=== PATIENT | male | born 1945 | race Caucasian/White ===

== ENCOUNTER 2017-03-27 09:45 | Emergency (ER) | payer MEDICARE, OTHER ==
--- NOTE | 2017-03-27 10:30 | RAD ---
2 VIEWS CHEST: Date: 03/27/17 COMPARISON: 01/30/16. HISTORY: Fell of treadmill at rehab. Chest pain. FINDINGS: Two views of the chest show normal sized cardiomediastinal silhouette. The patient is status post st ernotomy. There is no evidence of consolidation, mass, or pleural effusion. Degenerative changes are seen in the spine. IMPRESSION: No evidence of acute cardiopulmonary disease. POS: [facility]
--- NOTE | 2017-03-27 10:31 | RAD ---
3 VIEWS RIGHT SHOULDER: Date: 03/27/17 COMPARISON: None. HISTORY: Right shoulder pain after falling off a treadmill at rehab. FINDINGS: Three views of the right shoulder show no evidence of acute fracture or dislocation. No degenerative changes are seen. The visualized right thorax is unremarkable. IMPRESSION: No evidence of acute osseous abnormality. POS: [facility]
== END 2017-03-27 12:11 | disposition home or self-care (01) ==
LOC: ERS 09:45
DX: S46.911A Strain of unspecified muscle, fascia and tendon at shoulder and upper arm level, right arm, initial encounter (principal); G47.30 Sleep apnea, unspecified; I48.91 Unspecified atrial fibrillation; E78.5 Hyperlipidemia, unspecified; W17.89XA Other fall from one level to another, initial encounter; Y93.A1 Activity, exercise machines primarily for cardiorespiratory conditioning; Y92.199 Unspecified place in other specified residential institution as the place of occurrence of the external cause
CPT/HCPCS: 71020

== ENCOUNTER 2017-06-17 12:24 | Outpatient (CLI) | payer MEDICARE, OTHER ==
[2017-06-17 13:46] LABS: #Lymphocytes 1.2 thou/uL (1.20-3.40); #Monocytes 0.4 thou/uL (0.11-0.59); #Neutrophils 1.9 thou/uL (1.40-6.50); %Basophils 0.5 % (0.0-1.0); %Eosinophils 1.2 % (0.0-10.0); %Lymphocytes 33.3 % (21.0-51.0); %Monocytes 12.2 % (0.0-10.0); Hematocrit 42.6 % (42.0-52.0); Red Blood Cell (RBC) Count 4.07 mill/uL (4.70-6.10); White Blood Cell (WBC) Count 3.6 thou/uL (4.8-10.8)
[2017-06-17 14:16] LABS: ALT (SGPT) 33 U/L (8-55); AST (SGOT) 27 U/L (5-34); Alkaline Phosphatase 88 U/L (40-150); Anion Gap 10 mmol/L (10-20); BUN (Urea Nitrogen) 26 mg/dL (8.4-25.7); Bilirubin, Total 0.5 mg/dL (0.2-1.2); Calc. Creatinine Clearance 0 mL/min (70-130); Carbon Dioxide 28 mmol/L (23-31); Chloride 108 mmol/L (98-107); Estimated GFR-MDRD 53; Globulin 2.1 g/dL (2.4-3.5)
[2017-06-17 14:37] LABS: Macrocytosis SLIGHT = 6-15 cells (100X) (0-5/hpf); Ovalocytes SLIGHT = 2-5 cells (100X) (0-1/hpf); Polychromasia SLIGHT = 2-3 cells (100X) (0-2/hpf)
== END 2017-06-17 12:25 | disposition home or self-care (01) ==
LOC: LABBT 12:24
PROVIDERS: ATTEND Surgery
DX: Z01.818 Encounter for other preprocedural examination (principal); K40.91 Unilateral inguinal hernia, without obstruction or gangrene, recurrent
CPT/HCPCS: 80053; 85025; 93005; 93010

== ENCOUNTER 2017-06-19 08:41 | Day surgery (SDC) | payer MEDICARE, OTHER ==
[2017-06-17 13:16] VITALS: BMI 26.6
--- NOTE | 2017-06-19 09:06 | HP ---
CHIEF COMPLAINT: Recurrent right inguinal hernia. HISTORY: The patient is a 72-year-old male, who has a recurrent right groin bulge. He had a hernia repair in 1973 in the [employer]. He had mitral valve surgery in September and has been on Coumadin, he h as been off that for the last 5 days. He is here for right inguinal hernia repair. PAST MEDICAL HISTORY: Significant for mitral stenosis, atrial fibrillation, seasonal allergies, hypo thyroidism, and hypertension. PAST SURGICAL HISTORY: Mitral valve repair in 09/2016, he did a laser prostate abdominal hernia repa ir in 1973. He had a UPP 1989, he had a coronary stent in 01/2017, and a right ureter surgery. MEDICATIONS: Include Citrucel, multivitamins, aspirin, Cialis, pravastatin, Lasix, amiodarone, , sodium, digoxin, calcium, vitamin D3, and vitamin B12. FAMILY HISTORY: Both parents are . SOCIAL HISTORY: He is . No tobacco, no alcohol. ALLERGIES: SULFA. PHYSICAL EXAMINATION: VITAL SIGNS: Height 5 foot 7, weight 165. Body mass index 25.4, blood pressure 106/59, pulse of 55. GENERAL: Well-developed, well-nourished male, in no apparent distress. HEENT: Unremarkable. LUNGS: Clear. HEART: Regular rate and rhythm. ABDOMEN: Soft, nontender, good bowel sounds. He has a reducible right inguinal hernia. No left-jessi ed hernia. EXTREMITIES: Good pulses. No pedal edema. ASSESSMENT: Recurrent right inguinal hernia. PLAN: Right inguinal hernia repair with mesh. CONSENT: I have discussed the planned procedure as well as risk of bleeding, infection, recurrence, injury to nerve. He understands and gives informed consent.
[2017-06-19] MEDS ORDERED: Bupivacaine/Epinephrine 0.25% 30 ML VIAL ONE (09:07)
[2017-06-19 09:37] LABS: PTT 29.6 SEC (22.9-36.1); Prothrombin Time 13.5 SEC (12.0-14.7)
[2017-06-19] MEDS ORDERED: CEFAZOLIN/Water 2 GM/20 ML SYRINGE ONE (09:43)
--- NOTE | 2017-06-19 11:07 | OP ---
DATE OF PROCEDURE: 06/19/2017 PREOPERATIVE DIAGNOSIS: Recurrent right inguinal hernia. SURGEON: Gilberto Vail M.D. PROCEDURE PERFORMED: Recurrent right inguinal hernia repair with mesh. INDICATIONS: This is a 72-year-old male who had had a previous right inguinal hernia repair in the and developed a recurrent bulge that was painful in the right groin. He was found to have recur rent hernia. FINDINGS: Recurrent direct inguinal hernia at the pubic tubercle. PROCEDURE: After informed consent was obtained, the patient was taken to the operating room and give n general mask anesthesia, placed in the supine position. His groin was prepped and draped in the us ual fashion. Local anesthesia infiltrated subcutaneously and deep. A transverse right inguinal inci frederick was performed. The subcu divided sharply. The fascia of the external oblique was incised in th e direction of its fibers through the external ring. Spermatic cord was dissected out and surrounded by a Parksley drain. The hernia was found. It was circumscribed and reduced. Reduction was maintai tito utilizing a PHS hernia system placed in the preperitoneal space, tucked under the external obliqu e fascia laterally and then sutured to the pubic tubercle medially. A notch was cut out for the cord . Hemostasis was assured. The external oblique fascia closed over the cord with a running 3-0 Vicry l. Yaya's closed with interrupted 3-0 Vicryl and the skin closed with a running subcuticular 4-0 R apide. Steri-Strips applied. Sterile bandage applied. The patient tolerated the procedure well and transferred to recovery in good condition. Sponge and needle count verified correct x2.
== END 2017-06-19 13:45 ==
LOC: SDC 08:41
PROVIDERS: ATTEND Surgery
PROC: 0YU50JZ Supplement Right Inguinal Region with Synthetic Substitute, Open Approach (ICD-10-PCS; principal; 2017-06-19)
DX: K40.91 Unilateral inguinal hernia, without obstruction or gangrene, recurrent (principal); I48.91 Unspecified atrial fibrillation; E03.9 Hypothyroidism, unspecified; I10 Essential (primary) hypertension; Z88.2 Allergy status to sulfonamides; Z98.890 Other specified postprocedural states; Z95.5 Presence of coronary angioplasty implant and graft; Z79.82 Long term (current) use of aspirin; Z79.899 Other long term (current) drug therapy
CPT/HCPCS: 49520; 85610; 85730; C1781; J0131

== ENCOUNTER 2018-03-09 08:35 | Outpatient (CLI) | payer MEDICARE, OTHER ==
--- NOTE | 2018-03-09 12:05 | RAD ---
TWO VIEWS OF THE CHEST: COMPARISON: 03/27/17. HISTORY: Altered mental status. Atrial fibrillation. FINDINGS: Two views of the chest show a normal-size cardiomediastinal silhouette. The patient is status post s ternotomy and cardiac valve repair. There is no evidence of consolidation, mass, or pleural effusion . IMPRESSION: No evidence of acute cardiopulmonary disease. POS: [facility]
== END 2018-03-09 08:36 | disposition home or self-care (01) ==
LOC: RAD 08:35
PROVIDERS: ATTEND Internal Medicine Cardiovascular Disease
DX: Z03.89 Encounter for observation for other suspected diseases and conditions ruled out (principal); R06.02 Shortness of breath; R07.89 Other chest pain; R05 Cough; I48.0 Paroxysmal atrial fibrillation; D64.9 Anemia, unspecified; E03.9 Hypothyroidism, unspecified; E78.00 Pure hypercholesterolemia, unspecified; G47.33 Obstructive sleep apnea (adult) (pediatric); I10 Essential (primary) hypertension; Z98.890 Other specified postprocedural states
CPT/HCPCS: 71046

== ENCOUNTER 2018-09-20 08:52 | Outpatient (CLI) | payer MEDICARE, OTHER ==
--- NOTE | 2018-09-20 11:38 | RAD ---
CHEST TWO VIEWS: INDICATIONS: Anemia. COMPARISON: 03/09/2018 FINDINGS: Minimal patchy density of the left lateral lung base is stable. The cardiomediastinal silhouette is similar in appearance. Mild linear density overlying the lateral right costophrenic sulcus is again seen. There is a mild anterior wedge compression deformity of the lower thoracic spine, similar in a ppearance. The chest is otherwise stable. IMPRESSION: Stable chest. POS: [facility]
== END 2018-09-20 08:53 | disposition home or self-care (01) ==
LOC: RAD 08:52
PROVIDERS: ATTEND Internal Medicine Cardiovascular Disease
DX: D64.9 Anemia, unspecified (principal); E03.9 Hypothyroidism, unspecified; E78.00 Pure hypercholesterolemia, unspecified; G47.33 Obstructive sleep apnea (adult) (pediatric); I10 Essential (primary) hypertension; Z98.890 Other specified postprocedural states
CPT/HCPCS: 36415; 71046; 80053; 80061; 84443

== ENCOUNTER 2019-02-11 17:56 | Inpatient (IN) | payer MEDICARE, OTHER ==
--- NOTE | 2019-02-11 19:20 | RAD ---
XR Hip Lt 2-3 View History: Hip pain Comparison: None. Findings: Mid cervical left femoral neck fracture with mild impaction. Obturator ring is intact. Impression: Mid cervical left femoral neck fracture.
--- NOTE | 2019-02-11 19:21 | RAD ---
XR Femur Lt 2 View STANDARD History: Fall from standing. Comparison: None. Findings: Mid cervical left femoral neck fracture. Remainder of the femur appears unremarkable given the limitation of the crosstable lateral exam. Impression: Mid cervical left femoral neck fracture.
[2019-02-11] MEDS ORDERED: Ketorolac Tromethamine 30 MG/ML VIAL ONE (19:37)
[2019-02-11 19:57] LABS: #Lymphocytes 0.9 thou/uL (1.20-3.40); #Monocytes 0.4 thou/uL (0.11-0.59); #Neutrophils 3.1 thou/uL (1.40-6.50); %Basophils 0.5 % (0.0-1.0); %Lymphocytes 19.6 % (21.0-51.0); %Monocytes 9.7 % (0.0-10.0); %Neutrophils 69.1 % (42.0-75.0); Hemoglobin 14.2 g/dL (14.0-18.0); Mean Corpuscular HGB CONC 33.9 g/dL (32.0-36.0); Mean Platelet Volume 7.2 fL (7.4-10.4); Platelet Count 187 thou/uL (130-400); RBC Distribution Width 12.1 % (11.5-14.5); Red Blood Cell (RBC) Count 4.07 mill/uL (4.70-6.10); White Blood Cell (WBC) Count 4.4 thou/uL (4.8-10.8)
[2019-02-11 20:06] LABS: Prothrombin Time 13.1 SEC (12.0-14.7)
[2019-02-11 20:16] LABS: ALT (SGPT) 18 U/L (8-55); AST (SGOT) 23 U/L (5-34); Albumin 4.1 g/dL (3.4-4.8); Alkaline Phosphatase 77 U/L (40-150); Anion Gap 14 mmol/L (10-20); BUN (Urea Nitrogen) 31 mg/dL (8.4-25.7); Bilirubin, Total 0.5 mg/dL (0.2-1.2); Calc. Creatinine Clearance 0 mL/min (70-130); Calcium 9.5 mg/dL (7.8-10.44); Carbon Dioxide 21 mmol/L (23-31); Chloride 108 mmol/L (98-107); Estimated GFR-MDRD 42; Globulin 2.7 g/dL (2.4-3.5); Glucose 84 mg/dL (83-110); Potassium 3.9 mmol/L (3.5-5.1); Protein, Total 6.8 g/dL (5.8-8.1); Sodium 139 mmol/L (136-145)
[2019-02-11] MEDS ORDERED: Polyethylene Glycol 3350 17 GM Packet PO PRN (21:31)
[2019-02-11] MEDS ORDERED: Morphine 4 MG/ML VIAL SLOW IVP PRN (21:31)
[2019-02-11] MEDS ORDERED: hydrALAZINE 20 MG/ML VIAL SLOW IVP PRN (21:32)
[2019-02-11] MEDS ORDERED: Dextrose 5% in Water 1,000 ML IV PRN (21:32)
[2019-02-11] MEDS ORDERED: Ondansetron ODT 4 MG TAB PO PRN (21:32)
[2019-02-11] MEDS ORDERED: Ondansetron PF 4 MG/2 ML Vial IVP PRN ×2 (21:32)
[2019-02-11] MEDS ORDERED: Dextrose 50% Abboject 50 ML SYRINGE SLOW IVP PRN (21:32)
[2019-02-11] MEDS ORDERED: Acetaminophen 325 MG TAB PO PRN (21:32)
[2019-02-11] MEDS ORDERED: Ondansetron ODT 4 MG TAB SL PRN (21:32)
[2019-02-11 22:07] LABS: CK (CPK) 164 U/L (30-200); Magnesium 2.3 mg/dL (1.6-2.6); Phosphorus 2.2 mg/dL (2.3-4.7)
[2019-02-11] MEDS: Sodium Chloride 0.9% 1,000 ML IV SCH (22:11)
[2019-02-11] MEDS ORDERED: Polyethylene Glycol 3350 17 GM Packet PO SCH (22:45)
[2019-02-11] MEDS ORDERED: traMADol HCl 50 MG TAB PO PRN ×2 (22:45)
[2019-02-11] MEDS ORDERED: Morphine 2 MG/ML SYRINGE IVP PRN (22:46)
[2019-02-11] MEDS ORDERED: Senokot S 8.6-50 MG TAB PO SCH (23:00)
[2019-02-11] MEDS: Acetaminophen 1,000 MG in Premix Bag 1 BAG IVPB SCH (23:04)
[2019-02-11] MEDS: Cyclobenzaprine 10 MG TAB PO PRN (23:04)
[2019-02-11 23:34] VITALS: BMI 28.1
--- NOTE | 2019-02-12 01:17 | HP ---
REQUESTING PHYSICIAN: Dr. Dalal. ATTENDING SURGEON: Dr. Butler. CONSULTATIONS: Orthopedics, Dr. Jimenez. 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 Patient had immediate pain and discomfort. He was brought to the emergency department, where he underwent evaluation and examination and was noted to have a left femoral neck fracture, at which time we were asked to evaluate the patient for admission and obtain Orthopedic consultation. Patient denied any loss of consciousness or syncopal symptoms prior to his fall. His current chief complaint remains left hip pain. ALLERGIES: MORPHINE, WHICH PATIENT STATES CAUSED HIM SEVERE CONSTIPATION POSTOPERATIVELY ONE TIME, BUT DENIED ANY ANAPHYLACTIC-TYPE REACTIONS. SULFA MEDICATIONS, RASH. CURRENT MEDICATIONS: 1. Amiodarone. 2. Lasix. 3. Pravastatin. 4. Cialis. 5. Multivitamins. 6. Daily baby aspirin, though the patient states he actually only takes three times a week. 7. Patient will take amoxicillin prophylactically for any dental work. PAST MEDICAL HISTORY: Hypertension; hyperlipidemia; mitral valve prolapse; atrial fibrillation, patient states he has been in a sinus rhythm for approximately 2 years; aortic aneurysm; and chronic kidney disease, stage 1. PAST SURGICAL HISTORY: Hernia repair; mitral valve repair, patient states that he did not have replacement, only repair; vasectomy; TURP x2; and cardiac catheterization. SOCIAL HISTORY: Patient denies drug, tobacco, or alcohol use. Lives at home with family. 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 REVIEW OF SYSTEMS: 10-point review of systems is negative, except otherwise stated. PHYSICAL EXAMINATION: VITAL SIGNS: Blood pressure 139/66, heart rate 67, respirations 18, oxygen saturation 95% on room air, and temperature 98.2. GENERAL: The patient is resting comfortably in bed. He is awake, alert, and oriented x3. [place] Coma Scale is 15. HEENT: Head is normocephalic and atraumatic. Eyes, extraocular motion intact. PERRLA bilaterally. Ears are atraumatic without discharge. Nose, atraumatic without discharge. Oropharynx is clear. NECK: Nontender. Trachea is midline. No JVD. CHEST: Clear to auscultation with good inspiratory and expiratory effort. HEART: Regular rate and rhythm. ABDOMEN: Soft, flat, and nontender with active bowel sounds. PELVIS: Stable with tenderness to palpation to the left hip consistent with his fracture. EXTREMITIES: Neurovascularly intact x4. Patient does have a small contusion noted to the lateral aspect of his left knee and contusion noted to the right wrist. Patient demonstrates full active range of motion of that wrist and states it only feels like a bruise. Declines x-ray at this time. BACK: By report atraumatic and nontender. EKG: EKG results show a sinus rhythm. LABORATORY FINDINGS: White blood cell count 4.4, hemoglobin 14.2, hematocrit 41.9, and platelets 187. Sodium 139, potassium 3.9, chloride 108, CO2 of 21, BUN 31, creatinine 1.61, glucose 84, phosphorus 2.2, and magnesium 2.3. LFTs are unremarkable. CK is 164. PT 13 and INR 1.0. RADIOGRAPHIC REPORTS: 1. Radiographs of the left femur show a mid cervical left femoral neck fracture of the left hip. 2. Radiograph of the left hip also shows a mid cervical left femoral neck fracture. ASSESSMENT/PLAN: 1. Status post ground level fall. 2. Left femoral neck fracture. 3. History of atrial fibrillation, on amiodarone, sinus rhythm for past two years. 4. History of aortic aneurysm, stable. 5. History of transurethral resection of the prostate x2. 6. History of hypertension. 7. History of hyperlipidemia. PLAN: Plan will be to admit the patient to the surgical floor. He will be made n.p.o. after midnight. Pain control, pulmonary toilet, gastritis and mechanical VTE prophylaxis. In light of the patient's chronic kidney disease, we will avoid NSAIDS on this patient. Postoperatively, we will have him work with Physical and Occupational Therapy and discuss placement at that time. Job ID: [id number]
[2019-02-12] MEDS: Acetaminophen 1,000 MG in Premix Bag 1 BAG IVPB SCH (05:18)
[2019-02-12] MEDS: Sodium Chloride 0.9% 1,000 ML IV SCH ×2 (06:39→14:03)
[2019-02-12 06:46] LABS: #Eosinphils 0.2 thou/uL (0.0-0.7); #Lymphocytes 0.7 thou/uL (1.20-3.40); #Monocytes 0.5 thou/uL (0.11-0.59); #Neutrophils 2.9 thou/uL (1.40-6.50); %Basophils 0.4 % (0.0-1.0); %Eosinophils 3.5 % (0.0-10.0); %Monocytes 11.9 % (0.0-10.0); %Neutrophils 67.2 % (42.0-75.0); Hemoglobin 12.5 g/dL (14.0-18.0); Mean Corpuscular Hemoglobin 35.1 pg (27.0-31.0); Mean Platelet Volume 7.3 fL (7.4-10.4); Platelet Count 147 thou/uL (130-400); RBC Distribution Width 12.1 % (11.5-14.5); Red Blood Cell (RBC) Count 3.55 mill/uL (4.70-6.10); White Blood Cell (WBC) Count 4.3 thou/uL (4.8-10.8)
[2019-02-12 07:04] LABS: Anion Gap 10 mmol/L (10-20); BUN (Urea Nitrogen) 24 mg/dL (8.4-25.7); Calc. Creatinine Clearance 53 mL/min (70-130); Calcium 8.1 mg/dL (7.8-10.44); Carbon Dioxide 21 mmol/L (23-31); Chloride 113 mmol/L (98-107); Estimated GFR-MDRD 49; Glucose 89 mg/dL (83-110); Potassium 3.9 mmol/L (3.5-5.1); Sodium 140 mmol/L (136-145)
[2019-02-12] MEDS ORDERED: CEFAZOLIN 2 GM in Sodium Chloride 0.9% 100 ML IVPB SCH (08:00)
[2019-02-12] MEDS ORDERED: Acetaminophen 1,000 MG in Premix Bag 1 BAG IVPB SCH ×2 (09:00→12:00)
[2019-02-12] MEDS ORDERED: Senokot S 8.6-50 MG TAB PO SCH (09:00)
[2019-02-12] MEDS: Amiodarone 200 MG TAB PO SCH (09:27)
[2019-02-12] MEDS: Silodosin 4 MG CAP PO SCH (09:27)
[2019-02-12] MEDS: Furosemide 20 MG TAB PO SCH (09:28)
[2019-02-12] MEDS: Senokot S 8.6-50 MG TAB PO SCH ×2 (09:29→20:45)
[2019-02-12] MEDS: Polyethylene Glycol 3350 17 GM Packet PO SCH ×2 (09:29→18:11)
--- NOTE | 2019-02-12 10:26 | CON ---
DATE OF CONSULTATION: 02/12/2019 CHIEF COMPLAINT: Left hip pain. HISTORY OF PRESENT ILLNESS: Mr. Fletcher is a 73-year-old male, who was out mowing his yard yesterday. 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 He tripped and fell. He landed on his left hip. He had pain and was unable to ambulate. X-rays were obtained, which demonstrated a femoral neck fracture. Orthopedics was consulted for this injury. He has been admitted to the General Surgery Service last night. He is currently comfortable. He is n.p.o. in preparation for surgery. He has been doing cardiac rehab after mitral valve surgery last September. CURRENT MEDICATIONS: Include; 1. Amiodarone. 2. Lasix. 3. Pravastatin. 4. Cialis. 5. Multivitamins. 6. Aspirin daily. PAST MEDICAL HISTORY: Hypertension, hyperlipidemia, mitral valve prolapse, atrial fibrillation, aortic aneurysm, and chronic kidney disease. PAST SURGICAL HISTORY: Hernia repair, mitral valve repair, vasectomy, TURP, and cardiac catheterization. SOCIAL HISTORY: The patient denies tobacco, alcohol, or drug use. He lives at home. He is active and independent. PHYSICAL EXAMINATION: GENERAL: The patient is alert and oriented, sitting upright, in no apparent distress. Breathing comfortably. ABDOMEN: Soft, nontender, and nondistended. HEENT: Normocephalic, atraumatic. MUSCULOSKELETAL: The patient's left leg has shortening and pain with motion. He is neurovascularly intact distally in the foot and ankle. Skin is intact. Atraumatic upper extremities. X-RAYS: Images of the pelvis and left hip demonstrated displaced femoral neck fracture of the left hip. IMPRESSION: Left femoral neck fracture, acute. PLAN: At this point, the patient will need to go to the operating room. We will plan for hemiarthroplasty of the hip to restore the ability to mobilize and provide pain relief. Goal will be to promote early mobilization. Risks have been reviewed including dislocation. We have gone over posterior hip precautions. Other risks include infection, pain, scarring, nerve or vascular injury, DVT, PE, and others. He wants to proceed. Job ID: [id number]
[2019-02-12] MEDS: Acetaminophen 325 MG TAB PO SCH ×3 (12:18→23:26)
[2019-02-12] MEDS ORDERED: ceFAZolin Sodium (SDC) 2 GM/100 ML BAG ONE (12:36)
[2019-02-12] MEDS ORDERED: Neomycin-Polymyxin 1 ML AMP ONE ×3 (13:11→13:15)
[2019-02-12] MEDS ORDERED: Fentanyl 100 MCG/2 ML VIAL ONE (13:12)
--- NOTE | 2019-02-12 13:51 | PRG ---
DATE OF SERVICE: 02/12/2019 SUBJECTIVE: This is a 73-year-old gentleman, who was admitted after a fall at home resulting left hip fracture. The patient is scheduled for left hip fracture fixation by orthopedic surgeon, Dr. Jimenez. This morning, we saw him before surgery. He raised no concern. His pain is well controlled. He developed no fever or shortness of breath. PHYSICAL EXAMINATION: GENERAL: The patient resting comfortably in bed, awake, and alert, oriented x3. VITAL SIGNS: Temperature 97, heart rate 52, respiratory rate 14, O2 sat 95% on room air, and blood pressure 99/59. LUNGS: Clear bilaterally. HEART: Regular rate and rhythm. ABDOMEN: Soft and nondistended. EXTREMITIES: Neurovascularly intact x4. NEUROLOGIC: No focal neurological deficits. ASSESSMENT: 1. Status post ground level fall. 2. Left femoral neck fracture. 3. History of atrial fibrillation, on amiodarone. 4. Aortic aneurysm, stable. 5. History of transurethral resection of the prostate. 6. Hypertension. PLAN: The patient will go to the OR today for left hip fracture open reduction and internal fixation. Continue pain control after the surgery. Continue DVT and gastrointestinal prophylaxis. Patient was seen and evaluated with Dr Butler on round this morning Job ID: [id number] MTDD
[2019-02-12] MEDS ORDERED: Tranexamic Acid 1,000 MG/10 ML VIAL ONE (14:11)
[2019-02-12] MEDS ORDERED: Promethazine HCl 25 MG/ML VIAL IM PRN (15:11)
[2019-02-12] MEDS ORDERED: Promethazine HCl 25 MG/ML VIAL SLOW IVP PRN (15:11)
[2019-02-12] MEDS ORDERED: Meperidine HCl/PF 25 MG/ML VIAL SLOW IVP PRN (15:11)
[2019-02-12] MEDS ORDERED: Ondansetron HCl/PF 4 MG/2 ML Vial IVP PRN (15:11)
--- NOTE | 2019-02-12 15:31 | RAD ---
Exam: Single view of the pelvis HISTORY: Status post left hip arthroplasty COMPARISON: None FINDINGS: A single view the pelvis shows no evidence of acute fracture or dislocation. The patient is status post left hip arthroplasty without perihardware lucency or fracture. Air in the soft tissues and overlying gin are from recent surgery. No degenerative changes seen in the right hip. IMPRESSION: Status post left hip arthroplasty without evidence of complication.
--- NOTE | 2019-02-12 15:31 | RAD ---
EXAM: Single view of the left hip HISTORY: Status post left hip arthroplasty COMPARISON: None FINDINGS: Patient is status post left hip arthroplasty without perihardware lucency or fracture. Air in the soft tissues and overlying gin are from recent surgery. IMPRESSION: Status post left hip arthroplasty without evidence of complication.
[2019-02-12] MEDS ORDERED: Esmolol 100 MG/10 ML VIAL ONE (15:54)
[2019-02-12] MEDS ORDERED: Esmolol 100 MG/10 ML VIAL IVP SCH (16:00)
[2019-02-12] MEDS ORDERED: Metoprolol Tartrate 5 MG/5 ML VIAL IVP PRN (16:00)
[2019-02-12] MEDS ORDERED: Metoprolol Tartrate 5 MG/5 ML VIAL ONE (16:08)
--- NOTE | 2019-02-12 18:27 | OP ---
DATE OF PROCEDURE: 02/12/2019 PROCEDURE PERFORMED: Left hip hemiarthroplasty. PREOPERATIVE DIAGNOSIS: Left femoral neck fracture. POSTOPERATIVE DIAGNOSIS: Left femoral neck fracture. COMPLICATIONS: None. ESTIMATED BLOOD LOSS: 200 mL. EXTRUSION MANAGER: Julia Camarena PA-C. IMPLANTS: DePuy size 7 basic press-fit Pacific stem, size 52 mm bipolar shell and a +5 femoral head. INDICATIONS: Mr. Fletcher is a 73-year-old male, who fell and fractured the left femoral neck. He was indicated for hemiarthroplasty of the hip to restore the ability to mobilize and promote healing. Goal of surgery is to prevent complications of prolonged bedrest. The patient has elected to proceed with the operation. Risks do include instability of the hip, nerve or vascular injury, infection, wound complications, and others. DESCRIPTION OF PROCEDURE: Mr. Fletcher was identified in the preoperative holding area. His left lower extremity was marked. He was given intravenous antibiotics. He was carried to the operating room and positioned in the lateral position after general anesthesia was induced. A multidisciplinary time-out was performed. The left lower extremity was prepped and draped in sterile fashion. We began the procedure with a posterior approach to the hip. We dissected down through the subcutaneous tissues to the fascia, which was incised. We exposed the underlying short external rotators of the hip. We subperiosteally divided these from the proximal femur. We then performed a capsulotomy. This exposed the femoral neck fracture. We removed the femoral head. We then performed a new osteotomy of the femoral neck. At this point, we cleared the acetabulum of any bony fragments and irrigated. Next, we proceeded to prepare the proximal femur. We reamed and then broached. We worked up to a size 7, which gave a good fit. We trialed off our size 7 stem. A +5 femoral head restored leg length and was stable. We removed our trial components. We then implanted our final stem and impacted our final bipolar shell. We again reduced the hip. We thoroughly irrigated. We then closed with #5 Ethibond suture through drill holes in the piriformis and capsule was repaired. We closed with 2-0 Vicryl suture and then layered closure. A sterile dressing was applied. At this point, the patient was taken to the recovery room. Job ID: [id number]
[2019-02-12] MEDS: Cyclobenzaprine 10 MG TAB PO PRN (20:44)
[2019-02-12] MEDS: CEFAZOLIN 2 GM, Admixture Fee 1 EACH in Sodium Chloride 0.9% 100 ML IVPB SCH (20:44)
[2019-02-12] MEDS: Atorvastatin Calcium 10 MG TAB PO SCH (20:45)
[2019-02-13 04:13] LABS: #Lymphocytes 0.4 thou/uL (1.20-3.40); #Monocytes 0.4 thou/uL (0.11-0.59); #Neutrophils 6.5 thou/uL (1.40-6.50); %Eosinophils 0.1 % (0.0-10.0); %Lymphocytes 5.5 % (21.0-51.0); %Neutrophils 89.5 % (42.0-75.0); Hemoglobin 11.6 g/dL (14.0-18.0); Mean Corpuscular HGB CONC 33.1 g/dL (32.0-36.0); Mean Corpuscular Hemoglobin 34.6 pg (27.0-31.0); Mean Platelet Volume 7.4 fL (7.4-10.4); Platelet Count 133 thou/uL (130-400); RBC Distribution Width 12.1 % (11.5-14.5); Red Blood Cell (RBC) Count 3.36 mill/uL (4.70-6.10); White Blood Cell (WBC) Count 7.3 thou/uL (4.8-10.8)
[2019-02-13 04:36] LABS: Anion Gap 11 mmol/L (10-20); BUN (Urea Nitrogen) 21 mg/dL (8.4-25.7); Calc. Creatinine Clearance 53 mL/min (70-130); Calcium 7.7 mg/dL (7.8-10.44); Carbon Dioxide 22 mmol/L (23-31); Chloride 110 mmol/L (98-107); Estimated GFR-MDRD 48; Glucose 157 mg/dL (83-110); Magnesium 2.1 mg/dL (1.6-2.6); Phosphorus 3.2 mg/dL (2.3-4.7); Potassium 4.8 mmol/L (3.5-5.1); Sodium 138 mmol/L (136-145)
[2019-02-13] MEDS: Acetaminophen 325 MG TAB PO SCH ×3 (05:15→18:06)
[2019-02-13] MEDS: CEFAZOLIN 2 GM, Admixture Fee 1 EACH in Sodium Chloride 0.9% 100 ML IVPB SCH ×3 (05:16→18:38)
--- NOTE | 2019-02-13 08:00 | PRG ---
DATE OF SERVICE: 02/13/2019 SUBJECTIVE: The patient is currently on the surgical floor. He is status post ground level fall, in which he sustained a left femoral neck fracture. He underwent left hip hemiarthroplasty today. He tolerated that procedure well finished and him getting to the floor, he did not work with Physical and Occupational Therapy today. The patient is tolerating a diet. His pain is controlled. OBJECTIVE: VITAL SIGNS: Stable. The patient is afebrile. The patient is showing some hypotension without tachycardia. Nurses state that when he is awaken, his systolic blood pressure is above 100 by chance timing, his blood pressures been taken the last three times when he has been asleep. We will continue to monitor this. GENERAL: The patient is resting comfortably in bed. He is in no acute distress. Appears comfortable. LUNGS: Clear to auscultation bilaterally. HEART: Regular rate and rhythm. ABDOMEN: Soft, flat, nontender with active bowel sounds. EXTREMITIES: Postop dressing is clean, dry, and intact on his left hip. His extremities are neurovascularly intact x4. ASSESSMENT: 1. Status post ground level fall. 2. Status post left hip hemiarthroplasty, postoperative day 1. PLAN: Plan will be to continue supportive care, physical and occupational therapy. Discussed placement, likely inpatient rehab. Job ID: [id number]
[2019-02-13] MEDS ORDERED: Polyethylene Glycol 3350 17 GM Packet PO PRN (08:30)
[2019-02-13] MEDS: Senokot S 8.6-50 MG TAB PO SCH ×2 (09:02→21:09)
[2019-02-13] MEDS: Amiodarone 200 MG TAB PO SCH (09:02)
[2019-02-13] MEDS: Furosemide 20 MG TAB PO SCH (09:02)
[2019-02-13] MEDS: Polyethylene Glycol 3350 17 GM Packet PO SCH (09:02)
[2019-02-13] MEDS: Silodosin 4 MG CAP PO SCH (09:35)
--- NOTE | 2019-02-13 17:04 | PRG ---
DATE OF SERVICE: 02/13/2019 This is Omari Black PA-C dictating a report for Gus Butler DO. SUBJECTIVE: This is a 73-year-old male, who came in for evaluation of left hip pain after ground level fall. The patient underwent left hip hemiarthroplasty and postop day 1. The patient reported doing good. Pain is well controlled. He developed no fever or shortness of breath. He is able to urinate adequate. He tolerated with regular diet. Otherwise, he voiced no concerns. OBJECTIVE: GENERAL: The patient is lying down, comfortable in bed, in no distress. VITAL SIGNS: Temperature 97.7, pulse 61, respiratory rate 16, O2 saturation 96 % on room air, and blood pressure 101/62. LUNGS: Clear bilaterally. HEART: Regular rate and rhythm. ABDOMEN: Soft and nondistended. EXTREMITIES: Dressing clean, dry, and intact. Neurovascularly intact x4. ASSESSMENT: 1. Status post ground level fall. 2. Status post left hip hemiarthroplasty, postoperative day 1. PLAN: Continue supportive care. Continue pain control. Continue gastritis and add DVT prophylaxis with aspirin 81mg BID . The patient decided to go to rehabilitation facility. Post Anesthesia Room Nurse is working for his placement in rehabilitation facility. The patient was seen and evaluated with Dr. Butler on round this morning. Job ID: [id number] MTDD
[2019-02-13] MEDS: Cyclobenzaprine 10 MG TAB PO PRN (21:05)
[2019-02-13] MEDS: Cyanocobalamin (Vitamin B-12) 1,000 MCG TAB PO SCH (21:07)
[2019-02-13] MEDS: Atorvastatin Calcium 10 MG TAB PO SCH (21:08)
[2019-02-13] MEDS: Calcium Carbonate + Vit D 1 TAB PO SCH (21:08)
[2019-02-13] MEDS: Aspirin 81 mg Enteric Coated Tablet PO SCH (21:08)
[2019-02-14] MEDS: Acetaminophen 325 MG TAB PO SCH ×4 (00:50→17:28)
--- NOTE | 2019-02-14 02:33 | PRG ---
DATE OF SERVICE: 02/14/2019 SUBJECTIVE: The patient remains on the surgical floor. He is status post a ground level fall which sustained a left femoral neck fracture. The patient underwent left hip hemiarthroplasty. He is postop day 2 from this. He worked with physical and occupational therapy today. His pain is controlled. He is tolerating a diet. OBJECTIVE: GENERAL: The patient is resting comfortably in bed. He is awake, alert, and oriented x3. [place] Coma Scale is 15. VITAL SIGNS: Vital signs are stable. The patient is afebrile and the patient reports that his systolic blood pressure being in the 100s and 90s is not unusual for him. He denies any syncopal type symptoms when his blood pressure is like this. EXTREMITIES: Neurovascularly intact. Postop dressing is clean, dry, and intact. ASSESSMENT AND PLAN: 1. Status post ground level fall. 2. Status post left hip hemiarthroplasty postop day 2. Plan will be to continue supportive care, physical and occupational therapy. While I was with the patient, Case Management came in and they discussed placement to the [facility], which the patient I believe agreed to and they will work on this process versus continuation of care. Job ID: [id number]
[2019-02-14] MEDS: Aspirin 81 mg Enteric Coated Tablet PO SCH (08:48)
[2019-02-14] MEDS: Amiodarone 200 MG TAB PO SCH (08:48)
[2019-02-14] MEDS: Polyethylene Glycol 3350 17 GM Packet PO SCH (08:48)
[2019-02-14] MEDS: Silodosin 4 MG CAP PO SCH (08:48)
[2019-02-14] MEDS: Calcium Carbonate + Vit D 1 TAB PO SCH (08:48)
[2019-02-14] MEDS: Cyanocobalamin (Vitamin B-12) 1,000 MCG TAB PO SCH (08:48)
[2019-02-14] MEDS: Furosemide 20 MG TAB PO SCH (08:49)
[2019-02-14] MEDS: Senokot S 8.6-50 MG TAB PO SCH (08:49)
[2019-02-14] MEDS: Cyclobenzaprine 10 MG TAB PO PRN (08:58)
[2019-02-14] MEDS ORDERED: Multivit, Therapeutic 1 TAB PO SCH (09:00)
[2019-02-14] MEDS ORDERED: Aspirin 81 mg Enteric Coated Tablet PO SCH (09:00)
[2019-02-14] MEDS ORDERED: traMADol HCl 50 MG TAB PO SCH (14:00)
[2019-02-14 15:23] VITALS: BP 103/65; TEMP 98.1
--- NOTE | 2019-02-14 15:24 | PRG ---
DATE OF SERVICE: 02/14/2019 This is Omari Black PA-C dictating a report for Gus Butler DO. SUBJECTIVE: This 73-year-old male who comes in for evaluation of left hip hemiarthroplasty. On postoperative day #2, the patient reported doing good. Pain is well controlled . OBJECTIVE: GENERAL: The patient is comfortable with no distress. VITAL SIGNS: Temperature 98, heart rate 81, respiratory rate 18, O2 saturation 95 on room air, and blood pressure 100/67. LUNGS: Clear bilaterally. HEART: Regular rate and rhythm. ABDOMEN: Soft, nondistended. EXTREMITIES: Dressing is clean, dry, intact. Neurovascularly intact x4. ASSESSMENT: 1. Status post ground level fall. 2. Status post left hip hemiarthroplasty of left hip fracture, postoperative day #2. PLAN: Continue supportive care, continue gastritis , DVT prophylaxis, rubber worker is working for patient's placement in rehab facility. The patient was seen and evaluated with Dr Butler on round this morning. Job ID: [id number] MTDD
== END 2019-02-14 18:55 | DRG 470 ==
LOC: ERS 17:56 → SURG A 21:23
PROVIDERS: ADMIT Surgery; ATTEND Surgery
PROC: 0SRS0JA Replacement of Left Hip Joint, Femoral Surface with Synthetic Substitute, Uncemented, Open Approach (ICD-10-PCS; principal; 2019-02-12)
DX: S72.032A Displaced midcervical fracture of left femur, initial encounter for closed fracture (principal); G47.33 Obstructive sleep apnea (adult) (pediatric); I48.91 Unspecified atrial fibrillation; I71.4 Abdominal aortic aneurysm, without rupture; E78.00 Pure hypercholesterolemia, unspecified; E78.5 Hyperlipidemia, unspecified; I12.9 Hypertensive chronic kidney disease with stage 1 through stage 4 chronic kidney disease, or unspecified chronic kidney disease; N18.1 Chronic kidney disease, stage 1; I34.1 Nonrheumatic mitral (valve) prolapse; W18.30XA Fall on same level, unspecified, initial encounter; Z98.52 Vasectomy status; Z88.2 Allergy status to sulfonamides; Z88.5 Allergy status to narcotic agent; Z79.899 Other long term (current) drug therapy; Z79.82 Long term (current) use of aspirin
CPT/HCPCS: 36415; 72170; 80048; 80053; 82550; 83735; 84100; 85025; 85610; 93005; J0131; J0690; J1885; J3010; J3490

== ENCOUNTER 2019-03-28 09:57 | Outpatient (CLI) | payer MEDICARE, OTHER ==
--- NOTE | 2019-03-28 11:12 | CT ---
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 The brain is not visualized superior to the axial level of the septum pellucidum. The frontal sinuses, sphenoid sinuses, ethmoid air cells, left maxillary sinus, and bilateral mastoid air cells appear well aerated. There is mild mucosal thickening involving the inferior anterior aspect of the right maxillary sinus. No acute osseous abnormality is evident. There is exophthalmos on the left. There is hazy increased density within the intraconal fat on the l eft with prominent vascular structures within the intraconal fat on the left. No retrobulbar hematoma or mass lesion is seen. The globes demonstrate symmetric size and density. The superior opht halmic vein appears mildly prominent on the left. In addition, the cavernous sinus on the left is slightly prominent with a subtle convex margin on the left posteriorly when compared to the right. IMPRESSION: There is exophthalmos on the left with hazy increased density within the intraconal fat o n the left. There is a suggestion of increased number and size of vessels within the intraconal fat on the left, including the superior ophthalmic vein. In addition, there is subtle bulging of the late ral margin of the cavernous sinus on the left. There is no mass lesion or retrobulbar hematoma. 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 CODE T
[2019-03-28] MEDS ORDERED: Iopamidol 370 76% 100 ML VIAL ONE (13:01)
== END 2019-03-28 09:58 | disposition home or self-care (01) ==
LOC: CT 09:57
PROVIDERS: ATTEND Ophthalmology
DX: H05.242 Constant exophthalmos, left eye (principal)
CPT/HCPCS: 70482; 82565; Q9967

== ENCOUNTER → 2019-05-06 | Day surgery (SDC) | payer MEDICARE, OTHER ==
[2019-05-05 10:23] VITALS: BMI 27.3
[~2019-05-06] MED LIST: PROPOFOL 20 ML ONE; PROPOFOL 200 MG/20 ML VIAL ONE
--- NOTE | 2019-05-06 10:41 | OP ---
DATE OF PROCEDURE: 05/06/2019 PROCEDURE PERFORMED: Transesophageal echocardiogram. INDICATIONS FOR PROCEDURE: A 73-year-old gentleman with mitral valve repair. DESCRIPTION OF PROCEDURE: The patient was taken to the PACU. The patient sedated by Anesthesiology. A transesophageal probe was placed into the distal esophagus and stomach. Echocardiographic images were obtained. The transesophageal probe was removed. FINDINGS: 1. Normal left systolic function. 2. Marked left atrial enlargement number. 3. Status post mitral valve repair. 4. Mild mitral regurgitation. 5. Mild aortic regurgitation. 6. Moderate to severe tricuspid regurgitation. 7. The left atrial appendage was not ligated. 8. Atherosclerotic debris in the descending aorta. IMPRESSION: Status post mitral valve repair with the left atrial appendage not ligated. Job ID: [id number]
--- NOTE | 2019-05-06 11:25 | DIS ---
DATE OF ADMISSION: 05/06/2019 DATE OF DISCHARGE: 05/06/2019 Mr. Fletcher underwent transesophageal echo to assess the left atrial appendage ligation performed during mitral valve repair. The left atrial appendage was open. Therefore, the decision was made that he should be placed on anticoagulation. He is very insistent on trying to get off the amiodarone and so that will be discontinued as well as aspirin (normal coronary arteries). He will instead start Eliquis 5 mg b.i.d. Job ID: [id number]
== END ==
LOC: CCL 06:02
PROVIDERS: ATTEND Internal Medicine Cardiovascular Disease
PROC: B245ZZ4 Ultrasonography of Left Heart, Transesophageal (ICD-10-PCS; principal; 2019-05-06)
DX: I08.3 Combined rheumatic disorders of mitral, aortic and tricuspid valves (principal); I70.0 Atherosclerosis of aorta; G47.33 Obstructive sleep apnea (adult) (pediatric); E78.5 Hyperlipidemia, unspecified; I10 Essential (primary) hypertension; I48.91 Unspecified atrial fibrillation; N40.0 Benign prostatic hyperplasia without lower urinary tract symptoms; Z79.52 Long term (current) use of systemic steroids; Z79.899 Other long term (current) drug therapy; Z88.2 Allergy status to sulfonamides; Z88.5 Allergy status to narcotic agent; Z98.890 Other specified postprocedural states
CPT/HCPCS: 93312; J2704

== ENCOUNTER → 2019-06-09 | Day surgery (SDC) | payer MEDICARE, OTHER ==
[2019-06-08 18:28] VITALS: BMI 26.3
[~2019-06-09] MED LIST changes: -PROPOFOL 20 ML ONE; -PROPOFOL 200 MG/20 ML VIAL ONE; +PROPOFOL 40 ML ONE
--- NOTE | 2019-06-09 15:23 | OP ---
DATE OF PROCEDURE: 06/09/2019 PROCEDURE PERFORMED: Transesophageal echocardiogram. INDICATION: A 74-year-old gentleman with paroxysmal atrial fibrillation. DESCRIPTION OF PROCEDURE: The patient was taken to the PACU. The patient was sedated by Anesthesiology. A transesophageal probe was placed into the distal esophagus and stomach. Echocardiographic images were obtained. The transesophageal probe was removed. FINDINGS: 1. Normal left ventricular systolic function. 2. Normal aortic valve. 3. Status post mitral valve repair. 4. Mild aortic regurgitation. 5. Mild mitral regurgitation. 6. Mild tricuspid regurgitation. 7. No thrombus is noted in the left atrium or left atrial appendage. 8. Atherosclerotic debris in the descending aorta. IMPRESSION: No formed thrombus in the left atrium or left atrial appendage. Job ID: [id number]
--- NOTE | 2019-06-09 15:49 | OP ---
DATE OF PROCEDURE: 06/09/19 SURGEON: Ravinder James M.D. PROCEDURE: Electrical cardioversion. Patient remained sedated after transesophageal echo. With 200 joules of synchronized energy, he conve rted to an accelerated junctional rhythm with a rate of approximately 70 to 80 per minute. Eventually , this slowed and he returned to sinus rhythm.
== END ==
LOC: CCL 05:52
PROVIDERS: ATTEND Internal Medicine Cardiovascular Disease
PROC: B24BZZ4 Ultrasonography of Heart with Aorta, Transesophageal (ICD-10-PCS; principal; 2019-06-09)
PROC: 5A2204Z Restoration of Cardiac Rhythm, Single (ICD-10-PCS; 2019-06-09)
DX: I48.0 Paroxysmal atrial fibrillation (principal); I08.3 Combined rheumatic disorders of mitral, aortic and tricuspid valves; I10 Essential (primary) hypertension; E78.5 Hyperlipidemia, unspecified; G47.33 Obstructive sleep apnea (adult) (pediatric); Z79.01 Long term (current) use of anticoagulants; Z79.899 Other long term (current) drug therapy; Z88.2 Allergy status to sulfonamides; Z88.5 Allergy status to narcotic agent; Z88.8 Allergy status to other drugs, medicaments and biological substances
CPT/HCPCS: 92960; 93005; 93010; 93312; J2704

== ENCOUNTER 2019-06-19 09:15 | Inpatient (IN) | payer MEDICARE, OTHER ==
[2019-06-19] MEDS ORDERED: Aspirin Chewable 81 MG TAB ONE (09:38)
[2019-06-19 09:45] LABS: Hemoglobin 12.4 g/dL (14.0-18.0); Mean Corpuscular HGB CONC 33.9 g/dL (32.0-36.0); Mean Corpuscular Hemoglobin 31.9 pg (27.0-31.0); Mean Corpuscular Volume 94.3 fL (78.0-98.0); Mean Platelet Volume 7.2 fL (7.4-10.4); Platelet Count 155 thou/uL (130-400); RBC Distribution Width 15.5 % (11.5-14.5); Red Blood Cell (RBC) Count 3.87 mill/uL (4.70-6.10)
[2019-06-19 09:58] LABS: Band 1 % (5-11); Eosinophils 3 % (0-10); Hypersemented Neutrophil SLIGHT; Large Platelets SLIGHT; Lymphocytes 20 % (21-51); MDiff Complete? YES; Monocytes 4 % (0-10); Neutrophil 72 % (42-75); Nucleated RBC 8 % (0); Platelet Morphology Comment Appears Adequate; Vacuoles SLIGHT; White Blood Cell (WBC) Count 2.7 thou/uL (4.8-10.8)
[2019-06-19 10:06] LABS: ALT (SGPT) 50 U/L (8-55); AST (SGOT) 27 U/L (5-34); Alkaline Phosphatase 58 U/L (40-110); Anion Gap 17 mmol/L (10-20); BUN (Urea Nitrogen) 43 mg/dL (8.4-25.7); Calc. Creatinine Clearance 0 mL/min (70-130); Calcium 8.6 mg/dL (7.8-10.44); Carbon Dioxide 17 mmol/L (23-31); Chloride 107 mmol/L (98-107); Estimated GFR-MDRD 33; Globulin 2.2 g/dL (2.4-3.5); Glucose 142 mg/dL (83-110); Protein, Total 5.2 g/dL (5.8-8.1); Sodium 136 mmol/L (136-145)
[2019-06-19 10:26] LABS: CKMB 1.8 ng/mL (0-6.6)
--- NOTE | 2019-06-19 12:36 | RAD ---
PORTABLE UPRIGHT FRONTAL CHEST RADIOGRAPH; Date: 06/19/19 COMPARISON: 09/20/18. HISTORY: Shortness of breath. Weakness. Atrial fibrillation. FINDINGS: Midline sternotomy wires a present. Round density overlying the cardiac silhouette suggest prior card iac valvuloplasty. No pneumothorax, pleural fluid, lobar consolidation, or alveolar edema. IMPRESSION: No acute findings. POS: OFF
[2019-06-19 14:28] LABS: CKMB 1.3 ng/mL (0-6.6)
[2019-06-19] MEDS ORDERED: Acetaminophen 650 MG Suppository PR PRN (17:20)
[2019-06-19] MEDS ORDERED: Acetaminophen 325 MG TAB PO PRN (17:20)
[2019-06-19 18:28] LABS: Lactic Acid 2.5 mmol/L (0.5-2.2)
[2019-06-19] MEDS: Sodium Chloride 0.9% 1,000 ML IV SCH (18:41)
--- NOTE | 2019-06-19 18:43 | HP ---
TIME OF ASSESSMENT: 1600 hours. CHIEF COMPLAINT: Generalized weakness. HISTORY OF PRESENT ILLNESS: Mr. Fletcher is a 74-year-old gentleman, who presents to the Emergency Department due to gradually worsening weakness, which he states has been worsening over the course of the last week. He recently underwent electrical cardioversion on June 09, 2019 for atrial fibrillation. The patient states the following day, he had recurrent atrial fibrillation on June 10, 2019, at which time, Dr. James decided to start him on metoprolol 50 mg twice daily. He states since then he has been gradually feeling worse. He has also developed oral thrush, which has caused difficulty with eating and drinking due to the pain associated with it. He has been started on nystatin a few days ago. He reports feeling generally weak and with chills. Denies having any fevers. His has been hospitalized and is currently in room 294. The patient apparently has had a difficult time coping at home on his own. He denies having any chest pain. Reports feeling some shortness of breath and apparently does use a CPAP at night, but does not use any oxygen at home. Denies any cough or hemoptysis. Denies any nausea or vomiting. Has not had any abdominal pain. Reports he is urinating less than he normally does. Usually he urinates every 2 hours. In the last couple of days, he is urinating every 4 to 6 hours. In the Emergency Department, he was noted to be hypotensive with a blood pressure of 86/58. He was given 2 L of normal saline and his systolic blood pressure improved to 106. His temperature has been normal. He had an EKG done showing atrial fibrillation with controlled ventricular response and a heart rate of 93. Laboratory studies were done and he was noted to have an indeterminate troponin of 0.042. Repeat troponin was 0.030. BNP slightly bumped at 260.3. His white count was 2.7, hemoglobin 12.4, hematocrit 36.5, platelets 155, and neutrophils 72%. Sodium 136, potassium 5, chloride 107, carbon dioxide 17, anion gap 17, BUN 43, creatinine 1.96, and GFR 33. Renal function appears slightly worse from baseline. CK-MB normal at 1.3. He had a chest x-ray done that showed no acute findings. The patient is given 324 mg of aspirin due to the indeterminate troponin. He has not had any complaints of chest pain. PAST MEDICAL HISTORY: 1. Sleep apnea. 2. Observation for right lung and left lung nodule. 3. Right kidney cyst. 4. Erectile dysfunction. 5. Atrial fibrillation. 6. Thoracic aortic ascending aneurysm. 7. Wzkisovb-df-dtlrtx MR. 8. Hyperlipidemia. 9. Hypertension. 10. History of kidney stones. 11. History of gallstones. PAST SURGICAL HISTORY: 1. Status post mitral valve repair with JANETH ligation. 2. Distal lateral wall fixed defect in March 2013. 3. Status post electrocardioversion for atrial fibrillation. 4. Abdominal hernia repair in 1972. 5. Cataract surgery to both eyes. 6. Cyst removed from inside of lower lip in 2005. 7. Cyst removed from neck in 1979. 8. Cyst removed from back in 1977. 9. Right inguinal hernia repair. 10. Tooth extraction in 2008. 11. UPPP in 1999. 12. Vasectomy 1973. 13. Left total hip replacement after fracture in February 2019. 14. Prostate surgery. SOCIAL HISTORY: The patient lives with his . Normally fully independent and mobilizes without the use of any assistive devices. Denies any tobacco use, alcohol consumption, or illicit drug use. FAMILY HISTORY: Paternal history of diabetes type 2. ALLERGIES: MORPHINE, PREDNISONE, AND SULFA. CURRENT MEDICATIONS: 1. Rapaflo. 2. Finasteride. 3. Amiodarone. 4. Vitamin B12. 5. Flexeril. PHYSICAL EXAMINATION: GENERAL: The patient appears generally unwell, but in no acute distress. VITAL SIGNS: Temperature 97.8, pulse 73, respirations 20, O2 saturation 96% on 2 L of oxygen, and blood pressure 91/60, repeat showed a systolic of 106. HEENT: Normocephalic and atraumatic. Pupils are equal, round, and reactive to light. Scleral icterus. Oropharynx is notable for evidence of thrush on his tongue. No posterior pharyngeal erythema or exudates. NECK: Supple. Full range of motion. LUNGS: Clear to auscultation bilaterally without any wheezes, rales, or rhonchi. CARDIAC: Irregularly irregular. No audible murmurs. ABDOMEN: Soft, nontender, and nondistended. Normoactive bowel sounds present. No guarding or rigidity. No renal angle tenderness. EXTREMITIES: No lower leg swelling or edema. Peripheral pulses intact. NEUROLOGIC: Alert and oriented x3. No neuro deficits. SKIN: Warm and dry. INVESTIGATIONS: As mentioned above in HPI. IMPRESSION AND PLAN: Mr. Fletcher is a 74-year-old gentleman, who is being admitted for management of the following. 1. Generalized weakness. The patient attributes this to being started on metoprolol for atrial fibrillation; however, it appears he has had decreased oral intake and has developed thrush, which has led to poor oral intake likely contributing to his generalized weakness. He denies any temperatures at home, but has been experiencing chills. I have added a lactic acid and procalcitonin to his labs and have added a urinalysis to assess for any underlying urinary tract infection causing the weakness. I have also added a respiratory viral panel. Walking Program consulted. 2. Atrial fibrillation. The patient had an attempted cardioversion on June 09 and due to recurrent atrial fibrillation, was started on metoprolol 50 mg by mouth twice daily on June 10. He states he has been feeling badly since he started this medication. He is currently in rate controlled atrial fibrillation and remains on Eliquis. We will hold metoprolol and consult was placed to Cardiology. He sees Dr. James. 3. Oral thrush. We will give Magic mouth wash with nystatin. 4. Acute on chronic renal insufficiency. The patient has a creatinine of 1.96 compared to 1.50 in February. He has received 2 L of normal saline. We will continue gentle hydration. 5. Hypotension. As mentioned, the patient has received fluids. Blood pressure has improved following fluids and it does tend to run in the high 90s to low 100s. We will hold metoprolol and await further recommendations by Cardiology. Continue to monitor blood pressure. 6. Hyperlipidemia. Resume home medications once verified. 7. Gastrointestinal prophylaxis. Resume Protonix, which he takes at home. 8. Deep venous thrombosis prophylaxis. The patient is already on anticoagulation. Mechanical sequential compression devices ordered as well as walking program. 9. Code status full. His surrogate decision maker is his , Kate Fletcher. The patient's case discussed with attending, who agrees with plan of care as described above. Job ID: [id number]
[2019-06-19 19:07] LABS: Bilirubin Negative (Negative); Blood, Urine Negative (Negative); Clarity Clear (Clear); Glucose, Urine (Dipstick) 30 mg/dL (Negative); Leukocyte Negative Leu/uL (Negative); Nitrite Negative (Negative); Protein, Urine (Dipstick) 30 mg/dL (Neg-Trace); Urobilinogen Normal mg/dL (Less than 2)
[2019-06-19 19:08] LABS: Bacteria/HPF None Seen HPF (None Seen); Mucous/LPF 1+ LPF (<2+); RBC/HPF 0-3 HPF (0-3); Squamous Epithelial 0-3 HPF (0-3); WBC/HPF 0-3 HPF (0-3)
[2019-06-19 19:09] LABS: Urine Culture Reflex No No
[2019-06-19] MEDS: Aluminum & Magnesium Hydroxide 60 ML, diphenhydrAMINE 150 MG, Lidocaine 2% Viscous Solu... SSW SCH (20:46)
[2019-06-19] MEDS ORDERED: Famotidine/PF 20 mg/2ml Vial SLOW IVP SCH (21:00)
[2019-06-20 05:29] LABS: Anion Gap 11 mmol/L (10-20); BUN (Urea Nitrogen) 33 mg/dL (8.4-25.7); Calc. Creatinine Clearance 49 mL/min (70-130); Calcium 7.7 mg/dL (7.8-10.44); Carbon Dioxide 18 mmol/L (23-31); Chloride 112 mmol/L (98-107); Estimated GFR-MDRD 52; Glucose 94 mg/dL (83-110); Potassium 4.1 mmol/L (3.5-5.1); Sodium 137 mmol/L (136-145)
[2019-06-20 05:33] LABS: #Lymphocytes 0.3 thou/uL (1.20-3.40); #Monocytes 0.1 thou/uL (0.11-0.59); #Neutrophils 1.8 thou/uL (1.40-6.50); %Eosinophils 0.8 % (0.0-10.0); %Lymphocytes 15.1 % (21.0-51.0); %Monocytes 2.3 % (0.0-10.0); %Neutrophils 81.9 % (42.0-75.0); Hemoglobin 10.7 g/dL (14.0-18.0); Mean Corpuscular HGB CONC 33.5 g/dL (32.0-36.0); Mean Corpuscular Hemoglobin 31.7 pg (27.0-31.0); Mean Corpuscular Volume 94.6 fL (78.0-98.0); Mean Platelet Volume 7.1 fL (7.4-10.4); Platelet Count 116 thou/uL (130-400); RBC Distribution Width 15.7 % (11.5-14.5); Red Blood Cell (RBC) Count 3.37 mill/uL (4.70-6.10); White Blood Cell (WBC) Count 2.2 thou/uL (4.8-10.8)
[2019-06-20 05:34] LABS: Platelet Morphology Comment Appears Decreased
[2019-06-20] MEDS: Sodium Chloride 0.9% 1,000 ML IV SCH ×2 (09:28→20:10)
[2019-06-20] MEDS: Aluminum & Magnesium Hydroxide 60 ML, diphenhydrAMINE 150 MG, Lidocaine 2% Viscous Solu... SSW SCH ×4 (09:29→20:11)
--- NOTE | 2019-06-20 10:10 | PDOC.HOSPP ---
- Subjective Encounter Date: 06/20/19 Encounter Time: 10:08 Subjective: SOB with any exertion - Objective Vital Signs & Weight: Vital Signs (12 hours) Temp Pulse Resp BP BP BP BP 06/20/19 07:10 98.4 F 98 22 H 88/54 L 77/40 L 97/55 L 06/20/19 04:48 98.6 F 90 18 94/54 L 06/19/19 23:39 100.1 F H 106 H 16 90/54 L Pulse Ox 06/20/19 07:10 94 L 06/20/19 04:48 91 L 06/19/19 23:39 89 L Weight Weight 164 lb I&O: 06/19/19 06/20/19 06/21/19 06:59 06:59 06:59 Intake Total 1270 Output Total 490 Balance 780 Result Diagrams: 06/20/19 04:33 06/20/19 04:33 Hospitalist ROS - Medication Medications: Active Medications Generic Name Dose Route Start Last Admin Trade Name Freq PRN Reason Stop Dose Admin Al Hydroxide/Mg Hydroxide 60 0 ml 06/19/19 21:00 06/20/19 09:29 ml/ Diphenhydramine HCl 150 mg SSW 60 ml / Lidocaine HCl 60 ml/ QID ALYSE Administration Nystatin 6,000,000 units Sodium Chloride 1,000 mls @ 65 mls/hr 06/19/19 17:30 06/20/19 09:28 Normal Saline 0.9% IV 1,000 mls .[id number] ALYSE Administration - Exam General Appearance: awake alert Neck: no JVD Heart: no murmur, irregular Heart - other findings: tachy Respiratory: CTAB, no wheezes Gastrointestinal: soft, non-tender, normal bowel sounds Extremities: no edema Hosp A/P (1) Acute respiratory failure with hypoxia Code(s): J96.01 - ACUTE RESPIRATORY FAILURE WITH HYPOXIA Status: Acute (2) Hypotension Status: Acute Qualifiers: Hypotension type: idiopathic hypotension Qualified Code(s): I95.0 - Idiopathic hypotension (3) Acute renal failure Status: Acute Qualifiers: Acute renal failure type: unspecified Qualified Code(s): N17.9 - Acute kidney failure, unspecified (4) Atrial fibrillation with RVR Code(s): I48.91 - UNSPECIFIED ATRIAL FIBRILLATION Status: Acute (5) Leukopenia Code(s): D72.819 - DECREASED WHITE BLOOD CELL COUNT, UNSPECIFIED Status: Acute Qualifiers: Leukopenia type: neutropenia Neutropenia type: other drug-induced Qualified Code(s): D70.2 - Other drug-induced agranulocytosis - Plan cont iv fluids stat d-dimer, cortisol level cardiology, EP consults
[2019-06-20] MEDS ORDERED: Iopamidol 370 76% 100 ML VIAL ONE (11:39)
[2019-06-20 12:31] LABS: Actual Bicarbonate (HCO3a) 19.3 mEq/L (22-28); Base Excess (BEa) -3.3 mEq/L (-2.0 to +3.0); CO2 Tension 27.7 mmHg (35.0-45.0); O2 Tension (PaO2) 42.5 mmHg (> 70.0); pH, Arterial 7.46 (7.35-7.45)
[2019-06-20 12:32] LABS: Carboxyhemoglobin (COHb) 0.7 gm% (0.0-3.0); Hemoglobin (Hb) 12.1 g/dL (14.0-18.0)
[2019-06-20 12:33] LABS: Calcium, Ionized 1.14 mmol/L (1.12-1.30); Potassium - ABG Lab 3.63 mmol/L (3.70-5.30)
[2019-06-20 12:34] LABS: Analyzer IN Cardio OR; Puncture Site RRA
[2019-06-20 12:35] LABS: ALV-art Gradient 179.555 (0-20)
--- NOTE | 2019-06-20 13:10 | RAD ---
Chest AP view INDICATION: Hypoxia COMPARISON: Chest radiograph dated June 19, 2019 FINDINGS: Lungs:There is been interval development of bilateral airspace opacity seen predominantly in a perihi lar distribution. Cardiac silhouette:There is stable moderate cardiomegaly and mitral valvular prosthesis. Pulmonary vasculature:There is worsening pulmonary vascular congestion Pleural spaces:There are new small bilateral pleural effusions Upper abdomen:No abnormality seen. Osseous structures: No acute osseous abnormality. Additional findings:None. IMPRESSION: Findings suspicious for either volume overload or CHF. There is been interval development bilateral perihilar airspace opacities, small pleural effusion and pulmonary vascular congestion. There is stable cardiomegaly. Component of pneumonia is not excluded. Continued follow-up is recommen ded.
--- NOTE | 2019-06-20 13:34 | CT ---
CT PULMONARY ANGIOGRAM WITH IV CONTRAST AND 3-D POSTPROCESSING: HISTORY:Hypoxia, elevated d-dimer Comparison: 08/05/2016 FINDINGS: There is good contrast opacification of the pulmonary arterial vasculature without filling defects to suggest pulmonary embolism. The thoracic aorta is ectatic without aneurysm. No pericardial effusion is seen. There are small bilateral pleural effusions with adjacent atelectati c changes. No pneumothoraces or lung nodules are noted. There are extensive groundglass infiltrates in the lung machado bilaterally. There are degenerative changes in the spine. The compression abnormality involving T11 is stable. Upper abdominal tomograms demonstrate cholelithiasis and hepatic cysts. IMPRESSION: No CT evidence of pulmonary embolism.
--- NOTE | 2019-06-20 14:41 | CON ---
DATE OF CONSULTATION: REASON FOR CONSULTATION: AFib with RVR and shortness of breath. HISTORY OF PRESENT ILLNESS: Mr. Fletcher is a pleasant 74-year-old gentleman, who is a patient of Dr. Ravinder James. He recently underwent LILIAM and cardioversion earlier in the month. He was seen and evaluated by Janna and Dr. James's nurse practitioner last week, where he was found to be back in AFib. He was placed on beta-tamy therapy. He states over the last several days he has had decreased blood pressure and decreased heart rate. He had increased shortness of breath and was subsequently admitted to the ICU for worsening shortness of breath requiring high-flow oxygen. He states overall he feels much better. PAST MEDICAL HISTORY: Sleep apnea, mild aortic insufficiency, [id number] MR, thoracic aortic aneurysm, paroxysmal atrial fibrillation, hyperlipidemia, hypertension, hernia repair, cataract surgery, inguinal hernia surgery, vasectomy, and hernia repair. HOME MEDICATIONS: Include; 1. Calcium. 2. Vitamin B. 3. Multivitamin. 4. Lasix. 5. Vitamin D3. 6. Cialis. 7. Pravastatin. 8. Fosamax. 9. Eliquis. 10. Pantoprazole. 11. Folic acid. 12. Methotrexate. 13. Methylprednisolone. 14. Fluoxetine. 15. Amiodarone. 16. Acyclovir. 17. Bupropion. REVIEW OF SYSTEMS: Ten-point review of systems is reviewed as above, otherwise negative. PHYSICAL EXAMINATION: GENERAL: Patient is a pleasant gentleman, who is in no acute distress. The patient appears their stated age. VITAL SIGNS: Blood pressure 90/69, pulse 108, and respirations 20. NEUROLOGIC: The patient is alert and oriented x3 with no focal neurologic deficits. HEENT: Sclerae without icterus. Mouth has moist mucous membranes with normal pallor. NECK: No JVD. Carotid upstroke brisk. No bruits bilaterally. LUNGS: Crackles noted bilaterally. BACK: No scoliosis or kyphosis. CARDIAC: Irregularly irregular. ABDOMEN: Soft, nontender, nondistended. No peritoneal signs present. No hepatosplenomegaly. No abnormal striae. EXTREMITIES: 1+ pitting edema. PERTINENT LABORATORY DATA: Sodium 137, chloride 112, CO2 of 18, and creatinine 1.34. BNP of 216. Hemoglobin 10.7, white blood cell count 2.2. IMPRESSION: 1. Atrial fibrillation with rapid ventricular response. 2. Thoracic aneurysm. 3. Respiratory distress, now improved. RECOMMENDATIONS: The patient does appear to have crackles noted bilaterally. His last LVEF appeared normal. His symptoms may be associated with moderate-to- severe mitral regurgitation on top of a recurrent atrial fibrillation. At this point, I would recommend IV digoxin for better rate control. We will also recommend Cardizem also for better rate control instead of beta-tamy therapy, which may decrease his blood pressure slightly. May challenge with low-dose Lasix IV 20 mg. Otherwise, further recommendation per Dr. Ravinder James in a.m. Job ID: [id number]
[2019-06-20] MEDS ORDERED: Furosemide 20 MG/2 ML VIAL SLOW IVP SCH (15:00)
[2019-06-20] MEDS ORDERED: Digoxin 0.5 MG/2 ML AMP SLOW IVP SCH (15:00)
--- NOTE | 2019-06-20 15:25 | CON ---
DATE OF CONSULTATION: 06/20/2019 HISTORY OF PRESENT ILLNESS: Mr. Fletcher is a 74-year-old male, whom I have seen in the distant past. He has a history recently of atrial fibrillation. He was cardioverted beginning in June. He on the , presented back to Dr. James's office, feeling poorly and was back in atrial fibrillation. He has had a left atrial appendage ligation with mitral valve repair in the past. He presented here with complaints of weakness. He was started on a beta tamy on the and says he has been feeling poorly since that time. He wear a CPAP for sleep apnea. He was just transferred to the critical care unit because of tachypnea. PAST MEDICAL HISTORY: Remarkable for; 1. Lung nodules, have been followed in the past. 2. History of cholelithiasis. 3. History of renal cyst. 4. History of recent cardioversion by Dr. James and transesophageal echo by Dr. Lira. 5. History of 3.6 cm ascending aorta by CT measurements. 6. Lipid disorder. 7. Hypertension. 8. History of fixed nuclear perfusion defect in 2012. 9. History of an abdominal herniorrhaphy. 10. History of cataract surgery. 11. History of inguinal herniorrhaphy. 12. History of UPPP. 13. History of a hip replacement in 2019. SOCIAL HISTORY: Nonsmoker and nondrinker. FAMILY HISTORY: Reports family history of diabetes. REVIEW OF SYSTEMS: 10 point review of systems completed, otherwise negative. ALLERGIES: REPORTS ALLERGIES TO MORPHINE, PREDNISONE, AND SULFA. MEDICATIONS: Reviewed. PHYSICAL EXAMINATION: GENERAL: He is in no distress. VITAL SIGNS: Afebrile, heart rate is 160s in atrial fibrillation, respiratory rates in the 30s. He has high-flow O2 on. Blood pressure is 93/54 prior to transfer to the critical care unit, it is fluctuating between the high 90s to low 100 range. HEENT: Pupils are equal. Sclerae are anicteric. Extraocular movements are full. NECK: Supple. No lymphadenopathy. LUNGS: Remarkable for fine crackles in lung bases. HEART: Irregularly irregular. ABDOMEN: Soft and nontender. EXTREMITIES: Without clubbing, cyanosis, or edema. NEURO: Grossly nonfocal. LABORATORY DATA: White count 2.2, hemoglobin 10.7, and platelets 116,000. Electrolytes; sodium 137, potassium 4.1, chloride 112, bicarb 18, BUN 33, and creatinine 1.34. A pH of 7.46, CO2 of 27, and pO2 of 42. Chest x-ray just done shows pulmonary edema, that is mild compared to a clear film on presentation. IMPRESSION: 1. Recurrent atrial fibrillation. 2. Weakness, possibly secondary to that. 3. Pulmonary edema, likely related to volume resuscitation in this hospitalization. CT pulmonary angiogram has been ordered to rule out thromboembolic disease. 4. History of mitral valve repair. PLAN: An echocardiogram has been ordered. Cardiology has been consulted. I have contacted Dr. Stovall. We will be happy to follow with the other physicians. TIME SPENT: This is a 70-minute consult, 50% of the time spent on the unit coordinating care. Job ID: [id number] MTDD
--- NOTE | 2019-06-20 16:36 | PDOC.EVN ---
Event Note - Event Note Event Note: moved to IMCU for pO2 of 40. BP 80/40 , p 120 irreg. Dx i. acute respiratory failure, 2. A fib with RVR, 3. hypotension. patient put on BIPAP. 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 a CT chest revealed no evidense for PE. 35 min critical care
[2019-06-20] MEDS: Acyclovir 800 mg Tablet PO SCH ×2 (18:48→20:06)
[2019-06-20] MEDS: Atorvastatin Calcium 20 MG TAB PO SCH (20:07)
[2019-06-20] MEDS: Famotidine/PF 20 mg/2ml Vial SLOW IVP SCH (20:08)
[2019-06-20] MEDS: Nystatin 500,000 UNITS/5 ML UDCUP PO SCH (20:13)
[2019-06-20] MEDS ORDERED: Apixaban 5 MG TAB PO SCH (21:00)
[2019-06-20] MEDS ORDERED: methylPREDNISolone 4 mg Tablet PO SCH (21:00)
--- NOTE | 2019-06-21 07:51 | PDOC.HOSPP ---
- Subjective Encounter Date: 06/21/19 Encounter Time: 07:50 Subjective: weak. still on bipap - Objective Vital Signs & Weight: Vital Signs (12 hours) Temp Pulse Ox 06/21/19 07:21 95 06/21/19 04:00 98.6 F 06/20/19 23:00 98.9 F 06/20/19 20:00 97 Weight Weight 165 lb 9.074 oz Most Recent Monitor Data Heart Rate from ECG 102 NIBP 104/66 NIBP BP-Mean 78 Respiration from ECG 34 SpO2 87 I&O: 06/20/19 06/21/19 06/22/19 06:59 06:59 06:59 Intake Total 1270 1865 Output Total 490 2000 Balance 780 -135 Result Diagrams: 06/20/19 04:33 06/20/19 04:33 Hospitalist ROS - Medication Medications: Active Medications Generic Name Dose Route Start Last Admin Trade Name Freq PRN Reason Stop Dose Admin Acyclovir 800 mg 06/20/19 17:00 06/20/19 20:06 Zovirax PO 800 mg QID ALYSE Administration Atorvastatin Calcium 20 mg 06/20/19 21:00 06/20/19 20:07 Lipitor PO 20 mg HS ALYSE Administration Al Hydroxide/Mg Hydroxide 60 0 ml 06/19/19 21:00 06/20/19 20:11 ml/ Diphenhydramine HCl 150 mg SSW 60 ml / Lidocaine HCl 60 ml/ QID ALYSE Administration Nystatin 6,000,000 units Famotidine 20 mg 06/20/19 21:00 06/20/19 20:08 Pepcid SLOW IVP 20 mg QPM ALYSE Administration Sodium Chloride 1,000 mls @ 65 mls/hr 06/19/19 17:30 06/20/19 20:10 Normal Saline 0.9% IV 1,000 mls .[id number] ALYSE Administration Methylprednisolone 8 mg 06/20/19 21:00 06/20/19 22:09 Medrol PO 8 mg BID ALYSE Administration Nystatin 500,000 units 06/20/19 21:00 06/20/19 20:13 Mycostatin PO 500,000 units BID ALYSE Administration - Exam Neck: no JVD Heart: irregular Heart - other findings: tachycardia Respiratory - other findings: fine rales posterior Gastrointestinal: soft, normal bowel sounds Extremities: no edema Hosp A/P (1) Acute respiratory failure with hypoxia Code(s): J96.01 - ACUTE RESPIRATORY FAILURE WITH HYPOXIA Status: Acute (2) Hypotension Status: Acute Qualifiers: Hypotension type: idiopathic hypotension Qualified Code(s): I95.0 - Idiopathic hypotension (3) Acute renal failure Status: Acute Qualifiers: Acute renal failure type: unspecified Qualified Code(s): N17.9 - Acute kidney failure, unspecified (4) Atrial fibrillation with RVR Code(s): I48.91 - UNSPECIFIED ATRIAL FIBRILLATION Status: Acute (5) Leukopenia Code(s): D72.819 - DECREASED WHITE BLOOD CELL COUNT, UNSPECIFIED Status: Acute Qualifiers: Leukopenia type: neutropenia Neutropenia type: other drug-induced Qualified Code(s): D70.2 - Other drug-induced agranulocytosis - Plan CT demonstrrates no PE, however has ground glass infiltraates-MTX toxicity? still taachycardic- trial iv diltiazem need to discuss with pulmonology and cardiology
[2019-06-21] MEDS ORDERED: Diltiazem 125 MG in Sodium Chloride 0.9% 100 ML IVPB SCH (08:00)
--- NOTE | 2019-06-21 08:25 | CON ---
DATE OF CONSULTATION: 06/20/2019 ADDITIONAL REFERRING PHYSICIAN: Ravinder James MD, regular bridge expert of the patient. HISTORY OF PRESENT ILLNESS: I am seeing Mr. Fletcher at our [facility] as an electrophysiology campaign consultant. His problems are; 1. Persisting atrial fibrillation. a. History of intermittent atrial fibrillation since last 15 years. b. Persistent atrial fibrillation following a mitral valve repair in 2017 prompting amiodarone therapy, possibly previous use also as well. c. Amiodarone recently stopped and atrial fibrillation recurred, required cardioversion with early recurrence of atrial fibrillation. 2. Valvular heart disease. a. History of moderate to severe MR. b. Status post mitral valve repair, with left atrial appendage ligation in 2017, but subsequent left atrial appendage patency still seen. 3. History of preserved LV systolic function and normal coronary arteries per history. 4. History of thoracic aortic aneurysm. 5. Hypertension, hyperlipidemia. 6. History of obstructive sleep apnea. ALLERGIES: MORPHINE, PREDNISONE, SULFA, AND METOPROLOL. MEDICATIONS: At home included, 1. Amiodarone 200 mg a day. 2. Calcium carbonate. 3. Cholecalciferol. 4. Cyanocobalamin. 5. Multivitamin. 6. Pravastatin. 7. Tadalafil. 8. Furosemide. 9. Fosamax. 10. Tylenol. 11. Pantoprazole. 12. Methotrexate. 13. Folic acid. 14. Apixaban. 15. Methylprednisone. 16. Fluoxetine. 17. Bupropion. 18. Nystatin. 19. Acyclovir. 20. Fluconazole. SUBJECTIVE: Mr. Fletcher is here with progressive dyspnea, which has started during the course of last week. He also felt increasing weakness and difficulty to eat with an oral thrush, associated pain. He is on nystatin for last few days. He has some chills and feeling weak, does not register any fevers. His actually hospitalized recently and he has had difficult time to cope on his own. At this point, there are no chest pains. He does use some CPAP at night, but usually does not use oxygen. He denies abdominal discomforts, nausea, vomiting. No stroke-like symptoms. No neurological deficits. No bleeding issues so far. Rest of 12-point review of system otherwise unremarkable. PAST MEDICAL HISTORY: As above. History of mitral regurgitation prompting mitral valve repair, left atrial appendage ligation per in the past. There is still patency of left atrial appendage noted though history of ligation. He has been well suppressed with amiodarone . They eventually decided to come off that and was placed back on Eliquis and amiodarone was stopped. Subsequently, he developed recurrent atrial fibrillation. PAST SURGICAL HISTORY: Significant for mitral valve repair, left atrial appendage ligation, history of cardioversion, abdominal hernia repair in 1972, cataract surgery, cyst removal from the lower lip, right inguinal hernia repair, teeth extraction, UPPP in 1999, vasectomy, left total hip replacement, and prostate surgery. SOCIAL HISTORY: The patient lives with his , fully independent, mobilizes without any assistive devices. Denies smoking, EtOH, or drug abuse. FAMILY HISTORY: Significant for type 2 diabetes in father. OBJECTIVE: VITAL SIGNS: Blood pressure is 106/68, heart rate 98, respirations 25 on high-flow oxygen. The patient is afebrile. GENERAL: He is alert and oriented man, in no apparent distress. NECK: Supple. Jugular veins not distended. CHEST: Coarse without crackles. HEART: Sounds are irregularly irregular. S1 and S2 are variable. No murmur or gallop. ABDOMEN: Benign. Bowel sounds positive. LOWER EXTREMITIES: Without edema, clubbing, or cyanosis. DATABASE: EKG is reviewed revealing atrial fibrillation, rate of 93 beats per minute. QTc is 445 milliseconds. LABORATORY DATA: White cell count is 2.2. Hemoglobin 10.7, platelet count is 116. D-dimer 0.75. ABGs, PO2 of 42, pH 7.46. Sodium 137, potassium 4.1, BUN is 33, creatinine is 1.34. Troponin I 0.03. BNP is 260. ASSESSMENT AND PLAN: Mr. Fletcher is a pleasant 74-year-old man with history of mitral valve disease. He had prior atrial fibrillation which recurred after mitral valve repair surgery. He is now on oral anticoagulation hence history of suboptimal left atrial appendage ligation. He was previously well suppressed with amiodarone and currently is placed back on amiodarone as well. We had a discussion regarding the atrial fibrillation mechanism and treatment options discussed. Clearly, he had a good experience with amiodarone, although potential long-term side effects including pulmonary, liver, thyroid toxicity have been discussed. Alternatively ablation procedures could be considered due to the long duration of atrial fibrillation. Single ablation may not be suffice to completely eliminate the atrial fibrillation in this elderly gentleman. Clearly, at this point, medical stabilization is advised. Some degree of immunocompromise might be present. At this point, I would agree with continued Eliquis therapy and rate control. Outpatient followup will be requested for further discussion regarding atrial fibrillation. We will continue to monitor with you. Thank you for allowing me to participate in the care of this patient. Job ID: [id number]
[2019-06-21] MEDS ORDERED: Bupropion 150 MG SR TAB PO SCH (09:00)
[2019-06-21] MEDS ORDERED: CYANOCOBALAMIN 5000 MCG PO SCH (09:00)
[2019-06-21] MEDS ORDERED: Alendronate Sodium 70 mg Tablet PO SCH (09:00)
[2019-06-21 09:24] LABS: Hemoglobin 11.7 g/dL (14.0-18.0); Mean Corpuscular HGB CONC 33.4 g/dL (32.0-36.0); Mean Corpuscular Hemoglobin 31.5 pg (27.0-31.0); Mean Corpuscular Volume 94.3 fL (78.0-98.0); Mean Platelet Volume 7.2 fL (7.4-10.4); Platelet Count 120 thou/uL (130-400); RBC Distribution Width 15.8 % (11.5-14.5); Red Blood Cell (RBC) Count 3.71 mill/uL (4.70-6.10); White Blood Cell (WBC) Count 2.9 thou/uL (4.8-10.8)
[2019-06-21] MEDS ORDERED: methylPREDNISolone Sod Succ 40 MG VIAL IVP SCH (09:30)
[2019-06-21] MEDS: Acyclovir 800 mg Tablet PO SCH ×4 (09:32→21:08)
[2019-06-21] MEDS: Fluconazole 100 MG TAB PO SCH (09:35)
[2019-06-21] MEDS: Apixaban 5 MG TAB PO SCH ×2 (09:35→21:09)
[2019-06-21] MEDS: FLUoxetine HCl 20 MG CAP PO SCH (09:36)
[2019-06-21] MEDS: Folic Acid 1 MG TAB PO SCH (09:36)
[2019-06-21] MEDS: Amiodarone 200 MG TAB PO SCH (09:37)
[2019-06-21 09:38] LABS: Anion Gap 14 mmol/L (10-20); BUN (Urea Nitrogen) 33 mg/dL (8.4-25.7); Calc. Creatinine Clearance 48 mL/min (70-130); Calcium 8.2 mg/dL (7.8-10.44); Carbon Dioxide 18 mmol/L (23-31); Chloride 108 mmol/L (98-107); Estimated GFR-MDRD 49; Glucose 198 mg/dL (83-110); Potassium 3.9 mmol/L (3.5-5.1); Sodium 136 mmol/L (136-145)
[2019-06-21 10:01] LABS: Band 9 % (5-11); Burr Cells MODERATE= 6-15 cells (100X) (0-1/hpf); Lymphocytes 8 % (21-51); MDiff Complete? YES; Neutrophil 82 % (42-75); Polychromasia SLIGHT = 2-3 cells (100X) (0-2/hpf); Reactive Lymphocytes 1 % (0-10)
[2019-06-21 10:12] LABS: Actual Bicarbonate (HCO3a) 19.1 mEq/L (22-28); Base Excess (BEa) -2.6 mEq/L (-2.0 to +3.0); Calcium, Ionized 1.15 mmol/L (1.12-1.30); Carboxyhemoglobin (COHb) 0.5 gm% (0.0-3.0); Hemoglobin (Hb) 11.9 g/dL (14.0-18.0); Potassium - ABG Lab 3.71 mmol/L (3.70-5.30)
[2019-06-21] MEDS: Aluminum & Magnesium Hydroxide 60 ML, diphenhydrAMINE 150 MG, Lidocaine 2% Viscous Solu... SSW SCH ×4 (10:15→21:30)
[2019-06-21 10:16] LABS: O2 Tension (PaO2) 50.5 mmHg (> 70.0); Puncture Site RRA
[2019-06-21] MEDS: Nystatin 500,000 UNITS/5 ML UDCUP PO SCH ×2 (10:16→21:08)
[2019-06-21] MEDS: Digoxin 0.5 MG/2 ML AMP SLOW IVP SCH ×2 (10:17→16:04)
[2019-06-21] MEDS: methylPREDNISolone Sod Succ 40 MG VIAL IVP SCH ×2 (12:48→17:31)
[2019-06-21] MEDS ORDERED: Propofol 1,000 MG/100 ML VIAL IV ONE (15:16)
[2019-06-21] MEDS ORDERED: Midazolam HCl 2 mg/2 ml Vial ONE (15:16)
--- NOTE | 2019-06-21 15:33 | PDOC.EP ---
- Subjective Date: 06/21/19 Time: 09:00 Interval History: Follow up for atrial fibrillation and medication management. Patient is cold, tired, and frustrated. Slightly dizzy with low BP this AM - Review of Systems Constitutional: reports: weakness. denies: chills, fever, malaise, sweats, other Respiratory: reports: shortness of breath. denies: cough, sputum, wheezing Cardiology: reports: light headedness. denies: chest pain, edema, heart racing , palpitations, passing out Neurological: denies: headache, vision changes - Objective Allergies/Adverse Reactions: Allergies Allergy/AdvReac Type Severity Reaction Status Date / Time morphine Allergy Intermediate severe Verified 06/19/19 18:14 constipation Sulfa (Sulfonamide Allergy Unknown Diarrhea Verified 06/19/19 18:14 Antibiotics) metoprolol AdvReac Intermediate Verified 06/19/19 18:16 Current Medications Acetaminophen (Tylenol) 650 mg PO Q4H PRN PRN Reason: Headache/Fever/Mild Pain (1-3) Acetaminophen (Tylenol) 650 mg MA Q4H PRN PRN Reason: Headache/Fever/Mild Pain (1-3) Acyclovir (Zovirax) 800 mg PO QID [facility] Last Admin: 06/21/19 12:48 Dose: 800 mg Amiodarone HCl (Cordarone) 200 mg PO DAILY [facility] Last Admin: 06/21/19 09:37 Dose: 200 mg Apixaban (Eliquis) 5 mg PO BID [facility] Last Admin: 06/21/19 09:35 Dose: 5 mg Atorvastatin Calcium (Lipitor) 20 mg PO HS [facility] Last Admin: 06/20/19 20:07 Dose: 20 mg Bupropion HCl (Wellbutrin Sr) 150 mg PO QAM [facility] Last Admin: 06/21/19 10:32 Dose: Not Given Calcium/Vitamin D (Caltrate 600 + Vit D) 1 tab PO BID [facility] Cholecalciferol (Vitamin D3) 1,000 units PO DAILY [facility] Last Admin: 06/21/19 10:17 Dose: 1,000 units Al Hydroxide/Mg Hydroxide 60 ml/ Diphenhydramine HCl 150 mg / Lidocaine HCl 60 ml/Nystatin 6,000,000 units 0 ml SSW QID [facility] Last Admin: 06/21/19 14:23 Dose: Not Given Digoxin (Lanoxin) 0.25 mg SLOW IVP 0930,1600 [facility] Stop: 06/21/19 16:01 Last Admin: 06/21/19 10:17 Dose: 0.25 mg Digoxin (Lanoxin) 0.125 mg PO DAILY [facility] Famotidine (Pepcid) 20 mg SLOW IVP QPM [facility] Last Admin: 06/20/19 20:08 Dose: 20 mg Fluconazole (Diflucan) 150 mg PO DAILY [facility] Last Admin: 06/21/19 09:35 Dose: 150 mg Fluoxetine HCl (Prozac) 20 mg PO DAILY [facility] Last Admin: 06/21/19 09:36 Dose: 20 mg Folic Acid (Folvite) 1 mg PO DAILY [facility] Last Admin: 06/21/19 09:36 Dose: 1 mg Sodium Chloride (Normal Saline 0.9%) 1,000 mls @ 65 mls/hr IV .[id number] [facility] Last Admin: 06/20/19 20:10 Dose: 1,000 mls Piperacillin Sod/Tazobactam (Sod 3.375 gm/ Sodium Chloride) 100 mls @ 200 mls/ hr IVPB Q6HR [facility] Vancomycin HCl 1.25 gm/ Sodium (Chloride) 300 mls @ 200 mls/hr IVPB Q12HR [facility] Methylprednisolone Sodium Succinate (Solu-Medrol) 20 mg IVP Q6HR [facility] Last Admin: 06/21/19 12:48 Dose: 20 mg Non-Formulary Medication (Cyanocobalamin (Vitamin B-12) [Vitamin B-12]) 5,000 mcg PO BID [facility] Nystatin (Mycostatin) 500,000 units PO BID [facility] Last Admin: 06/21/19 10:16 Dose: 500,000 units Sodium Chloride (Flush - Normal Saline) 10 ml IVF Q12HR PRN PRN Reason: Saline Flush Sodium Chloride (Flush - Normal Saline) 10 ml IVF PRN PRN PRN Reason: Saline Flush Sterile Water (Bacteriostatic Water) 1 ml FS PRN PRN PRN Reason: RECONSTITUTION Vital Signs & Weight: Vital Signs Temp Pulse Resp Pulse Ox 06/21/19 13:25 106 H 30 H 96 06/21/19 12:00 99.0 F 93 L 06/21/19 10:29 110 H 24 H 93 L 06/21/19 10:17 106 H 06/21/19 08:00 93 L 06/21/19 07:21 95 06/21/19 07:00 99.4 F 06/21/19 04:00 98.6 F Admit Weight 164 lb Weight 165 lb 9.074 oz I/O: I/O 06/20/19 06/21/19 06/22/19 06:59 06:59 06:59 Intake Total 1270 1865 450 Output Total 490 2000 40 Balance 780 -135 410 - Physical Exam General: alert & oriented x3, speech clear Neck: supple neck, midline trachea, no JVD/HJR, no lymphadenopathy Cardiology: PMI nondisplaced, irregularly irregular, tachycardia Lungs: wheezes, other (tachypnea) Neurology: cranial nerve 2-12 intact, grossly intact, sensory function intact - Labs Result Diagrams: 06/21/19 08:56 06/21/19 08:56 - EKG Interpretation EKG shows: Atrial fibrillation (RVR) - Assessment/Plan Assessment/Plan: 1. Persisting atrial fibrillation. a. History of intermittent atrial fibrillation since last 15 years. b. Persistent atrial fibrillation following a mitral valve repair in 2017 prompting amiodarone therapy, possibly previous use also as well. c. Amiodarone recently stopped and atrial fibrillation recurred, required cardioversion with early recurrence of atrial fibrillation. 2. Valvular heart disease. a. History of moderate to severe MR. b. Status post mitral valve repair, with left atrial appendage ligation in 2017 , but subsequent left atrial appendage patency still seen. 3. History of preserved LV systolic function and normal coronary arteries per history. 4. History of thoracic aortic aneurysm. 5. Hypertension, hyperlipidemia. 6. History of obstructive sleep apnea. On Digoxin 125mcg daily now. Rates moderately controlled 90-110 by tele. Continue rate control and eliquis 5mg BID for CVA prophylaxis. Could consider PVAI keno terminal operator but would wait until he is medically stable and recovered. He could require multiple ablations to restore SR. Remain on amiodarone 200mg PO daily.
--- NOTE | 2019-06-21 15:38 | PDOC.EVN ---
Event Note - Event Note Event Note: patient fatigued. Dr Llanos will intubate and ventilate. low WBC, MTX and steroid Tx - blood C&S, lactate, start Zosyn and vancomycin. discussed with Dr Llanos
[2019-06-21] MEDS ORDERED: Vecuronium 10 MG VIAL ONE (15:45)
[2019-06-21] MEDS ORDERED: Digoxin 0.5 MG/2 ML AMP SLOW IVP SCH (16:00)
[2019-06-21] MEDS ORDERED: Vancomycin HCl 1.25 GM in Sodium Chloride 0.9% 250 ML 300 ML IVPB SCH (16:00)
[2019-06-21 16:33] LABS: Actual Bicarbonate (HCO3a) 17.4 mEq/L (22-28); Base Excess (BEa) -5.7 mEq/L (-2.0 to +3.0); CO2 Tension 27.6 mmHg (35.0-45.0); Calcium, Ionized 1.13 mmol/L (1.12-1.30); Carboxyhemoglobin (COHb) 0.8 gm% (0.0-3.0); Hemoglobin (Hb) 12.3 g/dL (14.0-18.0); O2 Tension (PaO2) 71.6 mmHg (> 70.0); Potassium - ABG Lab 3.82 mmol/L (3.70-5.30); pH, Arterial 7.42 (7.35-7.45)
[2019-06-21 16:37] LABS: Puncture Site LRA
[2019-06-21] MEDS: Vancomycin HCl 1.25 GM in Sodium Chloride 0.9% 250 ML 250 ML IVPB SCH (16:54)
[2019-06-21] MEDS ORDERED: Morphine 2 MG/ML SYRINGE SLOW IVP PRN (17:09)
[2019-06-21] MEDS ORDERED: Propofol BOLUS 1,000 MG/100 ML VIAL IV PRN (17:09)
[2019-06-21] MEDS ORDERED: Fentanyl BOLUS 250 ML IVPB PRN (17:09)
[2019-06-21] MEDS ORDERED: Lorazepam 2 MG/ML VIAL SLOW IVP PRN (17:09)
[2019-06-21] MEDS ORDERED: DISCONTINUE PREVIOUS NARCOTIC PAIN MEDICATIONS AND BENZODIAZEPINES FS SCH (17:09)
[2019-06-21] MEDS: Sodium Chloride 0.9% 1,000 ML IV SCH (17:32)
[2019-06-21] MEDS: Piperacillin/Tazobactam 3.375 GM in Sodium Chloride 0.9% 100 ML IVPB SCH (17:50)
[2019-06-21] MEDS: fentaNYL Citrate/PF 2,000 MCG in Sodium Chloride 0.9% 60 ML IV SCH (18:19)
[2019-06-21] MEDS: Propofol 1,000 MG/100 ML VIAL IV PRN (19:31)
[2019-06-21] MEDS: Famotidine/PF 20 mg/2ml Vial SLOW IVP SCH (21:08)
[2019-06-21] MEDS: Atorvastatin Calcium 20 MG TAB PO SCH (21:09)
[2019-06-21] MEDS: Calcium Carbonate + Vit D 1 TAB PO SCH (21:09)
[2019-06-22] MEDS: methylPREDNISolone Sod Succ 40 MG VIAL IVP SCH ×5 (00:26→23:36)
[2019-06-22] MEDS: Piperacillin/Tazobactam 3.375 GM in Sodium Chloride 0.9% 100 ML IVPB SCH ×5 (00:40→23:34)
[2019-06-22] MEDS ORDERED: Sodium Chloride 0.9% 250 ML IV SCH (02:00)
[2019-06-22 04:14] LABS: Band 16 % (5-11); Hemoglobin 11.4 g/dL (14.0-18.0); Hypochromia SLIGHT = 6-15 cells (100X) (0-5/hpf); Lymphocytes 6 % (21-51); MDiff Complete? YES; Mean Corpuscular HGB CONC 32.8 g/dL (32.0-36.0); Mean Corpuscular Hemoglobin 31.8 pg (27.0-31.0); Mean Corpuscular Volume 96.7 fL (78.0-98.0); Mean Platelet Volume 8.1 fL (7.4-10.4); Metamyelocyte 2 % (0-0); Monocytes 6 % (0-10); Neutrophil 70 % (42-75); Platelet Count 114 thou/uL (130-400); Platelet Morphology Comment Appears Decreased; RBC Distribution Width 15.7 % (11.5-14.5); Red Blood Cell (RBC) Count 3.59 mill/uL (4.70-6.10); White Blood Cell (WBC) Count 2.8 thou/uL (4.8-10.8)
[2019-06-22 04:20] LABS: Anion Gap 15 mmol/L (10-20); BUN (Urea Nitrogen) 42 mg/dL (8.4-25.7); Calc. Creatinine Clearance 40 mL/min (70-130); Calcium 7.8 mg/dL (7.8-10.44); Carbon Dioxide 18 mmol/L (23-31); Chloride 109 mmol/L (98-107); Estimated GFR-MDRD 41; Glucose 221 mg/dL (83-110); Sodium 138 mmol/L (136-145)
[2019-06-22 04:25] LABS: Digoxin 0.89 ng/mL (0.8-2.0)
[2019-06-22] MEDS: Norepinephrine 8 MG/0.9% NS 250 ML IVPB SCH (05:29)
[2019-06-22] MEDS ORDERED: Vasopressin 40 UNIT, Admixture Fee 1 EACH in Sodium Chloride 0.9% 100 ML IV SCH (05:30)
[2019-06-22 07:37] LABS: Actual Bicarbonate (HCO3a) 18.6 mEq/L (22-28); Base Excess (BEa) -5.2 mEq/L (-2.0 to +3.0); Carboxyhemoglobin (COHb) 0.5 gm% (0.0-3.0); Hemoglobin (Hb) 11.9 g/dL (14.0-18.0); O2 Tension (PaO2) 72.1 mmHg (> 70.0); Potassium - ABG Lab 3.81 mmol/L (3.70-5.30)
[2019-06-22 07:38] LABS: Puncture Site RR
--- NOTE | 2019-06-22 07:51 | PRG ---
DATE OF SERVICE: 06/21/2019 SUBJECTIVE: Lane Fletcher has progressively declined throughout the day today. An echocardiogram was reviewed by Dr. James. His ejection fraction was 45% to 50%. He had a dilated left atrium. His mitral valve repair ring was noted to be in place with only mild mitral regurgitation and [id number] aortic insufficiency. He did have some pulmonary hypertension based on the significant tricuspid regurgitation that was noted. He did have an enlarged right ventricle. He had a chest radiograph today. He had diffuse infiltrates on his angiogram yesterday n the afternoon. Noninvasively ventilated today but did not do well with that and started complaining of being tired. The lungs, heart, and abdomen examinations were essentially unchanged. He was running blood pressures anywhere between 80 and 120 systolic. He has not had any fever other than the temp of 100.1 on the . He had a respiratory virus panel done few days ago and that was completely negative. LABORATORY DATA: White count was 2.9, hemoglobin 11.7, hemoglobin platelets 120,000. Sodium 136, potassium 3.9, chloride 108, bicarb 18, BUN 33, creatinine 1.4. IMPRESSION: Diffuse alveolar infiltrates of unclear etiology. Since he arrived with a chest radiograph and developed rather rapidly, I would have bet that this was related to some left ventricular dysfunction or some new valvular lesions, but this has not panned out on the echocardiogram. BNP was only minimally elevated at 260. I suppose this could be a viral pneumonitis or ARDS associated with a viral process. I doubt he has an alveolar hemorrhage syndrome. Steroids were increased, so it is unlikely that his hypotension is related to adrenal insufficiency. Does have some mild renal dysfunction, but that is not leading to his pulmonary abnormalities. I doubt he has renal syndrome. He had no microhematuria. I recommended bronchoscopy with lavage and fiberoptic intubation. He was started on broad antimicrobial therapy, steroids. I guess we will have to assume that he is immunocompromised. Given the rapid development of these infiltrates, unlikely to be malignant infiltrates. It is still unclear to me what his retroorbital lesion is and I suppose we need to order an MRI with and without contrast specifically skull and orbits tomorrow and get some type of ophthalmology input. I talked to his timekeeping supervisor who saw him and referred him in [place] and he has no records from the [place] doctor. Mr. Fletcher's son told me that he underwent angiography to rule out an aneurysm, it was retroorbital and none was found. Apparently, he was scheduled to have some type of magnetic resonance imaging of his orbit today in [place] according to his son, but because he is in the hospital, this did not happen. He was seen by the printed circuit board assembly repairer today for his atrial fib but his atrial fibrillation rate had been high enough to explain the development of these pulmonary infiltrates in my opinion. I talked to the radiologist to see what the best imaging of his orbit from a magnetic resonance imaging study would be. Apparently, he had proptosis with this lesion , but improved with steroids and methotrexate given the rapid development with both his sons and updated them. Apparently, another son is coming in from out of town. One of Mr. Fletcher's good friends who is a physician has updated brother. Critical care time is an hour and 15 minutes independent of procedures performed. Job ID: [id number] MTDD
[2019-06-22] MEDS: Sodium Chloride 0.9% 1,000 ML IV SCH ×2 (08:01→15:21)
--- NOTE | 2019-06-22 08:19 | OP ---
DATE OF PROCEDURE: 06/21/2019 PROCEDURE: Fiberoptic bronchoscopy with intubation and subsequent bronchoalveolar lavage. DESCRIPTION OF PROCEDURE: The patient was given 2 mg of Versed total for sedation. His upper airway was prepped with Hurricaine spray. Bite block was placed in his mouth. He was easily intubated fiberoptically in the sitting position. The endotracheal tube was advanced to position above the verenice and he was connected to mechanical ventilation. Once he was sedated, he was chemically paralyzed. Once he was chemically paralyzed, bronchoscope was reintroduced and passed down to the right middle lobe. Total of 100 cc of saline lavage was performed in the right middle lobe. The 1st bronchoscope would not yield any return on the lavage, so I had to repeat the lavage in the right middle lobe. I think adequate amounts of foamy lavage fluid was obtained and sent for the appropriate studies. CRITICAL CARE TIME: An hour and 15 minutes independent of the procedure performed. Job ID: [id number]
[2019-06-22] MEDS: FLUoxetine HCl 20 MG CAP PO SCH (08:23)
[2019-06-22] MEDS: Digoxin 0.125 MG TAB PO SCH (08:23)
[2019-06-22] MEDS: Folic Acid 1 MG TAB PO SCH (08:23)
[2019-06-22] MEDS: Apixaban 5 MG TAB PO SCH ×2 (08:24→20:06)
[2019-06-22] MEDS: Fluconazole 100 MG TAB PO SCH (08:24)
[2019-06-22] MEDS: Amiodarone 200 MG TAB PO SCH (08:24)
[2019-06-22] MEDS: Calcium Carbonate + Vit D 1 TAB PO SCH ×2 (08:24→20:06)
[2019-06-22] MEDS: Nystatin 500,000 UNITS/5 ML UDCUP PO SCH ×2 (08:25→20:06)
[2019-06-22] MEDS: Acyclovir 800 mg Tablet PO SCH ×4 (08:26→20:06)
--- NOTE | 2019-06-22 08:34 | PDOC.HOSPP ---
- Subjective Encounter Date: 06/22/19 Encounter Time: 08:32 Subjective: intubated, arousable, follows directions - Objective Vital Signs & Weight: Vital Signs (12 hours) Temp Pulse Resp BP Pulse Ox 06/22/19 08:23 97 06/22/19 08:00 28 H 06/22/19 07:29 92 111/70 06/22/19 07:27 100 06/22/19 07:00 97.9 F 06/22/19 06:00 28 H 06/22/19 04:00 98.0 F 28 H 06/22/19 02:48 84 28 H 98 06/22/19 02:00 29 H 06/22/19 00:00 100.6 F H 32 H 06/21/19 22:26 103 H 28 H 100 06/21/19 22:00 28 H Weight Admit Weight 164 lb Weight 167 lb 5.294 oz Most Recent Monitor Data Heart Rate from ECG 94 NIBP 93/68 NIBP BP-Mean 76 Respiration from ECG 23 SpO2 100 I&O: 06/21/19 06/22/19 06/23/19 06:59 06:59 06:59 Intake Total 1865 2027.0 Output Total 1999 580 25 Balance -135 1447.0 -25 Result Diagrams: 06/22/19 03:30 06/22/19 03:30 Radiology Reviewed by me: Yes (CXR- ET tube, bilat fluffy infiltrates) Hospitalist ROS - Medication Medications: Active Medications Generic Name Dose Route Start Last Admin Trade Name Freq PRN Reason Stop Dose Admin Acetaminophen 650 mg 06/19/19 17:20 06/22/19 00:33 Tylenol PO 650 mg Q4H PRN Administration Headache/Fever/Mild Pain (1-3) Acyclovir 800 mg 06/20/19 17:00 06/22/19 08:26 Zovirax PO 800 mg QID ALYSE Administration Albuterol/Ipratropium 3 ml 06/21/19 18:30 06/22/19 07:28 Duoneb NEB 3 ml [id number] ALYSE Administration Amiodarone HCl 200 mg 06/21/19 09:00 06/22/19 08:24 Cordarone PO 200 mg DAILY ALYSE Administration Apixaban 5 mg 06/21/19 09:00 06/22/19 08:24 Eliquis PO 5 mg BID ALYSE Administration Atorvastatin Calcium 20 mg 06/20/19 21:00 06/21/19 21:09 Lipitor PO 20 mg HS ALYSE Administration Calcium/Vitamin D 1 tab 06/21/19 21:00 06/22/19 08:24 Caltrate 600 + Vit D PO 1 tab BID ALYSE Administration Cholecalciferol 1,000 units 06/21/19 09:00 06/21/19 10:17 Vitamin D3 PO 1,000 units DAILY ALYSE Administration Al Hydroxide/Mg Hydroxide 60 0 ml 06/19/19 21:00 06/21/19 21:30 ml/ Diphenhydramine HCl 150 mg SSW 10 ml / Lidocaine HCl 60 ml/ QID ALYSE Administration Nystatin 6,000,000 units Digoxin 0.125 mg 06/22/19 09:00 06/22/19 08:23 Lanoxin PO 0.125 mg DAILY ALYSE Administration Famotidine 20 mg 06/20/19 21:00 06/21/19 21:08 Pepcid SLOW IVP 20 mg QPM ALYSE Administration Fluconazole 150 mg 06/21/19 09:00 06/22/19 08:24 Diflucan PO 150 mg DAILY ALYSE Administration Fluoxetine HCl 20 mg 06/21/19 09:00 06/22/19 08:23 Prozac PO 20 mg DAILY ALYSE Administration Folic Acid 1 mg 06/21/19 09:00 06/22/19 08:23 Folvite PO 1 mg DAILY ALYSE Administration Piperacillin Sod/Tazobactam 100 mls @ 200 mls/hr 06/21/19 18:00 06/22/19 05: 23 Sod 3.375 gm/ Sodium Chloride IVPB 100 mls Q6HR ALYSE Administration Vancomycin HCl 1.25 gm/ Sodium 250 mls @ 166.667 mls/hr 06/21/19 16:00 16:54 Chloride IVPB 250 mls 1600 ALYSE Administration Sodium Chloride 1,000 mls @ 50 mls/hr 06/21/19 17:15 06/22/19 08:01 Normal Saline 0.9% IV 1,000 mls .Q20H ALYSE Administration Fentanyl Citrate 2,000 mcg/ 100 mls @ 0 mls/hr 06/21/19 17:09 06/21/19 18:19 Sodium Chloride IV 07/21/19 17:09 100 mls INF ALYSE Administration Protocol Per Protocol Norepinephrine Bitartrate 250 mls @ 0 mls/hr 06/22/19 05:26 06/22/19 05:29 Levophed IVPB 250 mls INF ALYSE Administration Protocol Titrate Methylprednisolone Sodium Succinate 20 mg 06/21/19 12:00 06/22/19 05:24 Solu-Medrol IVP 20 mg Q6HR ALYSE Administration Nystatin 500,000 units 06/20/19 21:00 06/22/19 08:25 Mycostatin PO 500,000 units BID ALYSE Administration Propofol 1,000 mg 06/21/19 17:09 06/21/19 19:31 Diprivan IV 07/21/19 17:09 1,000 mg INF PRN Administration TO ACHIEVE GOAL RASS Protocol - Exam ENT - other findings: ET tube Neck: no JVD Heart: no murmur, irregular Respiratory - other findings: coarse BS, no focal Gastrointestinal: soft, non-tender, normal bowel sounds Extremities: 1+ LE edema Hosp A/P (1) Acute respiratory failure with hypoxia Code(s): J96.01 - ACUTE RESPIRATORY FAILURE WITH HYPOXIA Status: Acute (2) Hypotension Status: Acute Qualifiers: Hypotension type: idiopathic hypotension Qualified Code(s): I95.0 - Idiopathic hypotension (3) Acute renal failure Status: Acute Qualifiers: Acute renal failure type: unspecified Qualified Code(s): N17.9 - Acute kidney failure, unspecified (4) Atrial fibrillation with RVR Code(s): I48.91 - UNSPECIFIED ATRIAL FIBRILLATION Status: Acute (5) Leukopenia Code(s): D72.819 - DECREASED WHITE BLOOD CELL COUNT, UNSPECIFIED Status: Acute Qualifiers: Leukopenia type: neutropenia Neutropenia type: other drug-induced Qualified Code(s): D70.2 - Other drug-induced agranulocytosis - Plan on vent levophed srarted for Hypotension cont iv antibx, Blood C&s pending need to discuss with pulmonology and cardiology
--- NOTE | 2019-06-22 09:01 | RAD ---
CHEST 1 VIEW: INDICATION: History of intubation. FINDINGS: There are persistent perihilar airspace opacities. There are small bilateral pleural effusions. The patient remains intubated with gastric catheter placement. Heart size is normal. No acute osseous abnormality is evident. No pneumothorax is demonstrated. IMPRESSION: Stable perihilar airspace opacities and small bilateral pleural effusions. The patient is intubated with gastric catheter placement. There are small bilateral pleural effusions. POS: [facility]
[2019-06-22] MEDS: Aluminum & Magnesium Hydroxide 60 ML, diphenhydrAMINE 150 MG, Lidocaine 2% Viscous Solu... SSW SCH ×4 (09:28→20:06)
--- NOTE | 2019-06-22 11:24 | PDOC.EP ---
- Subjective Date: 06/22/19 Time: 17:24 Interval History: Follow up for atrial fibrillation and medication management. - Review of Systems ROS unobtainable: due to endotracheal tube, due to mental status - Objective Allergies/Adverse Reactions: Allergies Allergy/AdvReac Type Severity Reaction Status Date / Time morphine Allergy Intermediate severe Verified 06/19/19 18:14 constipation Sulfa (Sulfonamide Allergy Unknown Diarrhea Verified 06/19/19 18:14 Antibiotics) metoprolol AdvReac Intermediate Verified 06/19/19 18:16 Current Medications Acetaminophen (Tylenol) 650 mg PO Q4H PRN PRN Reason: Headache/Fever/Mild Pain (1-3) Last Admin: 06/22/19 00:33 Dose: 650 mg Acetaminophen (Tylenol) 650 mg SC Q4H PRN PRN Reason: Headache/Fever/Mild Pain (1-3) Acyclovir (Zovirax) 800 mg PO QID [facility] Last Admin: 06/22/19 08:26 Dose: 800 mg Albuterol/Ipratropium (Duoneb) 3 ml NEB [id number] [facility] Last Admin: 06/22/19 10:40 Dose: 3 ml Amiodarone HCl (Cordarone) 200 mg PO DAILY [facility] Last Admin: 06/22/19 08:24 Dose: 200 mg Apixaban (Eliquis) 5 mg PO BID [facility] Last Admin: 06/22/19 08:24 Dose: 5 mg Atorvastatin Calcium (Lipitor) 20 mg PO HS [facility] Last Admin: 06/21/19 21:09 Dose: 20 mg Calcium/Vitamin D (Caltrate 600 + Vit D) 1 tab PO BID [facility] Last Admin: 06/22/19 08:24 Dose: 1 tab Cholecalciferol (Vitamin D3) 1,000 units PO DAILY [facility] Last Admin: 06/22/19 08:36 Dose: 1,000 units Al Hydroxide/Mg Hydroxide 60 ml/ Diphenhydramine HCl 150 mg / Lidocaine HCl 60 ml/Nystatin 6,000,000 units 0 ml SSW QID [facility] Last Admin: 06/22/19 09:28 Dose: 10 ml Digoxin (Lanoxin) 0.125 mg PO DAILY [facility] Last Admin: 06/22/19 08:23 Dose: 0.125 mg Famotidine (Pepcid) 20 mg SLOW IVP QPM [facility] Last Admin: 06/21/19 21:08 Dose: 20 mg Fluconazole (Diflucan) 150 mg PO DAILY [facility] Last Admin: 06/22/19 08:24 Dose: 150 mg Fluoxetine HCl (Prozac) 20 mg PO DAILY [facility] Last Admin: 06/22/19 08:23 Dose: 20 mg Folic Acid (Folvite) 1 mg PO DAILY [facility] Last Admin: 06/22/19 08:23 Dose: 1 mg Piperacillin Sod/Tazobactam (Sod 3.375 gm/ Sodium Chloride) 100 mls @ 200 mls/ hr IVPB Q6HR [facility] Last Admin: 06/22/19 05:23 Dose: 100 mls Vancomycin HCl 1.25 gm/ Sodium (Chloride) 250 mls @ 166.667 mls/hr IVPB 1600 [facility] Last Admin: 06/21/19 16:54 Dose: 250 mls Sodium Chloride (Normal Saline 0.9%) 1,000 mls @ 50 mls/hr IV .Q20H [facility] Last Admin: 06/22/19 08:01 Dose: 1,000 mls Fentanyl Citrate 2,000 mcg/ (Sodium Chloride) 100 mls @ 0 mls/hr IV INF [facility]; Protocol Stop: 07/21/19 17:09 Last Admin: 06/21/19 18:19 Dose: 100 mls Fentanyl Citrate (Fentanyl Bolus) 250 mls @ 0 mls/hr IVPB PRN PRN PRN Reason: Breakthrough pain/agitation Stop: 07/21/19 17:09 Norepinephrine Bitartrate (Levophed) 250 mls @ 0 mls/hr IVPB INF [facility]; Protocol Last Admin: 06/22/19 05:29 Dose: 250 mls Vasopressin 40 unit/Miscellaneous Medication 1 each/ Sodium Chloride 102 mls @ 0 mls/hr IV INF [facility]; Protocol Lorazepam (Ativan) 2 mg SLOW IVP Q1H PRN PRN Reason: Breakthrough agitation Stop: 07/21/19 17:09 Methylprednisolone Sodium Succinate (Solu-Medrol) 20 mg IVP Q6HR [facility] Last Admin: 06/22/19 05:24 Dose: 20 mg Miscellaneous Medication (Pharmacy To Dose) 1 each IVPB PRN PRN PRN Reason: Pharmacy to dose Morphine Sulfate (Morphine) 2 mg SLOW IVP Q1H PRN PRN Reason: BREAKTHROUGH PAIN/Agitation Stop: 07/21/19 17:09 Non-Formulary Medication (Cyanocobalamin (Vitamin B-12) [Vitamin B-12]) 5,000 mcg PO BID [facility] Discontinue Previous Narcotic Pain Medications And Benzodiazepines 1 each FS .ONE [facility] Stop: 07/21/19 17:09 Nystatin (Mycostatin) 500,000 units PO BID [facility] Last Admin: 06/22/19 08:25 Dose: 500,000 units Propofol (Diprivan) 1,000 mg IV INF PRN; Protocol PRN Reason: TO ACHIEVE GOAL RASS Stop: 07/21/19 17:09 Last Admin: 06/21/19 19:31 Dose: 1,000 mg Propofol (Diprivan Bolus) 20 mg IV Q5MIN PRN PRN Reason: BREAKTHROUGH AGITATION Stop: 07/21/19 17:09 Sodium Chloride (Flush - Normal Saline) 10 ml IVF Q12HR PRN PRN Reason: Saline Flush Sodium Chloride (Flush - Normal Saline) 10 ml IVF PRN PRN PRN Reason: Saline Flush Sterile Water (Bacteriostatic Water) 1 ml FS PRN PRN PRN Reason: RECONSTITUTION Vital Signs & Weight: Vital Signs Temp Pulse Resp BP Pulse Ox 06/22/19 10:40 93 106/72 06/22/19 10:00 28 H 06/22/19 08:23 97 06/22/19 08:00 28 H 06/22/19 07:29 92 111/70 06/22/19 07:27 100 06/22/19 07:00 97.9 F 06/22/19 06:00 28 H 06/22/19 04:00 98.0 F 28 H 06/22/19 02:48 84 28 H 98 06/22/19 02:00 29 H 06/22/19 00:00 100.6 F H 32 H Admit Weight 164 lb Weight 167 lb 5.294 oz I/O: I/O 06/21/19 06/22/19 06/23/19 06:59 06:59 06:59 Intake Total 1865 7.0 Output Total 1999 580 70 Balance -135 1447.0 -70 - Quality Measures Condition: Atrial Fibrillation/Flutter (hx or current) CV meds: Eliquis: Yes - Physical Exam General: no apparent distress, other (intubated and sedated) HEENT: mucus membranes moist. negative: jaundice, oral lesions Neck: supple neck, midline trachea, no JVD/HJR, no lymphadenopathy. negative: JVD/HJR Cardiology: regular rate and rhythm, no murmur, regular rate. negative: bradycardia Lungs: ventilated respirations Abdomen: soft, no masses, HJR negative. negative: hepatosplenomegaly Extremities: dry, warm. negative: clubbing, cyanosis - Chadsvasc Risk factors Hypertension: 1 Age >75: 2 Risk Score: 3 - Labs Result Diagrams: 06/22/19 03:30 06/22/19 03:30 - Assessment/Plan Assessment/Plan: 1. Persisting atrial fibrillation. a. History of intermittent atrial fibrillation since last 15 years. b. Persistent atrial fibrillation following a mitral valve repair in 2016 prompting amiodarone therapy, possibly previous use also as well. c. Amiodarone recently stopped and atrial fibrillation recurred, required cardioversion now with early recurrence of atrial fibrillation. 2. Valvular heart disease. a. History of moderate to severe MR. b. Status post mitral valve repair, with left atrial appendage ligation in 2016, but subsequent left atrial appendage patency still seen. 3. History of preserved LV systolic function and normal coronary arteries per history. 4. History of thoracic aortic aneurysm. 5. Hypertension, hyperlipidemia. 6. History of obstructive sleep apnea. 7. Pulmonary edema -intubated 06/21 Unfortunately, Mr Fletcher required intubation on 06/21. He is sedated. Heart rates mostly controlled between 85-100 for the past 24 hours. On Digoxin 125mcg daily. Continue digoxin, amiodarone, and eliquis 5mg BID for CVA prophylaxis via NGT if placed. Otherwise will need to transition to IV agents. Could consider PVAI shelter but would wait until he is medically stable and recovered. He might require multiple ablations to restore SR [facility].
[2019-06-22] MEDS ORDERED: Magnevist 469MG/ML 20 ML VIAL ONE (12:37)
[2019-06-22] MEDS: Vancomycin HCl 1.25 GM in Sodium Chloride 0.9% 250 ML 250 ML IVPB SCH (15:28)
--- NOTE | 2019-06-22 18:51 | MRI ---
MRI BRAIN WITH AND WITHOUT CONTRAST: 06/22/19 INDICATIONS: Left eye swelling. A CT orbit study 03/28/19 suggested possible cavernous carotid fistula with findings of mild left exop hthalmos and prominent superior left ophthalmic vein with prominence of the left cavernous sinus. FINDINGS: On axial images, there continues to be mild left exophthalmos although this does not appear as pronou nced when compared to the CT of 03/28/19. The left superior ophthalmic vein is slightly larger than t he right. Mild prominence of the left cavernous sinus with slight convexity as noted on the recent C T. Cavernous carotid fistula is not excluded. The standard for diagnosing this condition is catheter angiography (DSA). The brain appears unremarkable. There is no evidence of mass or edema. No evidence of infarct. Minima l white matter changes suggesting very mild chronic ischemic white matter change. Globes and orbits otherwise unremarkable. Extraocular muscles unremarkable. Retro-orbital regions alpesh ear unremarkable and symmetric. The intracranial internal carotid arteries show flow voids. Proximal cerebral arteries show expected flow voids. IMPRESSION: Mild left exophthalmos. This is less pronounced than on the CT scan of 03/28/19. Mild prominence of th e superior left ophthalmic vein and mild prominence of the left cavernous sinus. If carotid cavernous fistula remains a clinical consideration, further evaluation with catheter angiogram with digital s ubtraction angiography is recommended for diagnosis. POS: OFF
[2019-06-22] MEDS ORDERED: Sodium Chloride 0.9% 500 ML IV SCH ×2 (19:30→19:45)
[2019-06-22] MEDS: Atorvastatin Calcium 20 MG TAB PO SCH (20:06)
[2019-06-22] MEDS: Famotidine/PF 20 mg/2ml Vial SLOW IVP SCH (20:06)
--- NOTE | 2019-06-22 21:09 | PRG ---
DATE OF SERVICE: 06/22/2019 SUBJECTIVE: Lane Fletcher remains sedated on mechanical ventilation. OBJECTIVE: VITAL SIGNS: This evening, his heart rate is in 80s, respiratory rate is in the 20s, oximetry is in the low 90s. FiO2 is now down to 50%. His PEEP is still at 10. Blood pressure 100/71, heart rate is in the 90s. LUNGS: Clear anteriorly. HEART: Regular rhythm. S1 and S2 are normal. ABDOMEN: Soft and nontender. EXTREMITIES: Without clubbing, cyanosis, or edema. LABORATORY DATA: White count is 2.8, hemoglobin 11.4, platelets 114,000. Sodium 138, potassium 4, chloride 109, bicarb 18, BUN 42, creatinine 1.65. Intake and outputs positive 1447. One blood culture has coag-negative staph growing, the other is negative. Bronchoalveolar lavage culture showed few epithelial cells, no white cells, moderate gram-positive cocci in pairs and clusters. Acid-fast smears were negative. I do not see where there is a pathology report looking for this special stains today, although I had requested yesterday that be done today. MRI of his brain with and without contrast, mainly to look at the orbit is done today. Mild left exophthalmos was noted, but not as pronounced as a CT in March. Left superior ophthalmic vein is larger than the right. Mild prominence of the left cavernous sinus with slight convexity was noted. A carotid cavernous sinus fistula was not ruled out by this, but I am told an angiogram done in [place] did rule this out. No mass was seen in the retro-orbital area. It is still not clear to me why he is on methotrexate and steroids leading up to this admission. Chest radiograph shows patchy bilateral infiltrates. IMPRESSION AND PLAN: Respiratory failure. At this time, it would seem that most likely he has developed an infectious process, i.e. pneumonia with adult respiratory distress syndrome. His gas exchange is stabilizing and appears to be slowly improving. He is probably slightly prerenal. Hopefully, this will stabilize. His left ventricular function appears unremarkable. There is no reason to suspect HIV related illness in this gentleman. His atrial fibrillation is unlikely to have been the cause of his diffuse infiltrates and I would expect significant improvement overnight with sedation, paralytics and mechanical ventilation if this was cardiac related. We will continue to follow and update the family. CRITICAL CARE TIME: 40 minutes. Job ID: [id number]
[2019-06-23] MEDS: fentaNYL Citrate/PF 2,000 MCG in Sodium Chloride 0.9% 60 ML IV SCH (03:52)
[2019-06-23 04:03] LABS: Band 4 % (5-11); Hemoglobin 11.2 g/dL (14.0-18.0); Lymphocytes 6 % (21-51); MDiff Complete? YES; Mean Corpuscular Hemoglobin 31.9 pg (27.0-31.0); Mean Corpuscular Volume 96.6 fL (78.0-98.0); Monocytes 2 % (0-10); Neutrophil 88 % (42-75); Nucleated RBC 6 % (0); Platelet Count 168 thou/uL (130-400); Platelet Morphology Comment Appears Adequate; Red Blood Cell (RBC) Count 3.51 mill/uL (4.70-6.10); White Blood Cell (WBC) Count 3.5 thou/uL (4.8-10.8)
[2019-06-23 04:17] LABS: Anion Gap 14 mmol/L (10-20); BUN (Urea Nitrogen) 46 mg/dL (8.4-25.7); Calc. Creatinine Clearance 46 mL/min (70-130); Calcium 7.5 mg/dL (7.8-10.44); Carbon Dioxide 20 mmol/L (23-31); Chloride 112 mmol/L (98-107); Estimated GFR-MDRD 47; Glucose 180 mg/dL (83-110); Sodium 142 mmol/L (136-145)
[2019-06-23] MEDS: methylPREDNISolone Sod Succ 40 MG VIAL IVP SCH ×3 (05:10→18:09)
[2019-06-23] MEDS: Piperacillin/Tazobactam 3.375 GM in Sodium Chloride 0.9% 100 ML IVPB SCH ×2 (05:10→11:58)
[2019-06-23] MEDS: Propofol 1,000 MG/100 ML VIAL IV PRN ×2 (06:39→22:00)
[2019-06-23 06:50] LABS: Actual Bicarbonate (HCO3a) 18.6 mEq/L (22-28); Base Excess (BEa) -5.2 mEq/L (-2.0 to +3.0); CO2 Tension 30.5 mmHg (35.0-45.0); Calcium, Ionized 1.07 mmol/L (1.12-1.30); Carboxyhemoglobin (COHb) 0.3 gm% (0.0-3.0); Hemoglobin (Hb) 11.3 g/dL (14.0-18.0); Potassium - ABG Lab 3.62 mmol/L (3.70-5.30)
[2019-06-23 06:54] LABS: O2 Tension (PaO2) 57.8 mmHg (> 70.0)
[2019-06-23 06:55] LABS: ALV-art Gradient 260.575 (0-20); Puncture Site RRA
--- NOTE | 2019-06-23 07:30 | RAD ---
RADIOGRAPH CHEST 1 VIEW: DATE: 06/23/2019 TIME: 4:37 AM HISTORY: 74-year-old male in respiratory failure COMPARISON: 06/22/2019 4:22 AM FINDINGS: ETT and esophagogastric tube remain. No cardiomegaly. Interstitial and alveolar infiltrates at bilateral mid and lower lung zones. Sternotomy wires. No pne umothorax. No interval change overall. IMPRESSION: 1. No interval change overall. 2. Bilateral interstitial-alveolar pulmonary opacities at mid and lower lung zones.
[2019-06-23] MEDS: Acyclovir 800 mg Tablet PO SCH (09:15)
[2019-06-23] MEDS: Amiodarone 200 MG TAB PO SCH (09:16)
[2019-06-23] MEDS: Apixaban 5 MG TAB PO SCH ×2 (09:16→21:56)
[2019-06-23] MEDS: Digoxin 0.125 MG TAB PO SCH (09:17)
[2019-06-23] MEDS: Calcium Carbonate + Vit D 1 TAB PO SCH ×2 (09:17→21:56)
[2019-06-23] MEDS: Fluconazole 100 MG TAB PO SCH (09:18)
[2019-06-23] MEDS: FLUoxetine HCl 20 MG CAP PO SCH (09:18)
[2019-06-23] MEDS: Folic Acid 1 MG TAB PO SCH (09:19)
--- NOTE | 2019-06-23 10:39 | PDOC.EP ---
- Subjective Date: 06/23/19 Time: 08:00 Interval History: follow up for atrial fibrillation. remain intubated and sedated - Review of Systems ROS unobtainable: due to endotracheal tube, due to mental status - Objective Allergies/Adverse Reactions: Allergies Allergy/AdvReac Type Severity Reaction Status Date / Time morphine Allergy Intermediate severe Verified 06/19/19 18:14 constipation Sulfa (Sulfonamide Allergy Unknown Diarrhea Verified 06/19/19 18:14 Antibiotics) metoprolol AdvReac Intermediate Verified 06/19/19 18:16 Current Medications Acetaminophen (Tylenol) 650 mg PO Q4H PRN PRN Reason: Headache/Fever/Mild Pain (1-3) Last Admin: 06/22/19 00:33 Dose: 650 mg Acetaminophen (Tylenol) 650 mg [place] Q4H PRN PRN Reason: Headache/Fever/Mild Pain (1-3) Acyclovir (Zovirax) 800 mg PO QID [facility] Last Admin: 06/23/19 09:15 Dose: 800 mg Albuterol/Ipratropium (Duoneb) 3 ml NEB [id number] [facility] Last Admin: 06/23/19 10:19 Dose: 3 ml Amiodarone HCl (Cordarone) 200 mg PO DAILY [facility] Last Admin: 06/23/19 09:16 Dose: 200 mg Apixaban (Eliquis) 5 mg PO BID [facility] Last Admin: 06/23/19 09:16 Dose: 5 mg Atorvastatin Calcium (Lipitor) 20 mg PO HS [facility] Last Admin: 06/22/19 20:06 Dose: 20 mg Calcium/Vitamin D (Caltrate 600 + Vit D) 1 tab PO BID [facility] Last Admin: 06/23/19 09:17 Dose: 1 tab Cholecalciferol (Vitamin D3) 1,000 units PO DAILY [facility] Last Admin: 06/23/19 09:24 Dose: 1,000 units Digoxin (Lanoxin) 0.125 mg PO DAILY [facility] Last Admin: 06/23/19 09:17 Dose: 0.125 mg Famotidine (Pepcid) 20 mg SLOW IVP QPM [facility] Last Admin: 06/22/19 20:06 Dose: 20 mg Fluconazole (Diflucan) 150 mg PO DAILY [facility] Last Admin: 06/23/19 09:18 Dose: 100 mg Fluoxetine HCl (Prozac) 20 mg PO DAILY [facility] Last Admin: 06/23/19 09:18 Dose: 20 mg Folic Acid (Folvite) 1 mg PO DAILY [facility] Last Admin: 06/23/19 09:19 Dose: 1 mg Piperacillin Sod/Tazobactam (Sod 3.375 gm/ Sodium Chloride) 100 mls @ 200 mls/ hr IVPB Q6HR [facility] Last Admin: 06/23/19 05:10 Dose: 100 mls Vancomycin HCl 1.25 gm/ Sodium (Chloride) 250 mls @ 166.667 mls/hr IVPB 1600 [facility] Last Admin: 06/22/19 15:28 Dose: 250 mls Fentanyl Citrate 2,000 mcg/ (Sodium Chloride) 100 mls @ 0 mls/hr IV INF [facility]; Protocol Stop: 07/21/19 17:09 Last Admin: 06/23/19 03:52 Dose: 100 mls Fentanyl Citrate (Fentanyl Bolus) 250 mls @ 0 mls/hr IVPB PRN PRN PRN Reason: Breakthrough pain/agitation Stop: 07/21/19 17:09 Norepinephrine Bitartrate (Levophed) 250 mls @ 0 mls/hr IVPB INF [facility]; Protocol Last Admin: 06/22/19 05:29 Dose: 250 mls Vasopressin 40 unit/Miscellaneous Medication 1 each/ Sodium Chloride 102 mls @ 0 mls/hr IV INF [facility]; Protocol Lorazepam (Ativan) 2 mg SLOW IVP Q1H PRN PRN Reason: Breakthrough agitation Stop: 07/21/19 17:09 Methylprednisolone Sodium Succinate (Solu-Medrol) 20 mg IVP Q6HR [facility] Last Admin: 06/23/19 05:10 Dose: 20 mg Miscellaneous Medication (Pharmacy To Dose) 1 each IVPB PRN PRN PRN Reason: Pharmacy to dose Morphine Sulfate (Morphine) 2 mg SLOW IVP Q1H PRN PRN Reason: BREAKTHROUGH PAIN/Agitation Stop: 07/21/19 17:09 Non-Formulary Medication (Cyanocobalamin (Vitamin B-12) [Vitamin B-12]) 5,000 mcg PO BID [facility] Discontinue Previous Narcotic Pain Medications And Benzodiazepines 1 each FS .ONE [facility] Stop: 07/21/19 17:09 Propofol (Diprivan) 1,000 mg IV INF PRN; Protocol PRN Reason: TO ACHIEVE GOAL RASS Stop: 07/21/19 17:09 Last Admin: 06/23/19 06:39 Dose: 1,000 mg Propofol (Diprivan Bolus) 20 mg IV Q5MIN PRN PRN Reason: BREAKTHROUGH AGITATION Stop: 07/21/19 17:09 Sodium Chloride (Flush - Normal Saline) 10 ml IVF Q12HR PRN PRN Reason: Saline Flush Sodium Chloride (Flush - Normal Saline) 10 ml IVF PRN PRN PRN Reason: Saline Flush Sterile Water (Bacteriostatic Water) 1 ml FS PRN PRN PRN Reason: RECONSTITUTION Vital Signs & Weight: Vital Signs Temp Pulse Resp Pulse Ox 06/23/19 10:19 96 06/23/19 09:17 101 H 06/23/19 08:00 98.7 F 28 H 06/23/19 06:57 97 06/23/19 06:00 28 H 06/23/19 04:00 99.0 F 28 H 06/23/19 03:03 94 28 H 92 L 06/23/19 02:00 28 H 06/23/19 00:00 98.2 F 28 H Admit Weight 164 lb Weight 170 lb 13.732 oz I/O: I/O 06/22/19 06/23/19 06/24/19 06:59 06:59 06:59 Intake Total 2027.0 2811.4 Output Total 580 597 60 Balance 1447.0 2214.4 -60 - Quality Measures Condition: Atrial Fibrillation/Flutter (hx or current) CV meds: Eliquis: Yes - Physical Exam General: no apparent distress, other (sedated and intubated) HEENT: mucus membranes moist, normocephaly. negative: jaundice Neck: supple neck, midline trachea, no JVD/HJR, no masses, no bruit, no lymphadenopathy, no thromegaly Cardiology: irregularly irregular, tachycardia Lungs: no rales, no rhonchi, decreased breath sounds, ventilated respirations Abdomen: soft, no masses, HJR negative Extremities: dry, strong pulses, warm - Labs Result Diagrams: 06/23/19 03:30 06/23/19 03:30 - EKG Interpretation EKG shows: Atrial fibrillation - Problem (1) Bacteremia due to coagulase-negative Staphylococcus Code(s): R78.81 - BACTEREMIA - Assessment/Plan Assessment/Plan: 1. Persisting atrial fibrillation. a. History of intermittent atrial fibrillation since last 15 years. b. Persistent atrial fibrillation following a mitral valve repair in 2017 prompting amiodarone therapy, possibly previous use also as well. c. Amiodarone recently stopped and atrial fibrillation recurred, required cardioversion now with early recurrence of atrial fibrillation. 2. Valvular heart disease. a. History of moderate to severe MR. b. Status post mitral valve repair, with left atrial appendage ligation in 2017, but subsequent left atrial appendage patency still seen. 3. History of preserved LV systolic function and normal coronary arteries per history. 4. History of thoracic aortic aneurysm. 5. Hypertension, hyperlipidemia. 6. History of obstructive sleep apnea. 7. Pulmonary edema -intubated 06/21 Mr Fletcher remains intubatead. He is sedated. Heart rate remains controlled between 85-100 on Digoxin 125mcg daily. Could consider PVAI senior care but would wait until he is medically stable and recovered. He might require multiple ablations to restore SR [employer]. EP signing off. If further arrhythmia issues occur please feel free to contact me, otherwise we will see him back in clinic after discharge to discuss A Fib treatment options [employer]. Continue digoxin, amiodarone, and eliquis 5mg BID.
--- NOTE | 2019-06-23 11:21 | PDOC.HOSPP ---
- Subjective Encounter Date: 06/23/19 Encounter Time: 11:19 Subjective: intubated, sedated - Objective Vital Signs & Weight: Vital Signs (12 hours) Temp Pulse Resp Pulse Ox 06/23/19 10:19 96 06/23/19 09:17 101 H 06/23/19 08:00 98.7 F 28 H 06/23/19 06:57 97 06/23/19 06:00 28 H 06/23/19 04:00 99.0 F 28 H 06/23/19 03:03 94 28 H 92 L 06/23/19 02:00 28 H 06/23/19 00:00 98.2 F 28 H Weight Admit Weight 164 lb Weight 170 lb 13.732 oz Most Recent Monitor Data Heart Rate from ECG 100 NIBP 102/64 NIBP BP-Mean 76 Respiration from ECG 28 SpO2 97 I&O: 06/22/19 06/23/19 06/24/19 06:59 06:59 06:59 Intake Total 2027.0 2811.4 Output Total 580 597 60 Balance 1447.0 2214.4 -60 Result Diagrams: 06/23/19 03:30 06/23/19 03:30 Hospitalist ROS - Medication Medications: Active Medications Generic Name Dose Route Start Last Admin Trade Name Freq PRN Reason Stop Dose Admin Albuterol/Ipratropium 3 ml 06/21/19 18:30 06/23/19 10:19 Duoneb NEB 3 ml [id number] [facility] Administration Amiodarone HCl 200 mg 06/21/19 09:00 06/23/19 09:16 Cordarone PO 200 mg DAILY [facility] Administration Apixaban 5 mg 06/21/19 09:00 06/23/19 09:16 Eliquis PO 5 mg BID [facility] Administration Atorvastatin Calcium 20 mg 06/20/19 21:00 06/22/19 20:06 Lipitor PO 20 mg HS [facility] Administration Calcium/Vitamin D 1 tab 06/21/19 21:00 06/23/19 09:17 Caltrate 600 + Vit D PO 1 tab BID [facility] Administration Famotidine 20 mg 06/20/19 21:00 06/22/19 20:06 Pepcid SLOW IVP 20 mg QPM [facility] Administration Piperacillin Sod/Tazobactam 100 mls @ 200 mls/hr 06/21/19 18:00 06/23/19 05: 10 Sod 3.375 gm/ Sodium Chloride IVPB 100 mls Q6HR [facility] Administration Vancomycin HCl 1.25 gm/ Sodium 250 mls @ 166.667 mls/hr 06/21/19 16:00 15:28 Chloride IVPB 250 mls 1600 [facility] Administration Fentanyl Citrate 2,000 mcg/ 100 mls @ 0 mls/hr 06/21/19 17:09 06/23/19 03:52 Sodium Chloride IV 07/21/19 17:09 100 mls INF [facility] Administration Protocol Per Protocol Norepinephrine Bitartrate 250 mls @ 0 mls/hr 06/22/19 05:26 06/22/19 05:29 Levophed IVPB 250 mls INF [facility] Administration Protocol Titrate Methylprednisolone Sodium Succinate 20 mg 06/21/19 12:00 06/23/19 05:10 Solu-Medrol IVP 20 mg Q6HR [facility] Administration Propofol 1,000 mg 06/21/19 17:09 06/23/19 06:39 Diprivan IV 07/21/19 17:09 1,000 mg INF PRN Administration TO ACHIEVE GOAL RASS Protocol - Exam Neck: no JVD Heart: irregular Heart - other findings: coarse BS Respiratory: no wheezes Gastrointestinal: soft, normal bowel sounds Extremities: 1+ LE edema Hosp A/P (1) Sepsis associated hypotension Code(s): A41.9 - SEPSIS, UNSPECIFIED ORGANISM; I95.9 - HYPOTENSION, UNSPECIFIED Status: Acute (2) Bacteremia due to coagulase-negative Staphylococcus Code(s): R78.81 - BACTEREMIA Status: Acute (3) Acute respiratory failure with hypoxia Code(s): J96.01 - ACUTE RESPIRATORY FAILURE WITH HYPOXIA Status: Acute (4) Hypotension Status: Acute Qualifiers: Hypotension type: idiopathic hypotension Qualified Code(s): I95.0 - Idiopathic hypotension (5) Acute renal failure Status: Acute Qualifiers: Acute renal failure type: unspecified Qualified Code(s): N17.9 - Acute kidney failure, unspecified (6) Atrial fibrillation with RVR Code(s): I48.91 - UNSPECIFIED ATRIAL FIBRILLATION Status: Acute (7) Leukopenia Code(s): D72.819 - DECREASED WHITE BLOOD CELL COUNT, UNSPECIFIED Status: Acute Qualifiers: Leukopenia type: neutropenia Neutropenia type: other drug-induced Qualified Code(s): D70.2 - Other drug-induced agranulocytosis - Plan on vent levophed srarted for Hypotension staph bacteremia, cont vancomycin ID consult need to discuss with pulmonology and cardiology
[2019-06-23] MEDS ORDERED: Sulfamethoxazole/Trimethoprim 320 MG in Dextrose 5% in Water 500 ML IVPB SCH (12:00)
[2019-06-23 15:30] LABS: Vancomycin, Trough 12.7 ug/mL
[2019-06-23] MEDS ORDERED: TRIMETHOPRIM IVPB SCH (18:00)
[2019-06-23] MEDS ORDERED: SULFAMETHOXAZOLE IVPB SCH (18:00)
[2019-06-23] MEDS ORDERED: DEXTROSE 5% IVPB SCH (18:00)
[2019-06-23] MEDS ORDERED: WATER IVPB SCH (18:00)
[2019-06-23] MEDS: Aluminum & Magnesium Hydroxide 60 ML, diphenhydrAMINE 150 MG, Lidocaine 2% Viscous Solu... SSW SCH (19:30)
[2019-06-23] MEDS: Nystatin 500,000 UNITS/5 ML UDCUP PO SCH (19:30)
[2019-06-23] MEDS: Sodium Chloride 0.9% 1,000 ML IV SCH (19:30)
[2019-06-23] MEDS: Vancomycin HCl 1.25 GM in Sodium Chloride 0.9% 250 ML 250 ML IVPB SCH (19:31)
[2019-06-23] MEDS: Famotidine/PF 20 mg/2ml Vial SLOW IVP SCH (21:56)
[2019-06-23] MEDS: Atorvastatin Calcium 20 MG TAB PO SCH (21:56)
--- NOTE | 2019-06-23 22:13 | CON ---
DATE OF CONSULTATION: 06/23/2019 REASON FOR CONSULTATION: Pneumocystis pneumonia. HISTORY OF PRESENT ILLNESS: A 74-year-old patient who has a history of intermittent atrial fibrillation and prior mitral valve repair in 2017, initially treated with amiodarone, which was recently stopped with a recurrence of atrial fibrillation. At that time, he underwent cardioversion and then subsequently this year, he sustained a fracture after an accidental fall and had hemiarthroplasty, left hip and a few weeks later, he developed swelling of the left eye. I was able to see a photo of the eye. There was an evidence of periorbital swelling. He underwent extensive evaluation elsewhere and was diagnosed with some form of autoimmune syndrome. I inquired the possibility of IgG4 disease and the immediately recognized that terminology. Most likely, the patient had IgG4 related autoimmune syndrome which can present with periorbital infiltrative syndromes. He was given immunosuppressive therapy with prompt improvement in the swelling. The IgG4 infiltration must have involved with periorbital muscles since the patient had diplopia at that time. He may have retro-orbital infiltration as well. Anyway, the patient improved and after a period of high-dose prednisone, he was transitioned to Imuran plus a second drug that she does not remember the name and then she noticed that over the past few weeks he has developed decrease in his overall sense of well-being, weakness, and cough, she describes as a dry cough. Eventually, the patient was brought in to the emergency room because of weakness and intermittent chest pain, dizziness. There was no evidence of headaches. No visual symptoms. No abdominal pain or diarrhea. No genitourinary symptoms. No fever. Initial findings included a pulse of 102 , O2 saturation 97, temperature 97.5, with respiratory rate 24, with no remarkable findings described in the emergency room exam and initial findings also included a white cell count of 2.7, hemoglobin 12.4, MCV 94, platelets 155, with 72% neutrophils. D-dimer 0.75. Initial blood gas was 7.46, pCO2 27, PO2 42. This was an arterial sample. Chemistry with a sodium of 136, creatinine 1.96 with a baseline of 1.22 in February 2019. His albumin was 3.0. Urinalysis was normal. The patient had a chest CTA which showed good opacification of pulmonary arteries. There was evidence of small bilateral pleural effusions with adjacent atelectatic changes. Also, there were extensive ground-glass infiltrates in lung machado bilaterally. Echocardiogram with EF 45% to 50%, moderately dilated left atrium, and severe tricuspid regurgitation, probably from pulmonary hypertension. The patient ended up having to be intubated. Dr. Llanos submitted samples for testing and today, we had a positive result for Pneumocystis. Currently, Mr. Fletcher is sedated and intubated. His is at the bedside. He is not on pressors. 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 ALLERGIES: INCLUDE MORPHINE, PREDNISONE, SULFA DRUGS, METOPROLOL. FAMILY HISTORY: Noncontributory. SOCIAL HISTORY: Has been living with . No alcoholic beverage use. Never smoker. CURRENT MEDICATIONS: 1. Tylenol. 2. DuoNeb. 3. Cordarone. 4. Eliquis. 5. Lipitor. 6. Caltrate. 7. Lanoxin. 8. Pepcid. 9. Fentanyl. 10. Ativan. 11. Medrol. 12. Morphine. 13. Levophed. 14. Zosyn. 15. Bactrim. 16. Vancomycin. PHYSICAL EXAMINATION: VITAL SIGNS: T-max 100.6, blood pressure 96/67, pulse 87, respirations 25, O2 saturation 95. SKIN: The patient has a peripheral IV access and a Mccabe catheter in place. Oral tracheal intubation. No lymphadenopathy. No areas of skin breakdown. HEENT: Ocular movements are not testable at this time. Pupils are miotic. NECK: No jugular vein distention. LUNGS: With scattered inspiratory crackles at the bases, otherwise symmetric lung sounds. HEART: Irregular rate, S1, S2 without murmurs. No S3. ABDOMEN: Soft, not distended or tender. No ascites. No bladder distention. EXTREMITIES: No joint inflammatory activity. No edema. Pulses are 1+ in dorsalis pedis. Plantar responses are flexor. No clonus. NEURO: Not feasible at the time. LABORATORY DATA: Followup labs; white cell count 3.5, hemoglobin 11.2, and platelets 168 with 88% neutrophils. Followup chemistry; creatinine 1.46, sodium 142. Urinalysis was normal. Microbiology two sets with coagulase negative Staph, likely contaminant. ASSESSMENT: 1. Atrial fibrillation. 2. 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 3. Diffuse pulmonary infiltrates with evidence of Pneumocystis on bronchoalveolar lavage specimen. DISCUSSION: The patient has non-HIV associated Pneumocystis, which is the more common one since HIV infection treatment has been implemented with highly effective anti-retroviral therapy. Nowadays, we see mostly non-HIV cases with a few interspersed HIV cases in between. Those patients include the patients mostly on either chemotherapy or immunosuppressive therapy with corticosteroids or other type of immunosuppressive therapy. In this case the IgG4 related disease with the required immunosuppression has led to the pneumonia and he will be treated with usual management with initially Bactrim. The dose will be adjusted to 240 mg q.6 hours. For the past few years, it has become evident that lower doses of trimethoprim/sulfamethoxazole associated with similar outcomes with less toxicity. Corticosteroids have been initiated as well and the success rate with Bactrim is around 75% to 80%. We will give it a few days to see if he responds. We will go ahead and submit G6PD in case we need to switch him to clindamycin and primaquine, but I expect him to respond to this current regimen. The remainder of antimicrobials can probably be discontinued and I think that the coagulase- negative Staph is a contaminant, the samples are labeled as having being drawn at the same time in the emergency room and that typically represents contamination of the specimen, so go ahead and discontinue vancomycin. The duration of therapy will be a total of 21 days with Bactrim. Eventual transition to oral therapy depending on clinical response. After that, he will need to be on prophylaxis 3 times a week. Job ID: [id number] [facility]
--- NOTE | 2019-06-23 23:01 | PRG ---
DATE OF SERVICE: 06/23/2019 SUBJECTIVE: Lane Fletcher appears to have stabilized. His in's and out's have been stable. OBJECTIVE: VITAL SIGNS: Blood pressures been little better in the 120s today, heart rates in the 90s, respiratory rates in the 20s. LUNGS: Remarkable for coarse equal breath sounds. HEART: Regular rhythm. ABDOMEN: Soft and nontender. EXTREMITIES: Without asymmetry or edema. NEUROLOGIC: Grossly nonfocal. He gave bilateral upper extremity thumbs-up earlier today with questioning. LABORATORY DATA: White count 3.5, hemoglobin 11.2, platelets 168,000. Sodium 142, potassium 4, chloride 112, bicarb 20, BUN 46, and creatinine 1.46. 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 This would explain his proptosis. This will also explain his immunosuppressive medications. Bronchoalveolar lavage was reviewed by pathology today and he has Pneumocystis. IMPRESSION: 1. Pneumocystis pneumonia leading to respiratory failure. Infectious Disease is consulted. He reportedly has a sulfa allergy, but this allergy is reportedly diarrhea, so we started Bactrim earlier today. 2. IgA-related disease with proptosis. 3. Chronic kidney disease. He certainly could have interstitial nephritis with his IgA-related disease. I do not feel his pulmonary infiltrates are related to this. They are entirely consistent with Pneumocystis, although he had a very rapid progression of this which is a little atypical for Pneumocystis. In any event, hopefully, we have uncovered all of the diagnostic mysteries and can proceed forward with antimicrobial therapy, gradually simplify this and eventually weaning from mechanical ventilation. The family has been updated. CRITICAL CARE TIME: 40 minutes. Job ID: [id number]
[2019-06-24] MEDS: methylPREDNISolone Sod Succ 40 MG VIAL IVP SCH ×4 (00:43→18:12)
[2019-06-24 05:04] LABS: Digoxin 0.95 ng/mL (0.8-2.0)
[2019-06-24 05:05] LABS: Anion Gap 13 mmol/L (10-20); BUN (Urea Nitrogen) 49 mg/dL (8.4-25.7); Calc. Creatinine Clearance 45 mL/min (70-130); Calcium 7.4 mg/dL (7.8-10.44); Carbon Dioxide 19 mmol/L (23-31); Chloride 110 mmol/L (98-107); Estimated GFR-MDRD 44; Glucose 249 mg/dL (83-110); Potassium 3.8 mmol/L (3.5-5.1); Sodium 138 mmol/L (136-145)
[2019-06-24 05:22] LABS: Band 20 % (5-11); Hemoglobin 10.8 g/dL (14.0-18.0); Lymphocytes 9 % (21-51); MDiff Complete? YES; Mean Corpuscular HGB CONC 33.6 g/dL (32.0-36.0); Mean Corpuscular Hemoglobin 32.5 pg (27.0-31.0); Mean Corpuscular Volume 96.8 fL (78.0-98.0); Mean Platelet Volume 8.3 fL (7.4-10.4); Monocytes 5 % (0-10); Neutrophil 66 % (42-75); Nucleated RBC 13 % (0); Platelet Count 178 thou/uL (130-400); RBC Distribution Width 16.3 % (11.5-14.5); Red Blood Cell (RBC) Count 3.32 mill/uL (4.70-6.10); White Blood Cell (WBC) Count 2.8 thou/uL (4.8-10.8)
[2019-06-24 06:50] LABS: Base Excess (BEa) -7.2 mEq/L (-2.0 to +3.0); CO2 Tension 30.6 mmHg (35.0-45.0); Calcium, Ionized 1.09 mmol/L (1.12-1.30); Carboxyhemoglobin (COHb) 0.5 gm% (0.0-3.0); Potassium - ABG Lab 3.62 mmol/L (3.70-5.30); pH, Arterial 7.36 (7.35-7.45)
[2019-06-24 07:02] LABS: O2 Tension (PaO2) 45.2 mmHg (> 70.0); Puncture Site RBRAC
[2019-06-24] MEDS ORDERED: Furosemide 40 MG/4 ML VIAL ONE (08:16)
[2019-06-24] MEDS: Digoxin 0.5 MG/2 ML AMP SLOW IVP SCH (08:21)
[2019-06-24] MEDS: Amiodarone 200 MG TAB PO SCH (08:23)
[2019-06-24] MEDS: Calcium Carbonate + Vit D 1 TAB PO SCH ×2 (08:23→20:15)
[2019-06-24] MEDS: Apixaban 5 MG TAB PO SCH ×2 (08:23→20:15)
--- NOTE | 2019-06-24 09:06 | RAD ---
RADIOGRAPH CHEST 1 VIEW: 06/24/2019 4:42 a.m. HISTORY: A 74-year-old male in respiratory failure. COMPARISON: 06/23/2019 at 4:37 a.m. FINDINGS: No change in life support lines. No major interval change in the interstitial and alveolar infiltrate s at the bilateral mid and lower lung zones. Sternotomy wires. No pneumothorax. No interval change ov erall. IMPRESSION: 1. No interval change overall. 2. Bilateral interstitial/alveolar pulmonary opacities at mid and lower lung zones. JN [] POS: CET
[2019-06-24] MEDS: Propofol 1,000 MG/100 ML VIAL IV PRN (10:23)
--- NOTE | 2019-06-24 12:56 | PDOC.HOSPP ---
- Subjective Encounter Date: 06/24/19 Encounter Time: 10:00 Subjective: Patient seen and examined. on bilevel vent, hypoxic this morning, son bedside, No overnight events - Objective Vital Signs & Weight: Vital Signs (12 hours) Temp Pulse Resp Pulse Ox 06/24/19 12:00 98.2 F 26 H 06/24/19 10:31 97 29 H 92 L 06/24/19 10:00 36 H 06/24/19 08:21 97 06/24/19 08:00 98.5 F 33 H 91 L 06/24/19 07:05 87 19 93 L 06/24/19 07:03 82 06/24/19 06:00 28 H 06/24/19 04:00 97.9 F 28 H 06/24/19 03:24 82 28 H 91 L 06/24/19 02:00 28 H Weight Admit Weight 164 lb Weight 172 lb 1.6 oz Most Recent Monitor Data Heart Rate from ECG 100 NIBP 118/75 NIBP BP-Mean 89 Respiration from ECG 25 SpO2 90 I&O: 06/23/19 06/24/19 06/25/19 06:59 06:59 06:59 Intake Total 2811.4 2023.7 150 Output Total 597 790 925 Balance 2214.4 1233.7 -775 Result Diagrams: 06/24/19 04:15 06/24/19 04:15 Radiology Reviewed by me: Yes EKG Reviewed by me: Yes Hospitalist ROS - Review of Systems ROS unobtainable: due to endotracheal tube - Medication Medications: Active Medications Generic Name Dose Route Start Last Admin Trade Name Freq PRN Reason Stop Dose Admin Albuterol/Ipratropium 3 ml 06/21/19 18:30 06/24/19 10:31 Duoneb NEB 3 ml [id number] ALYSE Administration Amiodarone HCl 200 mg 06/21/19 09:00 06/24/19 08:23 Cordarone PO 200 mg DAILY ALYSE Administration Apixaban 5 mg 06/21/19 09:00 06/24/19 08:23 Eliquis PO 5 mg BID ALYSE Administration Atorvastatin Calcium 20 mg 06/20/19 21:00 06/23/19 21:56 Lipitor PO 20 mg HS ALYSE Administration Calcium/Vitamin D 1 tab 06/21/19 21:00 06/24/19 08:23 Caltrate 600 + Vit D PO 1 tab BID ALYSE Administration Digoxin 0.125 mg 06/24/19 09:00 06/24/19 08:21 Lanoxin SLOW IVP 0.125 mg DAILY ALYSE Administration Fentanyl Citrate 2,000 mcg/ 100 mls @ 0 mls/hr 06/21/19 17:09 06/23/19 03:52 Sodium Chloride IV 07/21/19 17:09 100 mls INF ALYSE Administration Protocol Per Protocol Norepinephrine Bitartrate 250 mls @ 0 mls/hr 06/22/19 05:26 06/22/19 05:29 Levophed IVPB 250 mls INF ALYSE Administration Protocol Titrate Trimethoprim/Sulfamethoxazole 250 mls @ 166.667 mls/hr 06/23/19 18:00 06:23 240 mg/ Dextrose/Water IVPB 250 mls Q6HR ALYSE Administration Methylprednisolone Sodium Succinate 20 mg 06/21/19 12:00 06/24/19 12:29 Solu-Medrol IVP 20 mg Q6HR ALYSE Administration Propofol 1,000 mg 06/21/19 17:09 06/24/19 10:23 Diprivan IV 07/21/19 17:09 1,000 mg INF PRN Administration TO ACHIEVE GOAL RASS Protocol Sodium Chloride 10 ml 06/19/19 17:20 06/23/19 21:56 Flush - Normal Saline IVF 10 ml Q12HR PRN Administration Saline Flush - Exam General Appearance: NAD Eye: PERRL, anicteric sclera ENT: normocephalic atraumatic Neck: supple, symmetric, no JVD Heart: RRR, no murmur, no gallops Respiratory: no wheezes, no rales Gastrointestinal: soft, non-distended Extremities: no edema Skin: normal turgor Musculoskeletal: normal tone Hosp A/P (1) Acute respiratory failure with hypoxia Code(s): J96.01 - ACUTE RESPIRATORY FAILURE WITH HYPOXIA Status: Acute (2) Acute renal failure Status: Acute Qualifiers: Acute renal failure type: unspecified Qualified Code(s): N17.9 - Acute kidney failure, unspecified (3) Atrial fibrillation with RVR Code(s): I48.91 - UNSPECIFIED ATRIAL FIBRILLATION Status: Acute (4) Bacteremia due to coagulase-negative Staphylococcus Code(s): R78.81 - BACTEREMIA Status: Acute Plan: contaminant (5) Hypotension Status: Acute Qualifiers: Hypotension type: idiopathic hypotension Qualified Code(s): I95.0 - Idiopathic hypotension (6) Sepsis associated hypotension Code(s): A41.9 - SEPSIS, UNSPECIFIED ORGANISM; I95.9 - HYPOTENSION, UNSPECIFIED Status: Acute (7) Pneumonia Code(s): J18.9 - PNEUMONIA, UNSPECIFIED ORGANISM Status: Acute Plan: due to PCP pneumonia - Plan old records reviewed/req, plan discussed w/ family, continue antibiotics, respiratory therapy 06/24/19, continue bactrim IV, vent as per pulmonary, supportive care, discussed with son, monitor renal function,
[2019-06-24] MEDS: Norepinephrine 8 MG/0.9% NS 250 ML IVPB SCH (14:20)
--- NOTE | 2019-06-24 18:05 | PRG ---
DATE OF SERVICE: 06/24/2019 SUBJECTIVE: Mr. Fletcher is intubated and had some overnight problems with hypoxemia, and after evaluation, Dr. Llanos felt that volume overload was the likely culprit in part due to the excessive amount of volume given administered with the Bactrim solution, that solution has been concentrated to twice the concentration. The patient was given diuretics, which seems to led to resolution of the problem. He is still on bilevel ventilation, though his O2 sats are at 93% with FiO2 of 55%. OBJECTIVE: VITAL SIGNS: At the moment with T-max 99.7 and he has been afebrile over the past 24 hours and BP 107/67, pulse 81. I's and O's were positive for the past few days quite a bit and now they are negative to 1200 thus far. Orotracheal intubation. Indwelling Mccabe catheter. HEENT: With pinpoint pupils. LUNGS: Symmetric air entry, fairly clear breath sounds. HEART: S1, S2. Regular rate. ABDOMEN: Soft, not distended. Appendicular structure movements are not able to be assessed due to sedation. EXTREMITIES: 1+ edema. DIAGNOSTIC DATA: The patient had a repeat chest x-ray with diffuse bilateral infiltrates noted. There is a brain MRI, which showed mild left exophthalmos less pronounced than previous scan on March, mild prominence of the left superior ophthalmic vein, mild prominence of the left cavernous sinus. LABORATORY DATA: White cell count of 2.8, hemoglobin 10.8, platelets 178 with 20% bands. Chemistry with creatinine down to 1.54, sodium 138, potassium 3.8, carbon dioxide 19. Positive blood cultures likely reflect contamination of specimen. I was able to review the documents from [place] and the embedded engineer, who brought up the possibility of IgG4 disease. I did not see a biopsy of any tissue. I do not think he was probably amenable to such, and I also did not see results of IgG4 assay, although it was submitted along with other assays. ASSESSMENT AND DISCUSSION: Atrial fibrillation, IgG4-related autoimmune syndrome, presumably diagnosed in [place], on high-dose steroids and then methotrexate/ Imuran and Pneumocystis pneumonia. The patient's prognosis is guarded in view of the severity of his Pneumocystis case. Continue Bactrim, corticosteroids, and supportive therapy. Job ID: [id number] [facility]
--- NOTE | 2019-06-24 19:57 | PRG ---
DATE OF SERVICE: 06/24/2019 SUBJECTIVE: Mr. Fletcher remains sedated for ventilation. I met with his son and answered all his questions. OBJECTIVE: VITAL SIGNS: Heart rate in the 90s, blood pressure 128/76, respiratory rate is 30, and oximetry is 92. He switched to bilevel ventilation today. On a high PEEP of 34 to 35, his exhaled tidal volumes are 900, turned down to 28. His low PEEP is 12. Blood pressure is 112/66. LUNGS: Remarkable for rhonchi bilaterally. HEART: Regular rate and rhythm. ABDOMEN: Soft, nontender. EXTREMITIES: Without asymmetry. NEUROLOGIC: Grossly nonfocal. He is still awake and moves all extremities. He is being fed now. LABORATORY DATA: White count is 2.8, hemoglobin 10.8, and platelets 178,000. Sodium 138, potassium 3.8, chloride 110, bicarb 19, BUN 49, and creatinine 1.54. The pH 7.36, pCO2 of 30, and pO2 of 45. This was done before we switched him to bilevel. IMPRESSION: 1. Pneumocystis pneumonia. 2. IgG4-related disease. 3. Respiratory failure. 4. History of mitral ring repair with good mitral valve function on echocardiogram. 5. Mild left ventricular systolic dysfunction with ejection fraction of 40% to 45%. Component of noncardiogenic pulmonary edema. He was diuresed today. We will continue to watch his intake and output with Bactrim, may have to increase the diuretics. He is getting to hopefully minimize aggravating his pulmonary edema. Job ID: [id number]
[2019-06-24] MEDS: Famotidine 20 MG TAB PO SCH (20:15)
[2019-06-24] MEDS: Atorvastatin Calcium 20 MG TAB PO SCH (20:15)
[2019-06-25] MEDS: methylPREDNISolone Sod Succ 40 MG VIAL IVP SCH ×4 (00:20→17:40)
[2019-06-25] MEDS: Propofol 1,000 MG/100 ML VIAL IV PRN ×3 (04:25→23:01)
[2019-06-25 04:52] LABS: Anion Gap 14 mmol/L (10-20); BUN (Urea Nitrogen) 52 mg/dL (8.4-25.7); Calc. Creatinine Clearance 39 mL/min (70-130); Calcium 7.3 mg/dL (7.8-10.44); Carbon Dioxide 20 mmol/L (23-31); Chloride 105 mmol/L (98-107); Estimated GFR-MDRD 37; Glucose 222 mg/dL (83-110); Potassium 3.7 mmol/L (3.5-5.1); Sodium 135 mmol/L (136-145)
[2019-06-25 05:06] LABS: Anisocytosis SLIGHT = 6-15 cells (100X) (0-5/hpf); Band 20 % (5-11); Lymphocytes 9 % (21-51); MDiff Complete? YES; Mean Corpuscular HGB CONC 32.7 g/dL (32.0-36.0); Mean Corpuscular Hemoglobin 31.2 pg (27.0-31.0); Mean Corpuscular Volume 95.2 fL (78.0-98.0); Mean Platelet Volume 8.5 fL (7.4-10.4); Metamyelocyte 2 % (0-0); Monocytes 2 % (0-10); Myelocyte 2 % (0-0); Neutrophil 65 % (42-75); Nucleated RBC 16 % (0); Platelet Count 210 thou/uL (130-400); Platelet Morphology Comment Appears Adequate; Polychromasia SLIGHT = 2-3 cells (100X) (0-2/hpf); RBC Distribution Width 16.1 % (11.5-14.5); Red Blood Cell (RBC) Count 3.52 mill/uL (4.70-6.10); White Blood Cell (WBC) Count 2.9 thou/uL (4.8-10.8)
--- NOTE | 2019-06-25 07:31 | RAD ---
EXAM: Portable chest PROVIDED CLINICAL HISTORY: Respiratory insufficiency COMPARISON: 06/24/2019 FINDINGS: Significant interval change with respect to the prior examination is not apparent. IMPRESSION: As above.
[2019-06-25 07:33] LABS: Actual Bicarbonate (HCO3a) 15.9 mEq/L (22-28); Base Excess (BEa) -8.1 mEq/L (-2.0 to +3.0); Calcium, Ionized 1.08 mmol/L (1.12-1.30); Carboxyhemoglobin (COHb) 1.2 gm% (0.0-3.0); Hemoglobin (Hb) 10.8 g/dL (14.0-18.0); O2 Tension (PaO2) 60.2 mmHg (> 70.0); Potassium - ABG Lab 3.74 mmol/L (3.70-5.30); pH, Arterial 7.37 (7.35-7.45)
[2019-06-25 07:55] LABS: Puncture Site RRAD
[2019-06-25] MEDS: Apixaban 5 MG TAB PO SCH ×2 (08:09→20:32)
[2019-06-25] MEDS: Calcium Carbonate + Vit D 1 TAB PO SCH ×2 (08:09→20:31)
[2019-06-25] MEDS: Amiodarone 200 MG TAB PO SCH (08:10)
[2019-06-25] MEDS: Digoxin 0.5 MG/2 ML AMP SLOW IVP SCH (08:10)
[2019-06-25] MEDS ORDERED: Metoclopramide HCl 10 MG/2 ML VIAL IVP PRN (09:34)
[2019-06-25] MEDS ORDERED: Bisacodyl 10 MG SUPP PR PRN (09:34)
[2019-06-25] MEDS ORDERED: Dextrose 5% in Water 1,000 ML IV PRN (09:34)
[2019-06-25] MEDS ORDERED: Dextrose 50 % In Water 50 ML SYRINGE IV PRN (09:34)
[2019-06-25] MEDS ORDERED: Furosemide 40 MG/4 ML VIAL SLOW IVP SCH (09:45)
[2019-06-25] MEDS: HumaLOG 300 UNITS/3 ML VIAL SC PRN ×3 (10:12→22:20)
--- NOTE | 2019-06-25 11:24 | PDOC.HOSPP ---
- Subjective Encounter Date: 06/25/19 Encounter Time: 09:45 Subjective: on ventilator, has some residual volume with feeding, has high blood sugar - Objective Vital Signs & Weight: Vital Signs (12 hours) Temp Pulse Resp BP Pulse Ox 06/25/19 10:31 92 18 97 06/25/19 10:30 86 06/25/19 08:10 98 06/25/19 08:00 99.1 F 28 H 94 L 06/25/19 07:52 94 06/25/19 07:50 90 27 H 93 L 06/25/19 06:00 28 H 06/25/19 04:00 99.0 F 28 H 06/25/19 03:32 82 116/72 94 L 06/25/19 02:00 28 H 06/25/19 00:00 98.3 F 28 H Weight Admit Weight 164 lb Weight 178 lb 9.6 oz Most Recent Monitor Data Heart Rate from ECG 84 NIBP 98/65 NIBP BP-Mean 76 Respiration from ECG 30 SpO2 95 I&O: 06/24/19 06/25/19 06/26/19 06:59 06:59 06:59 Intake Total 2023.7 1565.5 100 Output Total 790 1795 110 Balance 1233.7 -229.5 -10 Result Diagrams: 06/25/19 03:15 06/25/19 03:15 Additional Labs: Accuchecks 06/25/19 09:20 POC Glucose 291 H EKG Reviewed by me: Yes Hospitalist ROS - Review of Systems ROS unobtainable: due to endotracheal tube - Medication Medications: Active Medications Generic Name Dose Route Start Last Admin Trade Name Palma PRN Reason Stop Dose Admin Albuterol/Ipratropium 3 ml 06/21/19 18:30 06/25/19 10:31 Duoneb NEB 3 ml [id number] ALYSE Administration Amiodarone HCl 200 mg 06/21/19 09:00 06/25/19 08:10 Cordarone PO 200 mg DAILY ALYSE Administration Apixaban 5 mg 06/21/19 09:00 06/25/19 08:09 Eliquis PO 5 mg BID ALYSE Administration Atorvastatin Calcium 20 mg 06/20/19 21:00 06/24/19 20:15 Lipitor PO 20 mg HS ALYSE Administration Calcium/Vitamin D 1 tab 06/21/19 21:00 06/25/19 08:09 Caltrate 600 + Vit D PO 1 tab BID ALYSE Administration Digoxin 0.125 mg 06/24/19 09:00 06/25/19 08:10 Lanoxin SLOW IVP 0.125 mg DAILY ALYSE Administration Famotidine 20 mg 06/24/19 21:00 06/24/19 20:15 Pepcid PO 20 mg QPM ALYSE Administration Furosemide 40 mg 06/25/19 09:45 06/25/19 10:11 Lasix SLOW IVP 06/25/19 11:45 40 mg NOW ALYSE Administration Fentanyl Citrate 2,000 mcg/ 100 mls @ 0 mls/hr 06/21/19 17:09 06/23/19 03:52 Sodium Chloride IV 07/21/19 17:09 100 mls INF ALYSE Administration Protocol Per Protocol Norepinephrine Bitartrate 250 mls @ 0 mls/hr 06/22/19 05:26 06/24/19 14:20 Levophed IVPB 250 mls INF ALYSE Administration Protocol Titrate Trimethoprim/Sulfamethoxazole 250 mls @ 166.667 mls/hr 06/23/19 18:00 06:02 240 mg/ Dextrose/Water IVPB 250 mls Q6HR ALYSE Administration Insulin Human Lispro 0 units 06/25/19 09:34 06/25/19 10:12 Humalog SC 6 unit .MODERATE SLIDING SC PRN Administration Moderate Correctional Scale Methylprednisolone Sodium Succinate 20 mg 06/21/19 12:00 06/25/19 05:59 Solu-Medrol IVP 20 mg Q6HR ALYSE Administration Propofol 1,000 mg 06/21/19 17:09 06/25/19 04:25 Diprivan IV 07/21/19 17:09 1,000 mg INF PRN Administration TO ACHIEVE GOAL RASS Protocol Sodium Chloride 10 ml 06/19/19 17:20 06/23/19 21:56 Flush - Normal Saline IVF 10 ml Q12HR PRN Administration Saline Flush - Exam General Appearance: NAD Eye: PERRL ENT: normocephalic atraumatic Neck: supple, symmetric Heart: no murmur, no gallops, no rubs Respiratory: no wheezes, no rales, no ronchi Gastrointestinal: soft, normal bowel sounds, no palpable masses Extremities: no edema Skin: normal turgor Hosp A/P (1) Acute respiratory failure with hypoxia Code(s): J96.01 - ACUTE RESPIRATORY FAILURE WITH HYPOXIA Status: Acute (2) Acute renal failure Status: Acute Qualifiers: Acute renal failure type: unspecified Qualified Code(s): N17.9 - Acute kidney failure, unspecified (3) Atrial fibrillation with RVR Code(s): I48.91 - UNSPECIFIED ATRIAL FIBRILLATION Status: Acute (4) Bacteremia due to coagulase-negative Staphylococcus Code(s): R78.81 - BACTEREMIA Status: Acute (5) Hypotension Status: Acute Qualifiers: Hypotension type: idiopathic hypotension Qualified Code(s): I95.0 - Idiopathic hypotension (6) Sepsis associated hypotension Code(s): A41.9 - SEPSIS, UNSPECIFIED ORGANISM; I95.9 - HYPOTENSION, UNSPECIFIED Status: Acute (7) Pneumonia Code(s): J18.9 - PNEUMONIA, UNSPECIFIED ORGANISM Status: Acute Qualifiers: 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 Laterality: bilateral - Plan old records reviewed/req, continue antibiotics, respiratory therapy 06/24/19, continue bactrim IV, vent as per pulmonary, supportive care, discussed with son, monitor renal function, 06/25/19- start hyperglycemia protocol treatment, continue to monitor renal function, add reglan as needed , add miralax daily, vent as per pulmonary, medication reviewed as above, symptomatic treatment
[2019-06-25] MEDS: fentaNYL Citrate/PF 2,000 MCG in Sodium Chloride 0.9% 60 ML IV SCH (12:00)
[2019-06-25] MEDS: Norepinephrine 8 MG/0.9% NS 250 ML IVPB SCH (12:23)
--- NOTE | 2019-06-25 14:18 | PRG ---
DATE OF SERVICE: 06/25/2019 SUBJECTIVE: Mr. Fletcher sedated for mechanical ventilation. Intake and output were -329. OBJECTIVE: VITAL SIGNS: He is afebrile, respiratory rate is 30, FiO2 is 55, and blood pressure is 98/67. LUNGS: Remarkable for coarse equal breath sounds. HEART: Regular rate and rhythm. ABDOMEN: Soft. LABORATORY DATA: White count 3.9, hemoglobin 11.0, and platelets 210. Sodium 135, potassium 3.7, chloride 105, bicarb 20, BUN 52, creatinine 1.79, and glucose 322. The pH 7.37, CO2 of 28, and PO2 of 60. IMPRESSION: 1. Respiratory failure, secondary to Pneumocystis pneumonia. 2. IgG4-related disease. 3. Immunocompromised host, on methotrexate and steroids prior to admission, secondary to IgG4-related disease. 4. Chest radiographs have not significantly changed. 5. He has chronic kidney disease, is not a clinical issue, but may worsen with attempts to diurese him some while he is receiving Bactrim . CRITICAL CARE TIME: 30 minutes. Job ID: [id number]
[2019-06-25] MEDS: Metoclopramide HCl 10 MG/2 ML VIAL IVP SCH ×2 (14:27→20:31)
[2019-06-25] MEDS ORDERED: Furosemide 100 MG/10 ML VIAL SLOW IVP SCH (15:00)
[2019-06-25] MEDS: Famotidine 20 MG TAB PO SCH (20:31)
[2019-06-25] MEDS: Atorvastatin Calcium 20 MG TAB PO SCH (20:31)
[2019-06-26] MEDS: methylPREDNISolone Sod Succ 40 MG VIAL IVP SCH ×4 (00:46→17:56)
[2019-06-26] MEDS: Metoclopramide HCl 10 MG/2 ML VIAL IVP SCH ×4 (02:29→20:38)
[2019-06-26] MEDS: HumaLOG 300 UNITS/3 ML VIAL SC PRN ×3 (04:13→15:42)
[2019-06-26 04:37] LABS: Anion Gap 15 mmol/L (10-20); BUN (Urea Nitrogen) 54 mg/dL (8.4-25.7); Calc. Creatinine Clearance 39 mL/min (70-130); Calcium 7.1 mg/dL (7.8-10.44); Carbon Dioxide 22 mmol/L (23-31); Chloride 102 mmol/L (98-107); Estimated GFR-MDRD 36; Glucose 163 mg/dL (83-110); Potassium 4.3 mmol/L (3.5-5.1); Sodium 135 mmol/L (136-145)
[2019-06-26 05:03] LABS: Anisocytosis SLIGHT = 6-15 cells (100X) (0-5/hpf); Band 18 % (5-11); Burr Cells SLIGHT = 2-5 cells (100X) (0-1/hpf); Hemoglobin 11.3 g/dL (14.0-18.0); Lymphocytes 13 % (21-51); MDiff Complete? YES; Mean Corpuscular HGB CONC 32.3 g/dL (32.0-36.0); Mean Corpuscular Hemoglobin 30.4 pg (27.0-31.0); Mean Corpuscular Volume 94.1 fL (78.0-98.0); Mean Platelet Volume 9.2 fL (7.4-10.4); Metamyelocyte 2 % (0-0); Monocytes 3 % (0-10); Myelocyte 7 % (0-0); Neutrophil 56 % (42-75); Nucleated RBC 27 % (0); Platelet Count 227 thou/uL (130-400); Platelet Morphology Comment Appears Adequate; Polychromasia SLIGHT = 2-3 cells (100X) (0-2/hpf); RBC Distribution Width 16.6 % (11.5-14.5); Reactive Lymphocytes 1 % (0-10); Red Blood Cell (RBC) Count 3.73 mill/uL (4.70-6.10); Toxic Granulation SLIGHT; Vacuoles SLIGHT; White Blood Cell (WBC) Count 4.9 thou/uL (4.8-10.8)
[2019-06-26] MEDS: Propofol 1,000 MG/100 ML VIAL IV PRN ×3 (06:19→18:23)
--- NOTE | 2019-06-26 07:32 | RAD ---
EXAM: Portable chest PROVIDED CLINICAL HISTORY: Respiratory insufficiency COMPARISON: 06/25/2019 FINDINGS: Significant interval change with respect to the prior examination is not apparent. IMPRESSION: As above.
[2019-06-26] MEDS: Digoxin 0.5 MG/2 ML AMP SLOW IVP SCH (08:16)
[2019-06-26] MEDS: Calcium Carbonate + Vit D 1 TAB PO SCH ×2 (08:17→20:38)
[2019-06-26] MEDS: Amiodarone 200 MG TAB PO SCH ×2 (08:17→20:38)
[2019-06-26] MEDS: Apixaban 5 MG TAB PO SCH ×2 (08:17→20:38)
[2019-06-26] MEDS: Polyethylene Glycol 3350 17 GM Packet PER TUBE SCH (08:17)
[2019-06-26] MEDS: Furosemide 100 MG/10 ML VIAL SLOW IVP SCH (08:18)
--- NOTE | 2019-06-26 10:48 | PDOC.HOSPP ---
- Subjective Encounter Date: 06/26/19 Encounter Time: 10:00 Subjective: Patient seen and examined. on ventilator, No overnight events, this morning afib with rvr - Objective Vital Signs & Weight: Vital Signs (12 hours) Temp Pulse Resp Pulse Ox 06/26/19 10:43 108 H 06/26/19 10:42 101 H 39 H 93 L 06/26/19 08:16 122 H 06/26/19 08:00 28 H 06/26/19 07:01 108 H 06/26/19 07:00 99.5 F 0 L 36 H 95 06/26/19 06:00 31 H 06/26/19 04:00 98.4 F 31 H 06/26/19 03:18 93 06/26/19 03:16 91 L 06/26/19 02:00 30 H 06/26/19 00:00 98.3 F 31 H Weight Admit Weight 164 lb Weight 182 lb 12.211 oz Most Recent Monitor Data Heart Rate from ECG 86 NIBP 94/58 NIBP BP-Mean 70 Respiration from ECG 28 SpO2 97 I&O: 06/25/19 06/26/19 06/27/19 06:59 06:59 06:59 Intake Total 1565.5 2671.1 Output Total 1795 1877 225 Balance -229.5 794.1 -225 Result Diagrams: 06/26/19 04:05 06/26/19 04:05 Additional Labs: Accuchecks 06/26/19 06/25/19 06/25/19 04:12 22:22 14:53 POC Glucose 173 H 240 H 150 H EKG Reviewed by me: Yes (afib) Hospitalist ROS - Review of Systems ROS unobtainable: due to endotracheal tube - Medication Medications: Active Medications Generic Name Dose Route Start Last Admin Trade Name Freq PRN Reason Stop Dose Admin Albuterol/Ipratropium 3 ml 06/21/19 18:30 06/26/19 10:42 Duoneb NEB 3 ml [id number] ALYSE Administration Apixaban 5 mg 06/21/19 09:00 06/26/19 08:17 Eliquis PO 5 mg BID ALYSE Administration Atorvastatin Calcium 20 mg 06/20/19 21:00 06/25/19 20:31 Lipitor PO 20 mg HS ALYSE Administration Calcium/Vitamin D 1 tab 06/21/19 21:00 12/22/19 08:17 Caltrate 600 + Vit D PO 1 tab BID ALYSE Administration Digoxin 0.125 mg 06/24/19 09:00 06/26/19 08:16 Lanoxin SLOW IVP 0.125 mg DAILY ALYSE Administration Famotidine 20 mg 06/24/19 21:00 06/25/19 20:31 Pepcid PO 20 mg QPM ALYSE Administration Furosemide 60 mg 06/26/19 09:00 06/26/19 08:18 Lasix SLOW IVP 60 mg DAILY ALYSE Administration Fentanyl Citrate 2,000 mcg/ 100 mls @ 0 mls/hr 06/21/19 17:09 06/25/19 12:00 Sodium Chloride IV 07/21/19 17:09 100 mls INF ALYSE Administration Protocol Per Protocol Norepinephrine Bitartrate 250 mls @ 0 mls/hr 06/22/19 05:26 06/25/19 12:23 Levophed IVPB 250 mls INF ALYSE Administration Protocol Titrate Trimethoprim/Sulfamethoxazole 250 mls @ 166.667 mls/hr 06/23/19 18:00 06:18 240 mg/ Dextrose/Water IVPB 250 mls Q6HR ALYSE Administration Insulin Human Lispro 0 units 06/25/19 09:34 06/26/19 10:35 Humalog SC 4 unit .MODERATE SLIDING SC PRN Administration Moderate Correctional Scale Methylprednisolone Sodium Succinate 20 mg 06/21/19 12:00 06/26/19 06:19 Solu-Medrol IVP 20 mg Q6HR ALYSE Administration Metoclopramide HCl 10 mg 06/25/19 14:00 06/26/19 08:17 Reglan IVP 10 mg 0200,0800,1400,2000 ALYSE Administration Polyethylene Glycol 17 gm 06/26/19 09:00 06/26/19 08:17 Miralax PER TUBE 17 gm DAILY ALYSE Administration Propofol 1,000 mg 06/21/19 17:09 06/26/19 06:19 Diprivan IV 07/21/19 17:09 1,000 mg INF PRN Administration TO ACHIEVE GOAL RASS Protocol Sodium Chloride 10 ml 06/19/19 17:20 06/23/19 21:56 Flush - Normal Saline IVF 10 ml Q12HR PRN Administration Saline Flush - Exam General Appearance: NAD, awake alert Eye: PERRL ENT: normocephalic atraumatic Neck: supple, symmetric Heart: no murmur, no gallops, irregular Respiratory: no wheezes, no rales, no ronchi Gastrointestinal: soft, non-distended, normal bowel sounds, no palpable masses Extremities: no cyanosis, no clubbing Skin: normal turgor, no lesions Musculoskeletal: normal tone Hosp A/P (1) Acute respiratory failure with hypoxia Code(s): J96.01 - ACUTE RESPIRATORY FAILURE WITH HYPOXIA Status: Acute (2) Acute renal failure Status: Acute Qualifiers: Acute renal failure type: unspecified Qualified Code(s): N17.9 - Acute kidney failure, unspecified (3) Atrial fibrillation with RVR Code(s): I48.91 - UNSPECIFIED ATRIAL FIBRILLATION Status: Acute (4) Bacteremia due to coagulase-negative Staphylococcus Code(s): R78.81 - BACTEREMIA Status: Acute (5) Hypotension Status: Acute Qualifiers: Hypotension type: idiopathic hypotension Qualified Code(s): I95.0 - Idiopathic hypotension (6) Sepsis associated hypotension Code(s): A41.9 - SEPSIS, UNSPECIFIED ORGANISM; I95.9 - HYPOTENSION, UNSPECIFIED Status: Acute (7) Pneumonia Code(s): J18.9 - PNEUMONIA, UNSPECIFIED ORGANISM Status: Acute Qualifiers: 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
[2019-06-26] MEDS: fentaNYL Citrate/PF 2,000 MCG in Sodium Chloride 0.9% 60 ML IV SCH (12:57)
--- NOTE | 2019-06-26 13:42 | PRG ---
DATE OF SERVICE: 06/26/2019 SUBJECTIVE: Lane Fletcher remains sedated for mechanical ventilation. He is tolerating tube feeds better today after the Reglan was added. OBJECTIVE: VITAL SIGNS: His hemodynamics are stable. Currently, his blood pressure is 105/56, heart rate 92, oximetry is 94. He remains on bilevel ventilation. LUNGS: Clear anteriorly. HEART: Regular rhythm. ABDOMEN: Soft and nontender. EXTREMITIES: Without asymmetry. LABORATORY DATA: pH 7.37, CO2 of 20, PO2 of 60. Sodium 135, potassium 4.3, chloride 102, bicarb 22, BUN 34, creatinine 1.85. 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 I just reviewed microbiology and apparently a culture result was changed this morning. I was not notified. He has Staph epidermidis that is oxacillin sensitive on 2/2 blood cultures. It is not clear if this is real, so we will repeat a culture one from his central line and one peripherally. He is not weanable at this point. I met with family and answered all their questions. IMPRESSION: 1. IgG4 related disease. 2. Immunosuppression. 3. Pneumocystis pneumonia. 4. Questionable Staph epidermidis bacteremia. PLAN: I will continue to follow him while he is in the critical care unit. TIME SPENT: Critical care time 30 minutes independent of the time spent counseling family. Job ID: [id number]
[2019-06-26] MEDS: Atorvastatin Calcium 20 MG TAB PO SCH (20:38)
[2019-06-26] MEDS: Famotidine 20 MG TAB PO SCH (20:38)
[2019-06-27] MEDS: methylPREDNISolone Sod Succ 40 MG VIAL IVP SCH ×5 (00:07→23:58)
[2019-06-27] MEDS: Metoclopramide HCl 10 MG/2 ML VIAL IVP SCH ×4 (02:10→21:20)
[2019-06-27] MEDS: Propofol 1,000 MG/100 ML VIAL IV PRN ×2 (03:16→09:10)
[2019-06-27 05:33] LABS: Anion Gap 16 mmol/L (10-20); BUN (Urea Nitrogen) 58 mg/dL (8.4-25.7); Calc. Creatinine Clearance 40 mL/min (70-130); Carbon Dioxide 20 mmol/L (23-31); Chloride 101 mmol/L (98-107); Estimated GFR-MDRD 35; Glucose 174 mg/dL (83-110); Potassium 4.9 mmol/L (3.5-5.1); Sodium 132 mmol/L (136-145)
[2019-06-27 05:44] LABS: Band 22 % (5-11); Hemoglobin 11.3 g/dL (14.0-18.0); Lymphocytes 1 % (21-51); MDiff Complete? YES; Mean Corpuscular HGB CONC 33.7 g/dL (32.0-36.0); Mean Corpuscular Hemoglobin 31.7 pg (27.0-31.0); Mean Corpuscular Volume 94.1 fL (78.0-98.0); Mean Platelet Volume 9.3 fL (7.4-10.4); Metamyelocyte 5 % (0-0); Monocytes 1 % (0-10); Myelocyte 15 % (0-0); Neutrophil 56 % (42-75); Nucleated RBC 21 % (0); Platelet Count 257 thou/uL (130-400); Polychromasia SLIGHT = 2-3 cells (100X) (0-2/hpf); RBC Distribution Width 16.7 % (11.5-14.5); Red Blood Cell (RBC) Count 3.56 mill/uL (4.70-6.10); White Blood Cell (WBC) Count 6.7 thou/uL (4.8-10.8)
[2019-06-27 05:45] LABS: Digoxin 2.15 ng/mL (0.8-2.0)
[2019-06-27] MEDS: Norepinephrine 8 MG/0.9% NS 250 ML IVPB SCH (06:23)
[2019-06-27 07:44] LABS: Actual Bicarbonate (HCO3a) 21.5 mEq/L (22-28); Base Excess (BEa) -2.8 mEq/L (-2.0 to +3.0); CO2 Tension 35.6 mmHg (35.0-45.0); Calcium, Ionized 0.96 mmol/L (1.12-1.30); Carboxyhemoglobin (COHb) 0.6 gm% (0.0-3.0); Hemoglobin (Hb) 11.5 g/dL (14.0-18.0); O2 Tension (PaO2) 72.2 mmHg (> 70.0); Potassium - ABG Lab 4.81 mmol/L (3.70-5.30)
[2019-06-27 07:45] LABS: Puncture Site RRA
[2019-06-27] MEDS: Apixaban 5 MG TAB PO SCH ×2 (09:00→21:20)
[2019-06-27] MEDS: Amiodarone 200 MG TAB PO SCH ×2 (09:00→21:20)
[2019-06-27] MEDS: Calcium Carbonate + Vit D 1 TAB PO SCH ×2 (09:00→21:20)
[2019-06-27] MEDS: Polyethylene Glycol 3350 17 GM Packet PER TUBE SCH (09:00)
[2019-06-27] MEDS: Furosemide 100 MG/10 ML VIAL SLOW IVP SCH ×2 (09:00→21:20)
[2019-06-27] MEDS: Digoxin 0.5 MG/2 ML AMP SLOW IVP SCH (09:00)
--- NOTE | 2019-06-27 09:31 | RAD ---
CHEST 1 VIEW: Date: 06/27/19 HISTORY: Dyspnea. Intubated. Follow-up. COMPARISON: 06/26/19. FINDINGS: Cardiac silhouette is magnified by projection. Lungs remain hyperinflated with patchy areas of parenc hymal opacity, similar in appearance to the prior study. Mediastinum is midline. Lines and tubes are unchanged in position. Postoperative changes in mediastinum are again demonstrated. Left apex is excluded from the image. Nu merous overlying lines obscuring detail. No evidence of pneumothorax. IMPRESSION: Patchy bilateral air space disease and other findings are stable. POS: [facility]
--- NOTE | 2019-06-27 11:57 | PDOC.HOSPP ---
- Subjective Encounter Date: 06/27/19 Encounter Time: 10:00 Subjective: Patient seen and examined. . No overnight events - Objective Vital Signs & Weight: Vital Signs (12 hours) Temp Pulse Resp Pulse Ox 06/27/19 10:33 85 06/27/19 10:00 28 H 06/27/19 09:00 89 06/27/19 08:00 29 H 97 06/27/19 07:48 89 06/27/19 07:00 98.7 F 06/27/19 04:00 99.1 F 06/27/19 03:05 81 96 06/27/19 00:00 98.9 F 31 H Weight Admit Weight 164 lb Weight 185 lb 6.4 oz Most Recent Monitor Data Heart Rate from ECG 99 NIBP 110/83 NIBP BP-Mean 92 Respiration from ECG 20 SpO2 95 I&O: 06/26/19 06/27/19 06/28/19 06:59 06:59 06:59 Intake Total 2671.1 2767.7 Output Total 1877 1920 410 Balance 794.1 847.7 -410 Result Diagrams: 06/27/19 04:50 06/27/19 04:50 Additional Labs: Accuchecks 06/27/19 06/27/19 06/26/19 10:33 04:42 22:15 POC Glucose 237 H 183 H 211 H 06/26/19 15:44 POC Glucose 181 H Radiology Reviewed by me: Yes EKG Reviewed by me: Yes Hospitalist ROS - Review of Systems ROS unobtainable: due to endotracheal tube - Medication Medications: Active Medications Generic Name Dose Route Start Last Admin Trade Name Gadielq PRN Reason Stop Dose Admin Albuterol/Ipratropium 3 ml 06/21/19 18:30 06/27/19 10:32 Duoneb NEB 3 ml [id number] ALYSE Administration Amiodarone HCl 200 mg 06/26/19 21:00 06/27/19 09:00 Cordarone PO 200 mg BID ALYSE Administration Apixaban 5 mg 06/21/19 09:00 06/27/19 09:00 Eliquis PO 5 mg BID ALYSE Administration Atorvastatin Calcium 20 mg 06/20/19 21:00 06/26/19 20:38 Lipitor PO 20 mg HS ALYSE Administration Calcium/Vitamin D 1 tab 06/21/19 21:00 06/27/19 09:00 Caltrate 600 + Vit D PO 1 tab BID ALYSE Administration Digoxin 0.125 mg 06/24/19 09:00 06/27/19 09:00 Lanoxin SLOW IVP Not Given DAILY ALYSE Famotidine 20 mg 06/24/19 21:00 06/26/19 20:38 Pepcid PO 20 mg QPM ALYSE Administration Fentanyl Citrate 2,000 mcg/ 100 mls @ 0 mls/hr 06/21/19 17:09 06/26/19 12:57 Sodium Chloride IV 07/21/19 17:09 100 mls INF ALYSE Administration Protocol Per Protocol Norepinephrine Bitartrate 250 mls @ 0 mls/hr 06/22/19 05:26 06/27/19 06:23 Levophed IVPB 250 mls INF ALYSE Administration Protocol Titrate Trimethoprim/Sulfamethoxazole 250 mls @ 166.667 mls/hr 06/23/19 18:00 06:23 240 mg/ Dextrose/Water IVPB 250 mls Q6HR ALYSE Administration Insulin Human Lispro 0 units 06/25/19 09:34 06/26/19 15:42 Humalog SC 2 unit .MODERATE SLIDING SC PRN Administration Moderate Correctional Scale Methylprednisolone Sodium Succinate 20 mg 06/21/19 12:00 06/27/19 06:05 Solu-Medrol IVP 20 mg Q6HR ALYSE Administration Metoclopramide HCl 10 mg 06/25/19 14:00 06/27/19 09:00 Reglan IVP 10 mg 0200,0800,1400,2000 ALYSE Administration Polyethylene Glycol 17 gm 06/26/19 09:00 06/27/19 09:00 Miralax PER TUBE 17 gm DAILY ALYSE Administration Propofol 1,000 mg 06/21/19 17:09 06/27/19 09:10 Diprivan IV 07/21/19 17:09 1,000 mg INF PRN Administration TO ACHIEVE GOAL RASS Protocol Sodium Chloride 10 ml 06/19/19 17:20 06/23/19 21:56 Flush - Normal Saline IVF 10 ml Q12HR PRN Administration Saline Flush - Exam General Appearance: NAD Eye: PERRL, anicteric sclera ENT: normocephalic atraumatic Neck: supple, symmetric, no JVD Heart: no murmur, irregular Respiratory: no wheezes, no rales, no ronchi Gastrointestinal: soft, non-distended, normal bowel sounds Extremities: no cyanosis, no clubbing Skin: normal turgor, no lesions Musculoskeletal: normal tone, normal strength Hosp A/P (1) Acute respiratory failure with hypoxia Code(s): J96.01 - ACUTE RESPIRATORY FAILURE WITH HYPOXIA Status: Acute (2) Acute renal failure Status: Acute Qualifiers: Acute renal failure type: unspecified Qualified Code(s): N17.9 - Acute kidney failure, unspecified (3) Atrial fibrillation with RVR Code(s): I48.91 - UNSPECIFIED ATRIAL FIBRILLATION Status: Acute (4) Bacteremia due to coagulase-negative Staphylococcus Code(s): R78.81 - BACTEREMIA Status: Acute (5) Hypotension Status: Acute Qualifiers: Hypotension type: idiopathic hypotension Qualified Code(s): I95.0 - Idiopathic hypotension (6) Sepsis associated hypotension Code(s): A41.9 - SEPSIS, UNSPECIFIED ORGANISM; I95.9 - HYPOTENSION, UNSPECIFIED Status: Acute (7) Pneumonia Code(s): J18.9 - PNEUMONIA, UNSPECIFIED ORGANISM Status: Acute Qualifiers: 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 06/27/19- no new recommendation, continue vent support, nephrology and pulmonary managing
--- NOTE | 2019-06-27 12:01 | PRG ---
DATE OF SERVICE: 06/27/2019 SUBJECTIVE: Lane Fletcher is in no distress. He remains sedated for mechanical ventilation. OBJECTIVE: VITAL SIGNS: Heart rates in the 80s, blood pressure 109/70, respiratory rates in the 20s. LUNGS: Clear anteriorly. HEART: Regular rhythm. ABDOMEN: Soft. EXTREMITIES: Without edema. LABORATORY DATA: White count is up to 6.7 now, 56 segs, 22 bands. Sodium 132, potassium 4.9, chloride 101, bicarb 20, BUN 58, creatinine 1.88. Creatinine yesterday was 1.85, so this is essentially unchanged. Intake and output is positive 847. We will change his Lasix to q.12 hours. IMPRESSION: 1. Pneumocystis. 2. IgG4-related disease. 3. Chronic kidney disease. 4. Respiratory failure. PLAN: Continue current support. He will make slow progress. Hopefully, there are no future setbacks. I have explained this to the family last night and they are all up here with him. They are very supportive. Job ID: [id number]
[2019-06-27] MEDS: HumaLOG 300 UNITS/3 ML VIAL SC PRN ×3 (12:29→21:54)
[2019-06-27] MEDS: Micafungin 100 MG in Sodium Chloride 0.9% 100 ML IVPB SCH (14:15)
--- NOTE | 2019-06-27 14:24 | PRG ---
DATE OF SERVICE: 06/27/2019 SUBJECTIVE: Mr. Fletcher is still about the same. He is intubated on bilevel, sedated. He has not had a fever. OBJECTIVE: VITAL SIGNS: T-max 99.3. His heart rate ranges from 85-114, blood pressure is 110/83, O2 sats ranging from 93 to 95 on bilevel of 55% FiO2. He has a right groin triple-lumen catheter and left upper extremity peripheral IV access and a Mccabe catheter. His Is and Os were mostly positive in the 700-800 range. HEENT: His pupils are constricted and symmetric. Orotracheal intubation. LUNGS: With fairly clear breath sounds quite symmetrically distributed. HEART: S1 and S2 without murmurs. No S3. ABDOMEN: Soft, not distended. No bowel sounds are noted. Very little edema. I cannot test his motions. LABORATORY DATA: Latest lab blood work with a white cell count at 6.7, hemoglobin 11.3 platelets 257 with 22% bands. Creatinine is a little bit higher at 1.88. Sodium is 132, potassium 4.9, carbon dioxide 20 and 2 sets of blood cultures from June 26, no growth thus far. The repeat chest x-ray is about the same with diffuse infiltrates. ASSESSMENT AND DISCUSSION: Atrial fibrillation, IgG4 related autoimmune syndrome which was diagnosed in [place], high-dose corticosteroids and then methotrexate/Imuran and now Pneumocystis pneumonia documented by bronchoalveolar lavage. The patient seems to have stabilized, is not getting better or getting worse. Renal function is stabilized around 30 GFR. We believe that Staphylococcus coagulase negative retrieved from the admit samples are likely contaminants and do not merit treatment. This is the 5th day of treatment today and we will go ahead and submit G6PD in case we have to switch him to a different regimen. May consider also adding micafungin, which has anti-Pneumocystis activity. Job ID: [id number]
[2019-06-27] MEDS: fentaNYL Citrate/PF 2,000 MCG in Sodium Chloride 0.9% 60 ML IV SCH (15:32)
[2019-06-27] MEDS ORDERED: Metoprolol Tartrate 5 MG/5 ML VIAL ONE (15:59)
[2019-06-27] MEDS ORDERED: Metoprolol Tartrate 5 MG/5 ML VIAL IVP SCH (16:30)
[2019-06-27] MEDS: Famotidine 20 MG TAB PO SCH (21:20)
[2019-06-27] MEDS: Atorvastatin Calcium 20 MG TAB PO SCH (21:20)
[2019-06-28] MEDS: Propofol 1,000 MG/100 ML VIAL IV PRN ×4 (00:27→20:55)
[2019-06-28] MEDS: Metoclopramide HCl 10 MG/2 ML VIAL IVP SCH ×4 (02:33→20:02)
[2019-06-28] MEDS: HumaLOG 300 UNITS/3 ML VIAL SC PRN ×4 (03:40→20:57)
[2019-06-28 04:36] LABS: Anion Gap 18 mmol/L (10-20); BUN (Urea Nitrogen) 61 mg/dL (8.4-25.7); Calc. Creatinine Clearance 37 mL/min (70-130); Carbon Dioxide 21 mmol/L (23-31); Chloride 97 mmol/L (98-107); Estimated GFR-MDRD 32; Glucose 226 mg/dL (83-110); Potassium 5.3 mmol/L (3.5-5.1); Sodium 131 mmol/L (136-145)
[2019-06-28 05:11] LABS: Hemoglobin 11.7 g/dL (14.0-18.0); Mean Corpuscular HGB CONC 32.7 g/dL (32.0-36.0); Mean Corpuscular Volume 94.8 fL (78.0-98.0); RBC Distribution Width 17.2 % (11.5-14.5); Red Blood Cell (RBC) Count 3.78 mill/uL (4.70-6.10)
[2019-06-28] MEDS: methylPREDNISolone Sod Succ 40 MG VIAL IVP SCH ×4 (05:39→23:39)
[2019-06-28 06:15] LABS: Band 16 % (5-11); Lymphocytes 6 % (21-51); MDiff Complete? YES; Mean Platelet Volume 9.3 fL (7.4-10.4); Metamyelocyte 3 % (0-0); Monocytes 1 % (0-10); Myelocyte 8 % (0-0); Neutrophil 66 % (42-75); Nucleated RBC 20 % (0); Platelet Count 297 thou/uL (130-400); White Blood Cell (WBC) Count 10.8 thou/uL (4.8-10.8)
[2019-06-28 07:42] LABS: Actual Bicarbonate (HCO3a) 20.6 mEq/L (22-28); Base Excess (BEa) -2.5 mEq/L (-2.0 to +3.0); CO2 Tension 30.6 mmHg (35.0-45.0); Calcium, Ionized 0.99 mmol/L (1.12-1.30); Carboxyhemoglobin (COHb) 0.4 gm% (0.0-3.0); Hemoglobin (Hb) 12.3 g/dL (14.0-18.0); Potassium - ABG Lab 5.11 mmol/L (3.70-5.30); pH, Arterial 7.45 (7.35-7.45)
[2019-06-28 07:49] LABS: Puncture Site RRA
[2019-06-28] MEDS: Amiodarone 200 MG TAB PO SCH ×2 (08:42→20:03)
[2019-06-28] MEDS: Polyethylene Glycol 3350 17 GM Packet PER TUBE SCH (08:42)
[2019-06-28] MEDS: Furosemide 100 MG/10 ML VIAL SLOW IVP SCH ×2 (08:42→20:02)
[2019-06-28] MEDS: Calcium Carbonate + Vit D 1 TAB PO SCH ×2 (08:42→20:04)
[2019-06-28] MEDS: Apixaban 5 MG TAB PO SCH ×2 (08:43→20:04)
--- NOTE | 2019-06-28 10:37 | RAD ---
PORTABLE CHEST: INDICATION: CCU followup. Mechanical ventilation followup. COMPARISON: 06/27/2019. FINDINGS: ET tube and NG Tube remain in place. Patchy alveolar infiltrate in the right lower lung and an inter stitial infiltrate seen in both lower lungs, stable in appearance. Upper lung zones are clear and th e vascularity in the upper lung zones are within normal range. Heart size is normal with postop ster notomy change. IMPRESSION: Bibasilar infiltrates more confluent in the right lower lung. No change from yesterday. POS: [facility]
[2019-06-28] MEDS: Norepinephrine 8 MG/0.9% NS 250 ML IVPB SCH (10:43)
--- NOTE | 2019-06-28 11:24 | PDOC.HOSPP ---
- Subjective Encounter Date: 06/28/19 Encounter Time: 10:00 Subjective: pt is intubated, on overnight event, no overall change in condition - Objective Vital Signs & Weight: Vital Signs (12 hours) Temp Pulse Resp Pulse Ox 06/28/19 10:41 91 06/28/19 10:00 28 H 06/28/19 08:00 28 H 06/28/19 07:51 108 H 06/28/19 07:13 94 L 06/28/19 07:00 98.7 F 06/28/19 06:00 31 H 06/28/19 05:00 98.8 F 06/28/19 04:00 37 H 06/28/19 03:58 115 H 06/28/19 03:45 95 06/28/19 02:00 38 H 06/28/19 00:00 98.3 F 28 H Weight Admit Weight 164 lb Weight 182 lb 15.739 oz Most Recent Monitor Data Heart Rate from ECG 103 NIBP 91/69 NIBP BP-Mean 76 Respiration from ECG 27 SpO2 95 I&O: 06/27/19 06/28/19 06/29/19 06:59 06:59 06:59 Intake Total 2767.7 2812.6 90 Output Total 1920 1845 495 Balance 847.7 967.6 -405 Result Diagrams: 06/28/19 03:30 06/28/19 03:30 Additional Labs: Accuchecks 06/28/19 06/28/19 06/27/19 10:11 03:36 21:56 POC Glucose 208 H 212 H 216 H 06/27/19 17:07 POC Glucose 189 H Radiology Reviewed by me: Yes EKG Reviewed by me: Yes Hospitalist ROS - Review of Systems ROS unobtainable: due to endotracheal tube - Medication Medications: Active Medications Generic Name Dose Route Start Last Admin Trade Name Freq PRN Reason Stop Dose Admin Albuterol/Ipratropium 3 ml 06/21/19 18:30 06/28/19 10:41 Duoneb NEB 3 ml [id number] ALYSE Administration Amiodarone HCl 200 mg 06/26/19 21:00 06/28/19 08:42 Cordarone PO 200 mg BID ALYSE Administration Apixaban 5 mg 06/21/19 09:00 06/28/19 08:43 Eliquis PO 5 mg BID ALYSE Administration Atorvastatin Calcium 20 mg 06/20/19 21:00 06/27/19 21:20 Lipitor PO 20 mg HS ALYSE Administration Calcium/Vitamin D 1 tab 06/21/19 21:00 06/28/19 08:42 Caltrate 600 + Vit D PO 1 tab BID ALYSE Administration Famotidine 20 mg 06/24/19 21:00 06/27/19 21:20 Pepcid PO 20 mg QPM ALYSE Administration Furosemide 60 mg 06/27/19 21:00 06/28/19 08:42 Lasix SLOW IVP 60 mg Q12HR ALYSE Administration Fentanyl Citrate 2,000 mcg/ 100 mls @ 0 mls/hr 06/21/19 17:09 06/27/19 15:32 Sodium Chloride IV 07/21/19 17:09 100 mls INF ALYSE Administration Protocol Per Protocol Norepinephrine Bitartrate 250 mls @ 0 mls/hr 06/22/19 05:26 06/28/19 10:43 Levophed IVPB 250 mls INF ALYSE Administration Protocol Titrate Trimethoprim/Sulfamethoxazole 250 mls @ 166.667 mls/hr 06/23/19 18:00 05:38 240 mg/ Dextrose/Water IVPB 250 mls Q6HR ALYSE Administration Micafungin Sodium 100 mg/ 100 mls @ 100 mls/hr 06/27/19 14:00 06/27/19 14:15 Sodium Chloride IVPB 100 mls 1400 ALYSE Administration Insulin Human Lispro 0 units 06/25/19 09:34 06/28/19 10:10 Humalog SC 4 unit .MODERATE SLIDING SC PRN Administration Moderate Correctional Scale Methylprednisolone Sodium Succinate 20 mg 06/21/19 12:00 06/28/19 05:39 Solu-Medrol IVP 20 mg Q6HR ALYSE Administration Metoclopramide HCl 10 mg 06/25/19 14:00 06/28/19 08:42 Reglan IVP 10 mg 0200,0800,1400,2000 ALYSE Administration Polyethylene Glycol 17 gm 06/26/19 09:00 06/28/19 08:42 Miralax PER TUBE 17 gm DAILY ALYSE Administration Propofol 1,000 mg 06/21/19 17:09 06/28/19 06:12 Diprivan IV 07/21/19 17:09 1,000 mg INF PRN Administration TO ACHIEVE GOAL RASS Protocol Sodium Chloride 10 ml 06/19/19 17:20 06/23/19 21:56 Flush - Normal Saline IVF 10 ml Q12HR PRN Administration Saline Flush - Exam General Appearance: NAD Eye: PERRL ENT: normocephalic atraumatic Neck: supple, symmetric, no JVD Heart: no murmur, irregular Respiratory: no wheezes, no ronchi Gastrointestinal: soft, non-distended Extremities: 1+ LE edema Skin: normal turgor Hosp A/P (1) Acute respiratory failure with hypoxia Code(s): J96.01 - ACUTE RESPIRATORY FAILURE WITH HYPOXIA Status: Acute (2) Acute renal failure Status: Acute Qualifiers: Acute renal failure type: unspecified Qualified Code(s): N17.9 - Acute kidney failure, unspecified (3) Atrial fibrillation with RVR Code(s): I48.91 - UNSPECIFIED ATRIAL FIBRILLATION Status: Acute (4) Hypotension Status: Acute Qualifiers: Hypotension type: idiopathic hypotension Qualified Code(s): I95.0 - Idiopathic hypotension (5) Sepsis associated hypotension Code(s): A41.9 - SEPSIS, UNSPECIFIED ORGANISM; I95.9 - HYPOTENSION, UNSPECIFIED Status: Acute (6) Pneumonia Code(s): J18.9 - PNEUMONIA, UNSPECIFIED ORGANISM Status: Acute Qualifiers: 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 06/27/19- no new recommendation, continue vent support, nephrology and pulmonary managing 06/28/19- creatinine is slowly increasing and potassium rising, ? due to bactrim , nephrology on case, vent as per pulmonary, not weanable, medication reviewed and continue to provide symptomatic treatment, ID following, prognosis guarded, on micafungin and bactrim
--- NOTE | 2019-06-28 11:46 | PRG ---
DATE OF SERVICE: 06/28/2019 SUBJECTIVE: Mr. Fletcher is hemodynamically stable. OBJECTIVE: VITAL SIGNS: Blood pressure 90 to 100 systolic, heart rates in the 90s, respiratory rates in the 20s, oximetry is 94 to 95 turning from 55% to 50%, still on bilevel at 26/12. His exhaled volumes are 640 mL. LUNGS: Clear anteriorly. HEART: Regular rhythm. ABDOMEN: Soft. EXTREMITIES: Without edema. PLAN: We will continue to follow the other physicians. He is not weanable at this point in time. Micafungin was added to his antimicrobial therapy. IMPRESSION: 1. IgG4 related disease presenting as proptosis. 2. Immunosuppression with methotrexate steroids leading to Pneumocystis plus or minus possible coexistent fungus. We do not have any fungal smears other than GMS smear, fungal cultures back. I agree with micafungin. Hopefully, we will see ongoing clinical improvement. He did have significant thrush prior to admission, so this will help with that. Job ID: [id number] [facility]
[2019-06-28] MEDS: fentaNYL Citrate/PF 2,000 MCG in Sodium Chloride 0.9% 60 ML IV SCH (12:31)
[2019-06-28] MEDS: Micafungin 100 MG in Sodium Chloride 0.9% 100 ML IVPB SCH (13:26)
[2019-06-28] MEDS: Famotidine 20 MG TAB PO SCH (20:03)
[2019-06-28] MEDS: Atorvastatin Calcium 20 MG TAB PO SCH (20:04)
[2019-06-29] MEDS: Metoclopramide HCl 10 MG/2 ML VIAL IVP SCH ×3 (03:05→13:41)
[2019-06-29] MEDS: methylPREDNISolone Sod Succ 40 MG VIAL IVP SCH ×3 (05:17→17:30)
[2019-06-29] MEDS: HumaLOG 300 UNITS/3 ML VIAL SC PRN ×4 (05:18→22:31)
[2019-06-29] MEDS: Propofol 1,000 MG/100 ML VIAL IV PRN ×2 (05:18→19:44)
[2019-06-29 05:52] LABS: Hemoglobin 11.7 g/dL (14.0-18.0); Mean Corpuscular HGB CONC 33.6 g/dL (32.0-36.0); Mean Corpuscular Hemoglobin 31.7 pg (27.0-31.0); Mean Corpuscular Volume 94.4 fL (78.0-98.0); Mean Platelet Volume 9.2 fL (7.4-10.4); Platelet Count 330 thou/uL (130-400); RBC Distribution Width 17.1 % (11.5-14.5); Red Blood Cell (RBC) Count 3.69 mill/uL (4.70-6.10); White Blood Cell (WBC) Count 19.2 thou/uL (4.8-10.8)
[2019-06-29 05:53] LABS: Band 24 % (5-11); Lymphocytes 1 % (21-51); MDiff Complete? YES; Metamyelocyte 3 % (0-0); Myelocyte 12 % (0-0); Neutrophil 60 % (42-75); Nucleated RBC 7 % (0); Toxic Granulation SLIGHT
[2019-06-29 05:57] LABS: Anion Gap 19 mmol/L (10-20); BUN (Urea Nitrogen) 67 mg/dL (8.4-25.7); Calc. Creatinine Clearance 34 mL/min (70-130); Calcium 7.2 mg/dL (7.8-10.44); Carbon Dioxide 23 mmol/L (23-31); Chloride 95 mmol/L (98-107); Estimated GFR-MDRD 30; Glucose 207 mg/dL (83-110); Potassium 5.7 mmol/L (3.5-5.1); Sodium 131 mmol/L (136-145)
[2019-06-29 06:02] LABS: Digoxin 2.41 ng/mL (0.8-2.0)
[2019-06-29 07:39] LABS: Actual Bicarbonate (HCO3a) 18.9 mEq/L (22-28); Base Excess (BEa) -4.3 mEq/L (-2.0 to +3.0); Calcium, Ionized 1.01 mmol/L (1.12-1.30); Carboxyhemoglobin (COHb) 0.2 gm% (0.0-3.0); Hemoglobin (Hb) 11.2 g/dL (14.0-18.0); O2 Tension (PaO2) 65.9 mmHg (> 70.0); pH, Arterial 7.43 (7.35-7.45)
[2019-06-29 07:40] LABS: Puncture Site RRA
[2019-06-29] MEDS: Furosemide 100 MG/10 ML VIAL SLOW IVP SCH ×2 (09:00→19:38)
[2019-06-29] MEDS: Polyethylene Glycol 3350 17 GM Packet PER TUBE SCH (09:00)
[2019-06-29] MEDS: Calcium Carbonate + Vit D 1 TAB PO SCH ×2 (09:00→19:44)
[2019-06-29] MEDS: Apixaban 5 MG TAB PO SCH ×2 (09:00→19:39)
[2019-06-29] MEDS: Amiodarone 200 MG TAB PO SCH ×3 (09:00→19:44)
[2019-06-29] MEDS: fentaNYL Citrate/PF 2,000 MCG in Sodium Chloride 0.9% 60 ML IV SCH (09:11)
--- NOTE | 2019-06-29 10:53 | PRG ---
DATE OF SERVICE: 06/29/2019 A 35 minutes of critical care time. SUBJECTIVE: This patient remains intubated on mechanical ventilation. Had no acute changes overnight. OBJECTIVE: VITAL SIGNS: Temperature 97.8 pulse 107, blood pressure 123/85, and O2 saturation 96%. Intake for 24 hours 2960 and output 1815. HEENT: Unremarkable. NECK: No adenopathy or JVD. LUNGS: Coarse breath sounds bilaterally. CARDIAC: S1 and S2. Slightly tachycardic. ABDOMEN: Soft, obese, nontender, and nondistended. EXTREMITIES: No clubbing, cyanosis, or edema. LABORATORY DATA: Sodium 131, potassium 5.7, chloride 95, CO2 of 23, BUN 67, creatinine 2.1, and glucose 207. White blood cell count 19.2, hematocrit 34.8, and platelet count 330. A pH of 7.43, pCO2 of 29, and pO2 of 65. Chest x-ray shows no significant change. ASSESSMENT: 1. Acute respiratory failure requiring mechanical ventilation. 2. IgG4 related disease. 3. 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 4. Hyperkalemia with increasing renal insufficiency - I suspect this might be from Bactrim use. PLAN: 1. I will go ahead and give a dose of Kayexalate to see if this will help the potassium to come down. If it does not, then we will have to consider stopping the Bactrim and switching him to pentamidine. 2. He is not weanable from mechanical ventilation at this time. 3. Continue supportive care with tube feeds and steroids. Job ID: [id number]
[2019-06-29] MEDS: Norepinephrine 8 MG/0.9% NS 250 ML IVPB SCH (11:00)
[2019-06-29] MEDS: Micafungin 100 MG in Sodium Chloride 0.9% 100 ML IVPB SCH (13:41)
--- NOTE | 2019-06-29 14:12 | PDOC.HOSPP ---
- Subjective Encounter Date: 06/29/19 Encounter Time: 14:10 Subjective: On levfed for shock. at bedside. Pt. intubated and sedated. Per , patient has had elevated creatinine but never saw renal. She states she prefers Dr. Rodriguez as she has seen him in the past. - Objective Vital Signs & Weight: Vital Signs (12 hours) Temp Pulse Resp BP Pulse Ox 06/29/19 14:00 28 H 06/29/19 12:00 98.8 F 28 H 06/29/19 10:30 108 H 147/94 H 06/29/19 10:27 116 H 32 H 96 06/29/19 10:00 28 H 06/29/19 08:00 28 H 06/29/19 07:21 98 06/29/19 07:14 91 94/71 06/29/19 07:12 90 28 H 96 06/29/19 07:00 97.8 F 06/29/19 06:00 28 H 06/29/19 04:00 99.2 F 28 H Weight Admit Weight 164 lb Weight 180 lb 5.41 oz Most Recent Monitor Data Heart Rate from ECG 102 NIBP 95/59 NIBP BP-Mean 71 Respiration from ECG 29 SpO2 97 I&O: 06/28/19 06/29/19 06/30/19 06:59 06:59 06:59 Intake Total 2812.6 2960 530 Output Total 1845 1815 695 Balance 967.6 1145 -165 Result Diagrams: 06/29/19 05:15 06/29/19 05:15 Additional Labs: Accuchecks 06/29/19 06/29/19 06/28/19 09:55 05:19 21:00 POC Glucose 226 H 210 H 231 H 06/28/19 15:53 POC Glucose 185 H Hospitalist ROS - Review of Systems ROS unobtainable: due to mental status - Medication Medications: Active Medications Generic Name Dose Route Start Last Admin Trade Name Freq PRN Reason Stop Dose Admin Apixaban 5 mg 06/21/19 09:00 06/29/19 09:00 Eliquis PO 5 mg BID ALYSE Administration Atorvastatin Calcium 20 mg 06/20/19 21:00 06/28/19 20:04 Lipitor PO 20 mg HS ALYSE Administration Calcium/Vitamin D 1 tab 06/21/19 21:00 06/29/19 09:00 Caltrate 600 + Vit D PO 1 tab BID ALYSE Administration Furosemide 60 mg 06/27/19 21:00 06/29/19 09:00 Lasix SLOW IVP 60 mg Q12HR ALYSE Administration Fentanyl Citrate 2,000 mcg/ 100 mls @ 0 mls/hr 06/21/19 17:09 06/29/19 09:11 Sodium Chloride IV 07/21/19 17:09 100 mls INF ALYSE Administration Protocol Per Protocol Norepinephrine Bitartrate 250 mls @ 0 mls/hr 06/22/19 05:26 06/29/19 11:00 Levophed IVPB 250 mls INF ALYSE Administration Protocol Titrate Trimethoprim/Sulfamethoxazole 250 mls @ 166.667 mls/hr 06/23/19 18:00 12:45 240 mg/ Dextrose/Water IVPB 250 mls Q6HR ALYSE Administration Micafungin Sodium 100 mg/ 100 mls @ 100 mls/hr 06/27/19 14:00 06/29/19 13:41 Sodium Chloride IVPB 100 mls 1400 ALYSE Administration Insulin Human Lispro 0 units 06/25/19 09:34 06/29/19 09:55 Humalog SC 4 unit .MODERATE SLIDING SC PRN Administration Moderate Correctional Scale Lorazepam 2 mg 06/21/19 17:09 06/29/19 12:04 Ativan SLOW IVP 07/21/19 17:09 2 mg Q1H PRN Administration Breakthrough agitation Methylprednisolone Sodium Succinate 20 mg 06/21/19 12:00 06/29/19 11:49 Solu-Medrol IVP 20 mg Q6HR ALYSE Administration Polyethylene Glycol 17 gm 06/26/19 09:00 06/29/19 09:00 Miralax PER TUBE 17 gm DAILY ALYSE Administration Propofol 1,000 mg 06/21/19 17:09 06/29/19 05:18 Diprivan IV 07/21/19 17:09 1,000 mg INF PRN Administration TO ACHIEVE GOAL RASS Protocol Sodium Chloride 10 ml 06/19/19 17:20 06/23/19 21:56 Flush - Normal Saline IVF 10 ml Q12HR PRN Administration Saline Flush - Exam Heart: RRR, no murmur, no gallops, normal peripheral pulses Heart - other findings: 2+ bilateral pitting pedal edema Respiratory: CTAB, no wheezes, no rales, normal chest expansion Gastrointestinal: soft, non-tender, non-distended Gastrointestinal - other findings: Juárez with clear urine Hosp A/P (1) Shock Code(s): R57.9 - SHOCK, UNSPECIFIED Status: Acute Plan: Swage Tender on board On levophed Wean as tolerated Likely septic in nature On abx now High risk due to shock and need for pressors and need for mech. ventilation for respiratory failure (2) PCP (pneumocystis jiroveci pneumonia) Code(s): B59 - PNEUMOCYSTOSIS Status: Acute Plan: Confirmed by BAL On bactrim IV ID on board (3) CHF (congestive heart failure) Code(s): I50.9 - HEART FAILURE, UNSPECIFIED Status: Acute Qualifiers: Heart failure type: systolic Heart failure chronicity: acute Qualified Code(s): I50.21 - Acute systolic (congestive) heart failure Plan: Has fluid overload Cardio on board On IV lasix BID (4) Atrial fibrillation Code(s): I48.91 - UNSPECIFIED ATRIAL FIBRILLATION Status: Chronic Qualifiers: Atrial fibrillation type: unspecified Qualified Code(s): I48.91 - Unspecified atrial fibrillation Plan: Cardio on board On amio and eliquis (5) Acute respiratory failure with hypoxia Code(s): J96.01 - ACUTE RESPIRATORY FAILURE WITH HYPOXIA Status: Acute Plan: Intubated on vent Pulm. on board (6) CKD (chronic kidney disease) Code(s): N18.9 - CHRONIC KIDNEY DISEASE, UNSPECIFIED Status: Chronic Qualifiers: Chronic kidney disease stage: stage 3 (moderate) Qualified Code(s): N18.3 - Chronic kidney disease, stage 3 (moderate) Plan: Never saw nephrology prefers Dr. Rodriguez I've placed a consult for Dr. Rodriguez Avoid nephrotoxic meds and hypotension - Plan plan discussed w/ family, juárez catheter, continue antibiotics
[2019-06-29] MEDS: Ipratropium Bromide 2.5 ml Neb NEB SCH ×3 (15:09→22:15)
--- NOTE | 2019-06-29 15:27 | PRG ---
DATE OF SERVICE: 06/29/2019 SUBJECTIVE: The patient is intubated in the ICU, sedated. OBJECTIVE: VITAL SIGNS: His pulse 94, blood pressure 91/57, O2 saturation 95% with the same settings, still on bilevel. Lines are the same as orotracheal intubation. Skin is well perfused. I's and O's have been positive for the past few days anywhere from 800 to 1100. LUNGS: Fairly clear breath sounds. HEENT: Pupils are constricted. Sclerae are white. HEART: S1 and S2, regular rate. ABDOMEN: Flat and soft. EXTREMITIES: 1+ edema in lower extremities. Could not evaluate appendicular structure movement. LABORATORY DATA: Sodium 131, creatinine is up to 2.14, GFR 30, glucose 210, calcium 7.2. White cell count is up to 19.2, hemoglobin 11, platelets 330, with 24% bands. Microbiology with negative blood cultures from June 26. 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 The patient has developed worsening hyperkalemia and progressively worsening creatinine elevation and probably due to Bactrim. Today is a 7th day of Bactrim and the response is kind of marginal. We will go ahead and switch him to pentamidine. Continue micafungin that would improve the issues related to potassium and creatinine elevation, although pentamidine can be nephrotoxic, but usually does not cause the problems with a cotransport of creatinine by the renal tubule. Job ID: [id number]
[2019-06-29] MEDS: Atorvastatin Calcium 20 MG TAB PO SCH (19:44)
[2019-06-30] MEDS: methylPREDNISolone Sod Succ 40 MG VIAL IVP SCH ×4 (00:09→17:24)
[2019-06-30] MEDS: Propofol 1,000 MG/100 ML VIAL IV PRN ×2 (02:00→17:13)
[2019-06-30] MEDS: Ipratropium Bromide 2.5 ml Neb NEB SCH ×6 (02:28→22:24)
[2019-06-30 04:36] LABS: ALT (SGPT) 51 U/L (8-55); AST (SGOT) 41 U/L (5-34); Albumin 1.9 g/dL (3.4-4.8); Alkaline Phosphatase 124 U/L (40-110); Anion Gap 15 mmol/L (10-20); BUN (Urea Nitrogen) 72 mg/dL (8.4-25.7); Bilirubin, Total 0.2 mg/dL (0.2-1.2); Calc. Creatinine Clearance 38 mL/min (70-130); Calcium 6.9 mg/dL (7.8-10.44); Carbon Dioxide 25 mmol/L (23-31); Chloride 97 mmol/L (98-107); Estimated GFR-MDRD 35; Globulin 2.9 g/dL (2.4-3.5); Glucose 165 mg/dL (83-110); Potassium 5.5 mmol/L (3.5-5.1); Protein, Total 4.8 g/dL (5.8-8.1); Sodium 131 mmol/L (136-145)
[2019-06-30 04:51] LABS: Band 20 % (5-11); Hemoglobin 10.9 g/dL (14.0-18.0); Lymphocytes 4 % (21-51); MDiff Complete? YES; Mean Corpuscular HGB CONC 33.5 g/dL (32.0-36.0); Mean Corpuscular Hemoglobin 31.8 pg (27.0-31.0); Mean Corpuscular Volume 94.8 fL (78.0-98.0); Mean Platelet Volume 8.9 fL (7.4-10.4); Monocytes 1 % (0-10); Myelocyte 4 % (0-0); Neutrophil 71 % (42-75); Nucleated RBC 11 % (0); Platelet Count 325 thou/uL (130-400); RBC Distribution Width 16.7 % (11.5-14.5); Red Blood Cell (RBC) Count 3.44 mill/uL (4.70-6.10); White Blood Cell (WBC) Count 23.2 thou/uL (4.8-10.8)
[2019-06-30] MEDS: HumaLOG 300 UNITS/3 ML VIAL SC PRN ×4 (05:23→22:28)
[2019-06-30 07:16] LABS: Actual Bicarbonate (HCO3a) 24.2 mEq/L (22-28); Base Excess (BEa) 0.7 mEq/L (-2.0 to +3.0); CO2 Tension 35.2 mmHg (35.0-45.0); Calcium, Ionized 1.03 mmol/L (1.12-1.30); Carboxyhemoglobin (COHb) 1.3 gm% (0.0-3.0); Hemoglobin (Hb) 11.6 g/dL (14.0-18.0); Potassium - ABG Lab 5.41 mmol/L (3.70-5.30); pH, Arterial 7.46 (7.35-7.45)
[2019-06-30 07:18] LABS: O2 Tension (PaO2) 56.6 mmHg (> 70.0); Puncture Site RRA
[2019-06-30 09:27] LABS: Phosphorus 4.5 mg/dL (2.3-4.7)
[2019-06-30] MEDS: Furosemide 100 MG/10 ML VIAL SLOW IVP SCH ×2 (09:33→21:12)
[2019-06-30] MEDS: Calcium Carbonate + Vit D 1 TAB PO SCH ×2 (09:34→21:12)
[2019-06-30] MEDS: Apixaban 5 MG TAB PO SCH ×2 (09:35→21:11)
[2019-06-30] MEDS: Pantoprazole 40 MG VIAL IVP SCH (09:35)
[2019-06-30] MEDS: Amiodarone 200 MG TAB PO SCH ×3 (09:35→21:11)
[2019-06-30] MEDS: Polyethylene Glycol 3350 17 GM Packet PER TUBE SCH (09:35)
--- NOTE | 2019-06-30 09:43 | ULT ---
Renal ultrasound: 06/30/2019 HISTORY: Acute kidney insufficiency, chronic kidney disease TECHNIQUE: Multiplanar grayscale sonographic imaging of the kidneys and urinary bladder obtained. FINDINGS: Right kidney is small, echogenic, and demonstrates mild cortical thinning, measuring 8.2 x 4.1 x 4.9 cm. No renal mass, hydronephrosis, or renal stone noted on the right. The left kidney is echogenic and demonstrates cortical thinning, measuring 10.1 x 5.4 x 5.8 cm. No hy dronephrosis or solid renal mass appreciated on the left. Small cysts are suspected measuring up to 1.9 cm within the left kidney. Urinary bladder is not well assessed, decompressed and containing a Fo cinda catheter. IMPRESSION: Echogenic kidneys with cortical thinning suggesting renal medical disease. No hydronephro sis.
[2019-06-30] MEDS: fentaNYL Citrate/PF 2,000 MCG in Sodium Chloride 0.9% 60 ML IV SCH (09:48)
--- NOTE | 2019-06-30 10:33 | PDOC.HOSPP ---
- Subjective Encounter Date: 06/30/19 Encounter Time: 10:20 Subjective: Unable to obtain history or ROS due to being intubated and sedated on the ventilator. - Objective Vital Signs & Weight: Vital Signs (12 hours) Temp Pulse Resp BP Pulse Ox 06/30/19 06:53 108 H 104/71 06/30/19 06:48 95 33 H 95 06/30/19 06:00 28 H 06/30/19 05:00 98.9 F 06/30/19 04:00 28 H 06/30/19 02:29 93 98/59 L 06/30/19 02:00 28 H 06/30/19 00:50 94 104/57 L 06/30/19 00:00 98.2 F 28 H Weight Admit Weight 164 lb Weight 180 lb 15.992 oz Most Recent Monitor Data Heart Rate from ECG 95 NIBP 105/77 NIBP BP-Mean 86 Respiration from ECG 25 SpO2 99 I&O: 06/29/19 06/30/19 07/01/19 06:59 06:59 06:59 Intake Total 2960 2935.2 Output Total 1815 1825 Balance 1145 1110.2 Result Diagrams: 06/30/19 04:00 06/30/19 04:00 Additional Labs: Accuchecks 06/29/19 06/29/19 22:32 15:04 POC Glucose 194 H 226 H Hospitalist ROS - Review of Systems ROS unobtainable: due to mental status - Medication Medications: Active Medications Generic Name Dose Route Start Last Admin Trade Name Freq PRN Reason Stop Dose Admin Amiodarone HCl 200 mg 06/29/19 15:00 06/30/19 09:35 Cordarone PO 200 mg TID ALYSE Administration Apixaban 5 mg 06/21/19 09:00 06/30/19 09:35 Eliquis PO 5 mg BID ALYSE Administration Atorvastatin Calcium 20 mg 06/20/19 21:00 06/29/19 19:44 Lipitor PO 20 mg HS ALYSE Administration Calcium/Vitamin D 1 tab 06/21/19 21:00 06/30/19 09:34 Caltrate 600 + Vit D PO 1 tab BID ALYSE Administration Furosemide 60 mg 06/27/19 21:00 06/30/19 09:33 Lasix SLOW IVP 60 mg Q12HR ALYSE Administration Fentanyl Citrate 2,000 mcg/ 100 mls @ 0 mls/hr 06/21/19 17:09 06/30/19 09:48 Sodium Chloride IV 07/21/19 17:09 100 mls INF ALYSE Administration Protocol Per Protocol Norepinephrine Bitartrate 250 mls @ 0 mls/hr 06/22/19 05:26 06/29/19 11:00 Levophed IVPB 250 mls INF ALYSE Administration Protocol Titrate Micafungin Sodium 100 mg/ 100 mls @ 100 mls/hr 06/27/19 14:00 06/29/19 13:41 Sodium Chloride IVPB 100 mls 1400 ALYSE Administration Pentamidine Isethionate 300 mg 250 mls @ 250 mls/hr 06/29/19 17:00 06/29/19 16:35 / Dextrose/Water IVPB 250 mls Q24HR ALYSE Administration Insulin Human Lispro 0 units 06/25/19 09:34 06/30/19 05:23 Humalog SC 2 unit .MODERATE SLIDING SC PRN Administration Moderate Correctional Scale Ipratropium [place] 2.5 ml 06/29/19 14:30 06/30/19 06:48 Atrovent NEB 2.5 ml [id number] ALYSE Administration Lorazepam 2 mg 06/21/19 17:09 06/29/19 12:04 Ativan SLOW IVP 07/21/19 17:09 2 mg Q1H PRN Administration Breakthrough agitation Methylprednisolone Sodium Succinate 20 mg 06/21/19 12:00 06/30/19 05:21 Solu-Medrol IVP 20 mg Q6HR ALYSE Administration Pantoprazole Sodium 40 mg 06/30/19 09:00 06/30/19 09:35 Protonix IVP 40 mg DAILY ALYSE Administration Polyethylene Glycol 17 gm 06/26/19 09:00 06/30/19 09:35 Miralax PER TUBE 17 gm DAILY ALYSE Administration Propofol 1,000 mg 06/21/19 17:09 06/30/19 02:00 Diprivan IV 07/21/19 17:09 1,000 mg INF PRN Administration TO ACHIEVE GOAL RASS Protocol Sodium Chloride 10 ml 06/19/19 17:20 06/23/19 21:56 Flush - Normal Saline IVF 10 ml Q12HR PRN Administration Saline Flush - Exam ENT: normocephalic atraumatic, no oropharyngeal lesions Neck: supple, symmetric, no thyromegaly, no lymphadenopathy Heart: RRR, no gallops, normal peripheral pulses Heart - other findings: 2+ bilateral pitting pedal edema Respiratory: CTAB, no wheezes, normal chest expansion Gastrointestinal: soft, non-tender, non-distended, normal bowel sounds Hosp A/P (1) Shock Code(s): R57.9 - SHOCK, UNSPECIFIED Status: Acute (2) PCP (pneumocystis jiroveci pneumonia) Code(s): B59 - PNEUMOCYSTOSIS Status: Acute (3) CHF (congestive heart failure) Code(s): I50.9 - HEART FAILURE, UNSPECIFIED Status: Acute Qualifiers: Heart failure type: systolic Heart failure chronicity: acute Qualified Code(s): I50.21 - Acute systolic (congestive) heart failure (4) Atrial fibrillation Code(s): I48.91 - UNSPECIFIED ATRIAL FIBRILLATION Status: Chronic Qualifiers: Atrial fibrillation type: unspecified Qualified Code(s): I48.91 - Unspecified atrial fibrillation (5) Acute respiratory failure with hypoxia Code(s): J96.01 - ACUTE RESPIRATORY FAILURE WITH HYPOXIA Status: Acute (6) CKD (chronic kidney disease) Code(s): N18.9 - CHRONIC KIDNEY DISEASE, UNSPECIFIED Status: Chronic Qualifiers: Chronic kidney disease stage: stage 3 (moderate) Qualified Code(s): N18.3 - Chronic kidney disease, stage 3 (moderate) - Plan continue antibiotics, GI proph Hosp A/P (1) Shock Code(s): R57.9 - SHOCK, UNSPECIFIED Status: Acute Plan: Aerial Gunner on board Likely septic in nature On abx now High risk due to need for mech. ventilation for respiratory failure (2) PCP (pneumocystis jiroveci pneumonia) Code(s): B59 - PNEUMOCYSTOSIS Status: Acute Plan: Confirmed by BAL On pentamidine IV as bactrim caused hyperkalemia and elevation in creatinine ID on board (3) CHF (congestive heart failure) Code(s): I50.9 - HEART FAILURE, UNSPECIFIED Status: Acute Qualifiers: Heart failure type: systolic Heart failure chronicity: acute Qualified Code(s): I50.21 - Acute systolic (congestive) heart failure Plan: Has fluid overload Cardio on board On IV lasix BID (4) Atrial fibrillation Code(s): I48.91 - UNSPECIFIED ATRIAL FIBRILLATION Status: Chronic Qualifiers: Atrial fibrillation type: unspecified Qualified Code(s): I48.91 - Unspecified atrial fibrillation Plan: Cardio on board On amio and eliquis (5) Acute respiratory failure with hypoxia Code(s): J96.01 - ACUTE RESPIRATORY FAILURE WITH HYPOXIA Status: Acute Plan: Intubated on vent Pulm. on board (6) CKD (chronic kidney disease) Code(s): N18.9 - CHRONIC KIDNEY DISEASE, UNSPECIFIED Status: Chronic Qualifiers: Chronic kidney disease stage: stage 3 (moderate) Qualified Code(s): N18.3 - Chronic kidney disease, stage 3 (moderate) Plan: I've placed a consult for Dr. Rodriguez. Awaiting renal consult and input US kidneys with cortical thinning consistent with medical renal disease Avoid nephrotoxic meds and hypotension
[2019-06-30] MEDS: Albumin 25% 25 GM/100 ML BOT IVPB SCH ×2 (13:21→17:12)
--- NOTE | 2019-06-30 13:59 | CON ---
DATE OF CONSULTATION: HISTORY OF PRESENT ILLNESS: Mr. Fletcher is a 74 yo white male, who was initially admitted for generalized malaise and weakness. He was noted to have a cardiac problem-was in atrial fibrillation. He was admitted for further management. During the course of his hospitalization, this has been marred by development of acute respiratory failure, rapid atrial fibrillation, development of Pneumocystis carinii pneumonia and we are now being consulted for his acute kidney injury. Initially , the potassium was recently elevated and the creatinine was also elevated and for that reason, his Bactrim has been discontinued and the patient has been changed to pentamidine. REVIEW OF SYSTEMS: Not obtainable since the patient is sedated and intubated. MEDICATIONS: 1. Amiodarone 200 mg p.o. t.i.d. 2. Eliquis 5 mg p.o. b.i.d. 3. Atorvastatin 20 mg at bedtime. 4. Calcium carbonate one tablet p.o. b.i.d. 5. Status post Bactrim. 6. Fentanyl drip. 7. Furosemide 60 mg IV q.12 hours. 8. Humalog sliding scale. 9. DuoNeb q.4. 10. Lorazepam 2 mg IV q.12 as needed. 11. Methylprednisolone 20 mg IV q.6. 12. Micafungin 100 mg IV daily. 13. Morphine sulfate p.r.n. 14. Norepinephrine. 15. Pentamidine 300 mg IV q.24 hours. 16. MiraLAX 17 g daily. 17. Propofol p.r.n. 18. Vasopressin 40 units IV as directed. PAST MEDICAL HISTORY: History of sleep apnea, BPH, history of chronic lung nodules, erectile dysfunction, right kidney cyst, atrial fibrillation, thoracic aortic ascending aneurysm, [id number] mitral regurgitation, history of gallstones, nephrolithiasis, hypertension, and hyperlipidemia. PAST SURGICAL HISTORY: Status post cystoscopy with prostate surgery, status post left total hip replacement secondary to fracture, status post right inguinal hernia repair, status post multiple cysts removal of the back, status post bilateral cataract surgery, status post abdominal hernia repair, status post mitral valve repair with JANETH ligation, and status post cardioversion for atrial fibrillation. SOCIAL HISTORY: The patient lives with his . Currently, no tobacco, alcohol, or IV drug abuse. Sedentary lifestyle. FAMILY HISTORY: No family history of ESRD. ALLERGIES: MORPHINE, PREDNISONE, AND SULFA? IMMUNIZATION: Unknown. HOSPITALIZATIONS: Please see past medical history. PHYSICAL EXAMINATION: VITAL SIGNS: Blood pressure is 135/78, heart rate 116, and O2 saturation 98%. GENERAL: The patient is sedated, intubated on ventilator support. SKIN: Adequate turgor. HEENT: He has a pinkish conjunctivae. Anicteric sclerae. No neck mass. No carotid bruits. No JVD. CHEST: No deformities. LUNGS: Decreased breath sounds. HEART: Tachycardic, irregular. A grade 2/6 systolic murmur. No gallops. No rubs. ABDOMEN: Globular, soft, and nontender. No masses. EXTREMITIES: Trace edema. NEUROLOGIC: The patient is sedated. LABORATORY DATA: Laboratories of June 30, 2019; white count 23.2 and hemoglobin 10.9. Sodium 131, potassium 5.5, chloride 97, carbon dioxide 25, BUN 72, creatinine 1.9, glucose 165, and calcium 6.9. AST 41, ALT 51, and albumin is 1.9. Further review of his serum creatinine shows the following on June 29, 2019, BUN 67, creatinine 2.14, and potassium 5.7. On June 28, 2019, creatinine 2.03. On June 27, 2019, creatinine 1.88. On June 25, 2019, creatinine 1.79. On June 22, 2019, creatinine 1.65. On June 20, 2019, creatinine 1.34. On February 21, 2019, creatinine 1.50. On February 15, 2019, creatinine 1.22. Urinalysis of June 19, 2019; specific gravity was 1022, no pigmented granular casts, no red cells, white cells. Renal ultrasound of June 30, 2019, shows echogenic kidneys with cortical thinning suggesting medical renal disease. No obstruction noted. On June 28, 2019, chest x-ray shows bibasilar infiltrates, confluent in the right lower lung. ASSESSMENT AND PLAN: 1. Acute kidney injury on top of his chronic renal failure-review of the urinalysis several days ago suggested a benign urine sediment suggesting that the elevated creatinine may all be hemodynamically-mediated renal dysfunction. I could not rule out the possibility that the Bactrim may be aggravating the kidney function. For that reason, I agree to hold off the Bactrim. This has been discontinued and his antibiotics has been changed to pentamidine. The patient is currently being optimized with his hemodynamics. He is currently on pressor support. I would suggest we add albumin infusion with this patient at 25 g IV q.6 since the albumin measurement is noted to be less than 2. I will review another urine chemistry with this patient and urinalysis to rule out the possibility of superimposed acute tubular necrosis. For the moment, agree with current management. There is no indication for any dialytic intervention. 2. Mild hyperkalemia-slowly improving. The patient is off Bactrim. 3. Sepsis/Pneumocystis carinii, ID following. The patient is currently on IV pentamidine. Overall, agree with current management. Job ID: [id number] [facility]
[2019-06-30] MEDS: Micafungin 100 MG in Sodium Chloride 0.9% 100 ML IVPB SCH (14:08)
[2019-06-30] MEDS ORDERED: Fleet Enema 133 ML BOT PR SCH (15:00)
[2019-06-30] MEDS: Bacteriostatic Water 30 ML VIAL FS PRN (17:24)
--- NOTE | 2019-06-30 18:32 | PRG ---
DATE OF SERVICE: 06/30/2019 SUBJECTIVE: Mr. Fletcher remains mechanically ventilated. He is sedated. OBJECTIVE: VITAL SIGNS: Heart rate 112, respiratory rates in the high 20s to low 30s, oximetry is 99, blood pressure 113/73. LUNGS: Remarkable for coarse equal breath sounds. HEART: Regular rhythm. ABDOMEN: Soft. EXTREMITIES: With trace edema. Intake and outputs positive, 1110 mL last 24 hours, 1145 yesterday, 967 the day before. LABORATORY DATA: White count 23.2, hemoglobin 10.9, platelets 325. Sodium 131, potassium 5.5, chloride 97, BUN 72, creatinine 1.9. IMPRESSION: 1. Pneumocystis pneumonia. 2. Volume overload. 3. Acute on chronic kidney disease. I suspect his renal abnormalities are not secondary to interstitial nephritis with his IgG4 related disease. 4. Anticoagulation for atrial fibrillation. 5. Atrial fibrillation. 6. Ongoing requirements for diuresis given the high volume of Bactrim. 7. He has not had a bowel movement several days. He may benefit from an enema as well as Kayexalate per rectum. 8. He is switched to a feed that does not have potassium in it. His arterial potassium is 5.4 and creeping upwards, so probably have to treat this. Job ID: [id number]
[2019-06-30] MEDS: Atorvastatin Calcium 20 MG TAB PO SCH (21:12)
[2019-06-30 22:29] LABS: Bilirubin Negative (Negative); Blood, Urine 2+ (Negative); Clarity Turbid (Clear); Glucose, Urine (Dipstick) Normal (Negative); Leukocyte Negative Leu/uL (Negative); Nitrite Negative (Negative); Protein, Urine (Dipstick) 30 mg/dL (Neg-Trace); Squamous Epithelial 0-3 HPF (0-3); Urobilinogen Normal mg/dL (Less than 2)
[2019-06-30 22:40] LABS: Bacteria/HPF 2+ HPF (None Seen)
[2019-06-30 22:46] LABS: Creatinine, Urine 39.93 mg/dL (63-166)
[2019-07-01] MEDS: methylPREDNISolone Sod Succ 40 MG VIAL IVP SCH ×5 (00:33→23:12)
[2019-07-01] MEDS: Albumin 25% 25 GM/100 ML BOT IVPB SCH ×2 (00:33→05:38)
[2019-07-01] MEDS: Propofol 1,000 MG/100 ML VIAL IV PRN ×3 (01:24→22:45)
[2019-07-01] MEDS: Ipratropium Bromide 2.5 ml Neb NEB SCH ×6 (02:20→22:13)
[2019-07-01] MEDS: HumaLOG 300 UNITS/3 ML VIAL SC PRN ×4 (03:54→20:50)
[2019-07-01 04:28] LABS: Band 13 % (5-11); Hemoglobin 9.1 g/dL (14.0-18.0); Hypochromia SLIGHT = 6-15 cells (100X) (0-5/hpf); Lymphocytes 7 % (21-51); MDiff Complete? YES; Mean Corpuscular HGB CONC 34.6 g/dL (32.0-36.0); Mean Corpuscular Volume 92.6 fL (78.0-98.0); Mean Platelet Volume 8.8 fL (7.4-10.4); Neutrophil 80 % (42-75); Nucleated RBC 3 % (0); Platelet Count 254 thou/uL (130-400); Platelet Morphology Comment Appears Adequate; RBC Distribution Width 16.8 % (11.5-14.5); Red Blood Cell (RBC) Count 2.83 mill/uL (4.70-6.10); White Blood Cell (WBC) Count 23.4 thou/uL (4.8-10.8)
[2019-07-01 04:33] LABS: Digoxin 1.26 ng/mL (0.8-2.0)
[2019-07-01 04:36] LABS: Anion Gap 16 mmol/L (10-20); BUN (Urea Nitrogen) 78 mg/dL (8.4-25.7); Calc. Creatinine Clearance 42 mL/min (70-130); Calcium 8.1 mg/dL (7.8-10.44); Carbon Dioxide 24 mmol/L (23-31); Chloride 96 mmol/L (98-107); Estimated GFR-MDRD 38; Glucose 194 mg/dL (83-110); Potassium 4.7 mmol/L (3.5-5.1); Sodium 131 mmol/L (136-145)
[2019-07-01 07:03] LABS: Actual Bicarbonate (HCO3a) 26.6 mEq/L (22-28); Base Excess (BEa) 3.7 mEq/L (-2.0 to +3.0); CO2 Tension 32.9 mmHg (35.0-45.0); Calcium, Ionized 1.12 mmol/L (1.12-1.30); Carboxyhemoglobin (COHb) 1.5 gm% (0.0-3.0); O2 Tension (PaO2) 72.5 mmHg (> 70.0); Potassium - ABG Lab 4.46 mmol/L (3.70-5.30); pH, Arterial 7.53 (7.35-7.45)
[2019-07-01 07:04] LABS: ALV-art Gradient 314.175 (0-20); Puncture Site RRA
[2019-07-01] MEDS ORDERED: Digoxin 0.5 MG/2 ML AMP SLOW IVP SCH (08:30)
[2019-07-01] MEDS: Furosemide 100 MG/10 ML VIAL SLOW IVP SCH ×2 (09:53→20:56)
[2019-07-01] MEDS: Calcium Carbonate + Vit D 1 TAB PO SCH ×2 (09:53→20:56)
[2019-07-01] MEDS: Apixaban 5 MG TAB PO SCH ×2 (09:53→20:56)
[2019-07-01] MEDS: Amiodarone 200 MG TAB PO SCH ×3 (09:53→20:56)
--- NOTE | 2019-07-01 09:53 | PRG ---
DATE OF SERVICE: 07/01/2019 TIME SPENT: 35 minutes of critical care time. SUBJECTIVE: The patient remains intubated on mechanical ventilation. There have been no acute changes overnight. OBJECTIVE: VITAL SIGNS: Temperature 97.6, pulse 96, blood pressure 104/62, O2 saturation 94%. Intake for 24 hours 2935, output 1825. Weight 182 pounds. HEENT: Unremarkable. NECK: No adenopathy or JVD. LUNGS: Clear anteriorly bilaterally. CARDIOVASCULAR: S1, S2. Regular. ABDOMEN: Soft and nontender to palpation. EXTREMITIES: No clubbing, cyanosis, or edema. LABORATORY DATA: ABG; pH 7.53, pCO2 of 32, pO2 of 72, that is on bilevel ventilation with a rate of 22, FiO2 of 60%, high pressure 23, low pressure 9. White blood cell count 23.4, hematocrit 26.2, and platelet count 254. Sodium 131, potassium 4.7, chloride 96, CO2 of 24, BUN 78, creatinine 1.7, and glucose 194. ASSESSMENT: 1. IgG4-related autoimmune syndrome. 2. Acute respiratory failure requiring mechanical ventilation. 3. Pneumocystis carinii pneumonia. PLAN: The patient has been switched to pentamidine. His potassium is better since coming off the Bactrim. I have adjusted his ventilator settings downward somewhat today to see if he will tolerate. I will have his chest x-ray repeated tomorrow. Job ID: [id number]
[2019-07-01] MEDS: Pantoprazole 40 MG VIAL IVP SCH (09:54)
[2019-07-01] MEDS: Polyethylene Glycol 3350 17 GM Packet PER TUBE SCH (09:54)
--- NOTE | 2019-07-01 09:55 | PRG ---
DATE OF SERVICE: 07/01/2019 SERVICE: Renal Medicine. SUBJECTIVE: Mr. Fletcher is a 74-year-old white male with known multiple medical problems and was seen by the Renal Service for his acute kidney injury on top of possible chronic renal failure. Creatinine has been slowly improving. Initially, we felt that he may simply have hemodynamically-mediated renal dysfunction. He was also given albumin infusion as well as he is on pressor support for the low BP. However, I did review the urine sediment, and the urine sediment did show some pigmented granular casts suggesting an acute tubular necrosis. His white cell count is very minimal at 46, and he has rbc of 11 to 20. Furthermore, the repeat urinalysis showed some degree of proteinuria. No acute events noted. He is on pressor support to further optimize his hemodynamics. OBJECTIVE: VITAL SIGNS: Blood pressure is 118/65 with a heart rate of 96, respiratory rate 31, O2 saturation 97%. GENERAL: The patient is sedated, intubated on ventilator support. SKIN: Adequate turgor. HEENT: He has slightly pale conjunctivae. Anicteric sclerae. NECK: No neck mass. No carotid bruits. No JVD. CHEST: No deformities. LUNGS: Decreased breath sounds. HEART: Normal sinus rhythm. No murmurs. No gallops. No rubs. ABDOMEN: Globular, soft, and nontender. No masses. EXTREMITIES: No edema. No deformities. MEDICATIONS: Medications of July 01, 2019, were reviewed. LABORATORY DATA: Laboratories of July 01, 2019: White count 23.4, hemoglobin 9.1. Sodium 131, potassium 4.7, chloride 96, carbon dioxide 24, BUN 78, creatinine 1.75, glucose 194, calcium 8.1. Renal ultrasound done on June 30, 2019, showed echogenic kidneys with cortical thinning, but no hydronephrosis. ASSESSMENT AND PLAN: Management is essentially supportive. There is no indication for any dialytic intervention. Continue to optimize hemodynamics with this patient. Management of his acute tubular necrosis is essentially observation and supportive. Overall, agree with current management. Job ID: [id number]
[2019-07-01] MEDS: Norepinephrine 8 MG/0.9% NS 250 ML IVPB SCH (10:07)
--- NOTE | 2019-07-01 14:36 | PDOC.HOSPP ---
- Subjective Encounter Date: 07/01/19 Encounter Time: 13:00 Subjective: Unable to provide history or ROS due to being intubated and sedated. at bedside - Objective Vital Signs & Weight: Vital Signs (12 hours) Temp Pulse Resp BP Pulse Ox 07/01/19 12:00 98.7 F 27 H 07/01/19 10:35 90 139/65 07/01/19 10:33 86 22 H 93 L 07/01/19 10:00 27 H 07/01/19 09:53 96 07/01/19 08:00 98.1 F 27 H 93 L 07/01/19 06:40 96 118/65 07/01/19 06:37 97 31 H 97 07/01/19 06:00 29 H 07/01/19 04:00 97.6 F 22 H Weight Admit Weight 164 lb Weight 182 lb 1.629 oz Most Recent Monitor Data Heart Rate from ECG 108 NIBP 131/65 NIBP BP-Mean 87 Respiration from ECG 30 SpO2 92 I&O: 06/30/19 07/01/19 07/02/19 06:59 06:59 06:59 Intake Total 2935.2 915 90 Output Total 1825 2105 1290 Balance 1110.2 -1190 -1200 Result Diagrams: 07/01/19 03:45 07/01/19 03:45 Additional Labs: Accuchecks 07/01/19 07/01/19 06/30/19 11:24 03:53 22:21 POC Glucose 165 H 214 H 157 H 06/30/19 18:06 POC Glucose 255 H Hospitalist ROS - Review of Systems ROS unobtainable: due to mental status - Medication Medications: Active Medications Generic Name Dose Route Start Last Admin Trade Name Freq PRN Reason Stop Dose Admin Amiodarone HCl 200 mg 06/29/19 15:00 07/01/19 09:53 Cordarone PO 200 mg TID ALYSE Administration Apixaban 5 mg 06/21/19 09:00 07/01/19 09:53 Eliquis PO 5 mg BID ALYSE Administration Atorvastatin Calcium 20 mg 06/20/19 21:00 06/30/19 21:12 Lipitor PO 20 mg HS ALYSE Administration Calcium/Vitamin D 1 tab 06/21/19 21:00 07/01/19 09:53 Caltrate 600 + Vit D PO 1 tab BID ALYSE Administration Furosemide 60 mg 06/27/19 21:00 07/01/19 09:53 Lasix SLOW IVP 60 mg Q12HR ALYSE Administration Fentanyl Citrate 2,000 mcg/ 100 mls @ 0 mls/hr 06/21/19 17:09 06/30/19 09:48 Sodium Chloride IV 07/21/19 17:09 100 mls INF ALYSE Administration Protocol Per Protocol Norepinephrine Bitartrate 250 mls @ 0 mls/hr 06/22/19 05:26 07/01/19 10:07 Levophed IVPB 250 mls INF ALYSE Administration Protocol Titrate Micafungin Sodium 100 mg/ 100 mls @ 100 mls/hr 06/27/19 14:00 06/30/19 14:08 Sodium Chloride IVPB 100 mls 1400 ALYSE Administration Pentamidine Isethionate 300 mg 250 mls @ 250 mls/hr 06/29/19 17:00 06/30/19 17:12 / Dextrose/Water IVPB 250 mls Q24HR ALYSE Administration Insulin Human Lispro 0 units 06/25/19 09:34 07/01/19 11:25 Humalog SC 2 unit .MODERATE SLIDING SC PRN Administration Moderate Correctional Scale Ipratropium [place] 2.5 ml 06/29/19 14:30 07/01/19 10:33 Atrovent NEB 2.5 ml [id number] ALYSE Administration Lorazepam 2 mg 06/21/19 17:09 06/29/19 12:04 Ativan SLOW IVP 07/21/19 17:09 2 mg Q1H PRN Administration Breakthrough agitation Methylprednisolone Sodium Succinate 20 mg 06/21/19 12:00 07/01/19 11:24 Solu-Medrol IVP 20 mg Q6HR ALYSE Administration Pantoprazole Sodium 40 mg 06/30/19 09:00 07/01/19 09:54 Protonix IVP 40 mg DAILY ALYSE Administration Polyethylene Glycol 17 gm 06/26/19 09:00 07/01/19 09:54 Miralax PER TUBE 17 gm DAILY ALYSE Administration Propofol 1,000 mg 06/21/19 17:09 07/01/19 01:24 Diprivan IV 07/21/19 17:09 1,000 mg INF PRN Administration TO ACHIEVE GOAL RASS Protocol Sodium Chloride 10 ml 06/19/19 17:20 06/23/19 21:56 Flush - Normal Saline IVF 10 ml Q12HR PRN Administration Saline Flush Sterile Water 1 ml 06/21/19 09:27 06/30/19 17:24 Bacteriostatic Water FS 1 ml PRN PRN Administration RECONSTITUTION - Exam Neck: supple, no thyromegaly Heart: RRR, no gallops, no rubs, normal peripheral pulses Respiratory: CTAB, no wheezes Gastrointestinal: soft, non-tender, non-distended, normal bowel sounds Extremities: no cyanosis, no clubbing, 2+ LE edema Hosp A/P (1) Shock Code(s): R57.9 - SHOCK, UNSPECIFIED Status: Acute (2) PCP (pneumocystis jiroveci pneumonia) Code(s): B59 - PNEUMOCYSTOSIS Status: Acute (3) CHF (congestive heart failure) Code(s): I50.9 - HEART FAILURE, UNSPECIFIED Status: Acute Qualifiers: Heart failure type: systolic Heart failure chronicity: acute Qualified Code(s): I50.21 - Acute systolic (congestive) heart failure (4) Atrial fibrillation Code(s): I48.91 - UNSPECIFIED ATRIAL FIBRILLATION Status: Chronic Qualifiers: Atrial fibrillation type: unspecified Qualified Code(s): I48.91 - Unspecified atrial fibrillation (5) Acute respiratory failure with hypoxia Code(s): J96.01 - ACUTE RESPIRATORY FAILURE WITH HYPOXIA Status: Acute (6) CKD (chronic kidney disease) Code(s): N18.9 - CHRONIC KIDNEY DISEASE, UNSPECIFIED Status: Chronic Qualifiers: Chronic kidney disease stage: stage 3 (moderate) Qualified Code(s): N18.3 - Chronic kidney disease, stage 3 (moderate) - Plan juárez catheter, DVT proph w/heparin Hosp A/P (1) 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 per Dr. Moerau High risk due to need for [facility]. ventilation for respiratory failure and pressor therapy for shock (2) PCP (pneumocystis jiroveci pneumonia) Confirmed by BAL On pentamidine IV and steroids ID on board (3) CHF (congestive heart failure) Acute systolic CHF Has fluid overload Cardio and nephrology on board On IV lasix BID Monitor urine output closely (4) Atrial fibrillation Persistent A.Fib On digoxin now for rate control Cardio on board Continue amio and eliquis (5) Acute respiratory failure with hypoxia Code(s): J96.01 - ACUTE RESPIRATORY FAILURE WITH HYPOXIA Status: Acute Plan: Intubated on vent Pulm. on board (6) CKD (chronic kidney disease) Code(s): N18.9 - CHRONIC KIDNEY DISEASE, UNSPECIFIED Status: Chronic Qualifiers: Chronic kidney disease stage: stage 3 (moderate) Qualified Code(s): N18.3 - Chronic kidney disease, stage 3 (moderate) Plan: I've placed a consult for Dr. Rodriguez. Awaiting renal consult and input US kidneys with cortical thinning consistent with medical renal disease Avoid nephrotoxic meds and hypotension
[2019-07-01] MEDS: Micafungin 100 MG in Sodium Chloride 0.9% 100 ML IVPB SCH (14:49)
[2019-07-01] MEDS: fentaNYL Citrate/PF 2,000 MCG in Sodium Chloride 0.9% 60 ML IV SCH (19:01)
[2019-07-01] MEDS: Atorvastatin Calcium 20 MG TAB PO SCH (20:56)
[2019-07-01] MEDS: Bacteriostatic Water 30 ML VIAL FS PRN (23:15)
[2019-07-02] MEDS: Ipratropium Bromide 2.5 ml Neb NEB SCH ×6 (02:08→22:34)
[2019-07-02] MEDS: HumaLOG 300 UNITS/3 ML VIAL SC PRN ×3 (03:53→21:52)
[2019-07-02 04:54] LABS: Band 13 % (5-11); Elliptocytes SLIGHT = 2-5 cells (100X) (0-1/hpf); Hemoglobin 9.8 g/dL (14.0-18.0); Hypochromia SLIGHT = 6-15 cells (100X) (0-5/hpf); Lymphocytes 3 % (21-51); MDiff Complete? YES; Mean Corpuscular HGB CONC 33.7 g/dL (32.0-36.0); Mean Corpuscular Hemoglobin 31.9 pg (27.0-31.0); Mean Corpuscular Volume 94.7 fL (78.0-98.0); Mean Platelet Volume 8.5 fL (7.4-10.4); Metamyelocyte 3 % (0-0); Monocytes 3 % (0-10); Myelocyte 2 % (0-0); Neutrophil 76 % (42-75); Platelet Count 321 thou/uL (130-400); Platelet Morphology Comment Appears Adequate; RBC Distribution Width 16.8 % (11.5-14.5); Red Blood Cell (RBC) Count 3.05 mill/uL (4.70-6.10); White Blood Cell (WBC) Count 29.8 thou/uL (4.8-10.8)
[2019-07-02 04:59] LABS: ALT (SGPT) 43 U/L (8-55); AST (SGOT) 60 U/L (5-34); Alkaline Phosphatase 140 U/L (40-110); Anion Gap 17 mmol/L (10-20); BUN (Urea Nitrogen) 72 mg/dL (8.4-25.7); Bilirubin, Total 0.6 mg/dL (0.2-1.2); Calc. Creatinine Clearance 45 mL/min (70-130); Calcium 8.9 mg/dL (7.8-10.44); Carbon Dioxide 27 mmol/L (23-31); Chloride 97 mmol/L (98-107); Estimated GFR-MDRD 44; Globulin 2.4 g/dL (2.4-3.5); Glucose 159 mg/dL (83-110); Potassium 4.5 mmol/L (3.5-5.1); Protein, Total 5.4 g/dL (5.8-8.1); Sodium 136 mmol/L (136-145)
[2019-07-02] MEDS ORDERED: Morphine 2 MG/ML SYRINGE SLOW IVP PRN (06:07)
[2019-07-02] MEDS ORDERED: Fentanyl BOLUS 250 ML IVPB PRN (06:07)
[2019-07-02] MEDS ORDERED: Lorazepam 2 MG/ML VIAL SLOW IVP PRN (06:07)
[2019-07-02] MEDS: methylPREDNISolone Sod Succ 40 MG VIAL IVP SCH ×4 (06:12→23:04)
[2019-07-02] MEDS: Bacteriostatic Water 30 ML VIAL FS PRN (06:12)
[2019-07-02] MEDS: Propofol 1,000 MG/100 ML VIAL IV PRN ×3 (06:12→22:51)
[2019-07-02 07:02] LABS: Actual Bicarbonate (HCO3a) 29.8 mEq/L (22-28); Base Excess (BEa) 6.7 mEq/L (-2.0 to +3.0); CO2 Tension 36.2 mmHg (35.0-45.0); Calcium, Ionized 1.16 mmol/L (1.12-1.30); Carboxyhemoglobin (COHb) 1.6 gm% (0.0-3.0); Hemoglobin (Hb) 8.3 g/dL (14.0-18.0); O2 Tension (PaO2) 60.9 mmHg (> 70.0); Potassium - ABG Lab 4.12 mmol/L (3.70-5.30); pH, Arterial 7.53 (7.35-7.45)
[2019-07-02 07:03] LABS: Puncture Site RRA
--- NOTE | 2019-07-02 08:05 | RAD ---
EXAM: Single view of the chest HISTORY: Pneumonia COMPARISON: 06/28/2019 FINDINGS: Single view of the chest shows a normal sized cardiomediastinal silhouette. The patient is status post sternotomy. The endotracheal tube and NG tube are unchanged in position. There are scattered multifocal airspace opacities in both lower lobes, unchanged. The bones are unremarkable. IMPRESSION: Stable exam
[2019-07-02] MEDS: Norepinephrine 8 MG/0.9% NS 250 ML IVPB SCH (08:22)
[2019-07-02] MEDS: Furosemide 100 MG/10 ML VIAL SLOW IVP SCH ×2 (08:35→09:33)
[2019-07-02] MEDS: Amiodarone 200 MG TAB PO SCH ×3 (08:35→20:17)
[2019-07-02] MEDS: Pantoprazole 40 MG VIAL IVP SCH (08:35)
[2019-07-02] MEDS: Apixaban 5 MG TAB PO SCH ×2 (08:36→20:17)
[2019-07-02] MEDS: Polyethylene Glycol 3350 17 GM Packet PER TUBE SCH (08:36)
[2019-07-02] MEDS: Calcium Carbonate + Vit D 1 TAB PO SCH ×2 (08:36→20:17)
--- NOTE | 2019-07-02 09:12 | PRG ---
DATE OF SERVICE: 07/02/2019 35 minutes of critical care time. SUBJECTIVE: The patient remains intubated on mechanical ventilation. He is not doing very well, especially when he is off sedation. OBJECTIVE: VITAL SIGNS: His temperature is 97.4, pulse 86, blood pressure 124/73, O2 saturation 95%. 24-hour intake 1829, output 3460. Weight 172 pounds. HEENT: Unremarkable. NECK: No adenopathy or JVD. LUNGS: Coarse breath sounds. CARDIAC: S1 and S2, slightly tachycardic. ABDOMEN: Soft and nontender. EXTREMITIES: Generalized edema throughout. LABORATORY DATA: Sodium 136, potassium 4.5, chloride 97, CO2 of 27, BUN 72, creatinine 1.5, and glucose 159. PH 7.53, pCO2 of 36, pO2 of 60, on bilevel 16, high pressure 23, low pressure 9, FiO2 60%. White blood cell count 29.8, hematocrit 28.9, and platelet count 321. Chest x-ray continues to show bilateral lower lobe infiltrates. ASSESSMENT: 1. IgG4 related autoimmune syndrome. 2. Acute respiratory failure requiring mechanical ventilation. 3. Pneumocystis carinii pneumonia. 4. Acute renal insufficiency. 5. Hyperkalemia, which has improved after switching to pentamidine from Bactrim. PLAN: The patient is not weanable at this time. We will continue supportive care with pentamidine, micafungin, tube feeds, and mechanical ventilation. He is also on IV steroids. His prognosis is guarded. I am going to go ahead and decrease his Lasix dose. Job ID: [id number]
--- NOTE | 2019-07-02 09:47 | PRG ---
DATE OF SERVICE: 07/02/2019 SUBJECTIVE: Mr. Fletcher is a 74-year-old white male, who was seen by the Renal Service for his acute kidney injury. We did review the urinalysis which suggested he may have a superimposed acute tubular necrosis with findings of pigmented granular casts. He has been hemodynamically unstable and has been placed on pressor support. No acute events noted last night. OBJECTIVE: VITAL SIGNS: Blood pressure is 124/73 with a heart rate of 86, respiratory rate 23, pulse ox 95%. GENERAL: Patient is sedated, intubated, on ventilator support. SKIN: Adequate turgor. HEENT: He has pinkish conjunctivae. Anicteric sclerae. NECK: No neck mass. No carotid bruits. No JVD. CHEST: No deformities. LUNGS: Decreased breath sounds. HEART: Normal sinus rhythm. No murmurs, gallops, or rubs. ABDOMEN: Globular, soft, nontender. No masses. EXTREMITIES: No edema. No deformities. MEDICATIONS: July 02, 2019, was reviewed. LABORATORY DATA: Laboratories of July 02, 2019: White count 29.8, hemoglobin 9.8, sodium 136, potassium 4.5, chloride 97, carbon dioxide 27, BUN 72, creatinine 1.54, glucose 159, calcium 8.9, albumin 3.0. Repeat glucose 168. Chest x-ray: No acute changes. ASSESSMENT AND PLAN: 1. Acute kidney injury-superimposed acute tubular necrosis as suggested by pigmented granular cast. Slowly improving. Continue to optimize hemodynamics. There is no indication for any dialytic intervention. Please note, he is tolerating the current diuretic regimen. 2. Acute respiratory failure/congestive heart failure -- on IV Lasix. 3. Hypotension -- much improved with pressor support. Continue supportive care. 4. Overall, prognosis remains guarded. Job ID: [id number]
--- NOTE | 2019-07-02 09:51 | PDOC.HOSPP ---
- Subjective Encounter Date: 07/02/19 Encounter Time: 09:51 Subjective: Intubated and sedated on ventilator. Unable to obtain history or ROS. Per staff , he has worsening vent. requirements. - Objective Vital Signs & Weight: Vital Signs (12 hours) Temp Pulse Resp BP Pulse Ox 07/02/19 08:00 20 07/02/19 07:27 96 07/02/19 07:00 97.4 F L 07/02/19 06:47 81 109/71 07/02/19 06:43 81 26 H 96 07/02/19 06:00 23 H 07/02/19 04:00 98.4 F 17 07/02/19 02:09 120 H 124/77 07/02/19 02:00 28 H 07/02/19 00:00 98.7 F 23 H 07/01/19 22:14 90 127/74 07/01/19 22:00 22 H Weight Admit Weight 164 lb Weight 172 lb 9.951 oz Most Recent Monitor Data Heart Rate from ECG 110 NIBP 128/74 NIBP BP-Mean 92 Respiration from ECG 25 SpO2 93 I&O: 07/01/19 07/02/19 07/03/19 06:59 06:59 06:59 Intake Total 915 1829 0 Output Total 2105 8740 280 Balance -1190 -1631 -280 Result Diagrams: 07/02/19 03:40 07/02/19 03:40 Additional Labs: Accuchecks 07/02/19 07/01/19 07/01/19 03:53 20:52 16:49 POC Glucose 168 H 164 H 216 H 07/01/19 11:24 POC Glucose 165 H Hospitalist ROS - Review of Systems ROS unobtainable: due to mental status - Medication Medications: Active Medications Generic Name Dose Route Start Last Admin Trade Name Freq PRN Reason Stop Dose Admin Amiodarone HCl 200 mg 06/29/19 15:00 07/02/19 08:35 Cordarone PO 200 mg TID ALYSE Administration Apixaban 5 mg 06/21/19 09:00 07/02/19 08:36 Eliquis PO 5 mg BID ALYSE Administration Atorvastatin Calcium 20 mg 06/20/19 21:00 07/01/19 20:56 Lipitor PO 20 mg HS ALYSE Administration Calcium/Vitamin D 1 tab 06/21/19 21:00 07/02/19 08:36 Caltrate 600 + Vit D PO 1 tab BID ALYSE Administration Furosemide 60 mg 07/02/19 09:00 07/02/19 09:33 Lasix SLOW IVP Not Given DAILY ALYSE Norepinephrine Bitartrate 250 mls @ 0 mls/hr 06/22/19 05:26 07/02/19 08:22 Levophed IVPB 250 mls INF ALYSE Administration Protocol Titrate Micafungin Sodium 100 mg/ 100 mls @ 100 mls/hr 06/27/19 14:00 07/01/19 14:49 Sodium Chloride IVPB 100 mls 1400 ALYSE Administration Pentamidine Isethionate 300 mg 250 mls @ 250 mls/hr 06/29/19 17:00 07/01/19 16:53 / Dextrose/Water IVPB 250 mls Q24HR ALYSE Administration Fentanyl Citrate 2,000 mcg/ 100 mls @ 0 mls/hr 07/01/19 17:30 07/01/19 19:01 Sodium Chloride IV 100 mls INF ALYSE Administration Protocol Per Protocol Insulin Human Lispro 0 units 06/25/19 09:34 07/02/19 03:53 Humalog SC 2 unit .MODERATE SLIDING SC PRN Administration Moderate Correctional Scale Ipratropium [place] 2.5 ml 06/29/19 14:30 07/02/19 06:43 Atrovent NEB 2.5 ml [id number] ALYSE Administration Methylprednisolone Sodium Succinate 20 mg 06/21/19 12:00 07/02/19 06:12 Solu-Medrol IVP 20 mg Q6HR ALYSE Administration Pantoprazole Sodium 40 mg 06/30/19 09:00 07/02/19 08:35 Protonix IVP 40 mg DAILY ALYSE Administration Polyethylene Glycol 17 gm 06/26/19 09:00 07/02/19 08:36 Miralax PER TUBE Not Given DAILY ALYSE Propofol 1,000 mg 06/21/19 17:09 07/02/19 06:12 Diprivan IV 07/21/19 17:09 1,000 mg INF PRN Administration TO ACHIEVE GOAL RASS Protocol Sodium Chloride 10 ml 06/19/19 17:20 06/23/19 21:56 Flush - Normal Saline IVF 10 ml Q12HR PRN Administration Saline Flush Sterile Water 1 ml 06/21/19 09:27 07/02/19 06:12 Bacteriostatic Water FS 1 ml PRN PRN Administration RECONSTITUTION - Exam ENT: normocephalic atraumatic, no oropharyngeal lesions, moist mucosa Neck: supple, symmetric, no thyromegaly Heart: RRR, no gallops, no rubs, normal peripheral pulses Heart - other findings: 2+ bilateral pitting pedal edema Respiratory: CTAB, no wheezes, no ronchi, normal chest expansion Gastrointestinal: soft, non-tender, non-distended, normal bowel sounds Hosp A/P (1) Shock Code(s): R57.9 - SHOCK, UNSPECIFIED Status: Acute (2) PCP (pneumocystis jiroveci pneumonia) Code(s): B59 - PNEUMOCYSTOSIS Status: Acute (3) CHF (congestive heart failure) Code(s): I50.9 - HEART FAILURE, UNSPECIFIED Status: Acute Qualifiers: Heart failure type: systolic Heart failure chronicity: acute Qualified Code(s): I50.21 - Acute systolic (congestive) heart failure (4) Atrial fibrillation Code(s): I48.91 - UNSPECIFIED ATRIAL FIBRILLATION Status: Chronic Qualifiers: Atrial fibrillation type: unspecified Qualified Code(s): I48.91 - Unspecified atrial fibrillation (5) Acute respiratory failure with hypoxia Code(s): J96.01 - ACUTE RESPIRATORY FAILURE WITH HYPOXIA Status: Acute (6) CKD (chronic kidney disease) Code(s): N18.9 - CHRONIC KIDNEY DISEASE, UNSPECIFIED Status: Chronic Qualifiers: Chronic kidney disease stage: stage 3 (moderate) Qualified Code(s): N18.3 - Chronic kidney disease, stage 3 (moderate) - Plan DVT proph w/heparin Hosp A/P (1) Shock Likely septic in nature On abx and levophed Mgmt. per Dr. Moreau High risk due to need for mech. ventilation for respiratory failure and pressor therapy for shock (2) PCP (pneumocystis jiroveci pneumonia) Confirmed by BAL On pentamidine IV and steroids ID on board Has worsening leukocytosis and bandemia (3) CHF (congestive heart failure) Acute systolic CHF Has fluid overload Cardio and nephrology on board On IV lasix Monitor urine output closely (4) Atrial fibrillation Persistent A.Fib ardio on board. Further mgmt. per cardio Continue amio and eliqubecki (5) Acute respiratory failure with hypoxia Code(s): J96.01 - ACUTE RESPIRATORY FAILURE WITH HYPOXIA Status: Acute Plan: Intubated on vent Pulm. on board Is on PEEP 9 and FiO2 of 70%. Worsening resp. status. Further mgmt. per Chief Unit Forester (6) CKD (chronic kidney disease) Code(s): N18.9 - CHRONIC KIDNEY DISEASE, UNSPECIFIED Status: Chronic Qualifiers: Chronic kidney disease stage: stage 3 (moderate) Qualified Code(s): N18.3 - Chronic kidney disease, stage 3 (moderate) Plan: Nephrology on board US kidneys with cortical thinning consistent with medical renal disease Avoid nephrotoxic meds and hypotension
--- NOTE | 2019-07-02 11:10 | PRG ---
DATE OF SERVICE: 07/02/2019 SUBJECTIVE: Mr. Fletcher is intubated and sedated on the ventilator. OBJECTIVE: VITAL SIGNS: Blood pressure 107/74, pulse is 96 to 105, it is atrial fibrillation. LUNGS: Clear. CARDIAC: Irregularly irregular. ABDOMEN: Soft and nontender. EXTREMITIES: Mild peripheral edema. ASSESSMENT: 1. Atrial fibrillation, persistent, rate controlled. 2. Leukopenia, resolved. 3. Currently anticoagulated. 4. Previous mitral valve repair. 5. Normal coronary arteries. 6. Renal insufficiency with a creatinine 1.54, estimated GFR is 44, which is stage 3 renal failure. PLAN: Check digoxin level tomorrow. Potentially, we will give another dose of digoxin in the morning. Job ID: [id number]
--- NOTE | 2019-07-02 11:16 | ULT ---
EXAM: Bilateral lower extremity venous ultrasound HISTORY: Bilateral lower extremity pain and edema COMPARISON: None TECHNIQUE: Multiplanar grayscale and color Doppler images were obtained in a bilateral lower extremit y venous ultrasound. Spectral analysis of the Doppler waveforms were performed. FINDINGS: The right common femoral vein contains an IV. Evaluation of the right common femoral vein, profunda femoral vein, and proximal superficial femoral vein are limited secondary to bandages. The right mid and distal superficial femoral vein and popliteal vein are normal in appearance without vis ible thrombus. The left common femoral vein, profunda femoral veins, superficial femoral veins, and popliteal veins are normal in appearance without visible thrombus. These vessels demonstrate normal c ompression, flow, and augmentation. The bilateral posterior tibial veins and greater saphenous veins are patent without evidence of throm bus. IMPRESSION: No evidence of DVT.
--- NOTE | 2019-07-02 11:50 | PRG ---
DATE OF SERVICE: 07/02/2019 SUBJECTIVE: Still sedated, intubated, having some loose stool, but from the feedings. OBJECTIVE: VITAL SIGNS: His temperature max 98.7, blood pressure 126/75, heart rate 103, respiratory rate 25. He is at 60% FiO2 with bilevel, and the O2 saturation is ranging from 93% to 96%. HEENT: Pupils are constricted. Sclerae are clear. Orotracheal intubation. Lines are the same. He has a Mccabe catheter. I's and O's were negative for the past 2 days, 1100 approximately. Today is negative 1600. LUNGS: With symmetric air entry. A little bit coarse at the bases, but clear in the upper segments. HEART: S1 and S2. Regular rate without murmurs. ABDOMEN: Flat, soft, and not distended. EXTREMITIES: Well perfused. Cannot test motion. LABORATORY DATA: White cell count up to 29.8, hemoglobin 9.8, Platelets 321 with 76% neutrophils, 13% bands, 3% metamyelocytes. Urinalysis was not repeated. Microbiology; 2 sets on blood cultures, no growth in 5 days from June 26. Chest x-ray shows clearing off the upper segments, but the bases still with infiltrates. There is a pending venogram that was ordered. MEDICATIONS: He is currently on: 1. Pentamidine. 2. Fentanyl. 3. Furosemide. 4. Atrovent. 5. Ativan p.r.n. 6. Methylprednisolone 20 q.6. 7. Micafungin. 8. P.R.N. Levophed. ASSESSMENT AND DISCUSSION: 1. 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 2. Pneumocystis pneumonia, proven by bronchoalveolar lavage and cytology. 3. Adverse reactions to Bactrim treatment with worsening creatinine and hyperkalemia, which led to transition to pentamidine. 4. Improvement of renal function and somewhat stability of the lung function. G6PD is pending. Once we get the results, then we will switch him to clindamycin and primaquine. Continue pentamidine for now and micafungin. The possibility of superimposed bacterial pneumonia is another concern, and we will go ahead and add meropenem to current regimen and Zyvox. Job ID: [id number]
[2019-07-02] MEDS: Micafungin 100 MG in Sodium Chloride 0.9% 100 ML IVPB SCH (13:23)
[2019-07-02] MEDS: MEROPENEM 1 GM/50 ML 1 GM in Premix Bag 1 BAG IVPB SCH (20:17)
[2019-07-02] MEDS: Atorvastatin Calcium 20 MG TAB PO SCH (20:17)
[2019-07-02] MEDS: Linezolid 600 MG in Premix Bag 1 BAG IVPB SCH (20:44)
[2019-07-02 22:07] LABS: G-6-PD,Quant 435 (146-376); G-6-PD,RBC 3.37 x10E6/uL (4.14-5.80)
[2019-07-03] MEDS: fentaNYL Citrate/PF 2,000 MCG in Sodium Chloride 0.9% 60 ML IV SCH (01:47)
[2019-07-03] MEDS: Ipratropium Bromide 2.5 ml Neb NEB SCH ×6 (02:43→22:36)
[2019-07-03 04:56] LABS: Anion Gap 14 mmol/L (10-20); BUN (Urea Nitrogen) 64 mg/dL (8.4-25.7); Calc. Creatinine Clearance 53 mL/min (70-130); Calcium 8.3 mg/dL (7.8-10.44); Carbon Dioxide 29 mmol/L (23-31); Chloride 99 mmol/L (98-107); Estimated GFR-MDRD 53; Glucose 146 mg/dL (83-110); Potassium 4.8 mmol/L (3.5-5.1); Sodium 137 mmol/L (136-145)
[2019-07-03 04:58] LABS: Band 11 % (5-11); Elliptocytes SLIGHT = 2-5 cells (100X) (0-1/hpf); Hemoglobin 9.2 g/dL (14.0-18.0); MDiff Complete? YES; Mean Corpuscular HGB CONC 32.7 g/dL (32.0-36.0); Mean Corpuscular Hemoglobin 31.3 pg (27.0-31.0); Mean Corpuscular Volume 95.5 fL (78.0-98.0); Mean Platelet Volume 8.4 fL (7.4-10.4); Metamyelocyte 3 % (0-0); Monocytes 5 % (0-10); Neutrophil 81 % (42-75); Nucleated RBC 8 % (0); Platelet Count 287 thou/uL (130-400); Platelet Morphology Comment Appears Adequate; RBC Distribution Width 17.2 % (11.5-14.5); Red Blood Cell (RBC) Count 2.95 mill/uL (4.70-6.10); White Blood Cell (WBC) Count 23.7 thou/uL (4.8-10.8)
[2019-07-03 07:15] LABS: Actual Bicarbonate (HCO3a) 27.9 mEq/L (22-28); Base Excess (BEa) 3.9 mEq/L (-2.0 to +3.0); CO2 Tension 39.6 mmHg (35.0-45.0); Calcium, Ionized 1.18 mmol/L (1.12-1.30); Carboxyhemoglobin (COHb) 0.6 gm% (0.0-3.0); Hemoglobin (Hb) 10.3 g/dL (14.0-18.0); O2 Tension (PaO2) 75.7 mmHg (> 70.0); Potassium - ABG Lab 4.44 mmol/L (3.70-5.30); pH, Arterial 7.47 (7.35-7.45)
[2019-07-03 07:16] LABS: Puncture Site RRA
--- NOTE | 2019-07-03 08:02 | RAD ---
EXAM: Single view of the chest HISTORY: Pneumonia COMPARISON: 06/24/2019 FINDINGS: Single view of the chest shows a normal sized cardiomediastinal silhouette. The patient is status post sternotomy. Lines and tubes are unchanged in position. There are bilateral lower lobe airspace opacities. The bones are unremarkable. IMPRESSION: Stable bibasilar infiltrates.
[2019-07-03] MEDS: Furosemide 100 MG/10 ML VIAL SLOW IVP SCH (08:39)
[2019-07-03] MEDS: Amiodarone 200 MG TAB PO SCH ×3 (08:39→20:23)
[2019-07-03] MEDS: Apixaban 5 MG TAB PO SCH ×2 (08:39→20:23)
[2019-07-03] MEDS: Propofol 1,000 MG/100 ML VIAL IV PRN ×2 (08:39→17:30)
[2019-07-03] MEDS: Calcium Carbonate + Vit D 1 TAB PO SCH ×2 (08:39→20:23)
[2019-07-03] MEDS: Pantoprazole 40 MG VIAL IVP SCH (08:39)
[2019-07-03] MEDS: MEROPENEM 1 GM/50 ML 1 GM in Premix Bag 1 BAG IVPB SCH ×2 (08:40→20:23)
[2019-07-03] MEDS: Polyethylene Glycol 3350 17 GM Packet PER TUBE SCH (08:42)
[2019-07-03] MEDS: Linezolid 600 MG in Premix Bag 1 BAG IVPB SCH ×2 (08:46→20:22)
[2019-07-03] MEDS: methylPREDNISolone Sod Succ 40 MG VIAL IVP SCH ×4 (08:47→23:58)
--- NOTE | 2019-07-03 09:47 | PRG ---
DATE OF SERVICE: 07/03/2019 This is a 35 minutes critical care time including time spent talking with the patient's son at the bedside. SUBJECTIVE: The patient remains intubated on mechanical ventilation, sedated on propofol and fentanyl. There have been no acute changes overnight, but the oxygen requirement has increased. OBJECTIVE: VITAL SIGNS: His temperature is 98.7, pulse 108, blood pressure 116/65. A 24-hour intake 1821, output 2485. HEENT: Unremarkable. NECK: No adenopathy or JVD. LUNGS: Coarse breath sounds bilaterally. CARDIOVASCULAR: S1 and S2, irregularly irregular. ABDOMEN: Soft and nontender. EXTREMITIES: Edematous throughout. LABORATORY DATA: Sodium 137, potassium 4.8, chloride 99, CO2 of 29, BUN 64, creatinine 1.3, and glucose 146. PH 7.47, pCO2 of 39, pO2 of 75, that is on bilevel rate 16, top pressure 23, bottom pressure 10, FiO2 of 70%. White blood cell count 23.7, hematocrit 28.2, and platelet count 287. His x-ray shows no appreciable change. ASSESSMENT: 1. Acute respiratory failure, requiring mechanical ventilation. 2. Pneumocystis pneumonia. 3. Acute renal insufficiency. 4. Atrial fibrillation. 5. Improved hyperkalemia. PLAN: He is not weanable at this time. I have gone up on his inspiratory time on the mechanical ventilation to see if we can improve his oxygenation. He is currently on linezolid, meropenem, micafungin, and pentamidine for antimicrobial coverage. He remains on norepinephrine to offset the effects of the propofol on his blood pressure. He also remains on IV corticosteroids. I told the patient's son that I felt the prognosis was quite poor in this case. We plan to continue mechanical ventilation until the end of the week and make a decision about withdrawal of care versus tracheostomy. Job ID: [id number]
[2019-07-03] MEDS: HumaLOG 300 UNITS/3 ML VIAL SC PRN ×2 (10:07→21:58)
--- NOTE | 2019-07-03 12:26 | PRG ---
DATE OF SERVICE: 07/03/2019 SERVICE: Renal Medicine. SUBJECTIVE: Mr. Fletcher is a 74-year-old white male who was seen by the Renal Service for his acute kidney injury secondary to presumptive acute tubular necrosis. Urine sediment showed pigmented granular casts. He has also multiple medical problems and has gone into acute respiratory failure. He still continues to be intubated. He has also superimposed Pneumocystis carinii pneumonia. No acute events noted. OBJECTIVE: VITAL SIGNS: Blood pressure 127/78, heart rate 106, respiratory rate 26, and pulse ox 91%. GENERAL: Sedated, intubated, on ventilator support. SKIN: Adequate turgor. HEENT: He has slightly pale conjunctivae. Anicteric sclerae. NECK: No neck mass. No carotid bruits. No JVD. CHEST: No deformities. LUNGS: Harsh breath sounds. HEART: Normal sinus rhythm. No murmur. No gallops. No rubs. ABDOMEN: Globular, soft, and nontender. No masses. EXTREMITIES: No edema. No deformities. MEDICATIONS: Medications of July 03, 2019, reviewed. LABORATORY DATA: On July 03, 2019; white count 23.7, hemoglobin 9.2. Sodium 137, potassium 4.8, chloride 99, carbon dioxide 29, BUN 64, creatinine 1.31, glucose 146, calcium 8.3. ASSESSMENT AND PLAN: 1. Acute kidney injury - secondary to acute tubular necrosis. Continue supportive care. Continue to optimize hemodynamics. Currently, on a diuretic regimen, he seems to be tolerating this. Please note, the renal function is slowly improving over time. No indication for any dialytic intervention. 2. Atrial fibrillation/congestive heart failure, on IV diuretics. 3. Acute respiratory failure, superimposed pulmonary infection. Continue supportive care. Job ID: [id number]
[2019-07-03] MEDS: Micafungin 100 MG in Sodium Chloride 0.9% 100 ML IVPB SCH (13:50)
--- NOTE | 2019-07-03 14:34 | PDOC.HOSPP ---
- Subjective Encounter Date: 07/03/19 Encounter Time: 09:30 Subjective: Intubated and sedated. Unable to obtain history or ROS. - Objective Vital Signs & Weight: Vital Signs (12 hours) Temp Pulse Resp BP Pulse Ox 07/03/19 14:00 16 07/03/19 12:00 98.1 F 16 07/03/19 11:13 109 H 120/76 07/03/19 11:12 104 H 27 H 92 L 07/03/19 10:00 16 07/03/19 08:00 29 H 07/03/19 07:16 100 07/03/19 07:00 98.7 F 07/03/19 06:56 117 H 130/77 07/03/19 06:54 122 H 33 H 98 07/03/19 06:00 33 H 07/03/19 04:00 99.8 F H 25 H 07/03/19 02:43 80 22 H 98 Weight Admit Weight 164 lb Weight 173 lb 11.588 oz Most Recent Monitor Data Heart Rate from ECG 76 NIBP 92/60 NIBP BP-Mean 70 Respiration from ECG 22 SpO2 98 I&O: 07/02/19 07/03/19 07/04/19 06:59 06:59 06:59 Intake Total 1829 1821 210 Output Total 3460 2145 930 Balance -1631 -664 -720 Result Diagrams: 07/03/19 04:05 07/03/19 04:05 Additional Labs: Accuchecks 07/03/19 07/02/19 07/02/19 10:06 21:50 15:48 POC Glucose 202 H 188 H 153 H Hospitalist ROS - Review of Systems ROS unobtainable: due to endotracheal tube - Medication Medications: Active Medications Generic Name Dose Route Start Last Admin Trade Name Freq PRN Reason Stop Dose Admin Amiodarone HCl 200 mg 06/29/19 15:00 07/03/19 08:39 Cordarone PO 200 mg TID ALYSE Administration Apixaban 5 mg 06/21/19 09:00 07/03/19 08:39 Eliquis PO 5 mg BID ALYSE Administration Atorvastatin Calcium 20 mg 06/20/19 21:00 07/02/19 20:17 Lipitor PO 20 mg HS ALYSE Administration Calcium/Vitamin D 1 tab 06/21/19 21:00 07/03/19 08:39 Caltrate 600 + Vit D PO 1 tab BID ALYSE Administration Furosemide 60 mg 07/02/19 09:00 07/03/19 08:39 Lasix SLOW IVP 60 mg DAILY ALYSE Administration Norepinephrine Bitartrate 250 mls @ 0 mls/hr 06/22/19 05:26 07/02/19 08:22 Levophed IVPB 250 mls INF ALYSE Administration Protocol Titrate Micafungin Sodium 100 mg/ 100 mls @ 100 mls/hr 06/27/19 14:00 07/03/19 13:50 Sodium Chloride IVPB 100 mls 1400 ALYSE Administration Pentamidine Isethionate 300 mg 250 mls @ 250 mls/hr 06/29/19 17:00 07/02/19 16:46 / Dextrose/Water IVPB 250 mls Q24HR ALYSE Administration Fentanyl Citrate 2,000 mcg/ 100 mls @ 0 mls/hr 07/01/19 17:30 07/03/19 01:47 Sodium Chloride IV 100 mls INF ALYSE Administration Protocol Per Protocol Linezolid 600 mg/ Device 300 mls @ 150 mls/hr 07/02/19 21:00 07/03/19 08:46 IVPB 300 mls Q12HR ALYSE Administration Meropenem 1 gm/ Device 50 mls @ 100 mls/hr 07/02/19 21:00 07/03/19 08:40 IVPB 50 mls Q12HR ALYSE Administration Insulin Human Lispro 0 units 06/25/19 09:34 07/03/19 10:07 Humalog SC 4 unit .MODERATE SLIDING SC PRN Administration Moderate Correctional Scale Ipratropium Harper 2.5 ml 06/29/19 14:30 07/03/19 11:12 Atrovent NEB 2.5 ml [id number] ALYSE Administration Methylprednisolone Sodium Succinate 20 mg 06/21/19 12:00 07/03/19 11:34 Solu-Medrol IVP 20 mg Q6HR ALYSE Administration Pantoprazole Sodium 40 mg 06/30/19 09:00 07/03/19 08:39 Protonix IVP 40 mg DAILY ALYSE Administration Polyethylene Glycol 17 gm 06/26/19 09:00 07/03/19 08:42 Miralax PER TUBE Not Given DAILY ALYSE Propofol 1,000 mg 06/21/19 17:09 12/29/19 08:39 Diprivan IV 07/21/19 17:09 1,000 mg INF PRN Administration TO ACHIEVE GOAL RASS Protocol Sodium Chloride 10 ml 06/19/19 17:20 06/23/19 21:56 Flush - Normal Saline IVF 10 ml Q12HR PRN Administration Saline Flush Sterile Water 1 ml 06/21/19 09:27 07/02/19 06:12 Bacteriostatic Water FS 1 ml PRN PRN Administration RECONSTITUTION - Exam Eye: PERRL, anicteric sclera ENT: normocephalic atraumatic, no oropharyngeal lesions Neck: supple, symmetric, no lymphadenopathy Heart: RRR, no rubs, normal peripheral pulses Respiratory: CTAB, no wheezes Gastrointestinal: soft, non-tender, non-distended, normal bowel sounds Hosp A/P (1) Shock Code(s): R57.9 - SHOCK, UNSPECIFIED Status: Acute (2) PCP (pneumocystis jiroveci pneumonia) Code(s): B59 - PNEUMOCYSTOSIS Status: Acute (3) CHF (congestive heart failure) Code(s): I50.9 - HEART FAILURE, UNSPECIFIED Status: Acute Qualifiers: Heart failure type: systolic Heart failure chronicity: acute Qualified Code(s): I50.21 - Acute systolic (congestive) heart failure (4) Atrial fibrillation Code(s): I48.91 - UNSPECIFIED ATRIAL FIBRILLATION Status: Chronic Qualifiers: Atrial fibrillation type: unspecified Qualified Code(s): I48.91 - Unspecified atrial fibrillation (5) Acute respiratory failure with hypoxia Code(s): J96.01 - ACUTE RESPIRATORY FAILURE WITH HYPOXIA Status: Acute (6) CKD (chronic kidney disease) Code(s): N18.9 - CHRONIC KIDNEY DISEASE, UNSPECIFIED Status: Chronic Qualifiers: Chronic kidney disease stage: stage 3 (moderate) Qualified Code(s): N18.3 - Chronic kidney disease, stage 3 (moderate) - Plan Hosp A/P (1) Shock On abx and levophed Zyvox and meropenem added by ID today due to worsening leukocytosis and respiratory status Mgmt. per Dr. Moreau High risk due to need for mech. ventilation for respiratory failure and pressor therapy for shock (2) PCP (pneumocystis jiroveci pneumonia) Confirmed by BAL On pentamidine IV and steroids ID on board Has worsening leukocytosis and bandemia (3) CHF (congestive heart failure) Acute systolic CHF Has fluid overload Cardio and nephrology on board On IV lasix Monitor urine output closely (4) Atrial fibrillation Persistent A.Fib Cardio on board. Continue amio and eliquis Likely additional digoxin as per cardiology (5) Acute respiratory failure with hypoxia Code(s): J96.01 - ACUTE RESPIRATORY FAILURE WITH HYPOXIA Status: Acute Plan: Intubated on vent Pulm. on board Worsening resp. status. Further mgmt. per Real Estate Officer (6) CKD (chronic kidney disease) Code(s): N18.9 - CHRONIC KIDNEY DISEASE, UNSPECIFIED Status: Chronic Qualifiers: Chronic kidney disease stage: stage 3 (moderate) Qualified Code(s): N18.3 - Chronic kidney disease, stage 3 (moderate) Plan: Nephrology on board US kidneys with cortical thinning consistent with medical renal disease Avoid nephrotoxic meds and hypotension
[2019-07-03] MEDS: Atorvastatin Calcium 20 MG TAB PO SCH (20:23)
[2019-07-04] MEDS: fentaNYL Citrate/PF 2,000 MCG in Sodium Chloride 0.9% 60 ML IV SCH (02:37)
[2019-07-04] MEDS: Ipratropium Bromide 2.5 ml Neb NEB SCH ×6 (02:51→22:24)
[2019-07-04] MEDS: Bacteriostatic Water 30 ML VIAL FS PRN ×2 (04:56→22:06)
[2019-07-04] MEDS: methylPREDNISolone Sod Succ 40 MG VIAL IVP SCH ×3 (04:56→22:05)
[2019-07-04] MEDS: Propofol 1,000 MG/100 ML VIAL IV PRN ×2 (04:58→16:58)
[2019-07-04] MEDS: Norepinephrine 8 MG/0.9% NS 250 ML IVPB SCH (05:09)
[2019-07-04 05:14] LABS: Band 2 % (5-11); Hemoglobin 9.9 g/dL (14.0-18.0); Lymphocytes 5 % (21-51); MDiff Complete? YES; Mean Corpuscular HGB CONC 32.3 g/dL (32.0-36.0); Mean Corpuscular Hemoglobin 31.3 pg (27.0-31.0); Mean Corpuscular Volume 96.9 fL (78.0-98.0); Mean Platelet Volume 8.1 fL (7.4-10.4); Metamyelocyte 1 % (0-0); Monocytes 4 % (0-10); Myelocyte 1 % (0-0); Neutrophil 87 % (42-75); Nucleated RBC 4 % (0); Platelet Count 329 thou/uL (130-400); Platelet Morphology Comment Appears Adequate; RBC Distribution Width 17.6 % (11.5-14.5); Red Blood Cell (RBC) Count 3.17 mill/uL (4.70-6.10); White Blood Cell (WBC) Count 27.8 thou/uL (4.8-10.8)
[2019-07-04 05:29] LABS: ALT (SGPT) 68 U/L (8-55); AST (SGOT) 71 U/L (5-34); Albumin 2.5 g/dL (3.4-4.8); Alkaline Phosphatase 128 U/L (40-110); Anion Gap 14 mmol/L (10-20); BUN (Urea Nitrogen) 72 mg/dL (8.4-25.7); Bilirubin, Total 0.5 mg/dL (0.2-1.2); Calc. Creatinine Clearance 50 mL/min (70-130); Calcium 8.6 mg/dL (7.8-10.44); Carbon Dioxide 29 mmol/L (23-31); Chloride 98 mmol/L (98-107); Estimated GFR-MDRD 50; Globulin 2.7 g/dL (2.4-3.5); Glucose 142 mg/dL (83-110); Potassium 4.8 mmol/L (3.5-5.1); Protein, Total 5.2 g/dL (5.8-8.1); Sodium 136 mmol/L (136-145)
[2019-07-04 07:05] LABS: Actual Bicarbonate (HCO3a) 28.2 mEq/L (22-28); Base Excess (BEa) 4.7 mEq/L (-2.0 to +3.0); CO2 Tension 37.3 mmHg (35.0-45.0); Calcium, Ionized 1.14 mmol/L (1.12-1.30); Carboxyhemoglobin (COHb) 0.7 gm% (0.0-3.0); Hemoglobin (Hb) 10.5 g/dL (14.0-18.0); Potassium - ABG Lab 4.52 mmol/L (3.70-5.30)
[2019-07-04 07:08] LABS: ALV-art Gradient 236.875 (0-20); Puncture Site RRA
--- NOTE | 2019-07-04 07:51 | RAD ---
EXAM: CHEST ONE VIEW HISTORY: Pneumonia COMPARISON: 07/03/2019 FINDINGS: Postsurgical changes related to median sternotomy and cardiac valve replacement are again noted. Endo tracheal tube and nasogastric tube remain in place. Increased interstitial and patchy airspace opacities are again seen at each lung base and in the midlung zones greater on the left. There has be en no interval change from the prior study. IMPRESSION: Stable chest with bibasilar interstitial and patchy parenchymal airspace opacities which may be relat ed to bilateral pneumonia. Follow-up to resolution is recommended.
[2019-07-04] MEDS ORDERED: Digoxin 0.5 MG/2 ML AMP SLOW IVP SCH (09:00)
--- NOTE | 2019-07-04 09:02 | PRG ---
DATE OF SERVICE: 07/04/2019 SUBJECTIVE: Mr. Fletcher is a 74-year-old white male, who was admitted for acute respiratory failure, pneumonia, developed AFib and has developed acute kidney injury secondary to acute tubular necrosis. Renal function slowly improving with optimization of his hemodynamics. He also was found to have a superimposed Pneumocystis carinii pneumonia. No acute events noted last night. He is still intubated. In the ER, unable to wean him off from the ventilator at the present time due to poor respiratory status. OBJECTIVE: VITAL SIGNS: Blood pressure 139/79, heart rate 91, respiratory rate 16, and O2 saturation 98%. GENERAL: The patient is sedated, intubated on ventilator support. SKIN: Adequate turgor. HEENT: He has pinkish conjunctivae. Anicteric sclerae. NECK: No neck mass. No carotid bruits. No JVD. CHEST: No deformities. LUNGS: Decreased breath sounds. HEART: Normal sinus rhythm. No murmur. No gallops. No rubs. ABDOMEN: Globular, soft, and nontender. No masses. EXTREMITIES: No edema. No deformities. MEDICATIONS: Medications of 07/04/2019 were reviewed. LABORATORY DATA: On 07/04/2019: White count 27.8 and hemoglobin 9.9. Sodium 136, potassium 4.8, chloride 98, carbon dioxide 29, BUN 72, creatinine 1.39, and glucose 142. AST 71, ALT 60, and albumin 2.5. ASSESSMENT AND PLAN: 1. Acute kidney injury, secondary to acute tubular necrosis. He has stable renal function. Continue supportive care. There is no indication for any dialytic intervention. Should the renal function worse in the next 24 to 48 hours, I will probably reduce the furosemide dosing further. Please note he is on furosemide at 60 mg IV daily. 2. Acute respiratory failure, multifactorial etiology, superimposed pneumonia and congestive heart failure. 3. Overall prognosis remains guarded with this patient. Continue supportive care. Job ID: [id number]
[2019-07-04] MEDS: Polyethylene Glycol 3350 17 GM Packet PER TUBE SCH (09:35)
[2019-07-04] MEDS: MEROPENEM 1 GM/50 ML 1 GM in Premix Bag 1 BAG IVPB SCH ×2 (09:35→20:10)
[2019-07-04] MEDS: Calcium Carbonate + Vit D 1 TAB PO SCH ×2 (09:36→20:10)
[2019-07-04] MEDS: Pantoprazole 40 MG VIAL IVP SCH (09:36)
[2019-07-04] MEDS: Furosemide 100 MG/10 ML VIAL SLOW IVP SCH (09:36)
[2019-07-04] MEDS: Amiodarone 200 MG TAB PO SCH ×3 (09:36→20:09)
[2019-07-04] MEDS: Apixaban 5 MG TAB PO SCH ×2 (09:36→20:09)
[2019-07-04] MEDS: Linezolid 600 MG in Premix Bag 1 BAG IVPB SCH ×2 (09:39→20:10)
--- NOTE | 2019-07-04 10:45 | PRG ---
DATE OF SERVICE: 07/04/2019 SERVICE: Pulmonary Medicine. INTERVAL HISTORY: The patient is doing okay from respiratory standpoint. His oxygen requirements remained quite elevated. He cannot provide any additional elements of the history. He is requiring significant sedation. Any time we lighted up, he becomes very tachypneic. He demonstrates very poor strength. PHYSICAL EXAMINATION: VITAL SIGNS: Afebrile, pulse 93, blood pressure 132/80, respirations 25, and saturation 96%, currently on 45% FiO2 and a PEEP of 12. GENERAL: The patient is intubated and sedated. HEENT: Normocephalic and atraumatic. Sclerae white. Conjunctivae pink. Oral mucosa is moist without lesions. LUNGS: Decent air entry. Rhonchi and crackles are both present. HEART: Normal rate. Regular. ABDOMEN: Soft, nontender, and nondistended. Bowel sounds are positive. MUSCULOSKELETAL: No cyanosis or clubbing. Diffuse 2 to 3+ pitting is present throughout. NEUROLOGIC: Grossly nonfocal. LABORATORY DATA: WBC 27.8, hemoglobin 9.9, and platelets 328,000. A pH of 7.50, pCO2 of 37, pO2 of 73, and corresponding to a saturation of 96%. This was on 50% FiO2, and a PEEP of 12. Creatinine 1.39, and roughly stable. Basic metabolic profile is otherwise unremarkable. BUN is gently uptrending to 72. AST and ALT are gently trending upward, alkaline phosphatase 128, it is decreasing. Albumin 2.5. Digoxin level 1.4. Blood culture is growing Staph epidermidis in 2 out of 2, which is quite sensitive. Repeat blood cultures are negative to-date. BAL did not grow anything. Respiratory virus panel was negative on presentation. IMAGING: Chest x-ray demonstrates patchy bilateral airspace disease. There is interstitial fullness, some degree of cephalization. Endotracheal tube terminates in good position. Carinal angle is enlarged. ASSESSMENT: 1. Acute hypoxic respiratory failure. 2. Pneumocystis jiroveci pneumonia. 3. Chronic kidney disease, stage 3. 4. Atrial fibrillation with rapid ventricular response, currently rate controlled. 5. Bacteremia secondary to Staph epidermidis. DISCUSSION AND PLAN: We will continue to diurese the patient down to euvolemia. He remains widely volume overloaded. That being said, intravascularly, he is likely on the dry side. We will continue antibiotics and steroids. Pulmonary/Critical Care will follow very closely. CRITICAL CARE TIME: 30 minutes. Job ID: [id number]
[2019-07-04] MEDS: HumaLOG 300 UNITS/3 ML VIAL SC PRN ×3 (11:22→22:06)
--- NOTE | 2019-07-04 12:29 | PDOC.HOSPP ---
- Subjective Encounter Date: 07/04/19 Encounter Time: 12:28 Subjective: intubated ,sedated - Objective Vital Signs & Weight: Vital Signs (12 hours) Temp Pulse Resp BP Pulse Ox 07/04/19 12:00 98.3 F 32 H 07/04/19 10:44 93 143/71 H 07/04/19 10:42 91 20 94 L 07/04/19 10:00 23 H 07/04/19 09:36 95 07/04/19 08:00 99.0 F 07/04/19 06:54 91 139/79 07/04/19 06:53 87 16 98 07/04/19 06:00 16 07/04/19 04:00 97.9 F 24 H 07/04/19 02:51 82 16 100 07/04/19 02:00 19 Weight Admit Weight 164 lb Weight 173 lb 11.588 oz Most Recent Monitor Data Heart Rate from ECG 99 NIBP 97/61 NIBP BP-Mean 73 Respiration from ECG 25 SpO2 100 I&O: 07/03/19 07/04/19 07/05/19 06:59 06:59 06:59 Intake Total 1821 3018 100 Output Total 2485 1763 595 Balance -664 1255 -495 Result Diagrams: 07/04/19 04:48 07/04/19 04:48 Additional Labs: Accuchecks 07/04/19 07/04/19 07/03/19 11:23 04:10 21:36 POC Glucose 283 H 142 H 226 H 07/03/19 15:48 POC Glucose 119 H Hospitalist ROS - Medication Medications: Active Medications Generic Name Dose Route Start Last Admin Trade Name Palma PRN Reason Stop Dose Admin Amiodarone HCl 200 mg 06/29/19 15:00 07/04/19 09:36 Cordarone PO 200 mg TID ALYSE Administration Apixaban 5 mg 06/21/19 09:00 07/04/19 09:36 Eliquis PO 5 mg BID ALYSE Administration Atorvastatin Calcium 20 mg 06/20/19 21:00 07/03/19 20:23 Lipitor PO 20 mg HS ALYSE Administration Calcium/Vitamin D 1 tab 06/21/19 21:00 07/04/19 09:36 Caltrate 600 + Vit D PO 1 tab BID ALYSE Administration Furosemide 60 mg 07/02/19 09:00 07/04/19 09:36 Lasix SLOW IVP 60 mg DAILY ALYSE Administration Micafungin Sodium 100 mg/ 100 mls @ 100 mls/hr 06/27/19 14:00 07/03/19 13:50 Sodium Chloride IVPB 100 mls 1400 ALYSE Administration Pentamidine Isethionate 300 mg 250 mls @ 250 mls/hr 06/29/19 17:00 07/03/19 16:37 / Dextrose/Water IVPB 250 mls Q24HR ALYSE Administration Fentanyl Citrate 2,000 mcg/ 100 mls @ 0 mls/hr 07/01/19 17:30 07/04/19 02:37 Sodium Chloride IV 100 mls INF ALYSE Administration Protocol Per Protocol Linezolid 600 mg/ Device 300 mls @ 150 mls/hr 07/02/19 21:00 07/04/19 09:39 IVPB 300 mls Q12HR ALYSE Administration Meropenem 1 gm/ Device 50 mls @ 100 mls/hr 07/02/19 21:00 07/04/19 09:35 IVPB 50 mls Q12HR ALYSE Administration Insulin Human Lispro 0 units 06/25/19 09:34 07/04/19 11:22 Humalog SC 6 unit .MODERATE SLIDING SC PRN Administration Moderate Correctional Scale Ipratropium Elkins 2.5 ml 06/29/19 14:30 07/04/19 10:42 Atrovent NEB 2.5 ml P8CK-PT ALYSE Administration Methylprednisolone Sodium Succinate 20 mg 07/04/19 10:30 07/04/19 11:29 Solu-Medrol IVP 20 mg Q12H ALYSE Administration Pantoprazole Sodium 40 mg 06/30/19 09:00 07/04/19 09:36 Protonix IVP 40 mg DAILY ALYSE Administration Polyethylene Glycol 17 gm 06/26/19 09:00 07/04/19 09:35 Miralax PER TUBE 17 gm DAILY ALYSE Administration Propofol 1,000 mg 06/21/19 17:09 07/04/19 04:58 Diprivan IV 07/21/19 17:09 1,000 mg INF PRN Administration TO ACHIEVE GOAL RASS Protocol Sodium Chloride 10 ml 06/19/19 17:20 06/23/19 21:56 Flush - Normal Saline IVF 10 ml Q12HR PRN Administration Saline Flush Sterile Water 1 ml 06/21/19 09:27 07/04/19 04:56 Bacteriostatic Water FS 1 ml PRN PRN Administration RECONSTITUTION - Exam Neck: no JVD Heart: irregular Respiratory - other findings: coarse BS Gastrointestinal: soft, non-tender, normal bowel sounds Extremities - other findings: anasarca Hosp A/P (1) Bacteremia due to coagulase-negative Staphylococcus Code(s): R78.81 - BACTEREMIA Status: Acute (2) PCP (pneumocystis jiroveci pneumonia) Code(s): B59 - PNEUMOCYSTOSIS Status: Acute (3) Sepsis associated hypotension Code(s): A41.9 - SEPSIS, UNSPECIFIED ORGANISM; I95.9 - HYPOTENSION, UNSPECIFIED Status: Acute (4) Acute respiratory failure with hypoxia Code(s): J96.01 - ACUTE RESPIRATORY FAILURE WITH HYPOXIA Status: Acute (5) Hypotension Status: Acute Qualifiers: Hypotension type: idiopathic hypotension Qualified Code(s): I95.0 - Idiopathic hypotension (6) Acute renal failure Status: Acute Qualifiers: Acute renal failure type: unspecified Qualified Code(s): N17.9 - Acute kidney failure, unspecified (7) Atrial fibrillation with RVR Code(s): I48.91 - UNSPECIFIED ATRIAL FIBRILLATION Status: Acute (8) Leukopenia Code(s): D72.819 - DECREASED WHITE BLOOD CELL COUNT, UNSPECIFIED Status: Acute Qualifiers: Leukopenia type: neutropenia Neutropenia type: other drug-induced Qualified Code(s): D70.2 - Other drug-induced agranulocytosis (9) CHF (congestive heart failure) Code(s): I50.9 - HEART FAILURE, UNSPECIFIED Status: Acute Qualifiers: Heart failure type: systolic Heart failure chronicity: acute Qualified Code(s): I50.21 - Acute systolic (congestive) heart failure (10) Atrial fibrillation Code(s): I48.91 - UNSPECIFIED ATRIAL FIBRILLATION Status: Chronic Qualifiers: Atrial fibrillation type: unspecified Qualified Code(s): I48.91 - Unspecified atrial fibrillation - Plan cont iv antibx cont vent support
[2019-07-04] MEDS: Micafungin 100 MG in Sodium Chloride 0.9% 100 ML IVPB SCH (13:28)
--- NOTE | 2019-07-04 15:48 | PDOC.PALCO ---
Palliative Care Consult - Consult Details Requesting Physician: Dr Llanos Reason for Consult: goals of care, assistance with communication prognosis/ disease, family support Family Members Present: of patientKate - Pertinent HPI 74 year old male who was cardioverted 06/09 secondary to atrial fib, placed on a beta tamy 06/16 due to recurrent atrial fib and gave history that he had felt poorly since. Patients was hospitalized a few days prior to his presentation to the emergency room. Mr Fletcher reported that he had progressive weakness, decrease in urine output, increase in shortness of breath and difficulty in coping with his wifes admission to the hospital. Mr Fletcher was admitted to [facility] secondary to hypotension, atrial fib. 06/20 patient was transferred to IM for acute respiratory failure and placed on BiPAP, and subsequent intubation 06/21. Continued decline and currently dependent on mechanical ventilation for respiratory support. . - Pertinent PMH Sleep Apnea, Lung nodules, right kidney cyst, atrial fib, thoracic aortic ascending aneurysm, HDL, HTN, renal calculi, gallstones - Social History Smoking Status: Never smoker Smoking: no tobacco exposure Alcohol Use: none Drug Use History: none Living Situation: ( to Kate 12 years) - Medications MAR Reviewed: Yes - Allergies Allergies/Adverse Reactions: Allergies Allergy/AdvReac Type Severity Reaction Status Date / Time morphine Allergy Intermediate severe Verified 06/19/19 18:14 constipation Sulfa (Sulfonamide Allergy Unknown Diarrhea Verified 06/19/19 18:14 Antibiotics) metoprolol AdvReac Intermediate Verified 06/19/19 18:16 - ROS Non Response: due to endotracheal tube, due to mental status - Objective Vital Signs: Vital Signs - Most Recent Temp Pulse Resp BP Pulse Ox 98.3 F 77 17 89/54 L 96 07/04/19 12:00 07/04/19 14:39 07/04/19 14:38 07/04/19 14:39 07/04/19 14:38 Palliative Performance Scale: 20 - Advance Directives Medical Power of [employer] Erecting: Kate - Physical Exam Constitutional: encephalitic, ill appearing HEENT: moist MMs Respiratory: no wheezing Deviation from normal: Mechanical ventilation Cardiovascular: RRR, diminished peripheral pulses Gastrointestinal: positive bowel sounds, incontinent Musculoskeletal: edema present, muscle wasting Deviation from normal: no purposeful movement, sedated Skin: cap refill <2 seconds Deviation from normal: sedated - Problem List (1) Palliative care encounter Code(s): Z51.5 - ENCOUNTER FOR PALLIATIVE CARE Current Visit: Yes Status: Acute (2) Acute renal failure Current Visit: Yes Status: Acute Qualifiers: Acute renal failure type: unspecified Qualified Code(s): N17.9 - Acute kidney failure, unspecified (3) Acute respiratory failure with hypoxia Code(s): J96.01 - ACUTE RESPIRATORY FAILURE WITH HYPOXIA Current Visit: Yes Status: Acute (4) PCP (pneumocystis jiroveci pneumonia) Code(s): B59 - PNEUMOCYSTOSIS Current Visit: Yes Status: Acute (5) Respiratory failure requiring intubation Code(s): J96.90 - RESPIRATORY FAILURE, UNSP, UNSP W HYPOXIA OR HYPERCAPNIA Current Visit: Yes Status: Acute - Plan/Recommendations Plan: Visited with patient Kate at length. Discussed how long they had been and recent life review. Discussed wifes understanding of current illness of her using a teach back method, difficulty grasping the severity of condition. Reviewed event of recent hospital stay. When asked if Dawit had ever expressed his wishes she stated that "he never wanted to be on a machine". *Mr Fletcher has two sons, one is returning from out of town tomorrow. Ms Fletcher has two sons as well, their children are from previous marriages *Kate eventually confirmed that she understands her is gravely ill *I will follow up 07/05 to further discuss resuscitation measures and Trach verses compassionate extubation *Kate confirmed patients strong say, as well as his not wanting to suffer or "be on a machine" [75] minutes spent on this encounter with >50% of the time in counseling and coordination of care. Thank you for this very appropriate consult.
[2019-07-04] MEDS: Atorvastatin Calcium 20 MG TAB PO SCH (20:09)
[2019-07-04] MEDS: clonazePAM 1 MG TAB PO SCH (20:10)
[2019-07-05] MEDS: Norepinephrine 8 MG/0.9% NS 250 ML IVPB SCH ×2 (01:21→23:50)
[2019-07-05] MEDS: Ipratropium Bromide 2.5 ml Neb NEB SCH ×6 (02:21→23:02)
[2019-07-05] MEDS: Propofol 1,000 MG/100 ML VIAL IV PRN (03:08)
[2019-07-05 04:56] LABS: Band 3 % (5-11); Hemoglobin 10.3 g/dL (14.0-18.0); Hypochromia SLIGHT = 6-15 cells (100X) (0-5/hpf); Lymphocytes 3 % (21-51); MDiff Complete? YES; Mean Corpuscular HGB CONC 30.9 g/dL (32.0-36.0); Mean Corpuscular Hemoglobin 30.3 pg (27.0-31.0); Mean Corpuscular Volume 98.1 fL (78.0-98.0); Mean Platelet Volume 7.8 fL (7.4-10.4); Monocytes 4 % (0-10); Neutrophil 90 % (42-75); Nucleated RBC 1 % (0); Platelet Count 384 thou/uL (130-400); Platelet Morphology Comment Appears Adequate; RBC Distribution Width 17.9 % (11.5-14.5); White Blood Cell (WBC) Count 31.9 thou/uL (4.8-10.8)
[2019-07-05 05:11] LABS: Anion Gap 12 mmol/L (10-20); BUN (Urea Nitrogen) 82 mg/dL (8.4-25.7); Calc. Creatinine Clearance 50 mL/min (70-130); Calcium 8.4 mg/dL (7.8-10.44); Carbon Dioxide 30 mmol/L (23-31); Chloride 97 mmol/L (98-107); Estimated GFR-MDRD 49; Glucose 127 mg/dL (83-110); Potassium 4.5 mmol/L (3.5-5.1); Sodium 134 mmol/L (136-145)
[2019-07-05 07:05] LABS: Actual Bicarbonate (HCO3a) 28.3 mEq/L (22-28); Base Excess (BEa) 3.5 mEq/L (-2.0 to +3.0); CO2 Tension 43.8 mmHg (35.0-45.0); Carboxyhemoglobin (COHb) 0.5 gm% (0.0-3.0); Hemoglobin (Hb) 11.6 g/dL (14.0-18.0); O2 Tension (PaO2) 75.1 mmHg (> 70.0); Potassium - ABG Lab 4.18 mmol/L (3.70-5.30); pH, Arterial 7.43 (7.35-7.45)
[2019-07-05 07:07] LABS: Puncture Site RRA
--- NOTE | 2019-07-05 07:36 | RAD ---
XR Chest 1 View Portable HISTORY: Respiratory failure, pneumonia COMPARISON: Previous day FINDINGS: No significant interval change is seen since the previous day's exam. IMPRESSION: Stable exam.
[2019-07-05] MEDS: Linezolid 600 MG in Premix Bag 1 BAG IVPB SCH ×2 (08:22→20:52)
[2019-07-05] MEDS: clonazePAM 1 MG TAB PO SCH ×3 (08:23→20:52)
[2019-07-05] MEDS: Amiodarone 200 MG TAB PO SCH ×3 (08:24→20:52)
[2019-07-05] MEDS: fentaNYL Citrate/PF 2,000 MCG in Sodium Chloride 0.9% 60 ML IV SCH (08:24)
[2019-07-05] MEDS: Polyethylene Glycol 3350 17 GM Packet PER TUBE SCH (08:24)
[2019-07-05] MEDS: Pantoprazole 40 MG VIAL IVP SCH (08:24)
[2019-07-05] MEDS: Furosemide 100 MG/10 ML VIAL SLOW IVP SCH (08:24)
[2019-07-05] MEDS: Calcium Carbonate + Vit D 1 TAB PO SCH ×2 (08:24→20:52)
[2019-07-05] MEDS: MEROPENEM 1 GM/50 ML 1 GM in Premix Bag 1 BAG IVPB SCH ×2 (08:27→20:52)
[2019-07-05] MEDS: Apixaban 5 MG TAB PO SCH ×2 (08:27→20:53)
[2019-07-05] MEDS ORDERED: clonazePAM 1 MG TAB PO SCH (09:00)
--- NOTE | 2019-07-05 09:29 | PRG ---
DATE OF SERVICE: 07/05/2019 SUBJECTIVE: Mr. Fletcher is a 74-year-old white male, who was seen by the Renal Service for his acute kidney injury secondary to acute tubular necrosis. He also underwent an acute respiratory failure necessitating intubation, ventilator support. He has underlying pneumonia. He also have been to rapid atrial fibrillation, which heart rate is now well controlled. Renal function is relatively stable, but the patient remains clinically unimproved. We are unable to wean him off for the moment. He has been treated for pneumonia. No acute events noted last night. OBJECTIVE: VITAL SIGNS: Blood pressure 103/65, heart rate 75, respiratory rate 13, and pulse ox 99%. GENERAL: Sedated, intubated, on ventilator support. SKIN: Adequate turgor. HEENT: He has pinkish conjunctivae. Anicteric sclerae. NECK: No neck mass. No carotid bruits. No JVD. LUNGS: Harsh breath sounds. HEART: Normal sinus rhythm. No murmur. No gallops. No rubs. ABDOMEN: Globular, soft, nontender. No masses. EXTREMITIES: No edema. MEDICATIONS: Medications of July 05, 2019, was noted. LABORATORY DATA: Laboratories of July 05, 2019 showed the following; white count 31.9, hemoglobin 10.3. Sodium 134, potassium 4.5, chloride 97, carbon dioxide 20, BUN 82, creatinine 1.41, glucose 127, calcium 8.4. ASSESSMENT AND PLAN: 1. Acute kidney injury - secondary to presumptive acute tubular necrosis. Continue supportive care. No indication for any dialytic intervention. Creatinine 1.41, is stable. If renal function will further worsen, we can consider adding an albumin infusion with this patient. Please note, he is on decreased dose of Lasix at 60 mg IV daily. Overall, prognosis remains guarded with this patient. 2. Pneumonia. Continue supportive care. Pulmonary is following. Job ID: [id number]
--- NOTE | 2019-07-05 09:51 | PRG ---
DATE OF SERVICE: 07/05/2019 CRITICAL CARE TIME: 35 minutes. SUBJECTIVE: The patient remains intubated on mechanical ventilation. There has been no change in his condition overnight. PHYSICAL EXAMINATION: VITAL SIGNS: His temperature is 98.1, pulse 74, blood pressure 103/65. A 24-hour intake 2556, output 1680. HEENT: Unremarkable. NECK: No adenopathy or JVD. LUNGS: Crackles at bases. CARDIAC: S1 and S2. Regular. ABDOMEN: Soft and nontender. EXTREMITIES: Edematous throughout. LABORATORY DATA: White blood cell count 31.9, up from 27.8; hematocrit 33.4; and platelet count 384. A pH of 7.43, pCO2 of 43, pO2 of 75 on SIMV pressure control rate 13, expiratory pressure 13, PEEP 12, and FiO2 of 55%. Sodium 134, potassium 4.5, chloride 97, CO2 of 30, BUN 82, creatinine 1.4, and glucose 127. Chest x-ray might be a little better than before. ASSESSMENT: 1. Acute respiratory failure, requiring mechanical ventilation. 2. Pneumocystis jiroveci pneumonia. 3. Chronic kidney disease. 4. Atrial fibrillation, rate controlled. 5. IgG4 deficiency. PLAN: He is not weanable beyond current levels. He is continuing on broad-spectrum IV antibiotics and Pneumocystis coverage. He is also on antifungal coverage. He remains on a low dose of Levophed because of hypotension associated with sedation. He is on anticoagulation for atrial fibrillation and on digoxin and amiodarone for rate control. Given the increase in BUN and creatinine, I will go ahead and hold his Lasix for a day or 2. He will continue on IV steroids. The family will meet with physicians later this week and determine how they want to proceed, either tracheostomy or consider converting to palliative care. Job ID: [id number]
[2019-07-05] MEDS: methylPREDNISolone Sod Succ 40 MG VIAL IVP SCH ×2 (11:04→22:44)
[2019-07-05] MEDS: Metoclopramide HCl 10 MG/2 ML VIAL IVP SCH ×3 (11:04→22:44)
[2019-07-05] MEDS: HumaLOG 300 UNITS/3 ML VIAL SC PRN ×2 (11:05→16:31)
--- NOTE | 2019-07-05 12:06 | PDOC.HOSPP ---
- Subjective Encounter Date: 07/05/19 Encounter Time: 12:04 Subjective: intubated, sedated - Objective Vital Signs & Weight: Vital Signs (12 hours) Temp Pulse Resp BP Pulse Ox 07/05/19 10:51 92 114/68 07/05/19 10:49 91 22 H 90 L 07/05/19 10:00 20 07/05/19 08:00 98.3 F 15 95 07/05/19 06:36 78 105/67 07/05/19 06:33 75 13 99 07/05/19 06:00 13 07/05/19 04:00 13 07/05/19 03:00 98.1 F 07/05/19 02:21 71 13 100 07/05/19 02:00 17 Weight Admit Weight 164 lb Weight 175 lb 7.807 oz Most Recent Monitor Data Heart Rate from ECG 89 NIBP 115/66 NIBP BP-Mean 82 Respiration from ECG 21 SpO2 94 I&O: 07/04/19 07/05/19 07/06/19 06:59 06:59 06:59 Intake Total 3018 2556 60 Output Total 1763 1680 370 Balance 1255 876 -310 Result Diagrams: 07/05/19 04:30 07/05/19 04:30 Additional Labs: Accuchecks 07/05/19 07/04/19 07/04/19 11:04 21:56 17:07 POC Glucose 195 H 230 H 252 H Hospitalist ROS - Medication Medications: Active Medications Generic Name Dose Route Start Last Admin Trade Name Freq PRN Reason Stop Dose Admin Amiodarone HCl 200 mg 06/29/19 15:00 07/05/19 08:24 Cordarone PO 200 mg TID ALYSE Administration Apixaban 5 mg 06/21/19 09:00 07/05/19 08:27 Eliquis PO 5 mg BID ALYSE Administration Atorvastatin Calcium 20 mg 06/20/19 21:00 07/04/19 20:09 Lipitor PO 20 mg HS ALYSE Administration Calcium/Vitamin D 1 tab 06/21/19 21:00 07/05/19 08:24 Caltrate 600 + Vit D PO 1 tab BID ALYSE Administration Clonazepam 1 mg 07/04/19 21:00 07/05/19 09:09 Klonopin PO Not Given BID ALYSE Micafungin Sodium 100 mg/ 100 mls @ 100 mls/hr 06/27/19 14:00 07/04/19 13:28 Sodium Chloride IVPB 100 mls 1400 ALYSE Administration Pentamidine Isethionate 300 mg 250 mls @ 250 mls/hr 06/29/19 17:00 07/04/19 16:50 / Dextrose/Water IVPB 250 mls Q24HR ALYSE Administration Fentanyl Citrate 2,000 mcg/ 100 mls @ 0 mls/hr 07/01/19 17:30 07/05/19 08:24 Sodium Chloride IV 100 mls INF ALYSE Administration Protocol Per Protocol Linezolid 600 mg/ Device 300 mls @ 150 mls/hr 07/02/19 21:00 07/05/19 08:22 IVPB 300 mls Q12HR ALYSE Administration Meropenem 1 gm/ Device 50 mls @ 100 mls/hr 07/02/19 21:00 07/05/19 08:27 IVPB 50 mls Q12HR ALYSE Administration Norepinephrine Bitartrate 250 mls @ 0 mls/hr 07/05/19 00:59 07/05/19 01:21 Levophed IVPB 250 mls INF ALYSE Administration Protocol Titrate Insulin Human Lispro 0 units 06/25/19 09:34 07/05/19 11:05 Humalog SC 2 unit .MODERATE SLIDING SC PRN Administration Moderate Correctional Scale Ipratropium [place] 2.5 ml 06/29/19 14:30 07/05/19 10:49 Atrovent NEB 2.5 ml [id number] ALYSE Administration Lorazepam 2 mg 07/02/19 06:07 07/04/19 12:45 Ativan SLOW IVP 2 mg Q1H PRN Administration Breakthrough agitation Methylprednisolone Sodium Succinate 20 mg 07/04/19 10:30 07/05/19 11:04 Solu-Medrol IVP 20 mg Q12H ALYSE Administration Metoclopramide HCl 10 mg 07/05/19 10:15 07/05/19 11:04 Reglan IVP 10 mg Q6H ALYSE Administration Pantoprazole Sodium 40 mg 06/30/19 09:00 07/05/19 08:24 Protonix IVP 40 mg DAILY ALYSE Administration Polyethylene Glycol 17 gm 06/26/19 09:00 07/05/19 08:24 Miralax PER TUBE 17 gm DAILY ALYSE Administration Propofol 1,000 mg 06/21/19 17:09 07/05/19 03:08 Diprivan IV 07/21/19 17:09 1,000 mg INF PRN Administration TO ACHIEVE GOAL RASS Protocol Quetiapine Fumarate 25 mg 07/04/19 21:00 07/05/19 09:09 Seroquel PO Not Given BID ALYSE Sodium Chloride 10 ml 06/19/19 17:20 06/23/19 21:56 Flush - Normal Saline IVF 10 ml Q12HR PRN Administration Saline Flush Sterile Water 1 ml 06/21/19 09:27 07/04/19 22:06 Bacteriostatic Water FS 1 ml PRN PRN Administration RECONSTITUTION - Exam Neck: no JVD Heart: RRR, no murmur Respiratory - other findings: coarse BS Gastrointestinal: soft, normal bowel sounds Extremities - other findings: anasarca Hosp A/P (1) Bacteremia due to coagulase-negative Staphylococcus Code(s): R78.81 - BACTEREMIA Status: Acute (2) PCP (pneumocystis jiroveci pneumonia) Code(s): B59 - PNEUMOCYSTOSIS Status: Acute (3) Sepsis associated hypotension Code(s): A41.9 - SEPSIS, UNSPECIFIED ORGANISM; I95.9 - HYPOTENSION, UNSPECIFIED Status: Acute (4) Acute respiratory failure with hypoxia Code(s): J96.01 - ACUTE RESPIRATORY FAILURE WITH HYPOXIA Status: Acute (5) Hypotension Status: Acute Qualifiers: Hypotension type: idiopathic hypotension Qualified Code(s): I95.0 - Idiopathic hypotension (6) Acute renal failure Status: Acute Qualifiers: Acute renal failure type: unspecified Qualified Code(s): N17.9 - Acute kidney failure, unspecified (7) Atrial fibrillation with RVR Code(s): I48.91 - UNSPECIFIED ATRIAL FIBRILLATION Status: Acute (8) Leukopenia Code(s): D72.819 - DECREASED WHITE BLOOD CELL COUNT, UNSPECIFIED Status: Acute Qualifiers: Leukopenia type: neutropenia Neutropenia type: other drug-induced Qualified Code(s): D70.2 - Other drug-induced agranulocytosis (9) CHF (congestive heart failure) Code(s): I50.9 - HEART FAILURE, UNSPECIFIED Status: Acute Qualifiers: Heart failure type: systolic Heart failure chronicity: acute Qualified Code(s): I50.21 - Acute systolic (congestive) heart failure (10) Atrial fibrillation Code(s): I48.91 - UNSPECIFIED ATRIAL FIBRILLATION Status: Chronic Qualifiers: Atrial fibrillation type: unspecified Qualified Code(s): I48.91 - Unspecified atrial fibrillation - Plan cont iv antibx cont vent support cont pressor support cont nurition cont Atrial fib meds no real progress, prognosis guarded, family aware
--- NOTE | 2019-07-05 14:27 | PDOC.PALPN ---
Palliative Progress Note - Subjective Remains intubated, non responsive. - Objective Vital Signs: Vital Signs - Most Recent Temp Pulse Resp BP Pulse Ox 99.3 F 92 22 H 114/68 90 L 07/05/19 12:00 07/05/19 10:51 07/05/19 10:49 07/05/19 10:51 07/05/19 10:49 - Physical Exam Constitutional: encephalitic, ill appearing HEENT: EOMI, moist MMs, sclera anicteric Deviation from normal: adventicious lung sounds, mechanical ventilation Cardiovascular: diminished peripheral pulses Gastrointestinal: positive bowel sounds, incontinent Genitourinary: juárez catheter Musculoskeletal: edema present Skin: bruising, fragile Deviation from normal: encephalopathy - Assessment (1) Palliative care encounter Code(s): Z51.5 - ENCOUNTER FOR PALLIATIVE CARE Current Visit: Yes Status: Acute (2) Acute renal failure Current Visit: Yes Status: Acute Qualifiers: Acute renal failure type: unspecified Qualified Code(s): N17.9 - Acute kidney failure, unspecified (3) Acute respiratory failure with hypoxia Code(s): J96.01 - ACUTE RESPIRATORY FAILURE WITH HYPOXIA Current Visit: Yes Status: Acute (4) PCP (pneumocystis jiroveci pneumonia) Code(s): B59 - PNEUMOCYSTOSIS Current Visit: Yes Status: Acute (5) Respiratory failure requiring intubation Code(s): J96.90 - RESPIRATORY FAILURE, UNSP, UNSP W HYPOXIA OR HYPERCAPNIA Current Visit: Yes Status: Acute - Plan Plan: Continued discussion with patient , Kate. She continues to states that Mr Fletcher did not want to be "kept alive on machines" however is hopeful for a recovery. She does state though that she understands decisions regarding Trach and Peg need to be made but desire to make them with Mr Do two biological sons. Did discuss resuscitation measures. *Mrs Fletcher completed DNAR paper and order placed for no resuscitation measures *Mrs Fletcher Will revisit compassionate extubation verses PEG and Trach with Mr Do sons when they arrive tonight. *Discussed at length to remember Mr Do wishes as decisions are made. *Theraputic listening and supportive care. *Notified Hospitalist [45] minutes spent on this encounter with >50% of the time in counseling and coordination of care.
[2019-07-05] MEDS: Micafungin 100 MG in Sodium Chloride 0.9% 100 ML IVPB SCH (14:28)
--- NOTE | 2019-07-05 15:14 | PRG ---
DATE OF SERVICE: 07/05/2019 SUBJECTIVE: The patient is off bilevel, is just on PEEP of 12, now FiO2 of 55, he is keeping O2 sats consistently higher than previously anywhere from 96 to 100. OBJECTIVE: VITAL SIGNS: His T-max 99.3, blood pressure 74/48, pulse 87, respirations 18, and O2 saturation 96, again 99 actually at this moment. GENERAL: He is well perfused. HEENT: He is moving his head [id number]. His pupils are equal. Sclerae are white. LUNGS: With fairly symmetric breath sounds. CARDIAC: S1 and S2, regular rate. ABDOMEN: Not distended. He is tolerating feedings. LABORATORY DATA: Sodium 134, creatinine is stable at 1.41. AST went up to 71, ALT a bit up to 68, alkaline phosphatase 128, albumin 2.5. Two sets of blood cultures from June 26, no growth. X-ray is about the same. Most of the infiltrates are in the lower segments. 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 Pneumocystis pneumonia as a complication of the above, possible superimposed bacterial pneumonia and then adverse reactions to Bactrim. The patient has been transitioned to pentamidine. Lung function is about the same. He is off bilevel at the moment, and his O2 saturations are down to 55, maybe slight improvement. A few more days of Zyvox and meropenem and then we will stop it probably tomorrow or day after. We will just keep him on pentamidine. We will see if he can turn around this pneumocystis pneumonia in the next few days. Job ID: [id number]
[2019-07-05] MEDS: Atorvastatin Calcium 20 MG TAB PO SCH (20:52)
[2019-07-06] MEDS: Ipratropium Bromide 2.5 ml Neb NEB SCH ×6 (03:14→23:28)
[2019-07-06] MEDS: Metoclopramide HCl 10 MG/2 ML VIAL IVP SCH ×3 (03:28→16:43)
[2019-07-06] MEDS: HumaLOG 300 UNITS/3 ML VIAL SC PRN ×3 (04:08→16:39)
[2019-07-06 04:20] LABS: Band 4 % (5-11); Hemoglobin 10.7 g/dL (14.0-18.0); Lymphocytes 4 % (21-51); MDiff Complete? YES; Mean Corpuscular HGB CONC 32.1 g/dL (32.0-36.0); Mean Corpuscular Hemoglobin 31.9 pg (27.0-31.0); Mean Corpuscular Volume 99.4 fL (78.0-98.0); Mean Platelet Volume 8.1 fL (7.4-10.4); Metamyelocyte 3 % (0-0); Monocytes 2 % (0-10); Neutrophil 87 % (42-75); Nucleated RBC 3 % (0); Platelet Count 351 thou/uL (130-400); Platelet Morphology Comment Appears Adequate; RBC Distribution Width 18.4 % (11.5-14.5); Red Blood Cell (RBC) Count 3.36 mill/uL (4.70-6.10); White Blood Cell (WBC) Count 26.2 thou/uL (4.8-10.8)
[2019-07-06 04:28] LABS: Anion Gap 12 mmol/L (10-20); BUN (Urea Nitrogen) 96 mg/dL (8.4-25.7); Calc. Creatinine Clearance 46 mL/min (70-130); Calcium 9.1 mg/dL (7.8-10.44); Carbon Dioxide 29 mmol/L (23-31); Chloride 97 mmol/L (98-107); Estimated GFR-MDRD 44; Glucose 201 mg/dL (83-110); Potassium 4.3 mmol/L (3.5-5.1); Sodium 134 mmol/L (136-145)
[2019-07-06 07:11] LABS: Actual Bicarbonate (HCO3a) 26.1 mEq/L (22-28); Base Excess (BEa) 1.6 mEq/L (-2.0 to +3.0); CO2 Tension 40.5 mmHg (35.0-45.0); Calcium, Ionized 1.26 mmol/L (1.12-1.30); Carboxyhemoglobin (COHb) 0.6 gm% (0.0-3.0); Hemoglobin (Hb) 10.4 g/dL (14.0-18.0); O2 Tension (PaO2) 75.3 mmHg (> 70.0); Potassium - ABG Lab 4.04 mmol/L (3.70-5.30); Puncture Site RRA; pH, Arterial 7.43 (7.35-7.45)
[2019-07-06 07:12] LABS: ALV-art Gradient 266.225 (0-20)
--- NOTE | 2019-07-06 08:20 | RAD ---
EXAM: Single view of the chest HISTORY: Pneumonia COMPARISON: 07/05/2019 FINDINGS: Single view of the chest shows a normal sized cardiomediastinal silhouette. The patient is status post aortic valve repair. The lines and tubes are unchanged in position. There are stable multifocal mixed infiltrates in the lungs. The bones are unremarkable. IMPRESSION: Stable exam
[2019-07-06] MEDS: Apixaban 5 MG TAB PO SCH ×2 (09:59→21:57)
[2019-07-06] MEDS: MEROPENEM 1 GM/50 ML 1 GM in Premix Bag 1 BAG IVPB SCH ×2 (09:59→21:58)
[2019-07-06] MEDS: Amiodarone 200 MG TAB PO SCH ×3 (09:59→21:57)
[2019-07-06] MEDS: Calcium Carbonate + Vit D 1 TAB PO SCH ×2 (09:59→21:57)
[2019-07-06] MEDS: Pantoprazole 40 MG VIAL IVP SCH (10:00)
[2019-07-06] MEDS: Linezolid 600 MG in Premix Bag 1 BAG IVPB SCH ×2 (10:03→21:57)
[2019-07-06] MEDS: clonazePAM 1 MG TAB PO SCH (10:03)
[2019-07-06] MEDS: Polyethylene Glycol 3350 17 GM Packet PER TUBE SCH (10:13)
--- NOTE | 2019-07-06 11:06 | PRG ---
DATE OF SERVICE: 07/06/2019 SUBJECTIVE: Mr. Fletcher is a 74-year-old white male, who was admitted for acute respiratory distress. He was found to be in some degree of CHF as well as pulmonary infection. He was diagnosed with Pneumocystis carinii. He is being treated with pentamidine with this. In addition, antifungal as well as antibiotics have been initiated with this patient. We are still unable to extubate this patient. No acute events last night. OBJECTIVE: VITAL SIGNS: Blood pressure is 102/68, heart rate 83, respiratory rate 24, pulse ox 100%. GENERAL: The patient is sedated, intubated, on ventilator support. SKIN: Adequate turgor. HEENT: He has pinkish conjunctivae. Anicteric sclerae. No neck mass. No carotid bruits. No JVD. CHEST: No deformities. LUNGS: Harsh breath sounds with crackles. HEART: Normal sinus rhythm. No murmur. No gallops. No rubs. ABDOMEN: Globular, soft, nontender. No masses. EXTREMITIES: No edema. No deformities. MEDICATIONS: Medications of July 06, 2019, were reviewed. LABORATORY DATA: Laboratories of July 06, 2019; white count 26.2, hemoglobin 10.7. Sodium 134, potassium 4.3, chloride 97, carbon dioxide 29, BUN 96, creatinine 1.55, GFR 44 mL/minute, glucose 201, calcium 9.1. Chest x-ray of July 06, 2019, stable multifocal infiltrates. ASSESSMENT AND PLAN: 1. Acute respiratory failure, multifocal etiology. Underlying congestive heart failure initially was considered, but his pneumonia may be playing a factor in the patient's ability to be weaned off. He is currently on antifungals and antibiotics. Continue supportive care. 2. Acute kidney injury-a component of prerenal azotemia as well as development of acute tubular necrosis as suggested on findings of granular cast on the urine sediment. Continue supportive care. Please note that furosemide has now been discontinued. If the renal function will worsen further, consider starting the patient on albumin infusion of 25 g IV q.6 in a.m. His overall prognosis remains guarded. Case was discussed with the and the family. 3. Overall agree with current management. Job ID: [id number]
[2019-07-06] MEDS: Norepinephrine 8 MG/0.9% NS 250 ML IVPB SCH (12:02)
[2019-07-06] MEDS: methylPREDNISolone Sod Succ 40 MG VIAL IVP SCH (12:16)
[2019-07-06] MEDS ORDERED: Hydrocortisone Sod Succ/PF 100 mg/2 ml Vial IVP SCH (13:30)
--- NOTE | 2019-07-06 13:43 | PRG ---
DATE OF SERVICE: 07/06/2019 INTERVAL HISTORY: The patient is doing okay from respiratory standpoint. He is about stable compared to where he was previously. His IV diuretics have been interrupted completely. This was because of a small kidney injury. Blood pressures are a little labile. Still on a touch of Levophed. His mentation has been poor. He has yet to wake up over the last 2 days. The family is concerned about his mental status. Otherwise, there has been no interval change to his condition. OBJECTIVE: VITAL SIGNS: Afebrile, pulse 85, blood pressure 87/58, respirations 18, saturation 99%, currently on 50% FiO2, and a PEEP of 12. GENERAL: The patient is intubated and sedated. HEENT: Normocephalic and atraumatic. Sclerae white. Conjunctivae pink. Oral mucosa is moist without lesions. LUNGS: Decent air entry. Rhonchi and crackles are both present. No prolonged expiratory phase or wheezing is appreciated. HEART: Normal rate and regular. ABDOMEN: Soft, nontender, nondistended. Bowel sounds are positive. MUSCULOSKELETAL: No cyanosis or clubbing. Diffuse edema is present. It seems to be slightly improved compared to prior. LABORATORY DATA: WBC 26.2, hemoglobin 10.7, platelets 87,000. PH 7.43, pCO2 of 40, pO2 of 75, corresponding to saturation 95%. Creatinine 1.55, which is roughly stable. BUN 96, sodium 134. Basic metabolic profile is otherwise unremarkable. Digoxin 1.4. Blood cultures x2 are unremarkable. Prior blood cultures were growing Staph epidermidis. IMAGING: Chest x-ray demonstrates bibasilar disease. There are likely some layering effusions present. Endotracheal tube remains in good position. ASSESSMENT: 1. Acute hypoxic respiratory failure. 2. Pneumocystis jiroveci pneumoniae. 3. Chronic kidney disease, stage 3. 4. Atrial fibrillation with rapid ventricular response, currently rate controlled. 5. Bacteremia secondary to Staph epidermidis. DISCUSSION AND PLAN: The patient is on multiple different antibiotics directed at identified organisms as well as fungal disease. He continues to have persistently high oxygen requirements. I am going to repeat a noncontrast CT of the chest to see whether or not there has been any profound interval change to what we are dealing with here. The chest x-ray truthfully does not look as bad as the patient's oxygen requirements. The patient has been on long-standing prednisone. As such, I will go back up to 40 mg on a daily basis, and provide him with stress dose coverage for a day. Sedation will be completely interrupted until he proves to require it with increasing agitation. Critical Care will follow. CRITICAL CARE TIME: 30 minutes. Job ID: [id number]
[2019-07-06] MEDS: Micafungin 100 MG in Sodium Chloride 0.9% 100 ML IVPB SCH ×2 (14:00→16:38)
--- NOTE | 2019-07-06 14:37 | CT ---
EXAM: CT of the chest without contrast HISTORY: Intubated with respiratory failure/pneumonia COMPARISON: None TECHNIQUE: Multiple contiguous axial images were obtained in a CT the chest without contrast. Coronal and sagittal reformats were performed. FINDINGS: HEART: Normal in size without focal cardiac abnormality MEDIASTINUM: An endotracheal tube is seen with its tip in good position above the verenice. There is a small amount of mediastinal air which is nonspecific. No hilar or mediastinal lymphadenopathy. Evaluation of the mediastinum is limited without IV contrast. LUNGS: There are bilateral lower lobe infiltrates with air bronchograms visualized. Granulomatous charlie nges are seen in the left lower lobe. Emphysematous changes are seen in the lung apices. There are focal areas of bronchiectasis. PLEURAL SPACE: No pneumothorax or pleural effusion. CHEST WALL SOFT TISSUES: Unremarkable OSSEOUS STRUCTURES: Degenerative changes in the spine. The patient is status post sternotomy. VISUALIZED SUBDIAPHRAGMATIC STRUCTURES: Unremarkable. An NG tube is seen in the stomach. Gallstones i n the gallbladder. Hepatic cysts IMPRESSION: 1. Bilateral lower lobe infiltrates 2. Nonspecific mediastinal air. This could be from either a ruptured bleb, tracheal injury, or esopha geal injury. 3. Cholelithiasis
--- NOTE | 2019-07-06 15:31 | PDOC.HOSPP ---
- Subjective Subjective: Patient seen and examined in the intensive care unit. Follow up on ventilator dependant respiratory failure, pneumocystis jirovecii pneumonia, immunosuppression on chronic steroids/ methotrexate, IgG4 related autoimmune, and renal insufficiency. Patient intubated, sedated and overall clinically unchanged from yesterday. Discuss case with nursing staff. No family available at bedside this a.m. Family are discussing with out of care and are considering extubation versus tracheostomy and PEG tube placement. - Objective Vital Signs & Weight: Vital Signs (12 hours) Temp Pulse Resp BP Pulse Ox 07/06/19 14:35 85 20 105/65 99 07/06/19 11:19 85 87/58 L 07/06/19 11:17 79 2 L 99 07/06/19 07:02 81 104/67 07/06/19 06:59 78 18 99 07/06/19 06:00 23 H 07/06/19 04:00 97.5 F L 16 Weight Admit Weight 164 lb Weight 176 lb 2.389 oz Most Recent Monitor Data Heart Rate from ECG 67 NIBP 103/53 NIBP BP-Mean 69 Respiration from ECG 20 SpO2 100 I&O: 07/05/19 07/06/19 07/07/19 06:59 06:59 06:59 Intake Total 2556 2422.9 Output Total 1680 1110 Balance 876 1312.9 Result Diagrams: 07/06/19 03:56 07/06/19 03:56 Additional Labs: Accuchecks 07/06/19 07/06/19 07/05/19 10:19 04:08 21:39 POC Glucose 156 H 219 H 117 H 07/05/19 16:33 POC Glucose 185 H Radiology Reviewed by me: Yes Hospitalist ROS - Review of Systems ROS unobtainable: due to endotracheal tube - Medication Medications: Active Medications Generic Name Dose Route Start Last Admin Trade Name Freq PRN Reason Stop Dose Admin Amiodarone HCl 200 mg 06/29/19 15:00 07/06/19 09:59 Cordarone PO 200 mg TID ALYSE Administration Apixaban 5 mg 06/21/19 09:00 07/06/19 09:59 Eliquis PO 5 mg BID ALYSE Administration Atorvastatin Calcium 20 mg 06/20/19 21:00 07/05/19 20:52 Lipitor PO 20 mg HS ALYSE Administration Calcium/Vitamin D 1 tab 06/21/19 21:00 07/06/19 09:59 Caltrate 600 + Vit D PO 1 tab BID ALYSE Administration Micafungin Sodium 100 mg/ 100 mls @ 100 mls/hr 06/27/19 14:00 07/05/19 14:28 Sodium Chloride IVPB 100 mls 1400 ALYSE Administration Pentamidine Isethionate 300 mg 250 mls @ 250 mls/hr 06/29/19 17:00 07/05/19 16:31 / Dextrose/Water IVPB 250 mls Q24HR ALYSE Administration Linezolid 600 mg/ Device 300 mls @ 150 mls/hr 07/02/19 21:00 07/06/19 10:03 IVPB 300 mls Q12HR ALYSE Administration Meropenem 1 gm/ Device 50 mls @ 100 mls/hr 07/02/19 21:00 07/06/19 09:59 IVPB 50 mls Q12HR ALYSE Administration Norepinephrine Bitartrate 250 mls @ 0 mls/hr 07/05/19 00:59 07/06/19 12:02 Levophed IVPB 250 mls INF ALYSE Administration Protocol Titrate Insulin Human Lispro 0 units 06/25/19 09:34 07/06/19 10:19 Humalog SC 2 unit .MODERATE SLIDING SC PRN Administration Moderate Correctional Scale Ipratropium [place] 2.5 ml 06/29/19 14:30 07/06/19 14:35 Atrovent NEB 2.5 ml [id number] ALYSE Administration Metoclopramide HCl 10 mg 07/05/19 10:15 07/06/19 10:19 Reglan IVP 10 mg Q6H ALYSE Administration Pantoprazole Sodium 40 mg 06/30/19 09:00 07/06/19 10:00 Protonix IVP 40 mg DAILY ALYSE Administration Polyethylene Glycol 17 gm 06/26/19 09:00 07/06/19 10:13 Miralax PER TUBE 17 gm DAILY ALYSE Administration Sodium Chloride 10 ml 06/19/19 17:20 06/23/19 21:56 Flush - Normal Saline IVF 10 ml Q12HR PRN Administration Saline Flush Sterile Water 1 ml 06/21/19 09:27 07/04/19 22:06 Bacteriostatic Water FS 1 ml PRN PRN Administration RECONSTITUTION - Exam General Appearance: ill appearing Eye: PERRL, anicteric sclera ENT: normocephalic atraumatic, moist mucosa Neck: supple, symmetric, no thyromegaly, no carotid bruit Heart: RRR, no murmur, no gallops, no rubs Respiratory: no rales, no tachypnea, rhonchi, wheezes (few scattered) Gastrointestinal: soft, non-tender, non-distended, normal bowel sounds, no guarding, no rigidity Extremities: 2+ LE edema Skin: no rashes Neurological: cranial nerve grossly intact, no focal deficits Musculoskeletal: generalized weakness Psychiatric: not oriented Hosp A/P (1) Acute renal failure Status: Acute Qualifiers: Acute renal failure type: unspecified Qualified Code(s): N17.9 - Acute kidney failure, unspecified (2) Acute respiratory failure with hypoxia Code(s): J96.01 - ACUTE RESPIRATORY FAILURE WITH HYPOXIA Status: Acute (3) Atrial fibrillation with RVR Code(s): I48.91 - UNSPECIFIED ATRIAL FIBRILLATION Status: Acute (4) CHF (congestive heart failure) Code(s): I50.9 - HEART FAILURE, UNSPECIFIED Status: Acute Qualifiers: Heart failure type: systolic Heart failure chronicity: acute Qualified Code(s): I50.21 - Acute systolic (congestive) heart failure (5) Hypotension Status: Acute Qualifiers: Hypotension type: idiopathic hypotension Qualified Code(s): I95.0 - Idiopathic hypotension (6) Leukopenia Code(s): D72.819 - DECREASED WHITE BLOOD CELL COUNT, UNSPECIFIED Status: Acute Qualifiers: Leukopenia type: neutropenia Neutropenia type: other drug-induced Qualified Code(s): D70.2 - Other drug-induced agranulocytosis (7) PCP (pneumocystis jiroveci pneumonia) Code(s): B59 - PNEUMOCYSTOSIS Status: Acute (8) Respiratory failure requiring intubation Code(s): J96.90 - RESPIRATORY FAILURE, UNSP, UNSP W HYPOXIA OR HYPERCAPNIA Status: Acute (9) Sepsis associated hypotension Code(s): A41.9 - SEPSIS, UNSPECIFIED ORGANISM; I95.9 - HYPOTENSION, UNSPECIFIED Status: Acute (10) Shock Code(s): R57.9 - SHOCK, UNSPECIFIED Status: Acute (11) Atrial fibrillation Code(s): I48.91 - UNSPECIFIED ATRIAL FIBRILLATION Status: Chronic Qualifiers: Atrial fibrillation type: unspecified Qualified Code(s): I48.91 - Unspecified atrial fibrillation (12) CKD (chronic kidney disease) Code(s): N18.9 - CHRONIC KIDNEY DISEASE, UNSPECIFIED Status: Chronic Qualifiers: Chronic kidney disease stage: stage 3 (moderate) Qualified Code(s): N18.3 - Chronic kidney disease, stage 3 (moderate) (13) Pneumonia Code(s): J18.9 - PNEUMONIA, UNSPECIFIED ORGANISM Status: Acute Qualifiers: 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 Laterality: bilateral - Plan Plan: intensive care unit pulmonology/critical-care consultation, recommendations appreciated nephrology consultation, recommendations appreciated infectious disease consultation, recommendations appreciated palliative care consultation, recommendations appreciated vasoactive medications as needed to maintain mean arterial blood pressure greater than 65 ventilator support patient's mentation and hypoxia are limiting vent weaning at this time pneumocystis jirovecii pneumonia with adverse reaction to Bactrim, on pentamidine per ID broad-spectrum antibiotics with coverage for nosocomial infections per ID continue other home medications as able enteral nutrition blood sugar control Dispostion: short of long-term prognosis are guarded. Family deciding between tracheostomy and PEG tube versus compassionate extubation.
[2019-07-06] MEDS: Hydrocortisone Sod Succ/PF 100 mg/2 ml Vial IVP SCH (18:47)
[2019-07-06] MEDS: Atorvastatin Calcium 20 MG TAB PO SCH (21:57)
[2019-07-07] MEDS: Metoclopramide HCl 10 MG/2 ML VIAL IVP SCH ×2 (01:58→04:29)
[2019-07-07] MEDS: Hydrocortisone Sod Succ/PF 100 mg/2 ml Vial IVP SCH ×3 (01:58→12:34)
[2019-07-07] MEDS: Ipratropium Bromide 2.5 ml Neb NEB SCH ×6 (03:13→22:19)
[2019-07-07] MEDS: HumaLOG 300 UNITS/3 ML VIAL SC PRN ×3 (03:58→21:41)
[2019-07-07 05:02] LABS: Band 9 % (5-11); Hemoglobin 10.8 g/dL (14.0-18.0); Hypochromia SLIGHT = 6-15 cells (100X) (0-5/hpf); Lymphocytes 4 % (21-51); MDiff Complete? YES; Mean Corpuscular HGB CONC 31.8 g/dL (32.0-36.0); Mean Corpuscular Volume 97.5 fL (78.0-98.0); Mean Platelet Volume 8.1 fL (7.4-10.4); Monocytes 6 % (0-10); Neutrophil 81 % (42-75); Platelet Count 354 thou/uL (130-400); Platelet Morphology Comment Appears Adequate; RBC Distribution Width 18.6 % (11.5-14.5); Red Blood Cell (RBC) Count 3.47 mill/uL (4.70-6.10); White Blood Cell (WBC) Count 26.1 thou/uL (4.8-10.8)
[2019-07-07 05:03] LABS: Anion Gap 14 mmol/L (10-20); BUN (Urea Nitrogen) 105 mg/dL (8.4-25.7); Calc. Creatinine Clearance 43 mL/min (70-130); Calcium 9.5 mg/dL (7.8-10.44); Carbon Dioxide 27 mmol/L (23-31); Chloride 97 mmol/L (98-107); Estimated GFR-MDRD 41; Glucose 133 mg/dL (83-110); Potassium 4.1 mmol/L (3.5-5.1); Sodium 134 mmol/L (136-145)
[2019-07-07] MEDS ORDERED: Famotidine 20 MG TAB PO SCH (06:15)
--- NOTE | 2019-07-07 06:28 | PRG ---
DATE OF SERVICE: 07/07/2019 SERVICE: Pulmonary Medicine. INTERVAL HISTORY: The patient is doing poorly from mentation standpoint. His sedation has been off for over 20 hours, he is actually not doing much of anything at all. He is completely flaccid with noxious stimuli to bilateral lower extremities. He has a very good breathing reflex, but does not cough or gag with deep suctioning, or stimulation to the back of the throat. He does have a corneal and his pupils are still working. He cannot provide me any additional elements of the history. Otherwise, there has been no interval change. PHYSICAL EXAMINATION: VITAL SIGNS: Completely afebrile; pulse 104; blood pressure 117/78; respirations 28; and saturation 96%, currently on room air. GENERAL: The patient is nearly comatose. LABORATORY DATA: WBC 26.1 and stable, hemoglobin 10.8, and platelets 354,000. Creatinine 1.64 and gently up-trending, BUN 105. Basic metabolic profile is otherwise unremarkable. IMAGING DATA: CT of the chest demonstrates new cystic lesions evolving in bilateral lung machado. There is diffuse ground-glass opacification, although it appears to be a little less intense than prior. There is bibasilar infiltrates with overt consolidating lesions in the dependent regions of this lung. There is also a little bit of mediastinal air. Cholelithiasis is noted. ASSESSMENT: 1. Acute hypoxic respiratory failure. 2. Pneumocystis jiroveci pneumonia. 3. Chronic kidney disease, stage 3. 4. Atrial fibrillation with rapid ventricular response, currently rate controlled. 5. 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 6. Metabolic encephalopathy, suspected. DISCUSSION AND PLAN: This patient has not woken up after discontinuation of sedating medications 24 hours ago. 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 MRI of the brain will be pursued. I am doubtful this patient can make a functional recovery even if everything gets better given his advanced age, and his severe debility and deconditioning he is going to have from this hospital stay. That being said, if the family wants to be aggressive, moving forward, it is going to require tracheostomy, PEG tube and dialysis. Critical Care will continue to follow very closely. CRITICAL CARE TIME: 30 minutes. Job ID: [id number] [facility]ITAL[facility]
[2019-07-07] MEDS: predniSONE 20 MG TAB PO SCH (07:08)
[2019-07-07 07:41] LABS: HIV (1/2) Antibody/Antigen Non-Reactive (NonReactive); HIV 1/2 INDEX 0.09 S/CO (<1.00)
[2019-07-07 07:46] LABS: Actual Bicarbonate (HCO3a) 32.2 mEq/L (22-28); Base Excess (BEa) 6.8 mEq/L (-2.0 to +3.0); CO2 Tension 49.9 mmHg (35.0-45.0); Calcium, Ionized 1.19 mmol/L (1.12-1.30); Carboxyhemoglobin (COHb) 1.1 gm% (0.0-3.0); Hemoglobin (Hb) 10.9 g/dL (14.0-18.0); O2 Tension (PaO2) 69.7 mmHg (> 70.0); Potassium - ABG Lab 3.38 mmol/L (3.70-5.30); Puncture Site RRA; pH, Arterial 7.43 (7.35-7.45)
[2019-07-07 07:47] LABS: ALV-art Gradient 188.775 (0-20)
[2019-07-07] MEDS ORDERED: Albumin 25% 25 GM/100 ML BOT IVPB ONE (09:10)
--- NOTE | 2019-07-07 09:35 | PRG ---
DATE OF SERVICE: 07/07/2019 SUBJECTIVE: Mr. Fletcher is a 74-year-old white male, who was initially seen for his acute kidney injury secondary to an acute tubular necrosis. Renal function has been stable and did not necessitate dialysis in the last several days. I did notice his creatinine is slowly creeping up with a creatinine of 1.6. Currently, he is off his diuretics. He also has been diagnosed with pneumonia and currently on several antibiotic regimen. He has also been started on antifungal. He has also developed acute respiratory failure and currently, he is intubated on ventilator support. No other acute events noted last night. OBJECTIVE: VITAL SIGNS: Blood pressure is 116/80, heart rate 95, respiratory rate 24, and O2 saturation 95%. GENERAL: The patient is sedated and intubated on ventilator support. SKIN: Adequate turgor. HEENT: He has a pinkish conjunctivae. Anicteric sclerae. NECK: No neck mass. No carotid bruits. No JVD. CHEST: No deformities. LUNGS: Decreased breath sounds. Positive for crackles. HEART: Normal sinus rhythm. No murmur. No gallops. No rubs. ABDOMEN: Globular, soft, and nontender. No masses. EXTREMITIES: No edema. No deformities. MEDICATIONS: Medications of July 07, 2019, was reviewed. LABORATORY DATA: Laboratories of July 07, 2019, white count 26.1 and hemoglobin 10.8. Sodium 134, potassium 4.1, chloride 97, carbon dioxide 27, BUN 105, creatinine 1.64, glucose 133, and calcium 9.5. ASSESSMENT AND PLAN: 1. Acute kidney injury - secondary to superimposed acute tubular necrosis. Creatinine stable, but there is a slow increase in the creatinine in the last few days. Currently, it is now 1.64. BUN is noted at 105. My bias is to give him an albumin infusion of 25 g IV q.6 for 4 doses. Again, there is no indication for any dialytic intervention. 2. Pneumonia/acute respiratory failure - on supportive care on IV antibiotics. Overall, prognosis remains guarded. Job ID: [id number]
[2019-07-07] MEDS: Amiodarone 200 MG TAB PO SCH ×3 (09:39→21:38)
[2019-07-07] MEDS: Calcium Carbonate + Vit D 1 TAB PO SCH ×2 (09:39→21:39)
[2019-07-07] MEDS: Apixaban 5 MG TAB PO SCH ×2 (09:39→21:38)
[2019-07-07] MEDS: MEROPENEM 1 GM/50 ML 1 GM in Premix Bag 1 BAG IVPB SCH (09:40)
[2019-07-07] MEDS: Polyethylene Glycol 3350 17 GM Packet PER TUBE SCH (09:43)
[2019-07-07] MEDS: Albumin 25% 25 GM/100 ML BOT IVPB SCH ×3 (09:46→21:38)
[2019-07-07] MEDS: Linezolid 600 MG in Premix Bag 1 BAG IVPB SCH (10:30)
--- NOTE | 2019-07-07 10:32 | PDOC.PALPN ---
Palliative Progress Note - Subjective Remains on mechanical ventilation, non responsive. Patient has been off sedation for aproxx 24 hours. - Objective Vital Signs: Vital Signs - Most Recent Temp Pulse Resp BP Pulse Ox 98.8 F 93 20 116/80 99 07/07/19 08:00 07/07/19 07:28 07/07/19 07:27 07/07/19 07:28 07/07/19 07:27 - Physical Exam Constitutional: encephalitic, ill appearing HEENT: moist MMs Deviation from normal: Mechanical ventilation, adventicious to upper, diminished mid/lower Cardiovascular: RRR Gastrointestinal: positive bowel sounds Genitourinary: juárez catheter Musculoskeletal: edema present, muscle wasting Deviation from normal: no purposeful movement Skin: fragile - Assessment (1) Palliative care encounter Code(s): Z51.5 - ENCOUNTER FOR PALLIATIVE CARE Current Visit: Yes Status: Acute (2) Acute renal failure Current Visit: Yes Status: Acute Qualifiers: Acute renal failure type: unspecified Qualified Code(s): N17.9 - Acute kidney failure, unspecified (3) Acute respiratory failure with hypoxia Code(s): J96.01 - ACUTE RESPIRATORY FAILURE WITH HYPOXIA Current Visit: Yes Status: Acute (4) PCP (pneumocystis jiroveci pneumonia) Code(s): B59 - PNEUMOCYSTOSIS Current Visit: Yes Status: Acute (5) Respiratory failure requiring intubation Code(s): J96.90 - RESPIRATORY FAILURE, UNSP, UNSP W HYPOXIA OR HYPERCAPNIA Current Visit: Yes Status: Acute - Plan Plan: Lengthy conversation with patient and biological sons Venkatesh and Howie. Discussed current disease processes and that patient had not been with sedation the last 24 hours. Discussed option of compassionate extubation verses Trach and PEG. Discussed both at length. Answered questions and suggested that although the decisions that were to be made were difficult, the outcome should be a reflection of what Mr Fletcher would desire if he could speak for himself. Family tearful, but found comfort that regardless of decision or outcomes they held to the fact Mr Fletcher had a strong say. Patient to have further testing at noon, will have one more conversation with Dr Coombs and make a decision regarding care this afternoon. [60] minutes spent on this encounter with >50% of the time in counseling and coordination of care. - ROS Non Response: due to endotracheal tube, due to mental status
--- NOTE | 2019-07-07 11:09 | CT ---
CT Brain WO Con: 07/07/2019 6:15 AM CLINICAL HISTORY: History of altered mental status; removed from sedation over 24 hours ago without r esponding. IMAGING TECHNIQUE: Multiple CT images were obtained of the brain without IV contrast. COMPARISON: None. FINDINGS: Brain: No acute infarct or hemorrhage is evident. No midline shift. Ventricles: Normal. No hydrocephalus.. Skull: Intact.. Visualized Paranasal sinuses: Clear.. Mastoid air cells:There are bilateral mastoid effusions Extracranial soft tissues:Normal. IMPRESSION: No acute intracranial abnormality. Bilateral mastoid effusions.
--- NOTE | 2019-07-07 13:26 | PDOC.HOSPP ---
- Subjective Subjective: Seen and examined this a.m. No clinical improvement. Off sedation and not waking up. CT scan of the brain negative. MRI the brain ordered. Prognosis guarded. - Objective Vital Signs & Weight: Vital Signs (12 hours) Temp Pulse Resp BP Pulse Ox 07/07/19 12:00 98.2 F 07/07/19 11:15 89 121/65 07/07/19 11:14 87 23 H 99 07/07/19 08:00 98.8 F 07/07/19 07:28 93 116/80 07/07/19 07:27 94 20 99 07/07/19 06:00 22 H 07/07/19 04:00 98.3 F 28 H 07/07/19 03:15 111 H 07/07/19 03:13 92 L 07/07/19 02:00 24 H Weight Admit Weight 164 lb Weight 168 lb 13.985 oz Most Recent Monitor Data Heart Rate from ECG 86 NIBP 125/70 NIBP BP-Mean 88 Respiration from ECG 27 SpO2 100 I&O: 07/06/19 07/07/19 07/08/19 06:59 06:59 06:59 Intake Total 2422.9 2100.6 30 Output Total 1110 815 160 Balance 1312.9 1285.6 -130 Result Diagrams: 07/07/19 03:45 07/07/19 03:45 Additional Labs: Accuchecks 07/07/19 07/07/19 07/06/19 11:57 03:57 22:51 POC Glucose 114 H 156 H 151 H 07/06/19 16:39 POC Glucose 150 H Radiology Reviewed by me: Yes Hospitalist ROS - Review of Systems ROS unobtainable: due to endotracheal tube - Medication Medications: Active Medications Generic Name Dose Route Start Last Admin Trade Name Freq PRN Reason Stop Dose Admin Albumin Human 25 gm 07/07/19 09:00 07/07/19 09:46 Albumin 25% IVPB 07/08/19 03:01 25 gm 0300,0900,1500,2100 ALYSE Administration Amiodarone HCl 200 mg 06/29/19 15:00 07/07/19 09:39 Cordarone PO 200 mg TID ALYSE Administration Apixaban 5 mg 06/21/19 09:00 07/07/19 09:39 Eliquis PO 5 mg BID ALYSE Administration Atorvastatin Calcium 20 mg 06/20/19 21:00 07/06/19 21:57 Lipitor PO 20 mg HS ALYSE Administration Calcium/Vitamin D 1 tab 06/21/19 21:00 07/07/19 09:39 Caltrate 600 + Vit D PO 1 tab BID ALYSE Administration Micafungin Sodium 100 mg/ 100 mls @ 100 mls/hr 06/27/19 14:00 07/06/19 16:38 Sodium Chloride IVPB 100 mls 1400 ALYSE Administration Pentamidine Isethionate 300 mg 250 mls @ 250 mls/hr 06/29/19 17:00 07/06/19 17:18 / Dextrose/Water IVPB 250 mls Q24HR ALYSE Administration Linezolid 600 mg/ Device 300 mls @ 150 mls/hr 07/02/19 21:00 07/07/19 10:30 IVPB 300 mls Q12HR ALYSE Administration Meropenem 1 gm/ Device 50 mls @ 100 mls/hr 07/02/19 21:00 07/07/19 09:40 IVPB 50 mls Q12HR ALYSE Administration Norepinephrine Bitartrate 250 mls @ 0 mls/hr 07/05/19 00:59 07/06/19 12:02 Levophed IVPB 250 mls INF ALYSE Administration Protocol Titrate Insulin Human Lispro 0 units 06/25/19 09:34 07/07/19 03:58 Humalog SC 2 unit .MODERATE SLIDING SC PRN Administration Moderate Correctional Scale Ipratropium [place] 2.5 ml 06/29/19 14:30 07/07/19 11:14 Atrovent NEB 2.5 ml [id number] ALYSE Administration Polyethylene Glycol 17 gm 06/26/19 09:00 07/07/19 09:43 Miralax PER TUBE 17 gm DAILY ALYSE Administration Prednisone 40 mg 07/07/19 08:00 07/07/19 07:08 Prednisone PO 40 mg QAM-WM ALYSE Administration Sodium Chloride 10 ml 06/19/19 17:20 06/23/19 21:56 Flush - Normal Saline IVF 10 ml Q12HR PRN Administration Saline Flush - Exam General Appearance: NAD Eye: anicteric sclera ENT: normocephalic atraumatic, moist mucosa Neck: supple, symmetric, no lymphadenopathy Heart: no murmur, no gallops, no rubs Respiratory: no rales, no tachypnea, rhonchi (few scattered), wheezes (Improving ) Gastrointestinal: soft, non-tender, no guarding, no rigidity Extremities: 2+ LE edema Skin: no lesions, no rashes Neurological: no focal deficits (Follows no commands. Intact cough and gag) Musculoskeletal: diffuse muscle atrophy Psychiatric: not oriented Hosp A/P (1) Acute renal failure Status: Acute Qualifiers: Acute renal failure type: unspecified Qualified Code(s): N17.9 - Acute kidney failure, unspecified (2) Acute respiratory failure with hypoxia Code(s): J96.01 - ACUTE RESPIRATORY FAILURE WITH HYPOXIA Status: Acute (3) Atrial fibrillation with RVR Code(s): I48.91 - UNSPECIFIED ATRIAL FIBRILLATION Status: Acute (4) CHF (congestive heart failure) Code(s): I50.9 - HEART FAILURE, UNSPECIFIED Status: Acute Qualifiers: Heart failure type: systolic Heart failure chronicity: acute Qualified Code(s): I50.21 - Acute systolic (congestive) heart failure (5) Hypotension Status: Acute Qualifiers: Hypotension type: idiopathic hypotension Qualified Code(s): I95.0 - Idiopathic hypotension (6) Leukopenia Code(s): D72.819 - DECREASED WHITE BLOOD CELL COUNT, UNSPECIFIED Status: Acute Qualifiers: Leukopenia type: neutropenia Neutropenia type: other drug-induced Qualified Code(s): D70.2 - Other drug-induced agranulocytosis (7) PCP (pneumocystis jiroveci pneumonia) Code(s): B59 - PNEUMOCYSTOSIS Status: Acute (8) Respiratory failure requiring intubation Code(s): J96.90 - RESPIRATORY FAILURE, UNSP, UNSP W HYPOXIA OR HYPERCAPNIA Status: Acute (9) Sepsis associated hypotension Code(s): A41.9 - SEPSIS, UNSPECIFIED ORGANISM; I95.9 - HYPOTENSION, UNSPECIFIED Status: Acute (10) Shock Code(s): R57.9 - SHOCK, UNSPECIFIED Status: Acute (11) Atrial fibrillation Code(s): I48.91 - UNSPECIFIED ATRIAL FIBRILLATION Status: Chronic Qualifiers: Atrial fibrillation type: unspecified Qualified Code(s): I48.91 - Unspecified atrial fibrillation (12) CKD (chronic kidney disease) Code(s): N18.9 - CHRONIC KIDNEY DISEASE, UNSPECIFIED Status: Chronic Qualifiers: Chronic kidney disease stage: stage 3 (moderate) Qualified Code(s): N18.3 - Chronic kidney disease, stage 3 (moderate) (13) Pneumonia Code(s): J18.9 - PNEUMONIA, UNSPECIFIED ORGANISM Status: Acute Qualifiers: 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 Laterality: bilateral - Plan Plan: Intensive care unit pulmonology/critical-care consultation, recommendations appreciated nephrology consultation, recommendations appreciated infectious disease consultation, recommendations appreciated palliative care consultation, recommendations appreciated CT head noted, no acute pathology MRI brain vasoactive medications as needed to maintain mean arterial blood pressure greater than 65 ventilator support patient's mentation and hypoxia are limiting vent weaning trials at this time pneumocystis jirovecii pneumonia with adverse reaction to Bactrim, on pentamidine per ID broad-spectrum antibiotics with coverage for nosocomial infections per ID continue other home medications as able enteral nutrition blood sugar control Dispostion: short of long-term prognosis are guarded. Family deciding between tracheostomy and PEG tube versus compassionate extubation.
[2019-07-07] MEDS: Micafungin 100 MG in Sodium Chloride 0.9% 100 ML IVPB SCH (14:20)
--- NOTE | 2019-07-07 17:15 | MRI ---
MRI BRAIN NONCONTRAST: DATE: 07/07/2019 HISTORY: 74-year-old male with altered mental status. FINDINGS: There is no obstructive hydrocephalus. There is no midline shift or any other evidence of mass effect . There is no extra-axial fluid collection. There are mild chronic ischemic white matter changes due to microvascular atherosclerosis. There is otherwise no major intra-axial signal abnormality, rec ent hemorrhage, or restricted diffusion. There is a tiny, punctate focus of remote hemorrhage in the right parietal lobe. There is fluid filling the entire nasopharyngeal airway. There is a large am ount of fluid throughout bilateral mastoid air cells, mastoid antra, and middle ear cavities. IMPRESSION: 1) mild chronic ischemic white matter changes. 2) otherwise negative brain. 3) extensive bilateral tympanomastoid effusions. 4) fluid filling the nasopharyngeal airway. Risk for aspiration.
[2019-07-07] MEDS: Atorvastatin Calcium 20 MG TAB PO SCH (21:38)
[2019-07-08] MEDS: Ipratropium Bromide 2.5 ml Neb NEB SCH ×6 (02:19→21:53)
[2019-07-08] MEDS: Albumin 25% 25 GM/100 ML BOT IVPB SCH (04:06)
[2019-07-08] MEDS: HumaLOG 300 UNITS/3 ML VIAL SC PRN ×2 (04:06→22:39)
[2019-07-08] MEDS: Norepinephrine 8 MG/0.9% NS 250 ML IVPB SCH ×2 (04:35→16:19)
[2019-07-08 04:51] LABS: Anion Gap 12 mmol/L (10-20); BUN (Urea Nitrogen) 91 mg/dL (8.4-25.7); Calc. Creatinine Clearance 51 mL/min (70-130); Calcium 9.4 mg/dL (7.8-10.44); Carbon Dioxide 28 mmol/L (23-31); Chloride 101 mmol/L (98-107); Estimated GFR-MDRD 52; Glucose 140 mg/dL (83-110); Sodium 138 mmol/L (136-145)
[2019-07-08 04:55] LABS: Potassium 2.8 mmol/L (3.5-5.1)
[2019-07-08 05:22] LABS: Band 9 % (5-11); Hemoglobin 8.8 g/dL (14.0-18.0); Lymphocytes 1 % (21-51); MDiff Complete? YES; Mean Corpuscular HGB CONC 32.5 g/dL (32.0-36.0); Mean Corpuscular Hemoglobin 31.2 pg (27.0-31.0); Mean Corpuscular Volume 95.8 fL (78.0-98.0); Mean Platelet Volume 7.9 fL (7.4-10.4); Metamyelocyte 1 % (0-0); Monocytes 3 % (0-10); Myelocyte 2 % (0-0); Neutrophil 84 % (42-75); Platelet Count 299 thou/uL (130-400); Polychromasia SLIGHT = 2-3 cells (100X) (0-2/hpf); RBC Distribution Width 18.5 % (11.5-14.5); Red Blood Cell (RBC) Count 2.81 mill/uL (4.70-6.10); White Blood Cell (WBC) Count 20.8 thou/uL (4.8-10.8)
[2019-07-08] MEDS ORDERED: CCU Electrolyte Replacement 1 EACH FS ONE (05:23)
[2019-07-08] MEDS ORDERED: PHOS-NAK 1 PKT PACK PO PRN ×2 (05:29)
[2019-07-08] MEDS ORDERED: CCU ELECTROLYTE REPLACEMENT PROTOCOL FS PRN (05:29)
[2019-07-08] MEDS ORDERED: Potassium Phosphate 15 MMOL in Sodium Chloride 0.9% 250 ML 250 ML IV PRN (05:29)
[2019-07-08] MEDS ORDERED: Potassium Chloride 20 MEQ TAB PO PRN (05:29)
[2019-07-08] MEDS ORDERED: Magnesium Oxide 400 MG TAB PO PRN ×2 (05:29)
[2019-07-08] MEDS ORDERED: Potassium Phosphate 9 MMOL in Sodium Chloride 0.9% 100 ML IVPB PRN (05:29)
[2019-07-08] MEDS ORDERED: Magnesium 2 GM/50 ML 2 GM in Premix Bag 1 BAG IVPB PRN (05:29)
[2019-07-08] MEDS ORDERED: Potassium Chloride 40 MEQ in Sodium Chloride 0.9% 250 ML 250 ML IVPB PRN (05:29)
[2019-07-08] MEDS ORDERED: Potassium Chloride 40 MEQ in Premix Bag 1 BAG IVPB PRN (05:29)
[2019-07-08] MEDS ORDERED: Potassium Phosphate 12 MMOL in Sodium Chloride 0.9% 250 ML 250 ML IV PRN (05:29)
[2019-07-08] MEDS: predniSONE 20 MG TAB PO SCH (08:05)
[2019-07-08] MEDS: Calcium Carbonate + Vit D 1 TAB PO SCH ×2 (08:51→20:56)
[2019-07-08] MEDS: Amiodarone 200 MG TAB PO SCH ×3 (08:51→20:55)
[2019-07-08] MEDS: Apixaban 5 MG TAB PO SCH ×2 (08:51→20:55)
[2019-07-08] MEDS: Polyethylene Glycol 3350 17 GM Packet PER TUBE SCH (08:52)
[2019-07-08 10:05] LABS: Potassium 3.5 mmol/L (3.5-5.1)
--- NOTE | 2019-07-08 11:21 | PRG ---
DATE OF SERVICE: 07/08/2019 SERVICE: Pulmonary Medicine. INTERVAL HISTORY: The patient is doing well from respiratory standpoint. His oxygen requirements have actually improved a little bit. His urine output has picked up over the last 24 hours, and his BUN and creatinine have actually improved significantly. He cannot provide any additional elements of the history, and he is still in a semi-comatose state. I had a very long conversation with the patient's family today. Ultimately, they would like to continue supportive care for a day or two and pursue PEG tube and tracheostomy to see whether or not he wakes up. In the event that he does, they would like to be aggressive with PEG tube and tracheostomy, particularly if his mentation improves slightly. Otherwise, there has been no interval change to his condition. PHYSICAL EXAMINATION: VITAL SIGNS: Afebrile, pulse 66 , blood pressure 121/65, respirations 22, saturation 97%, on 40% FiO2 and a PEEP of 10. GENERAL: The patient is intubated. He has been off sedation for 3 days, but remains encephalopathic. HEENT: Normocephalic and atraumatic. Sclerae white. Conjunctivae pink. Oral mucosa is moist without lesions. He has better color today. He is far less pallor. LUNGS: Much improved air entry. Crackles are present. No prolonged expiratory phase is appreciated. HEART: Normal rate. Irregular. ABDOMEN: Soft, nontender, and nondistended. Bowel sounds are positive. MUSCULOSKELETAL: No cyanosis or clubbing. He has diffuse edema throughout. NEUROLOGIC: Grossly nonfocal. LABORATORY DATA: WBC 20.8 and gently downtrending, hemoglobin 8.8, platelets 299,000. Potassium 2.8, has improved to 3.5. Creatinine 1.33 and significantly downtrending. BUN has also improved. HIV 1 and 2 are nonreactive. Blood culture x2 were previously growing Staph epidermidis. Repeat blood cultures have been negative. Respiratory virus panel was unremarkable on presentation. IMAGIN. CT of the brain demonstrates no acute intracranial abnormality other than some mastoid effusions. 2. MRI of the brain demonstrates no acute intracranial abnormality other than the same mastoid effusions. ASSESSMENT: 1. Acute hypoxic respiratory failure, improving. 2. Pneumocystis jiroveci pneumonia, improving based on CT scan. 3. Acute kidney injury on possible chronic kidney disease, improving. 4. Atrial fibrillation with rapid ventricular rate, currently rate controlled. 5. Staphylococcus epidermidis bacteremia. 6. Metabolic encephalopathy, suspected. DISCUSSION AND PLAN: We are going to give the patient a little bit more time for some these toxins to clear to see if he wakes up. In the event that he wakes up, the patient's family would like to be a little bit more aggressive through time, particularly if he can make a functional recovery. In order to know that, we will need to clear these toxins. Surgical consultation will be placed tomorrow morning. CRITICAL CARE TIME: 30 minutes. Job ID: [id number]
--- NOTE | 2019-07-08 12:26 | PRG ---
DATE OF SERVICE: 07/08/2019 SUBJECTIVE: Mr. Fletcher is a 74-year-old white male, admitted for acute respiratory failure secondary to underlying pneumonia. He is currently on several IV antibiotics. We saw this patient due to his acute kidney injury secondary to acute tubular necrosis. Yesterday, we noted the creatinine was worsening at 1.6. Empiric colloid albumin infusion was done, which slightly improved the renal function. At the same time, his leukocytosis is improving over time. No acute events noted. OBJECTIVE: VITAL SIGNS: Blood pressure 121/65, heart rate 71, respiratory rate 20, and pulse ox 96%. GENERAL: The patient is sedated and intubated on ventilator support. SKIN: Adequate turgor. HEENT: Pinkish conjunctivae. Anicteric sclerae. NECK: No neck mass. No carotid bruits. No JVD. CHEST: No deformities. LUNGS: Decreased breath sounds. HEART: Normal sinus rhythm. No murmur. No gallops. No rubs. ABDOMEN: Soft and nontender. No masses. EXTREMITIES: No edema. No deformities. MEDICATIONS: Medications of July 07, 2019, were reviewed. LABORATORY DATA: Laboratories of July 08, 2019; white count 20.8, hemoglobin 8.8. Sodium 138, potassium 2.8, chloride 101, carbon dioxide 28, BUN 91, creatinine 1.33, glucose 140, and calcium 9.4. ASSESSMENT AND PLAN: 1. Acute kidney injury - secondary to acute tubular necrosis. A component of volume depletion also remains. Improved creatinine from 1.6 to 1.3 with albumin infusion. No indication for any dialytic intervention. 2. Hypokalemia. Potassium is much improved from 2.8 to 3.5. 3. Pneumonia. Multifactorial organisms, underlying Pneumocystis carinii - currently on IV pentamidine and IV antibiotics. 4. Agree with current management. Job ID: [id number]
--- NOTE | 2019-07-08 14:56 | PRG ---
DATE OF SERVICE: 07/08/2019 SUBJECTIVE: Mr. Fletcher is intubated. He is reacting a little bit more, is grimacing, and moving side to side, coughing better. I believe the family discussed with cash control specialist regarding aggressiveness of care and the intent to continue with and go for trach and PEG if needed. OBJECTIVE: VITAL SIGNS: The patient's temperature has been normal and his blood pressure, pulse 80, respirations 24, O2 saturation is 100% with FiO2 of 35, PEEP of 8, which is marked improvement from previous findings. His I's and O's still on the positive side up until today when he was negative 600. HEENT: Pupils are about 2 mm and reactive. CHEST: Symmetric air entry. LUNGS: Clear lung sounds. HEART: S1 and S2 regular rate. ABDOMEN: Soft. Not distended. EXTREMITIES: He has some movement in extremities. He grimaces. His white cell count is down to 20.8, hemoglobin 8.8, platelets 299 with 84% neutrophils. Creatinine 1.33. Microbiology, negative blood cultures from the last month. Brain MRI with mild chronic ischemic white matter changes, otherwise not remarkable. He does have bilateral tympanomastoid effusions. He has received a total of 15 days of anti Pneumocystis therapy and schedule for another 6 days and then transition to suppressive Bactrim via NG tube. He is off the broad- spectrum coverage right now. Family opted for continuation of full interventions including trach/peg if they are indicated. Overall there is clear cut improvement in lung function with reduction in O2/ pressure requirements. Neurological status still a concern. He will complete 21 days of anti pneumocystis soon, then switch to prophylaxis via NG tube. Job ID: [id number] [facility]
--- NOTE | 2019-07-08 15:08 | PDOC.HOSPP ---
- Subjective Subjective: Seen and examined. Patient remains off sedation, still not waking up. Patient is moving a little more in the bed them before. Oxygenation requirements are less. Urine output and renal function have improved. Patient family at bedside, all questions answered in detail. Patient's family would like to continue all aggressive measures and if he does not wake up we will be pursuing tracheostomy and PEG tube placement. Patient's family happy with plan of care. - Objective Vital Signs & Weight: Vital Signs (12 hours) Temp Pulse Resp BP Pulse Ox 07/08/19 14:30 78 107/59 L 07/08/19 14:29 78 24 H 99 07/08/19 12:00 98.1 F 20 07/08/19 10:17 66 121/65 07/08/19 10:16 71 20 96 07/08/19 10:00 22 H 07/08/19 08:00 98.2 F 24 H 07/08/19 06:58 64 98/56 L 07/08/19 06:57 69 18 98 07/08/19 06:00 20 07/08/19 04:00 97.9 F 23 H Weight Admit Weight 164 lb Weight 163 lb 12.855 oz Most Recent Monitor Data Heart Rate from ECG 77 NIBP 119/67 NIBP BP-Mean 84 Respiration from ECG 20 SpO2 100 I&O: 07/07/19 07/08/19 07/09/19 06:59 06:59 06:59 Intake Total 2100.6 2118 150 Output Total 815 2730 550 Balance 1285.6 -612 -400 Result Diagrams: 07/08/19 03:50 07/08/19 09:25 Additional Labs: Accuchecks 07/08/19 07/08/19 07/07/19 09:31 03:51 21:44 POC Glucose 96 157 H 208 H 07/07/19 16:09 POC Glucose 201 H Hospitalist ROS - Review of Systems ROS unobtainable: due to endotracheal tube - Medication Medications: Active Medications Generic Name Dose Route Start Last Admin Trade Name Freq PRN Reason Stop Dose Admin Amiodarone HCl 200 mg 06/29/19 15:00 07/08/19 08:51 Cordarone PO 200 mg TID ALYSE Administration Apixaban 5 mg 06/21/19 09:00 07/08/19 08:51 Eliquis PO 5 mg BID ALYSE Administration Atorvastatin Calcium 20 mg 06/20/19 21:00 07/07/19 21:38 Lipitor PO 20 mg HS ALYSE Administration Calcium/Vitamin D 1 tab 06/21/19 21:00 07/08/19 08:51 Caltrate 600 + Vit D PO 1 tab BID ALYSE Administration Pentamidine Isethionate 300 mg 250 mls @ 250 mls/hr 06/29/19 17:00 07/07/19 17:31 / Dextrose/Water IVPB 250 mls Q24HR ALYSE Administration Norepinephrine Bitartrate 250 mls @ 0 mls/hr 07/05/19 00:59 07/08/19 04:35 Levophed IVPB 250 mls INF ALYSE Administration Protocol Titrate Insulin Human Lispro 0 units 06/25/19 09:34 07/08/19 04:06 Humalog SC 2 unit .MODERATE SLIDING SC PRN Administration Moderate Correctional Scale Ipratropium [place] 2.5 ml 06/29/19 14:30 07/08/19 14:29 Atrovent NEB 2.5 ml O2PS-HX ALYSE Administration Polyethylene Glycol 17 gm 06/26/19 09:00 07/08/19 08:52 Miralax PER TUBE Not Given DAILY ALYSE Potassium Chloride 40 meq 07/08/19 05:29 07/08/19 05:35 Klor-Con PER TUBE 40 meq ASDIR PRN Administration FOR SERUM K+ 2.5-3.5 Prednisone 40 mg 07/07/19 08:00 07/08/19 08:05 Prednisone PO 40 mg QAM-WM ALYSE Administration Sodium Chloride 10 ml 06/19/19 17:20 06/23/19 21:56 Flush - Normal Saline IVF 10 ml Q12HR PRN Administration Saline Flush - Exam General Appearance: NAD. negative: awake alert Eye: PERRL ENT: normocephalic atraumatic, moist mucosa Neck: supple, no lymphadenopathy Heart: no murmur, no gallops, no rubs Respiratory: no rales, no ronchi (few faint), no tachypnea, wheezes (few scattered) Gastrointestinal: soft, non-tender, no guarding, no rigidity Extremities: 2+ LE edema Skin: normal turgor, no rashes Neurological: cranial nerve grossly intact, no focal deficits Musculoskeletal: generalized weakness Psychiatric: not oriented Hosp A/P (1) Acute renal failure Status: Acute Qualifiers: Acute renal failure type: unspecified Qualified Code(s): N17.9 - Acute kidney failure, unspecified (2) Acute respiratory failure with hypoxia Code(s): J96.01 - ACUTE RESPIRATORY FAILURE WITH HYPOXIA Status: Acute (3) Atrial fibrillation with RVR Code(s): I48.91 - UNSPECIFIED ATRIAL FIBRILLATION Status: Acute (4) CHF (congestive heart failure) Code(s): I50.9 - HEART FAILURE, UNSPECIFIED Status: Acute Qualifiers: Heart failure type: systolic Heart failure chronicity: acute Qualified Code(s): I50.21 - Acute systolic (congestive) heart failure (5) Hypotension Status: Acute Qualifiers: Hypotension type: idiopathic hypotension Qualified Code(s): I95.0 - Idiopathic hypotension (6) Leukopenia Code(s): D72.819 - DECREASED WHITE BLOOD CELL COUNT, UNSPECIFIED Status: Acute Qualifiers: Leukopenia type: neutropenia Neutropenia type: other drug-induced Qualified Code(s): D70.2 - Other drug-induced agranulocytosis (7) PCP (pneumocystis jiroveci pneumonia) Code(s): B59 - PNEUMOCYSTOSIS Status: Acute (8) Respiratory failure requiring intubation Code(s): J96.90 - RESPIRATORY FAILURE, UNSP, UNSP W HYPOXIA OR HYPERCAPNIA Status: Acute (9) Sepsis associated hypotension Code(s): A41.9 - SEPSIS, UNSPECIFIED ORGANISM; I95.9 - HYPOTENSION, UNSPECIFIED Status: Acute (10) Shock Code(s): R57.9 - SHOCK, UNSPECIFIED Status: Acute (11) Atrial fibrillation Code(s): I48.91 - UNSPECIFIED ATRIAL FIBRILLATION Status: Chronic Qualifiers: Atrial fibrillation type: unspecified Qualified Code(s): I48.91 - Unspecified atrial fibrillation (12) CKD (chronic kidney disease) Code(s): N18.9 - CHRONIC KIDNEY DISEASE, UNSPECIFIED Status: Chronic Qualifiers: Chronic kidney disease stage: stage 3 (moderate) Qualified Code(s): N18.3 - Chronic kidney disease, stage 3 (moderate) (13) Pneumonia Code(s): J18.9 - PNEUMONIA, UNSPECIFIED ORGANISM Status: Acute Qualifiers: 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 Laterality: bilateral - Plan Plan: Intensive care unit pulmonology/critical-care consultation, recommendations appreciated nephrology consultation, recommendations appreciated infectious disease consultation, recommendations appreciated palliative care consultation, recommendations appreciated CT head noted, no acute pathology MRI brain noted, no acute pathology vasoactive medications as needed to maintain mean arterial blood pressure greater than 65 ventilator support patient's mentation and hypoxia are limiting vent weaning trials at this time pneumocystis jirovecii pneumonia with adverse reaction to Bactrim, on pentamidine per ID broad-spectrum antibiotics have been discontinued per ID continue other home medications as able enteral nutrition blood sugar control Trend renal function Dispostion: Short and long-term prognosis are guarded. Family interested in aggressive measures including tracheostomy and PEG tube.
[2019-07-08] MEDS: Atorvastatin Calcium 20 MG TAB PO SCH (20:55)
[2019-07-09] MEDS: Ipratropium Bromide 2.5 ml Neb NEB SCH ×6 (02:31→22:22)
[2019-07-09 04:52] LABS: Phosphorus 2.2 mg/dL (2.3-4.7)
[2019-07-09 04:56] LABS: Anion Gap 10 mmol/L (10-20); BUN (Urea Nitrogen) 79 mg/dL (8.4-25.7); Calc. Creatinine Clearance 68 mL/min (70-130); Calcium 10.3 mg/dL (7.8-10.44); Carbon Dioxide 31 mmol/L (23-31); Chloride 103 mmol/L (98-107); Estimated GFR-MDRD 75; Glucose 132 mg/dL (83-110); Magnesium 2.4 mg/dL (1.6-2.6); Potassium 3.7 mmol/L (3.5-5.1); Sodium 140 mmol/L (136-145)
[2019-07-09 05:44] LABS: Anisocytosis SLIGHT = 6-15 cells (100X) (0-5/hpf); Band 14 % (5-11); Eosinophils 1 % (0-10); Hemoglobin 9.8 g/dL (14.0-18.0); Lymphocytes 3 % (21-51); MDiff Complete? YES; Mean Corpuscular HGB CONC 32.6 g/dL (32.0-36.0); Mean Corpuscular Hemoglobin 31.5 pg (27.0-31.0); Mean Corpuscular Volume 96.7 fL (78.0-98.0); Mean Platelet Volume 7.7 fL (7.4-10.4); Monocytes 2 % (0-10); Myelocyte 1 % (0-0); Neutrophil 79 % (42-75); Nucleated RBC 1 % (0); Platelet Count 277 thou/uL (130-400); Platelet Morphology Comment Appears Adequate; Polychromasia SLIGHT = 2-3 cells (100X) (0-2/hpf); RBC Distribution Width 18.8 % (11.5-14.5); Red Blood Cell (RBC) Count 3.09 mill/uL (4.70-6.10); White Blood Cell (WBC) Count 20.1 thou/uL (4.8-10.8)
[2019-07-09] MEDS: Apixaban 5 MG TAB PO SCH ×2 (08:05→20:48)
[2019-07-09] MEDS: Amiodarone 200 MG TAB PO SCH ×3 (08:05→20:47)
[2019-07-09] MEDS: predniSONE 20 MG TAB PO SCH (08:05)
[2019-07-09] MEDS: Calcium Carbonate + Vit D 1 TAB PO SCH ×2 (08:05→20:47)
[2019-07-09] MEDS: Polyethylene Glycol 3350 17 GM Packet PER TUBE SCH (08:06)
--- NOTE | 2019-07-09 10:19 | PRG ---
DATE OF SERVICE: 07/09/2019 SUBJECTIVE: Mr. Fletcher is a 74-year-old white male, who was admitted for acute respiratory failure, intubated, diagnosed to have a pneumonia. He is on empiric IV antibiotics as well as an antifungal regimen. 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 His renal function over time has slowly been improving. He had suffered an acute tubular necrosis. Leukocytosis noted also to be improving. No acute events noted last night. OBJECTIVE: VITAL SIGNS: Blood pressure 107/59, heart rate 92, respiratory rate 30, pulse ox 90%. GENERAL: Noted to be sedated, intubated, on ventilator support. SKIN: Adequate turgor. HEENT: He has pinkish conjunctivae. Anicteric sclerae. NECK: No neck mass. No carotid bruits. No JVD. CHEST: No deformities. LUNGS: Harsh breath sounds. HEART: Normal sinus rhythm. No murmur. No gallops. No rubs. ABDOMEN: Globular, soft, nontender. No masses. EXTREMITIES: No edema. No deformities. MEDICATIONS: Medications of July 09, 2019, was reviewed. LABORATORY DATA: Laboratories of July 09, 2019, white count 20.1, hemoglobin 9.8. Sodium 140, potassium 3.7, chloride 103, carbon dioxide 31, BUN 79, creatinine 0.97, calcium 10.3, magnesium 2.4, phosphorus 2.2. ASSESSMENT AND PLAN: 1. Acute kidney injury-secondary to an acute tubular necrosis. Acute renal failure has resolved. Creatinine is now noted at 0.97. Continue supportive care, p.r.n. volume repletion as needed. 2. Pneumonia-on empiric IV antibiotics. ID following. 3. Acute respiratory failure-continue supportive care. Pulmonary Medicine is following. The patient is still not a candidate for extubation. Overall prognosis still remains guarded. Job ID: [id number]
[2019-07-09] MEDS ORDERED: Furosemide 40 MG/4 ML VIAL SLOW IVP SCH (10:45)
[2019-07-09] MEDS: PHOS-NAK 1 PKT PACK PO SCH ×2 (11:11→16:30)
--- NOTE | 2019-07-09 11:15 | PRG ---
DATE OF SERVICE: 07/09/2019 SERVICE: Pulmonary Medicine. INTERVAL HISTORY: The patient is doing okay from respiratory standpoint. His oxygen requirements continue to improve. He cannot provide any additional elements of the history. He has been off his sedation now for 3 days. Today, his mentation is actually improved ever so slightly. He is not awake or following any commands. He is not opening his eyes or attending, but today, he is withdrawing appropriately from noxious stimuli and demonstrates a grimace, particularly with upper extremity stimulation. The patient's family would like to proceed with tracheostomy and PEG tube placement. PHYSICAL EXAMINATION: VITAL SIGNS: Afebrile, pulse 94, blood pressure 102/65, respirations 30, saturation 95%, currently on 40% FiO2 and a PEEP of 8. GENERAL: The patient is intubated. He is stuporous. HEENT: Normocephalic and atraumatic. Sclerae are white. Conjunctivae are pink. Oral mucosa is moist without lesions. LUNGS: Rhonchi and crackles remain. No prolonged expiratory phase or wheezing is appreciated. HEART: Normal rate, regular. ABDOMEN: Soft, nontender, and nondistended. Bowel sounds are positive. MUSCULOSKELETAL: No cyanosis or clubbing. There is 2 to 3+ pitting throughout. NEUROLOGIC: Grossly nonfocal. LABORATORY DATA: WBC 20.1, hemoglobin 9.8, platelets 277,000. Neutrophil count is 79% on top of 14% bands. D-dimer 0.75. A pH 7.43, pCO2 of 49, pO2 of 70. Basic metabolic profile is otherwise unremarkable with an improving BUN and a creatinine that is now 0.97. Phosphorus 2.2. ASSESSMENT: 1. Acute hypoxic respiratory failure, improving. 2. Pneumocystis jiroveci pneumonia, improving based on CT. 3. Acute kidney injury. 4. Atrial fibrillation with rapid ventricular response, rate controlled. 5. Metabolic encephalopathy. DISCUSSION AND PLAN: We will introduce a little bit of D5 water and start to diurese the patient if tolerated. Occupational therapy and physical therapy will be enlisted to help mobilize this patient as much as tolerated. Surgical consultation will be placed to proceed with tracheostomy and PEG tube placement. Phosphorus and potassium will be replaced. Pulmonary/Critical Care will continue to follow closely. Critical care time: 30 minutes. Job ID: [id number] [facility]
[2019-07-09] MEDS ORDERED: Digoxin 0.5 MG/2 ML AMP ONE (13:51)
[2019-07-09] MEDS: Digoxin 0.5 MG/2 ML AMP SLOW IVP SCH ×3 (13:56→18:31)
--- NOTE | 2019-07-09 15:39 | PDOC.HOSPP ---
- Subjective Subjective: Seen and examined. at bedside, all questions answered in detail. Overall no significant clinical change. Patient's wishing to proceed with tracheostomy and PEG tube placement if he does not clinically improved. - Objective Vital Signs & Weight: Vital Signs (12 hours) Temp Pulse Resp BP Pulse Ox 07/09/19 14:49 90 116/86 07/09/19 14:48 98 35 H 99 07/09/19 14:00 31 H 07/09/19 13:56 120 H 07/09/19 12:00 97.8 F 31 H 07/09/19 10:52 84 109/68 07/09/19 10:51 76 28 H 97 07/09/19 10:00 26 H 07/09/19 08:00 98.3 F 31 H 99 07/09/19 07:39 80 98/66 07/09/19 07:38 79 22 H 99 07/09/19 06:00 22 H 07/09/19 04:00 97.5 F L 23 H Weight Admit Weight 164 lb Weight 168 lb 6.931 oz Most Recent Monitor Data Heart Rate from ECG 102 NIBP 124/76 NIBP BP-Mean 92 Respiration from ECG 33 SpO2 96 I&O: 07/08/19 07/09/19 07/10/19 06:59 06:59 06:59 Intake Total 2118 2612 60 Output Total 7000 1713 565 Balance -612 899 -505 Result Diagrams: 07/09/19 04:00 07/09/19 04:00 Additional Labs: Accuchecks 07/09/19 07/09/19 07/08/19 10:07 04:06 22:30 POC Glucose 149 H 141 H 195 H Radiology Reviewed by me: Yes Hospitalist ROS - Review of Systems All other systems reviewed; all pertinent +/- noted in HPI/Subj - Medication Medications: Active Medications Generic Name Dose Route Start Last Admin Trade Name Freq PRN Reason Stop Dose Admin Amiodarone HCl 200 mg 06/29/19 15:00 07/09/19 08:05 Cordarone PO 200 mg TID ALYSE Administration Apixaban 5 mg 06/21/19 09:00 07/09/19 08:05 Eliquis PO 5 mg BID ALYSE Administration Atorvastatin Calcium 20 mg 06/20/19 21:00 01/03/20 20:55 Lipitor PO 20 mg HS ALYSE Administration Calcium/Vitamin D 1 tab 06/21/19 21:00 07/09/19 08:05 Caltrate 600 + Vit D PO 1 tab BID ALYSE Administration Digoxin 0.25 mg 07/09/19 14:00 07/09/19 13:56 Lanoxin SLOW IVP 07/09/19 18:01 0.25 mg Q2HR ALYSE Administration Pentamidine Isethionate 300 mg 250 mls @ 250 mls/hr 06/29/19 17:00 07/08/19 17:30 / Dextrose/Water IVPB 250 mls Q24HR ALYSE Administration Norepinephrine Bitartrate 250 mls @ 0 mls/hr 07/05/19 00:59 07/08/19 16:19 Levophed IVPB 250 mls INF ALYSE Administration Protocol Titrate Insulin Human Lispro 0 units 06/25/19 09:34 07/08/19 22:39 Humalog SC 2 unit .MODERATE SLIDING SC PRN Administration Moderate Correctional Scale Ipratropium [place] 2.5 ml 06/29/19 14:30 07/09/19 14:48 Atrovent NEB 2.5 ml [id number] ALYSE Administration Miscellaneous Medication 2 pkt 07/09/19 12:00 07/09/19 11:11 Phos-Nak PO 07/10/19 08:01 2 pkt TID-WM ALYSE Administration Polyethylene Glycol 17 gm 06/26/19 09:00 07/09/19 08:06 Miralax PER TUBE Not Given DAILY ALYSE Potassium Chloride 40 meq 07/08/19 05:29 07/08/19 05:35 Klor-Con PER TUBE 40 meq ASDIR PRN Administration FOR SERUM K+ 2.5-3.5 Prednisone 40 mg 07/07/19 08:00 07/09/19 08:05 Prednisone PO 40 mg QAM-WM ALYSE Administration Sodium Chloride 10 ml 06/19/19 17:20 06/23/19 21:56 Flush - Normal Saline IVF 10 ml Q12HR PRN Administration Saline Flush - Exam General Appearance: ill appearing Eye: PERRL ENT: normocephalic atraumatic, moist mucosa Neck: supple, symmetric, no lymphadenopathy Heart: no murmur, no gallops, no rubs Respiratory: no rales, normal chest expansion, rhonchi, wheezes (Improving) Gastrointestinal: soft, non-tender, no guarding, no rigidity Extremities: 2+ LE edema Skin: no lesions, no rashes Neurological - other findings: Follows no commands. Psychiatric: not oriented Hosp A/P (1) Acute renal failure Status: Acute Qualifiers: Acute renal failure type: unspecified Qualified Code(s): N17.9 - Acute kidney failure, unspecified (2) Acute respiratory failure with hypoxia Code(s): J96.01 - ACUTE RESPIRATORY FAILURE WITH HYPOXIA Status: Acute (3) Atrial fibrillation with RVR Code(s): I48.91 - UNSPECIFIED ATRIAL FIBRILLATION Status: Acute (4) CHF (congestive heart failure) Code(s): I50.9 - HEART FAILURE, UNSPECIFIED Status: Acute Qualifiers: Heart failure type: systolic Heart failure chronicity: acute Qualified Code(s): I50.21 - Acute systolic (congestive) heart failure (5) Hypotension Status: Acute Qualifiers: Hypotension type: idiopathic hypotension Qualified Code(s): I95.0 - Idiopathic hypotension (6) Leukopenia Code(s): D72.819 - DECREASED WHITE BLOOD CELL COUNT, UNSPECIFIED Status: Acute Qualifiers: Leukopenia type: neutropenia Neutropenia type: other drug-induced Qualified Code(s): D70.2 - Other drug-induced agranulocytosis (7) PCP (pneumocystis jiroveci pneumonia) Code(s): B59 - PNEUMOCYSTOSIS Status: Acute (8) Respiratory failure requiring intubation Code(s): J96.90 - RESPIRATORY FAILURE, UNSP, UNSP W HYPOXIA OR HYPERCAPNIA Status: Acute (9) Sepsis associated hypotension Code(s): A41.9 - SEPSIS, UNSPECIFIED ORGANISM; I95.9 - HYPOTENSION, UNSPECIFIED Status: Acute (10) Shock Code(s): R57.9 - SHOCK, UNSPECIFIED Status: Acute (11) Atrial fibrillation Code(s): I48.91 - UNSPECIFIED ATRIAL FIBRILLATION Status: Chronic Qualifiers: Atrial fibrillation type: unspecified Qualified Code(s): I48.91 - Unspecified atrial fibrillation (12) CKD (chronic kidney disease) Code(s): N18.9 - CHRONIC KIDNEY DISEASE, UNSPECIFIED Status: Chronic Qualifiers: Chronic kidney disease stage: stage 3 (moderate) Qualified Code(s): N18.3 - Chronic kidney disease, stage 3 (moderate) (13) Pneumonia Code(s): J18.9 - PNEUMONIA, UNSPECIFIED ORGANISM Status: Acute Qualifiers: 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 Laterality: bilateral - Plan Plan: Intensive care unit pulmonology/critical-care consultation, recommendations appreciated nephrology consultation, recommendations appreciated infectious disease consultation, recommendations appreciated palliative care consultation, recommendations appreciated CT head noted, no acute pathology MRI brain noted, no acute pathology vasoactive medications as needed to maintain mean arterial blood pressure greater than 65 ventilator support patient's mentation is limiting vent weaning trials at this time pneumocystis jirovecii pneumonia with adverse reaction to Bactrim, on pentamidine per ID broad-spectrum antibiotics have been discontinued per ID continue other home medications as able enteral nutrition blood sugar control Trend renal function Dispostion: Short and long-term prognosis are guarded. Family interested in aggressive measures including tracheostomy and PEG tube.
[2019-07-09] MEDS: HumaLOG 300 UNITS/3 ML VIAL SC PRN ×2 (16:30→21:41)
[2019-07-09] MEDS: Atorvastatin Calcium 20 MG TAB PO SCH (20:47)
[2019-07-10] MEDS: Norepinephrine 8 MG/0.9% NS 250 ML IVPB SCH ×2 (00:40→12:09)
--- NOTE | 2019-07-10 01:32 | CON ---
DATE OF CONSULTATION: 07/09/2019 REASON FOR CONSULTATION: Tracheostomy tube placement and PEG placement. CHIEF COMPLAINT: Unobtainable secondary to intubation. HISTORY OF PRESENT ILLNESS: Mr. Fletcher is a 74-year-old gentleman, who presented to the emergency room back on June 16, 2019. He had worsening weakness and general decline. He had recently undergone electrocardioversion for atrial fibrillation. He had difficulty recovering from this, feeling short of breath. He had not had any abdominal type symptoms. In the emergency room, he was hypotensive and underwent resuscitation. Eventually, the patient was intubated and placed in the intensive care unit. He has been on the ventilator for some time and been off sedation for the last 4 days. He is making marginal neurologic progress. Recent MRI and CT scan of the head did not reveal any gross abnormality. The family is wishing for trach and PEG placement. PAST MEDICAL HISTORY: Sleep apnea, erectile dysfunction, atrial fibrillation, thoracic ascending aneurysm, mitral regurgitation, hyperlipidemia, and hypertension. PAST SURGICAL HISTORY: Mitral valve repair, electrocardioversion for AFib, right inguinal hernia repair, cataract surgery, UPPP, vasectomy, total hip replacement, and prostate surgery. SOCIAL HISTORY: Lives with his , was formerly fully independent. Denies any alcohol or tobacco use. FAMILY HISTORY: Father had diabetes type 2. ALLERGIES: MORPHINE, PREDNISONE, AND SULFA. MEDICATIONS: The patient is currently on, 1. Amiodarone 200 mg three times a day. 2. Eliquis 5 mg twice a day. 3. Atorvastatin 20 mg at night. 4. Digoxin 0.25 mg every a.m. 5. Lasix 40 mg in the morning. 6. Insulin. 7. Levophed. 8. Prednisone 40 mg in the morning. REVIEW OF SYSTEMS: Unobtainable. PHYSICAL EXAMINATION: VITAL SIGNS: He is afebrile with heart rates in the 80s to 90s. Blood pressure 100/65, saturation 95% on 40% FiO2, PEEP of 8. GENERAL: The patient is intubated and not making any spontaneous movements. HEENT: Head is normocephalic and atraumatic. NECK: Supple. There are palpable tracheal rings beneath the thyroid cartilage. HEART: Regularly regular. LUNGS: Have rhonchi and crackles bilaterally. ABDOMEN: Soft, apparently nontender, nondistended. Normoactive bowel sounds. MUSCULOSKELETAL: No deformity. The patient has pitting edema with some weeping of the extremities. LABORATORY DATA: The patient's white blood cell count is 20.1, hemoglobin and hematocrit are 9.8 and 29, platelets 277. ASSESSMENT: 1. Respiratory failure secondary to pneumocystis pneumonia-this seems to be improving on CT scan. The patient is deconditioned, but making slow progress. The family was counseled by Palliative Care. At this time, they wished to proceed with tracheostomy tube placement and PEG tube placement. 2. Acute kidney injury-this is improving. 3. History of atrial fibrillation with rapid ventricular response-the patient is currently in normal sinus rhythm and on amiodarone, is also on Eliquis. PLAN: I will stop the Eliquis tonight. I spoke with Dr. Coombs about this. I would prefer to have the patient off his Eliquis for at least 48 hours prior to percutaneous gastrostomy tube placement as well as prior to tracheostomy tube placement. The patient already has bilateral pneumonias and I would like to reduce any further sequelae from intervention. I attempted to contact the patient's micah and had to leave her a voice mail. I will attempt to talk with her tomorrow. Job ID: [id number]
[2019-07-10] MEDS: Ipratropium Bromide 2.5 ml Neb NEB SCH ×5 (02:37→18:30)
[2019-07-10 05:05] LABS: Anion Gap 12 mmol/L (10-20); BUN (Urea Nitrogen) 83 mg/dL (8.4-25.7); Calc. Creatinine Clearance 73 mL/min (70-130); Calcium 10.3 mg/dL (7.8-10.44); Carbon Dioxide 27 mmol/L (23-31); Chloride 106 mmol/L (98-107); Estimated GFR-MDRD 79; Glucose 128 mg/dL (83-110); Potassium 4.3 mmol/L (3.5-5.1); Sodium 141 mmol/L (136-145)
[2019-07-10 05:47] LABS: Anisocytosis SLIGHT = 6-15 cells (100X) (0-5/hpf); Band 17 % (5-11); Eosinophils 1 % (0-10); Lymphocytes 2 % (21-51); MDiff Complete? YES; Mean Corpuscular HGB CONC 34.9 g/dL (32.0-36.0); Mean Corpuscular Hemoglobin 34.6 pg (27.0-31.0); Mean Corpuscular Volume 99.1 fL (78.0-98.0); Mean Platelet Volume 7.8 fL (7.4-10.4); Monocytes 1 % (0-10); Myelocyte 2 % (0-0); Neutrophil 77 % (42-75); Nucleated RBC 2 % (0); Platelet Count 256 thou/uL (130-400); Platelet Morphology Comment Appears Adequate; Polychromasia SLIGHT = 2-3 cells (100X) (0-2/hpf); RBC Distribution Width 19.1 % (11.5-14.5); White Blood Cell (WBC) Count 20.5 thou/uL (4.8-10.8)
[2019-07-10] MEDS ORDERED: Furosemide 40 MG/4 ML VIAL SLOW IVP SCH (06:00)
[2019-07-10] MEDS: predniSONE 20 MG TAB PO SCH (08:04)
[2019-07-10] MEDS: PHOS-NAK 1 PKT PACK PO SCH (08:04)
[2019-07-10] MEDS: Amiodarone 200 MG TAB PO SCH ×3 (08:05→20:22)
[2019-07-10] MEDS: Calcium Carbonate + Vit D 1 TAB PO SCH ×2 (08:05→20:22)
[2019-07-10] MEDS: Polyethylene Glycol 3350 17 GM Packet PER TUBE SCH (08:05)
[2019-07-10] MEDS ORDERED: Digoxin 0.5 MG/2 ML AMP SLOW IVP SCH (09:00)
--- NOTE | 2019-07-10 12:25 | PRG ---
DATE OF SERVICE: 07/10/2019 SERVICE: Pulmonary Medicine. INTERVAL HISTORY: The patient is doing fine from a respiratory standpoint. Overnight, there has been no dramatic recovery in neurologic function. That being said, he seems to be moving a little bit more spontaneously. No overnight events exist. PHYSICAL EXAMINATION: VITAL SIGNS: Afebrile, pulse 89, blood pressure 116/66, respirations 17, saturation 97%, currently on 35% FiO2 and a PEEP of 6. GENERAL: The patient is intubated. He is under no influence of sedation. HEENT: Normocephalic and atraumatic. Sclerae white. Conjunctivae pink. Oral mucosa is moist without lesions. LUNGS: Decent air entry. There are some crackles present dependently. No prolonged expiratory phase or wheezing is appreciated otherwise. HEART: Normal rate and regular. ABDOMEN: Soft, nontender, nondistended. Bowel sounds are positive. MUSCULOSKELETAL: No cyanosis or clubbing. Diffuse pitting is still present. NEUROLOGIC: Grossly nonfocal. LABORATORY DATA: WBC 20.5, hemoglobin 10.0, platelets 256,000. Band count is 17% on top of 77% neutrophils. Lymphocytes and monocytes remain quite low. D-dimer 0.75. Basic metabolic profile is unremarkable except for a BUN that is gently uptrending. Creatinine continues to trend downward. Sodium 141. ASSESSMENT: 1. Acute hypoxic respiratory failure, improving. 2. Pneumocystis jiroveci pneumonia, improving based on CT. 3. Acute kidney injury. 4. Atrial fibrillation with RVR, rate controlled. 5. Metabolic encephalopathy. DISCUSSION AND PLAN: We will continue diuresing the patient down to euvolemia if tolerated. The patient will need Multi-Podus boots in order to prevent footdrop. I will repeat basic metabolic profile tomorrow. For the time being, I will hold the Lasix as he may be minimally prerenal. If he can tolerate a dose tomorrow, we should consider restarting that medication. Ultimately, the family would like to see if the patient makes a neurologic recovery. If he can, they would like to transition to an LTAC facility where he can pursue rehabilitation and physical therapy to possibly get stronger. Once again, I have no reason other than metabolic process for him to be stuporous presently. CRITICAL CARE TIME: 30 minutes. Job ID: [id number]
--- NOTE | 2019-07-10 12:47 | PDOC.HOSPP ---
- Subjective Subjective: Seen and examined. Intubated, no significant clinical change. - Objective Vital Signs & Weight: Vital Signs (12 hours) Temp Pulse Pulse Pulse Resp BP BP 07/10/19 12:00 97.7 F 07/10/19 11:32 93 117/68 07/10/19 11:29 89 33 H 07/10/19 10:00 36 H 07/10/19 08:45 79 79 116/66 07/10/19 08:06 86 07/10/19 08:00 98.8 F 28 H 07/10/19 07:18 70 127/77 07/10/19 07:17 71 27 H 07/10/19 04:00 98.2 F 24 H 07/10/19 02:38 75 122/64 07/10/19 02:00 31 H BP Pulse Ox Pulse Ox Pulse Ox 07/10/19 12:00 07/10/19 11:32 07/10/19 11:29 97 07/10/19 10:00 07/10/19 08:45 103/64 94 L 95 07/10/19 08:06 07/10/19 08:00 98 07/10/19 07:18 07/10/19 07:17 99 07/10/19 04:00 07/10/19 02:38 07/10/19 02:00 Weight Admit Weight 164 lb Weight 169 lb 12.095 oz Most Recent Monitor Data Heart Rate from ECG 79 NIBP 87/51 NIBP BP-Mean 63 Respiration from ECG 21 SpO2 100 I&O: 07/09/19 07/10/19 07/11/19 06:59 06:59 06:59 Intake Total 2612 1871 60 Output Total 1713 1590 780 Balance 899 281 -720 Result Diagrams: 07/10/19 04:20 07/10/19 04:20 Additional Labs: Accuchecks 07/10/19 07/10/19 07/09/19 10:08 04:29 21:43 POC Glucose 143 H 125 H 198 H 07/09/19 16:29 POC Glucose 242 H Radiology Reviewed by me: Yes Hospitalist ROS - Review of Systems ROS unobtainable: due to endotracheal tube - Medication Medications: Active Medications Generic Name Dose Route Start Last Admin Trade Name Freq PRN Reason Stop Dose Admin Amiodarone HCl 200 mg 06/29/19 15:00 01/05/20 08:05 Cordarone PO 200 mg TID ALYSE Administration Atorvastatin Calcium 20 mg 06/20/19 21:00 07/09/19 20:47 Lipitor PO 20 mg HS ALYSE Administration Calcium/Vitamin D 1 tab 06/21/19 21:00 07/10/19 08:05 Caltrate 600 + Vit D PO 1 tab BID ALYSE Administration Digoxin 0.25 mg 07/10/19 09:00 07/10/19 08:06 Lanoxin SLOW IVP 0.25 mg QAM ALYSE Administration Pentamidine Isethionate 300 mg 250 mls @ 250 mls/hr 06/29/19 17:00 07/09/19 16:30 / Dextrose/Water IVPB 250 mls Q24HR ALYSE Administration Norepinephrine Bitartrate 250 mls @ 0 mls/hr 07/05/19 00:59 07/10/19 12:09 Levophed IVPB 250 mls INF ALYSE Administration Protocol Titrate Insulin Human Lispro 0 units 06/25/19 09:34 07/09/19 21:41 Humalog SC 2 unit .MODERATE SLIDING SC PRN Administration Moderate Correctional Scale Ipratropium [place] 2.5 ml 07/10/19 13:00 07/10/19 12:43 Atrovent NEB Not Given [id number] ALYSE Polyethylene Glycol 17 gm 06/26/19 09:00 07/10/19 08:05 Miralax PER TUBE Not Given DAILY ALYSE Potassium Chloride 40 meq 07/08/19 05:29 07/08/19 05:35 Klor-Con PER TUBE 40 meq ASDIR PRN Administration FOR SERUM K+ 2.5-3.5 Sodium Chloride 10 ml 06/19/19 17:20 06/23/19 21:56 Flush - Normal Saline IVF 10 ml Q12HR PRN Administration Saline Flush - Exam General Appearance: NAD Eye: PERRL ENT: normocephalic atraumatic, moist mucosa Neck: supple, symmetric, no lymphadenopathy Heart: no murmur, no gallops, no rubs Respiratory: no rales, no tachypnea, rhonchi, wheezes Gastrointestinal: soft, non-tender, no guarding, no rigidity Extremities: 2+ LE edema Skin: no lesions, no rashes Neurological: cranial nerve grossly intact, no focal deficits Neurological - other findings: Follows no commands Psychiatric: not oriented Hosp A/P (1) Acute renal failure Status: Acute Qualifiers: Acute renal failure type: unspecified Qualified Code(s): N17.9 - Acute kidney failure, unspecified (2) Acute respiratory failure with hypoxia Code(s): J96.01 - ACUTE RESPIRATORY FAILURE WITH HYPOXIA Status: Acute (3) Atrial fibrillation with RVR Code(s): I48.91 - UNSPECIFIED ATRIAL FIBRILLATION Status: Acute (4) CHF (congestive heart failure) Code(s): I50.9 - HEART FAILURE, UNSPECIFIED Status: Acute Qualifiers: Heart failure type: systolic Heart failure chronicity: acute Qualified Code(s): I50.21 - Acute systolic (congestive) heart failure (5) Hypotension Status: Acute Qualifiers: Hypotension type: idiopathic hypotension Qualified Code(s): I95.0 - Idiopathic hypotension (6) Leukopenia Code(s): D72.819 - DECREASED WHITE BLOOD CELL COUNT, UNSPECIFIED Status: Acute Qualifiers: Leukopenia type: neutropenia Neutropenia type: other drug-induced Qualified Code(s): D70.2 - Other drug-induced agranulocytosis (7) PCP (pneumocystis jiroveci pneumonia) Code(s): B59 - PNEUMOCYSTOSIS Status: Acute (8) Respiratory failure requiring intubation Code(s): J96.90 - RESPIRATORY FAILURE, UNSP, UNSP W HYPOXIA OR HYPERCAPNIA Status: Acute (9) Sepsis associated hypotension Code(s): A41.9 - SEPSIS, UNSPECIFIED ORGANISM; I95.9 - HYPOTENSION, UNSPECIFIED Status: Acute (10) Shock Code(s): R57.9 - SHOCK, UNSPECIFIED Status: Acute (11) Atrial fibrillation Code(s): I48.91 - UNSPECIFIED ATRIAL FIBRILLATION Status: Chronic Qualifiers: Atrial fibrillation type: unspecified Qualified Code(s): I48.91 - Unspecified atrial fibrillation (12) CKD (chronic kidney disease) Code(s): N18.9 - CHRONIC KIDNEY DISEASE, UNSPECIFIED Status: Chronic Qualifiers: Chronic kidney disease stage: stage 3 (moderate) Qualified Code(s): N18.3 - Chronic kidney disease, stage 3 (moderate) (13) Pneumonia Code(s): J18.9 - PNEUMONIA, UNSPECIFIED ORGANISM Status: Acute Qualifiers: 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 Laterality: bilateral - Plan Plan: Intensive care unit pulmonology/critical-care consultation, recommendations appreciated Surgery consultation, recommendations appreciated nephrology consultation, recommendations appreciated infectious disease consultation, recommendations appreciated palliative care consultation, recommendations appreciated CT head noted, no acute pathology MRI brain noted, no acute pathology vasoactive medications as needed to maintain mean arterial blood pressure greater than 65 ventilator support patient's mentation is limiting vent weaning trials at this time pneumocystis jirovecii pneumonia with adverse reaction to Bactrim, on pentamidine per ID broad-spectrum antibiotics have been discontinued per ID continue other home medications as able enteral nutrition blood sugar control Trend renal function Dispostion: prognosis is guarded. Family interested in aggressive measures including tracheostomy and PEG tube.
--- NOTE | 2019-07-10 16:08 | PRG ---
DATE OF SERVICE: 07/10/2019 CHIEF COMPLAINT: Unobtainable secondary to intubation. SUBJECTIVE: Since yesterday, the patient has not made any dramatic progress or change. His ventilator settings are stable. REVIEW OF SYSTEMS: Unobtainable. OBJECTIVE: VITAL SIGNS: Heart rate in the 80s, blood pressure 120s over 60s, respirations 17, FiO2 is down to 35%, and PEEP is down to 6. GENERAL: Intubated. No spontaneous movement. HEAD: Normocephalic and atraumatic. NECK: Supple with midline trachea. LUNGS: Crackles in the bases. HEART: Regularly regular. ABDOMEN: Soft, nontender, and nondistended. Normoactive bowel sounds. LABORATORY DATA: White blood cell count of 20.5, hemoglobin 10, platelets of 256. ASSESSMENT: Respiratory failure - the patient is in need of tracheostomy tube placement secondary to family desires. I was able to speak with the patient's son today. Evidently, the patient had a directive concerning prolonged mechanical support. There is some debate between the family members as to what his wishes were despite this document. That being said, the family is on board with continuing toward a trach and a PEG. Today is the first day that the patient has been off his Eliquis. I explained to the family the reason why we were not proceeding with a tracheostomy tube placement today given his recent Eliquis use. Family voiced understanding. PLAN: Remain off Eliquis today. Continue tube feeds. We will be switching surgeons on Thursday. Given that Thursday will be the beginning of his 48 hours off Eliquis, I personally would plan on procedure on Thursday, but that will be up to the surgeon. Job ID: [id number]
[2019-07-10] MEDS: HumaLOG 300 UNITS/3 ML VIAL SC PRN ×2 (16:31→21:44)
[2019-07-10] MEDS: Atorvastatin Calcium 20 MG TAB PO SCH (20:21)
[2019-07-11] MEDS: Ipratropium Bromide 2.5 ml Neb NEB SCH ×4 (00:09→19:27)
[2019-07-11 04:47] LABS: Anion Gap 12 mmol/L (10-20); BUN (Urea Nitrogen) 84 mg/dL (8.4-25.7); Calc. Creatinine Clearance 81 mL/min (70-130); Calcium 10.3 mg/dL (7.8-10.44); Carbon Dioxide 29 mmol/L (23-31); Chloride 105 mmol/L (98-107); Estimated GFR-MDRD 89; Glucose 105 mg/dL (83-110); Potassium 4.2 mmol/L (3.5-5.1); Sodium 142 mmol/L (136-145)
[2019-07-11 04:53] LABS: Digoxin 2.77 ng/mL (0.8-2.0)
[2019-07-11 05:33] LABS: Anisocytosis MODERATE=16-30 cells (100X) (0-5/hpf); Band 28 % (5-11); Hemoglobin 9.6 g/dL (14.0-18.0); Lymphocytes 2 % (21-51); MDiff Complete? YES; Mean Corpuscular HGB CONC 31.8 g/dL (32.0-36.0); Mean Corpuscular Hemoglobin 31.3 pg (27.0-31.0); Mean Corpuscular Volume 98.5 fL (78.0-98.0); Mean Platelet Volume 8.7 fL (7.4-10.4); Monocytes 3 % (0-10); Neutrophil 67 % (42-75); Platelet Count 241 thou/uL (130-400); Platelet Morphology Comment Appears Adequate; Red Blood Cell (RBC) Count 3.05 mill/uL (4.70-6.10); White Blood Cell (WBC) Count 18.7 thou/uL (4.8-10.8)
--- NOTE | 2019-07-11 08:15 | RAD ---
XR Chest 1 View Portable History: Intubated patient Comparison: Radiograph July 06, 2019 Findings: Abnormal increase of bilateral perihilar infiltrates. The patient is intubated endotracheal tube tip at level of clavicles. Tear tube tip below diaphragm although out of field of view. No pneumothorax. Trace effusions. Impression: Satisfactory position of the endotracheal tube. Enteric tube tip below diaphragm although out of field of view. Progressive multifocal pneumonia.
[2019-07-11] MEDS: Calcium Carbonate + Vit D 1 TAB PO SCH ×2 (08:34→21:52)
[2019-07-11] MEDS: predniSONE 20 MG TAB PO SCH (08:35)
[2019-07-11] MEDS: Furosemide 40 MG/4 ML VIAL SLOW IVP SCH (08:35)
[2019-07-11] MEDS: Amiodarone 200 MG TAB PO SCH ×2 (08:35→21:52)
[2019-07-11] MEDS: Polyethylene Glycol 3350 17 GM Packet PER TUBE SCH (08:35)
[2019-07-11] MEDS: Dextrose 5% in Water 1,000 ML IV SCH (08:47)
[2019-07-11] MEDS: HumaLOG 300 UNITS/3 ML VIAL SC PRN ×3 (10:25→21:57)
--- NOTE | 2019-07-11 10:35 | PDOC.PALPN ---
Palliative Progress Note - Subjective mechanically intubated, non responsive. states that PT told her that patient "may" have had some resistance to lower extremity during care. - Objective Vital Signs: Vital Signs - Most Recent Temp Pulse Resp BP Pulse Ox 98.6 F 82 26 H 105/58 L 94 L 07/11/19 07:00 07/11/19 07:04 07/11/19 10:00 07/11/19 07:04 07/11/19 07:03 - Physical Exam Constitutional: encephalitic, ill appearing HEENT: moist MMs, sclera anicteric Respiratory: diminished lung sound Deviation from normal: Mechanical ventilation Cardiovascular: RRR Gastrointestinal: non-tender, positive bowel sounds, incontinent Genitourinary: juárez catheter Musculoskeletal: edema present, muscle wasting Skin: bruising Deviation from normal: Pallor Deviation from normal: encephalopathic - Assessment (1) Palliative care encounter Code(s): Z51.5 - ENCOUNTER FOR PALLIATIVE CARE Current Visit: Yes Status: Acute (2) Acute renal failure Current Visit: Yes Status: Acute Qualifiers: Acute renal failure type: unspecified Qualified Code(s): N17.9 - Acute kidney failure, unspecified (3) Acute respiratory failure with hypoxia Code(s): J96.01 - ACUTE RESPIRATORY FAILURE WITH HYPOXIA Current Visit: Yes Status: Acute (4) PCP (pneumocystis jiroveci pneumonia) Code(s): B59 - PNEUMOCYSTOSIS Current Visit: Yes Status: Acute (5) Respiratory failure requiring intubation Code(s): J96.90 - RESPIRATORY FAILURE, UNSP, UNSP W HYPOXIA OR HYPERCAPNIA Current Visit: Yes Status: Acute - Plan Plan: Visited with Kate, patient , and Jeff Fletcher patient brother. Kate states she is hopeful that the Trach with be done tomorrow and patient status will improve. Therapeutic listening, encouraged Kate to continue to advocate for what she believes Mr Fletcher would desire for his care. Kate continues to desire to seek aggressive measures with the hope of an improvement this week, understanding that goals of care will be revisited. [45] minutes spent on this encounter with >50% of the time in counseling and coordination of care. - ROS Non Response: due to endotracheal tube, due to mental status
--- NOTE | 2019-07-11 15:21 | PDOC.HOSPP ---
- Subjective Subjective: Seen and examined. and brother at bedside, time was given for questions, all answered in detail. Patient does grimace a bit in the face. No focal neurologic deficits. Overall patient is clinically unchanged. Family wishing to proceed with tracheostomy and PEG tube placement. - Objective Vital Signs & Weight: Vital Signs (12 hours) Temp Pulse Resp BP Pulse Ox 07/11/19 14:43 85 123/69 07/11/19 14:29 95 31 H 93 L 07/11/19 14:00 12 07/11/19 12:00 98.0 F 30 H 07/11/19 10:42 77 100/55 L 07/11/19 10:00 26 H 07/11/19 08:00 34 H 99 07/11/19 07:04 82 105/58 L 07/11/19 07:03 86 29 H 94 L 07/11/19 07:00 98.6 F 07/11/19 06:00 27 H 07/11/19 04:00 97.7 F 07/11/19 03:52 27 H Weight Admit Weight 164 lb Weight 166 lb 10.711 oz Most Recent Monitor Data Heart Rate from ECG 93 NIBP 115/67 NIBP BP-Mean 83 Respiration from ECG 30 SpO2 93 I&O: 07/10/19 07/11/19 07/12/19 06:59 06:59 06:59 Intake Total 1871 1847.1 30 Output Total 1590 2050 560 Balance 281 -202.9 -530 Result Diagrams: 07/11/19 03:36 07/11/19 03:31 Additional Labs: Accuchecks 07/11/19 07/11/19 07/10/19 10:27 04:23 21:47 POC Glucose 153 H 111 H 168 H 07/10/19 16:26 POC Glucose 210 H Radiology Reviewed by me: Yes Hospitalist ROS - Review of Systems ROS unobtainable: due to endotracheal tube - Medication Medications: Active Medications Generic Name Dose Route Start Last Admin Trade Name Freq PRN Reason Stop Dose Admin Amiodarone HCl 200 mg 07/11/19 09:00 07/11/19 08:35 Cordarone PO 200 mg BID ALYSE Administration Atorvastatin Calcium 20 mg 06/20/19 21:00 07/10/19 20:21 Lipitor PO 20 mg HS ALYSE Administration Calcium/Vitamin D 1 tab 06/21/19 21:00 07/11/19 08:34 Caltrate 600 + Vit D PO 1 tab BID ALYSE Administration Furosemide 40 mg 07/11/19 09:00 07/11/19 08:35 Lasix SLOW IVP 40 mg DAILY ALYSE Administration Pentamidine Isethionate 300 mg 250 mls @ 250 mls/hr 06/29/19 17:00 07/10/19 16:30 / Dextrose/Water IVPB 250 mls Q24HR ALYSE Administration Norepinephrine Bitartrate 250 mls @ 0 mls/hr 07/05/19 00:59 07/10/19 12:09 Levophed IVPB 250 mls INF ALYSE Administration Protocol Titrate Dextrose/Water 1,000 mls @ 40 mls/hr 07/11/19 07:45 07/11/19 08:47 D5w IV 1,000 mls .Q24H ALYSE Administration Insulin Human Lispro 0 units 06/25/19 09:34 07/11/19 10:25 Humalog SC 2 unit .MODERATE SLIDING SC PRN Administration Moderate Correctional Scale Ipratropium [place] 2.5 ml 07/10/19 13:00 07/11/19 14:29 Atrovent NEB 2.5 ml [id number] ALYSE Administration Polyethylene Glycol 17 gm 06/26/19 09:00 07/11/19 08:35 Miralax PER TUBE Not Given DAILY ALYSE Potassium Chloride 40 meq 07/08/19 05:29 07/08/19 05:35 Klor-Con PER TUBE 40 meq ASDIR PRN Administration FOR SERUM K+ 2.5-3.5 Prednisone 20 mg 07/11/19 08:00 07/11/19 08:35 Prednisone PO 20 mg QAM-WM ALYSE Administration Sodium Chloride 10 ml 06/19/19 17:20 06/23/19 21:56 Flush - Normal Saline IVF 10 ml Q12HR PRN Administration Saline Flush - Exam General Appearance: ill appearing Eye: PERRL, anicteric sclera ENT: normocephalic atraumatic, dry oral mucosa Neck: supple, symmetric, no lymphadenopathy Heart: no murmur, no gallops, no rubs Respiratory: no rales, normal chest expansion, rhonchi, wheezes (Improving) Gastrointestinal: soft, non-tender, no guarding, no rigidity Extremities: 2+ LE edema Extremities - other findings: 2+ UE edema Skin: no lesions, no rashes Neurological: cranial nerve grossly intact, no focal deficits Musculoskeletal: generalized weakness, diffuse muscle atrophy Psychiatric: not oriented Hosp A/P (1) Acute renal failure Status: Acute Qualifiers: Acute renal failure type: unspecified Qualified Code(s): N17.9 - Acute kidney failure, unspecified (2) Acute respiratory failure with hypoxia Code(s): J96.01 - ACUTE RESPIRATORY FAILURE WITH HYPOXIA Status: Acute (3) Atrial fibrillation with RVR Code(s): I48.91 - UNSPECIFIED ATRIAL FIBRILLATION Status: Acute (4) CHF (congestive heart failure) Code(s): I50.9 - HEART FAILURE, UNSPECIFIED Status: Acute Qualifiers: Heart failure type: systolic Heart failure chronicity: acute Qualified Code(s): I50.21 - Acute systolic (congestive) heart failure (5) Hypotension Status: Acute Qualifiers: Hypotension type: idiopathic hypotension Qualified Code(s): I95.0 - Idiopathic hypotension (6) Leukopenia Code(s): D72.819 - DECREASED WHITE BLOOD CELL COUNT, UNSPECIFIED Status: Acute Qualifiers: Leukopenia type: neutropenia Neutropenia type: other drug-induced Qualified Code(s): D70.2 - Other drug-induced agranulocytosis (7) PCP (pneumocystis jiroveci pneumonia) Code(s): B59 - PNEUMOCYSTOSIS Status: Acute (8) Respiratory failure requiring intubation Code(s): J96.90 - RESPIRATORY FAILURE, UNSP, UNSP W HYPOXIA OR HYPERCAPNIA Status: Acute (9) Sepsis associated hypotension Code(s): A41.9 - SEPSIS, UNSPECIFIED ORGANISM; I95.9 - HYPOTENSION, UNSPECIFIED Status: Acute (10) Shock Code(s): R57.9 - SHOCK, UNSPECIFIED Status: Acute (11) Atrial fibrillation Code(s): I48.91 - UNSPECIFIED ATRIAL FIBRILLATION Status: Chronic Qualifiers: Atrial fibrillation type: unspecified Qualified Code(s): I48.91 - Unspecified atrial fibrillation (12) CKD (chronic kidney disease) Code(s): N18.9 - CHRONIC KIDNEY DISEASE, UNSPECIFIED Status: Chronic Qualifiers: Chronic kidney disease stage: stage 3 (moderate) Qualified Code(s): N18.3 - Chronic kidney disease, stage 3 (moderate) (13) Pneumonia Code(s): J18.9 - PNEUMONIA, UNSPECIFIED ORGANISM Status: Acute Qualifiers: 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 Laterality: bilateral - Plan Plan: Intensive care unit pulmonology/critical-care consultation, recommendations appreciated Surgery consultation, recommendations appreciated nephrology consultation, recommendations appreciated infectious disease consultation, recommendations appreciated palliative care consultation, recommendations appreciated Holding anticoagulation in preparation for tracheostomy and PEG tube. CT head noted, no acute pathology MRI brain noted, no acute pathology vasoactive medications as needed to maintain mean arterial blood pressure greater than 65 ventilator support patient's mentation is limiting vent weaning trials at this time pneumocystis jirovecii pneumonia with adverse reaction to Bactrim, on pentamidine per ID broad-spectrum antibiotics have been discontinued per ID continue other home medications as able enteral nutrition blood sugar control Trend renal function Dispostion: prognosis is guarded. Family interested in aggressive measures including tracheostomy and PEG tube.
[2019-07-11] MEDS: Norepinephrine 8 MG/0.9% NS 250 ML IVPB SCH (18:25)
--- NOTE | 2019-07-11 19:13 | PRG ---
DATE OF SERVICE: 07/11/2019 SUBJECTIVE: Really, he is still very encephalopathic. He does not open his eyes or make eye contact to sternal rub. He is tentatively on the schedule for tracheostomy and PEG tomorrow. He has signs of significant diaphragm dysfunction on physical exam, although gas exchange is not an issue. OBJECTIVE: LUNGS: Clear. HEART: Regular rhythm. ABDOMEN: Soft. EXTREMITIES: Without asymmetry. LABORATORY DATA: White count 3.05, hemoglobin 9.6, platelets 241. Electrolytes are unremarkable. BUN is 84. 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 I had a long meeting with the . I have explained to her that it is totally reasonable for her to place care boundaries around how long we do this. If he is not improved significantly in 1 to 2 weeks, it would not be unreasonable to withdraw support. She firmly believes he never would have wanted all of this to this extent unless he had a good chance to complete recovery. Critical care time is 35 minutes. Job ID: [id number] MTDD
[2019-07-11] MEDS: Atorvastatin Calcium 20 MG TAB PO SCH (21:52)
[2019-07-12] MEDS: Ipratropium Bromide 2.5 ml Neb NEB SCH ×4 (00:10→19:17)
[2019-07-12 04:52] LABS: Anion Gap 14 mmol/L (10-20); BUN (Urea Nitrogen) 91 mg/dL (8.4-25.7); Calc. Creatinine Clearance 80 mL/min (70-130); Calcium 10.2 mg/dL (7.8-10.44); Carbon Dioxide 26 mmol/L (23-31); Chloride 103 mmol/L (98-107); Estimated GFR-MDRD 89; Glucose 118 mg/dL (83-110); Potassium 4.3 mmol/L (3.5-5.1); Sodium 139 mmol/L (136-145)
[2019-07-12] MEDS: Norepinephrine 8 MG/0.9% NS 250 ML IVPB SCH ×2 (06:18→18:26)
[2019-07-12 06:38] LABS: Band 11 % (5-11); Eosinophils 1 % (0-10); Hemoglobin 10.1 g/dL (14.0-18.0); Lymphocytes 2 % (21-51); MDiff Complete? YES; Mean Corpuscular HGB CONC 32.7 g/dL (32.0-36.0); Mean Platelet Volume 8.2 fL (7.4-10.4); Monocytes 3 % (0-10); Neutrophil 83 % (42-75); Nucleated RBC 3 % (0); Platelet Count 262 thou/uL (130-400); RBC Distribution Width 18.7 % (11.5-14.5); Red Blood Cell (RBC) Count 3.16 mill/uL (4.70-6.10); White Blood Cell (WBC) Count 18.4 thou/uL (4.8-10.8)
[2019-07-12] MEDS ORDERED: Vecuronium 10 MG VIAL IV PRN (07:43)
[2019-07-12] MEDS ORDERED: Lidocaine 1% w/Epinephrine 1:100K 20 ML VIAL FS PRN (07:43)
[2019-07-12] MEDS ORDERED: Fentanyl 100 MCG/2 ML VIAL SLOW IVP PRN ×2 (07:46→07:47)
[2019-07-12] MEDS ORDERED: Midazolam HCl 2 mg/2 ml Vial SLOW IVP PRN (07:46)
[2019-07-12] MEDS ORDERED: Midazolam HCl 5 mg/5 ml Vial SLOW IVP PRN (07:46)
[2019-07-12] MEDS: Furosemide 40 MG/4 ML VIAL SLOW IVP SCH (08:38)
[2019-07-12] MEDS: Dextrose 5% in Water 1,000 ML IV SCH (08:47)
[2019-07-12] MEDS ORDERED: Sterile Water 10 ML ONE (09:56)
--- NOTE | 2019-07-12 11:06 | EKG ---
Test Reason : Blood Pressure : / mmHG Vent. Rate : 081 BPM Atrial Rate : 081 BPM P-R Int : 160 ms QRS Dur : 094 ms QT Int : 522 ms P-R-T Axes : 063 -06 023 degrees QTc Int : 606 ms Normal sinus rhythm Prolonged QT Abnormal ECG When compared with ECG of 19-JUN-2019 13:25, (Unconfirmed) Sinus rhythm has replaced Atrial fibrillation Criteria for Septal infarct are no longer Present Non-specific change in ST segment in Anterior leads Inverted T waves have replaced nonspecific T wave abnormality in Anterior leads QT has lengthened Confirmed by DR. Kajal VELASCO ([id number]) on 07/12/2019 11:06:18 AM Referred By: GERALD Confirmed By:DR. Kajal VELASCO
[2019-07-12] MEDS: Calcium Carbonate + Vit D 1 TAB PO SCH ×2 (12:25→21:31)
[2019-07-12] MEDS: predniSONE 20 MG TAB PO SCH (12:27)
[2019-07-12] MEDS: Amiodarone 200 MG TAB PO SCH ×2 (12:28→21:31)
[2019-07-12] MEDS: Polyethylene Glycol 3350 17 GM Packet PER TUBE SCH (12:28)
[2019-07-12] MEDS ORDERED: Albumin 25% 25 GM/100 ML BOT IVPB SCH (13:15)
--- NOTE | 2019-07-12 13:47 | PDOC.HOSPP ---
- Subjective Subjective: Seen and examined in the intensive care unit. Patient getting tracheostomy and PEG tube placement at bedside. Otherwise patient is clinically and change. Once medically stabilized we will plan for long-term acute care facility placement. - Objective Vital Signs & Weight: Vital Signs (12 hours) Temp Pulse Pulse Pulse Resp BP BP 07/12/19 13:19 78 129/70 07/12/19 13:17 97 31 H 07/12/19 12:16 78 78 111/65 07/12/19 12:00 99.1 F 31 H 07/12/19 11:31 105 H 113/95 H 07/12/19 10:00 28 H 07/12/19 08:00 31 H 07/12/19 07:40 28 H 07/12/19 07:10 98.2 F 07/12/19 06:56 71 115/69 07/12/19 06:55 70 27 H 07/12/19 06:00 19 07/12/19 04:00 98.2 F 17 07/12/19 03:04 71 124/73 07/12/19 02:00 11 L BP Pulse Ox Pulse Ox Pulse Ox 07/12/19 13:19 07/12/19 13:17 97 07/12/19 12:16 82/55 L 98 98 07/12/19 12:00 07/12/19 11:31 07/12/19 10:00 07/12/19 08:00 07/12/19 07:40 98 07/12/19 07:10 07/12/19 06:56 07/12/19 06:55 99 07/12/19 06:00 07/12/19 04:00 07/12/19 03:04 07/12/19 02:00 Weight Admit Weight 164 lb Weight 168 lb 6.931 oz Most Recent Monitor Data Heart Rate from ECG 92 NIBP 135/82 NIBP BP-Mean 99 Respiration from ECG 27 SpO2 99 I&O: 07/11/19 07/12/19 07/13/19 06:59 06:59 06:59 Intake Total 1847.1 2257 Output Total 2050 1190 615 Balance -202.9 1062 -615 Result Diagrams: 07/12/19 05:57 07/12/19 04:15 Additional Labs: Accuchecks 07/11/19 07/11/19 21:53 16:15 POC Glucose 187 H 216 H Radiology Reviewed by me: Yes Hospitalist ROS - Review of Systems All other systems reviewed; all pertinent +/- noted in HPI/Subj - Medication Medications: Active Medications Generic Name Dose Route Start Last Admin Trade Name Freq PRN Reason Stop Dose Admin Amiodarone HCl 200 mg 07/11/19 09:00 07/12/19 12:28 Cordarone PO 200 mg BID ALYSE Administration Atorvastatin Calcium 20 mg 06/20/19 21:00 07/11/19 21:52 Lipitor PO 20 mg HS ALYSE Administration Calcium/Vitamin D 1 tab 06/21/19 21:00 07/12/19 12:25 Caltrate 600 + Vit D PO 1 tab BID ALYSE Administration Fentanyl 100 mcg 07/12/19 07:47 07/12/19 10:10 Sublimaze SLOW IVP 07/12/19 21:00 100 mcg ONE PRN Administration TRACH & PEG PLACEMENT Furosemide 40 mg 07/11/19 09:00 07/12/19 08:38 Lasix SLOW IVP 40 mg DAILY ALYSE Administration Pentamidine Isethionate 300 mg 250 mls @ 250 mls/hr 06/29/19 17:00 07/11/19 16:41 / Dextrose/Water IVPB 250 mls Q24HR ALYSE Administration Norepinephrine Bitartrate 250 mls @ 0 mls/hr 07/05/19 00:59 07/12/19 06:18 Levophed IVPB 250 mls INF ALYSE Administration Protocol Titrate Dextrose/Water 1,000 mls @ 40 mls/hr 07/11/19 07:45 07/12/19 08:47 D5w IV 1,000 mls .Q24H ALYSE Administration Insulin Human Lispro 0 units 06/25/19 09:34 07/11/19 21:57 Humalog SC 2 unit .MODERATE SLIDING SC PRN Administration Moderate Correctional Scale Ipratropium [place] 2.5 ml 07/10/19 13:00 07/12/19 13:17 Atrovent NEB 2.5 ml [id number] ALYSE Administration Lidocaine/Epinephrine 0 ml 07/12/19 07:43 07/12/19 10:15 Xylocaine 1% W/ Epi 1:100k FS 07/12/19 21:00 20 ml ONE PRN Administration TRACH & PEG PLACEMENT Midazolam HCl 2 mg 07/12/19 07:46 07/12/19 10:10 Versed SLOW IVP 07/12/19 21:00 2 mg ONE PRN Administration TRACH & PEG PLACEMENT Polyethylene Glycol 17 gm 06/26/19 09:00 07/12/19 12:28 Miralax PER TUBE 17 gm DAILY ALYSE Administration Potassium Chloride 40 meq 07/08/19 05:29 07/08/19 05:35 Klor-Con PER TUBE 40 meq ASDIR PRN Administration FOR SERUM K+ 2.5-3.5 Prednisone 20 mg 07/11/19 08:00 07/12/19 12:27 Prednisone PO 20 mg QAM-WM ALYSE Administration Sodium Chloride 10 ml 06/19/19 17:20 06/23/19 21:56 Flush - Normal Saline IVF 10 ml Q12HR PRN Administration Saline Flush Vecuronium [place] 10 mg 07/12/19 07:43 07/12/19 10:11 Norcuron IV 07/12/19 21:00 10 mg ONE PRN Administration TRACH & PEG PLACEMENT - Exam General Appearance: NAD Eye: anicteric sclera ENT: no oropharyngeal lesions, dry oral mucosa Neck: supple, symmetric Heart: no murmur, no gallops, no rubs Respiratory: CTAB, no wheezes, no rales, no ronchi, no tachypnea Gastrointestinal: soft, non-tender, non-distended, no guarding, no rigidity Extremities: no edema Skin: no lesions, no rashes Neurological: cranial nerve grossly intact, no focal deficits Musculoskeletal: generalized weakness Psychiatric: not oriented Hosp A/P (1) Acute renal failure Status: Acute Qualifiers: Acute renal failure type: unspecified Qualified Code(s): N17.9 - Acute kidney failure, unspecified (2) Acute respiratory failure with hypoxia Code(s): J96.01 - ACUTE RESPIRATORY FAILURE WITH HYPOXIA Status: Acute (3) Atrial fibrillation with RVR Code(s): I48.91 - UNSPECIFIED ATRIAL FIBRILLATION Status: Acute (4) CHF (congestive heart failure) Code(s): I50.9 - HEART FAILURE, UNSPECIFIED Status: Acute Qualifiers: Heart failure type: systolic Heart failure chronicity: acute Qualified Code(s): I50.21 - Acute systolic (congestive) heart failure (5) Hypotension Status: Acute Qualifiers: Hypotension type: idiopathic hypotension Qualified Code(s): I95.0 - Idiopathic hypotension (6) Leukopenia Code(s): D72.819 - DECREASED WHITE BLOOD CELL COUNT, UNSPECIFIED Status: Acute Qualifiers: Leukopenia type: neutropenia Neutropenia type: other drug-induced Qualified Code(s): D70.2 - Other drug-induced agranulocytosis (7) PCP (pneumocystis jiroveci pneumonia) Code(s): B59 - PNEUMOCYSTOSIS Status: Acute (8) Respiratory failure requiring intubation Code(s): J96.90 - RESPIRATORY FAILURE, UNSP, UNSP W HYPOXIA OR HYPERCAPNIA Status: Acute (9) Sepsis associated hypotension Code(s): A41.9 - SEPSIS, UNSPECIFIED ORGANISM; I95.9 - HYPOTENSION, UNSPECIFIED Status: Acute (10) Shock Code(s): R57.9 - SHOCK, UNSPECIFIED Status: Acute (11) Atrial fibrillation Code(s): I48.91 - UNSPECIFIED ATRIAL FIBRILLATION Status: Chronic Qualifiers: Atrial fibrillation type: unspecified Qualified Code(s): I48.91 - Unspecified atrial fibrillation (12) CKD (chronic kidney disease) Code(s): N18.9 - CHRONIC KIDNEY DISEASE, UNSPECIFIED Status: Chronic Qualifiers: Chronic kidney disease stage: stage 3 (moderate) Qualified Code(s): N18.3 - Chronic kidney disease, stage 3 (moderate) (13) Pneumonia Code(s): J18.9 - PNEUMONIA, UNSPECIFIED ORGANISM Status: Acute Qualifiers: 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 Laterality: bilateral - Plan Plan: Intensive care unit pulmonology/critical-care consultation, recommendations appreciated Surgery consultation, recommendations appreciated nephrology consultation, recommendations appreciated infectious disease consultation, recommendations appreciated palliative care consultation, recommendations appreciated Holding anticoagulation in preparation for tracheostomy and PEG tube. CT head noted, no acute pathology MRI brain noted, no acute pathology vasoactive medications as needed to maintain mean arterial blood pressure greater than 65 ventilator support patient's mentation is limiting vent weaning trials at this time pneumocystis jirovecii pneumonia with adverse reaction to Bactrim, on pentamidine per ID broad-spectrum antibiotics have been discontinued per ID continue other home medications as able enteral nutrition blood sugar control Trend renal function Dispostion: prognosis is guarded. Family interested in aggressive measures including tracheostomy and PEG tube.
[2019-07-12] MEDS: HumaLOG 300 UNITS/3 ML VIAL SC PRN (17:42)
--- NOTE | 2019-07-12 18:30 | OP ---
DATE OF PROCEDURE: 07/12/2019 PREOPERATIVE DIAGNOSES: Acute respiratory failure secondary to Pneumocystis pneumonia. POSTOPERATIVE DIAGNOSES: Acute respiratory failure secondary to Pneumocystis pneumonia. PROCEDURES PERFORMED: 1. Placement of percutaneous tracheostomy tube. 2. Placement of percutaneous endoscopic gastrostomy tube. INDICATIONS FOR PROCEDURE: A 74-year-old man admitted with prolonged acute respiratory failure secondary to Pneumocystis pneumonia. The patient has remained in coma of undetermined etiology. CT scan and MRI of the brain have been obtained. I was asked to place a percutaneous tracheostomy tube to facilitate for potential prolonged mechanical ventilator support and to facilitate ventilator wean. Percutaneous endoscopic gastrostomy tube was also requested to facilitate prolonged enteral nutritional supplementation. DESCRIPTION OF PROCEDURE: Informed consent was obtained from the patient's . The patient was placed in supine position. He was placed on full mechanical ventilator support. He was given midazolam in aliquots of 2 mg and fentanyl 50 mg followed by vecuronium 10 mg to achieve adequate sedation and comfort. Anterior neck was then sterilely prepped and draped in usual fashion. The bronchoscope was introduced through the previous endotracheal tube and advanced to visualize the verenice. The scope was then withdrawn transilluminating the anterior neck in the area chosen for the placement of the tracheostomy tube. The anterior neck having been sterilely prepped and draped in usual fashion. The skin 2 fingerbreadths above the suprasternal notch was anesthetized in the midline using 1% lidocaine with epinephrine. 1 cm vertical incision was made using a 15 scalpel. An introducer needle was inserted through the incision and advanced through the anterior tracheal wall, visualized by bronchoscopy. Guidewire was passed through the needle and advanced into the distal tracheal lumen without resistance. Needle was withdrawn over the guidewire. The anterior tracheal wall was sterilely dilated over the guidewire. Finally, a size 8 tracheostomy tube with a dilator and introducer catheter advanced over the guidewire as a unit and placed in the distal tracheal lumen. The guidewire, dilator, and introducer catheter were removed as a unit leaving the tracheostomy tube in place. An inner cannula was then inserted and the patient was connected to mechanical ventilator support via the newly placed tracheostomy tube. Once the cuff was inflated, good tidal volume was returned. Tracheostomy tube was then secured to anterior neck using 0 silk suture at two points. Sterile dressings and trach tie were applied. The bronchoscope was withdrawn with the previous endotracheal tube as a unit visualizing the tracheostomy site from above with good hemostasis. Once the endotracheal tube was removed, bronchoscope was reintroduced through the newly placed tracheostomy tube and advanced to visualize the verenice. The scope was directed to the right mainstem bronchus and into the left mainstem bronchus, no active bleeding noted. The bronchoscope was then withdrawn again visualizing the tracheostomy site from below with good hemostasis. The patient tolerated this procedure without any apparent complication and remains hemodynamically stable following completion of the procedure. Oxygen saturation was 100% at all times. Attention was then directed to the abdomen, where we proceeded with an endoscopic gastrostomy tube aspect. With a different set up gown and gloves, an endoscope was introduced after the mouth guard was put in place. The scope was introduced per oral, intubating the esophagus, with gentle insufflation the scope was directed into the gastric lumen, which was insufflated. The scope was then directed into the proximal duodenum. No peptic ulcerative disease was noted. The scope was withdrawn into the gastric fundus, transilluminating the left upper quadrant of the abdomen in the area chosen for the placement of the gastrostomy tube. This place was widely sterilely prepped and draped in usual fashion. The skin was anesthetized with 1% lidocaine with epinephrine. A stab incision was then made using an 11 scalpel. Introducer needle was inserted through this and advanced into the gastric lumen visualized by endoscopy. The guidewire was passed through the needle and advanced into the gastric lumen and captured with endo-snare. The needle and the catheter were withdrawn as a unit. The guidewire was then pulled out by mouth with the endoscope and connected to a 20-Luxembourger gastrostomy tube. The distal end of the guidewire was pulled out through the skin incision leaving the mushroom end of the gastrostomy tube abutting the gastric mucosa as visualized by repeat endoscopy. The gastrostomy tube was then fashioned to length and secured to the skin using a bolster at 3 cm. Gauze dressing was applied over the gastrostomy tube exit site. The patient tolerated this procedure without any apparent complication and remains hemodynamically stable following completion of this procedure. Job ID: [id number]
--- NOTE | 2019-07-12 20:25 | PRG ---
DATE OF SERVICE: 07/12/2019 SUBJECTIVE: Mr. Fletcher remains encephalopathic. He has probably a little more spontaneous movement, but not much. OBJECTIVE: VITAL SIGNS: His heart rate is in the 70s, respiratory rate in the 20s. GENERAL: He had a trach and a PEG placed today. LUNGS: Unchanged. HEART: Unchanged. ABDOMEN: Unchanged. LABORATORY DATA: Plan to start doing lab every other day instead of every day. His white count today is 18.4, hemoglobin 10.1, platelets 262,000. Electrolytes are unremarkable. BUN is 91. IMPRESSION: 1. Pneumocystis pneumonia for all practical purposes resolving. 2. Critical illness myopathy. 3. Encephalopathy most likely that is related to his critical illness. 4. Atrial fibrillation. 5. Persistent encephalopathy. We will avoid any sedating drugs from here forward. I do not feel LTAC is appropriate at this point. His does not want him to go to a long-term acute care at this point in time and really not sure how much longer they want to proceed in an aggressive fashion. At this point in time, it is reasonable to continue for another week to 10 days and if we see no significant clinical improvement in his mental status or the beginning of any improvement in his strength, everybody in his family feels he would not want to continue like this. I met with the son and answered all of his questions. We have an excellent working relationship. I will continue to move forward supporting them and the patient to the best of our ability. I am not sure if he can recover from this. CRITICAL CARE TIME: 30 minutes. Job ID: [id number]
[2019-07-12] MEDS: Atorvastatin Calcium 20 MG TAB PO SCH (21:31)
[2019-07-12] MEDS ORDERED: Acetaminophen 650 MG/20.3 ML UDCUP PO PRN (22:01)
[2019-07-13] MEDS: Ipratropium Bromide 2.5 ml Neb NEB SCH ×4 (01:40→19:27)
[2019-07-13] MEDS: Norepinephrine 8 MG/0.9% NS 250 ML IVPB SCH ×2 (04:48→16:28)
[2019-07-13 06:35] LABS: Hemoglobin 9.5 g/dL (14.0-18.0); Mean Corpuscular Hemoglobin 31.6 pg (27.0-31.0); Mean Corpuscular Volume 98.7 fL (78.0-98.0); Mean Platelet Volume 8.5 fL (7.4-10.4); Platelet Count 236 thou/uL (130-400); RBC Distribution Width 18.9 % (11.5-14.5); Red Blood Cell (RBC) Count 3.02 mill/uL (4.70-6.10); White Blood Cell (WBC) Count 15.7 thou/uL (4.8-10.8)
[2019-07-13 06:38] LABS: Anion Gap 14 mmol/L (10-20); BUN (Urea Nitrogen) 73 mg/dL (8.4-25.7); Calc. Creatinine Clearance 87 mL/min (70-130); Calcium 10.1 mg/dL (7.8-10.44); Carbon Dioxide 27 mmol/L (23-31); Chloride 102 mmol/L (98-107); Estimated GFR-MDRD Greater than 90; Glucose 86 mg/dL (83-110); Potassium 3.8 mmol/L (3.5-5.1); Sodium 139 mmol/L (136-145)
[2019-07-13 06:59] LABS: Anisocytosis SLIGHT = 6-15 cells (100X) (0-5/hpf); Band 19 % (5-11); Eosinophils 1 % (0-10); Lymphocytes 7 % (21-51); MDiff Complete? YES; Monocytes 4 % (0-10); Neutrophil 68 % (42-75); Platelet Morphology Comment Appears Adequate; Polychromasia MODERATE = 3-4 cells (100X) (0-2/hpf); Reactive Lymphocytes 1 % (0-10)
[2019-07-13] MEDS: Amiodarone 200 MG TAB PO SCH ×2 (08:27→21:53)
[2019-07-13] MEDS: Calcium Carbonate + Vit D 1 TAB PO SCH ×2 (08:27→21:53)
[2019-07-13] MEDS: Polyethylene Glycol 3350 17 GM Packet PER TUBE SCH (08:27)
[2019-07-13] MEDS: Furosemide 40 MG/4 ML VIAL SLOW IVP SCH (08:27)
[2019-07-13] MEDS: methylPREDNISolone Sod Succ 40 MG VIAL IVP SCH (08:27)
[2019-07-13] MEDS: Dextrose 5% in Water 1,000 ML IV SCH (09:03)
[2019-07-13] MEDS: Albumin 25% 25 GM/100 ML BOT IVPB SCH ×2 (11:17→18:30)
--- NOTE | 2019-07-13 13:05 | PDOC.HOSPP ---
- Subjective Subjective: Seen and examined. Neurologically unchanged. Status post trach and peg stable for long-term acute care placement. Case management consultation requested for discharge process. - Objective Vital Signs & Weight: Vital Signs (12 hours) Temp Pulse Resp Pulse Ox 07/13/19 12:57 73 07/13/19 10:44 69 07/13/19 10:00 24 H 07/13/19 08:02 85 07/13/19 08:00 99.2 F 25 H 07/13/19 06:00 33 H 07/13/19 04:00 98.4 F 30 H 07/13/19 03:22 78 07/13/19 02:00 24 H 07/13/19 01:40 69 98 Weight Admit Weight 164 lb Weight 169 lb 15.622 oz Most Recent Monitor Data Heart Rate from ECG 76 NIBP 129/66 NIBP BP-Mean 87 Respiration from ECG 28 SpO2 98 I&O: 07/12/19 07/13/19 07/14/19 06:59 06:59 06:59 Intake Total 2257 2247 Output Total 1195 1742 460 Balance 1062 505 -460 Result Diagrams: 07/13/19 05:52 07/13/19 05:52 Additional Labs: Accuchecks 07/13/19 07/12/19 07/12/19 04:50 23:44 17:35 POC Glucose 88 152 H 161 H Radiology Reviewed by me: Yes Hospitalist ROS - Review of Systems All other systems reviewed; all pertinent +/- noted in HPI/Subj - Medication Medications: Active Medications Generic Name Dose Route Start Last Admin Trade Name Freq PRN Reason Stop Dose Admin Albumin Human 25 gm 07/13/19 12:00 07/13/19 11:17 Albumin 25% IVPB 07/14/19 12:01 25 gm Q6HR ALYSE Administration Amiodarone HCl 200 mg 07/11/19 09:00 07/13/19 08:27 Cordarone PO 200 mg BID ALYSE Administration Atorvastatin Calcium 20 mg 06/20/19 21:00 07/12/19 21:31 Lipitor PO 20 mg HS ALYSE Administration Calcium/Vitamin D 1 tab 06/21/19 21:00 07/13/19 08:27 Caltrate 600 + Vit D PO 1 tab BID ALYSE Administration Furosemide 40 mg 07/11/19 09:00 01/08/20 08:27 Lasix SLOW IVP 40 mg DAILY ALYSE Administration Pentamidine Isethionate 300 mg 250 mls @ 250 mls/hr 06/29/19 17:00 07/12/19 17:29 / Dextrose/Water IVPB 250 mls Q24HR ALYSE Administration Norepinephrine Bitartrate 250 mls @ 0 mls/hr 07/05/19 00:59 07/13/19 04:48 Levophed IVPB 250 mls INF ALYSE Administration Protocol Titrate Dextrose/Water 1,000 mls @ 40 mls/hr 07/11/19 07:45 07/13/19 09:03 D5w IV 1,000 mls .Q24H ALYSE Administration Insulin Human Lispro 0 units 06/25/19 09:34 07/12/19 17:42 Humalog SC 2 unit .MODERATE SLIDING SC PRN Administration Moderate Correctional Scale Ipratropium [place] 2.5 ml 07/10/19 13:00 07/13/19 12:56 Atrovent NEB 2.5 ml [id number] ALYSE Administration Methylprednisolone Sodium Succinate 20 mg 07/13/19 09:00 07/13/19 08:27 Solu-Medrol IVP 20 mg DAILY ALYSE Administration Polyethylene Glycol 17 gm 06/26/19 09:00 07/13/19 08:27 Miralax PER TUBE 17 gm DAILY ALYSE Administration Potassium Chloride 40 meq 07/08/19 05:29 07/08/19 05:35 Klor-Con PER TUBE 40 meq ASDIR PRN Administration FOR SERUM K+ 2.5-3.5 Sodium Chloride 10 ml 06/19/19 17:20 07/13/19 08:28 Flush - Normal Saline IVF 10 ml Q12HR PRN Administration Saline Flush - Exam General Appearance: NAD Eye: anicteric sclera ENT: no oropharyngeal lesions, dry oral mucosa Neck: supple, symmetric, no lymphadenopathy Heart: no murmur, no gallops, no rubs Respiratory: no rales, no ronchi, normal chest expansion, no tachypnea, wheezes (very faint) Gastrointestinal: soft, non-tender, non-distended, no guarding, no rigidity Extremities: 2+ LE edema Skin: no lesions, no rashes Neurological - other findings: Limited secondary to clinical condition. Follows no commands Musculoskeletal: diffuse muscle atrophy Psychiatric: not oriented Hosp A/P (1) Acute renal failure Status: Acute Qualifiers: Acute renal failure type: unspecified Qualified Code(s): N17.9 - Acute kidney failure, unspecified (2) Acute respiratory failure with hypoxia Code(s): J96.01 - ACUTE RESPIRATORY FAILURE WITH HYPOXIA Status: Acute (3) Atrial fibrillation with RVR Code(s): I48.91 - UNSPECIFIED ATRIAL FIBRILLATION Status: Acute (4) CHF (congestive heart failure) Code(s): I50.9 - HEART FAILURE, UNSPECIFIED Status: Acute Qualifiers: Heart failure type: systolic Heart failure chronicity: acute Qualified Code(s): I50.21 - Acute systolic (congestive) heart failure (5) Hypotension Status: Acute Qualifiers: Hypotension type: idiopathic hypotension Qualified Code(s): I95.0 - Idiopathic hypotension (6) Leukopenia Code(s): D72.819 - DECREASED WHITE BLOOD CELL COUNT, UNSPECIFIED Status: Acute Qualifiers: Leukopenia type: neutropenia Neutropenia type: other drug-induced Qualified Code(s): D70.2 - Other drug-induced agranulocytosis (7) PCP (pneumocystis jiroveci pneumonia) Code(s): B59 - PNEUMOCYSTOSIS Status: Acute (8) Respiratory failure requiring intubation Code(s): J96.90 - RESPIRATORY FAILURE, UNSP, UNSP W HYPOXIA OR HYPERCAPNIA Status: Acute (9) Sepsis associated hypotension Code(s): A41.9 - SEPSIS, UNSPECIFIED ORGANISM; I95.9 - HYPOTENSION, UNSPECIFIED Status: Acute (10) Shock Code(s): R57.9 - SHOCK, UNSPECIFIED Status: Acute (11) Atrial fibrillation Code(s): I48.91 - UNSPECIFIED ATRIAL FIBRILLATION Status: Chronic Qualifiers: Atrial fibrillation type: unspecified Qualified Code(s): I48.91 - Unspecified atrial fibrillation (12) CKD (chronic kidney disease) Code(s): N18.9 - CHRONIC KIDNEY DISEASE, UNSPECIFIED Status: Chronic Qualifiers: Chronic kidney disease stage: stage 3 (moderate) Qualified Code(s): N18.3 - Chronic kidney disease, stage 3 (moderate) (13) Pneumonia Code(s): J18.9 - PNEUMONIA, UNSPECIFIED ORGANISM Status: Acute Qualifiers: 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 Laterality: bilateral - Plan Plan: Intensive care unit pulmonology/critical-care consultation, recommendations appreciated Surgery consultation, recommendations appreciated nephrology consultation, recommendations appreciated infectious disease consultation, recommendations appreciated palliative care consultation, recommendations appreciated Restart anticoagulation when ok with surgery CT head noted, no acute pathology MRI brain noted, no acute pathology vasoactive medications as needed to maintain mean arterial blood pressure greater than 65 ventilator support patient's mentation is limiting vent weaning trials at this time pneumocystis jirovecii pneumonia with adverse reaction to Bactrim, on pentamidine per ID broad-spectrum antibiotics have been discontinued per ID continue other home medications as able enteral nutrition blood sugar control Trend renal function Dispostion: prognosis is guarded. Family interested in aggressive, S/p tracheostomy and PEG tube. Stable for LTAC. CM consulted for D/c planning.
--- NOTE | 2019-07-13 14:42 | PDOC.PALPN ---
Palliative Progress Note - Subjective Post trach and peg placement. Patient remains non responsive and without neurological changes noted on my exam. - Objective Vital Signs: Vital Signs - Most Recent Temp Pulse Resp BP Pulse Ox 98.7 F 73 24 H 105/69 98 07/13/19 11:00 07/13/19 12:57 07/13/19 10:00 07/12/19 23:05 07/13/19 01:40 - Physical Exam Constitutional: encephalitic, ill appearing HEENT: moist MMs, sclera anicteric Deviation from normal: trach, mechanical ventilation Cardiovascular: RRR Gastrointestinal: soft, non-tender, incontinent Genitourinary: juárez catheter Musculoskeletal: no cyanosis, pulses present, edema present, muscle wasting Deviation from normal: no purposeful movement Skin: no lesions, no rash, fragile Deviation from normal: encephalopathic - Assessment (1) Palliative care encounter Code(s): Z51.5 - ENCOUNTER FOR PALLIATIVE CARE Current Visit: Yes Status: Acute (2) Acute renal failure Current Visit: Yes Status: Acute Qualifiers: Acute renal failure type: unspecified Qualified Code(s): N17.9 - Acute kidney failure, unspecified (3) Acute respiratory failure with hypoxia Code(s): J96.01 - ACUTE RESPIRATORY FAILURE WITH HYPOXIA Current Visit: Yes Status: Acute (4) PCP (pneumocystis jiroveci pneumonia) Code(s): B59 - PNEUMOCYSTOSIS Current Visit: Yes Status: Acute (5) Respiratory failure requiring intubation Code(s): J96.90 - RESPIRATORY FAILURE, UNSP, UNSP W HYPOXIA OR HYPERCAPNIA Current Visit: Yes Status: Acute - Plan Plan: Kate relayed that Dr Llanos did visit with her. Sons remain frustrated as they do not believe that their father would desire this quality of life currently as per Venkatesh. Plan currently to monitor patient for the next week, if no improvement then not transfer to LTAC but to comfort measures. Kate appears to have difficulty in the guarded condition of her and clings to hope, it would not be surprising that she may push for continuation of care at LTAC even though his advance directives indicate that he requested no life sustaining measures as per family in previous conversation. Will continue supportive care for family. [30] minutes spent on this encounter with >50% of the time in counseling and coordination of care. - ROS Non Response: due to endotracheal tube, due to mental status
[2019-07-13] MEDS: HumaLOG 300 UNITS/3 ML VIAL SC PRN (15:35)
--- NOTE | 2019-07-13 18:33 | PRG ---
DATE OF SERVICE: 07/13/2019 SUBJECTIVE: Mr. Fletcher is a 74-year-old man, who is postop day #1, status post percutaneous tracheostomy and percutaneous endoscopic gastrostomy tube placement. He remains stable, on mechanical ventilator support. OBJECTIVE: VITAL SIGNS: Vital signs have remained stable since postop, currently with blood pressure 122/64, pulse 85, respiratory rate is 22, maximum temperature in last 24 hours is 99.2 degrees Fahrenheit, oxygen saturation is 98% on FiO2 of 30%, on mechanical ventilator support. HEENT: Tracheostomy site is clean, dry. No hematoma or subcutaneous emphysema. ABDOMEN: PEG tube site is clean and dry. Abdomen is otherwise soft, nondistended with no peritoneal signs on examination. Trach sutures may be removed in 5 days. Percutaneous endoscopic gastrostomy tube is good to be used for all purposes as deferred by the Primary Service. General Surgery will sign off and be available to re-evaluate the patient on demand. Job ID: [id number]
--- NOTE | 2019-07-13 20:01 | PRG ---
DATE OF SERVICE: 07/13/2019 SUBJECTIVE: Lane Fletcher still did not respond to sternal rub. OBJECTIVE: GENERAL: He is in no distress. VITAL SIGNS: Heart rate is in the 70s, blood pressure is in the 80s to 100 range, still on low-dose Levophed. LUNGS: Clear. HEART: Regular rhythm. ABDOMEN: Soft. EXTREMITIES: Without asymmetry. He is locally diffusely edematous to a mild degree. LABORATORY DATA: White count 15.7, hemoglobin 9.5, platelets 236. Sodium 139, potassium 3.8, chloride 102, bicarb 27, BUN 73, creatinine 0.78. IMPRESSION: 1. Status post Pneumocystis pneumonia. 2. Critical illness myopathy. 3. Encephalopathy. 4. Status post trach and PEG. 5. IgG4 disease. makes more small daytime changes with ventilation and increased his ventilator . He is not really progressing rapidly. I am not optimistic. We will see significant improvement over the next week, but we will continue to push forward. Job ID: [id number]
[2019-07-13] MEDS: Atorvastatin Calcium 20 MG TAB PO SCH (21:54)
[2019-07-14] MEDS: Albumin 25% 25 GM/100 ML BOT IVPB SCH ×3 (00:38→11:32)
[2019-07-14] MEDS: Ipratropium Bromide 2.5 ml Neb NEB SCH ×4 (01:49→18:54)
[2019-07-14] MEDS: Norepinephrine 8 MG/0.9% NS 250 ML IVPB SCH ×3 (02:23→20:05)
[2019-07-14] MEDS: Calcium Carbonate + Vit D 1 TAB PO SCH ×2 (08:13→22:13)
[2019-07-14] MEDS: Amiodarone 200 MG TAB PO SCH ×2 (08:13→22:13)
[2019-07-14] MEDS: Furosemide 40 MG/4 ML VIAL SLOW IVP SCH (08:13)
[2019-07-14] MEDS: Polyethylene Glycol 3350 17 GM Packet PER TUBE SCH (08:14)
[2019-07-14] MEDS: Dextrose 5% in Water 1,000 ML IV SCH (08:14)
[2019-07-14] MEDS: methylPREDNISolone Sod Succ 40 MG VIAL IVP SCH (08:24)
[2019-07-14] MEDS: HumaLOG 300 UNITS/3 ML VIAL SC PRN ×2 (10:26→17:44)
[2019-07-14 11:30] LABS: Actual Bicarbonate (HCO3a) 23.4 mEq/L (22-28); Base Excess (BEa) 0.3 mEq/L (-2.0 to +3.0); CO2 Tension 31.9 mmHg (35.0-45.0); Calcium, Ionized 1.26 mmol/L (1.12-1.30); Carboxyhemoglobin (COHb) 1.2 gm% (0.0-3.0); Hemoglobin (Hb) 8.8 g/dL (14.0-18.0); pH, Arterial 7.48 (7.35-7.45)
[2019-07-14 11:32] LABS: ALV-art Gradient 237.075 (0-20); O2 Tension (PaO2) 43.9 mmHg (> 70.0); Peep/CPAP 6.5 cmH2O; Puncture Site RRA
[2019-07-14] MEDS ORDERED: Haloperidol Lactate 5 MG/ML VIAL IM SCH (12:00)
--- NOTE | 2019-07-14 12:07 | PDOC.HOSPP ---
- Subjective Subjective: Remains in the intensive care unit. No clinical change. Discussed with RN at bedside. Stable for lower level of care. - Objective Vital Signs & Weight: Vital Signs (12 hours) Temp Pulse Resp BP Pulse Ox 07/14/19 11:35 77 07/14/19 11:30 32 H 07/14/19 10:54 75 07/14/19 10:00 33 H 07/14/19 08:24 91 129/60 07/14/19 08:00 100.5 F H 37 H 07/14/19 06:00 29 H 07/14/19 04:16 81 07/14/19 04:00 98.6 F 25 H 07/14/19 02:00 33 H 07/14/19 01:49 93 L 07/14/19 01:47 75 Weight Admit Weight 164 lb Weight 169 lb 12.095 oz Most Recent Monitor Data Heart Rate from ECG 91 NIBP 134/78 NIBP BP-Mean 96 Respiration from ECG 33 SpO2 93 I&O: 07/13/19 07/14/19 07/15/19 06:59 06:59 06:59 Intake Total 2247 3120 50 Output Total 1817 2515 645 Balance 430 605 -595 Result Diagrams: 07/13/19 05:52 07/13/19 05:52 Additional Labs: Accuchecks 07/14/19 07/14/19 07/13/19 10:22 04:18 22:15 POC Glucose 168 H 126 H 127 H 07/13/19 15:36 POC Glucose 160 H Hospitalist ROS - Review of Systems ROS unobtainable: due to mental status - Medication Medications: Active Medications Generic Name Dose Route Start Last Admin Trade Name Freq PRN Reason Stop Dose Admin Acetaminophen 650 mg 06/19/19 17:20 07/14/19 11:32 Tylenol IN 650 mg Q4H PRN Administration Headache/Fever/Mild Pain (1-3) Acetaminophen 650 mg 07/12/19 22:01 07/13/19 21:54 Tylenol Elixir PO 650 mg Q4H PRN Administration Headache/Fever/Mild Pain (1-3) Amiodarone HCl 200 mg 07/11/19 09:00 07/14/19 08:13 Cordarone PO 200 mg BID ALYSE Administration Atorvastatin Calcium 20 mg 06/20/19 21:00 07/13/19 21:54 Lipitor PO 20 mg HS ALYSE Administration Calcium/Vitamin D 1 tab 06/21/19 21:00 07/14/19 08:13 Caltrate 600 + Vit D PO 1 tab BID ALYSE Administration Furosemide 40 mg 07/11/19 09:00 07/14/19 08:13 Lasix SLOW IVP 40 mg DAILY ALYSE Administration Pentamidine Isethionate 300 mg 250 mls @ 250 mls/hr 06/29/19 17:00 07/13/19 17:21 / Dextrose/Water IVPB 250 mls Q24HR ALYSE Administration Norepinephrine Bitartrate 250 mls @ 0 mls/hr 07/05/19 00:59 07/14/19 02:23 Levophed IVPB 250 mls INF ALYSE Administration Protocol Titrate Dextrose/Water 1,000 mls @ 40 mls/hr 07/11/19 07:45 07/14/19 08:14 D5w IV 1,000 mls .Q24H ALYSE Administration Insulin Human Lispro 0 units 06/25/19 09:34 07/14/19 10:26 Humalog SC 2 unit .MODERATE SLIDING SC PRN Administration Moderate Correctional Scale Ipratropium Royal 2.5 ml 07/10/19 13:00 07/14/19 08:23 Atrovent NEB 2.5 ml N2GO-UT ALYSE Administration Methylprednisolone Sodium Succinate 20 mg 07/13/19 09:00 07/14/19 08:24 Solu-Medrol IVP 20 mg DAILY ALYSE Administration Polyethylene Glycol 17 gm 06/26/19 09:00 07/14/19 08:14 Miralax PER TUBE Not Given DAILY ALYSE Potassium Chloride 40 meq 07/08/19 05:29 07/08/19 05:35 Klor-Con PER TUBE 40 meq ASDIR PRN Administration FOR SERUM K+ 2.5-3.5 Sodium Chloride 10 ml 06/19/19 17:20 07/13/19 08:28 Flush - Normal Saline IVF 10 ml Q12HR PRN Administration Saline Flush - Exam General Appearance: NAD Eye: anicteric sclera ENT: normocephalic atraumatic, moist mucosa Neck: supple, symmetric Heart: no murmur, no gallops, no rubs Respiratory: no rales, no ronchi, no tachypnea, wheezes (few faint) Gastrointestinal: soft, non-tender, no guarding, no rigidity Extremities: 2+ LE edema Extremities - other findings: 2+ UE edema Skin: no rashes Neurological: no focal deficits Neurological - other findings: Eyes closed, follows no commands, eyes do not track Musculoskeletal: generalized weakness, diffuse muscle atrophy Psychiatric: not oriented Hosp A/P (1) Acute renal failure Status: Acute Qualifiers: Acute renal failure type: unspecified Qualified Code(s): N17.9 - Acute kidney failure, unspecified (2) Acute respiratory failure with hypoxia Code(s): J96.01 - ACUTE RESPIRATORY FAILURE WITH HYPOXIA Status: Acute (3) Atrial fibrillation with RVR Code(s): I48.91 - UNSPECIFIED ATRIAL FIBRILLATION Status: Acute (4) CHF (congestive heart failure) Code(s): I50.9 - HEART FAILURE, UNSPECIFIED Status: Acute Qualifiers: Heart failure type: systolic Heart failure chronicity: acute Qualified Code(s): I50.21 - Acute systolic (congestive) heart failure (5) Hypotension Status: Acute Qualifiers: Hypotension type: idiopathic hypotension Qualified Code(s): I95.0 - Idiopathic hypotension (6) Leukopenia Code(s): D72.819 - DECREASED WHITE BLOOD CELL COUNT, UNSPECIFIED Status: Acute Qualifiers: Leukopenia type: neutropenia Neutropenia type: other drug-induced Qualified Code(s): D70.2 - Other drug-induced agranulocytosis (7) PCP (pneumocystis jiroveci pneumonia) Code(s): B59 - PNEUMOCYSTOSIS Status: Acute (8) Respiratory failure requiring intubation Code(s): J96.90 - RESPIRATORY FAILURE, UNSP, UNSP W HYPOXIA OR HYPERCAPNIA Status: Acute (9) Sepsis associated hypotension Code(s): A41.9 - SEPSIS, UNSPECIFIED ORGANISM; I95.9 - HYPOTENSION, UNSPECIFIED Status: Acute (10) Shock Code(s): R57.9 - SHOCK, UNSPECIFIED Status: Acute (11) Atrial fibrillation Code(s): I48.91 - UNSPECIFIED ATRIAL FIBRILLATION Status: Chronic Qualifiers: Atrial fibrillation type: unspecified Qualified Code(s): I48.91 - Unspecified atrial fibrillation (12) CKD (chronic kidney disease) Code(s): N18.9 - CHRONIC KIDNEY DISEASE, UNSPECIFIED Status: Chronic Qualifiers: Chronic kidney disease stage: stage 3 (moderate) Qualified Code(s): N18.3 - Chronic kidney disease, stage 3 (moderate) (13) Pneumonia Code(s): J18.9 - PNEUMONIA, UNSPECIFIED ORGANISM Status: Acute Qualifiers: 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 Laterality: bilateral - Plan Plan: Intensive care unit pulmonology/critical-care consultation, recommendations appreciated Surgery consultation, recommendations appreciated nephrology consultation, recommendations appreciated infectious disease consultation, recommendations appreciated palliative care consultation, recommendations appreciated Restart anticoagulation when ok with surgery CT head noted, no acute pathology MRI brain noted, no acute pathology vasoactive medications as needed to maintain mean arterial blood pressure greater than 65 ventilator support patient's mentation is limiting vent weaning trials at this time pneumocystis jirovecii pneumonia with adverse reaction to Bactrim, on pentamidine per ID broad-spectrum antibiotics have been discontinued per ID continue other home medications as able enteral nutrition blood sugar control Trend renal function Dispostion: prognosis is guarded. Family interested in aggressive, S/p tracheostomy and PEG tube. Stable for LTAC. CM consulted for D/c planning.
--- NOTE | 2019-07-14 12:12 | RAD ---
Chest AP view INDICATION: Increased respiratory rate and hypoxia COMPARISON: Prior exam dated July 11, 2019 FINDINGS: Lungs:The airspace opacity within the left and right lower lobes persists. There is a new loculated a ir based density involving the left hemithorax. Small air loculation is seen within the region of the left mediastinum. There is mild pneumomediastinum. This may be related to recent tracheostomy tub e placement. Cardiac silhouette:Stable mild cardiomegaly. Stable mitral valvular replacement. Stable midline swann otomy changes Pulmonary vasculature:Normal Pleural spaces:No pleural effusion or pneumothorax is demonstrated. Upper abdomen:No abnormality seen. Osseous structures: No acute osseous abnormality. Additional findings:None. IMPRESSION: Interval placement of tracheostomy tube with mild pneumomediastinum. There is a well locu lated gas collection overlying the left hemithorax which may be within the left aspect of the mediastinum are may be extrapleural location. No richard pneumothorax is evident. A right lateral decub itus film may be helpful to document nondependency. Currently, a CT scan may be helpful. Bilateral parenchymal opacities of the lower lobes persist suspicious for persistent pneumonia. Findings were c alled to MONICA Steven caring for this patient at 12:05 PM on July 14, 2019. Findings were also called to Dr. Llanos's answering service at 1209 PM on 07/14/2019.
[2019-07-14] MEDS ORDERED: Bacteriostatic Water 30 ML VIAL FS PRN (13:15)
[2019-07-14] MEDS ORDERED: Albumin 25% 25 GM/100 ML BOT IVPB SCH (20:00)
--- NOTE | 2019-07-14 20:09 | PRG ---
DATE OF SERVICE: 07/14/2019 SUBJECTIVE: Lane Fletcher became very tachypneic today and dyssynchronous with ventilation. The ventilator was changed from pressure mode to volume ventilation with more pressure support. He seemed to come down. He was also given 1 dose of IM Haldol. OBJECTIVE: LUNGS: Unchanged. HEART: Unchanged. ABDOMEN: Unchanged. LABORATORY DATA: His chest x-ray continues to still improve. Does have a small pneumomediastinum, which was related to his tracheostomy and coughing. I met with his and answered all of her questions. IMPRESSION: 1. Respiratory failure. 2. Encephalopathy, that is persistent. 3. Critical illness myopathy. He has had no hypoxic insult during this illness. I would hope that he would start to wake up over the next few days, but he certainly has not been at all throughout this week. If we get into early next week, we should consider comfort measures in my opinion as I have explained to the . Job ID: [id number]
[2019-07-14] MEDS: Atorvastatin Calcium 20 MG TAB PO SCH (22:13)
[2019-07-14 23:47] LABS: Actual Bicarbonate (HCO3a) 22.4 mEq/L (22-28); Base Excess (BEa) -2.8 mEq/L (-2.0 to +3.0); CO2 Tension 40.5 mmHg (35.0-45.0); Calcium, Ionized 1.26 mmol/L (1.12-1.30); Carboxyhemoglobin (COHb) 0.7 gm% (0.0-3.0); Hemoglobin (Hb) 8.5 g/dL (14.0-18.0); Potassium - ABG Lab 2.49 mmol/L (3.70-5.30); pH, Arterial 7.36 (7.35-7.45)
[2019-07-14 23:48] LABS: O2 Tension (PaO2) 50.7 mmHg (> 70.0)
[2019-07-14 23:49] LABS: ALV-art Gradient 611.675 (0-20); Puncture Site R RADIAL
[2019-07-15] MEDS ORDERED: Furosemide 40 MG/4 ML VIAL ONE
[2019-07-15] MEDS: Ipratropium Bromide 2.5 ml Neb NEB SCH ×2 (00:12→06:50)
[2019-07-15] MEDS: Norepinephrine 8 MG/0.9% NS 250 ML IVPB SCH ×2 (02:50→05:58)
[2019-07-15 04:10] LABS: Anion Gap 19 mmol/L (10-20); BUN (Urea Nitrogen) 49 mg/dL (8.4-25.7); Calc. Creatinine Clearance 84 mL/min (70-130); Calcium 9.5 mg/dL (7.8-10.44); Carbon Dioxide 23 mmol/L (23-31); Chloride 98 mmol/L (98-107); Estimated GFR-MDRD Greater than 90; Glucose 74 mg/dL (83-110); Sodium 137 mmol/L (136-145)
[2019-07-15 04:15] LABS: Potassium 2.6 mmol/L (3.5-5.1)
[2019-07-15 04:17] LABS: Band 50 % (5-11); Hemoglobin 9.4 g/dL (14.0-18.0); Lymphocytes 8 % (21-51); MDiff Complete? YES; Mean Corpuscular HGB CONC 31.9 g/dL (32.0-36.0); Mean Corpuscular Hemoglobin 32.1 pg (27.0-31.0); Mean Platelet Volume 8.1 fL (7.4-10.4); Metamyelocyte 5 % (0-0); Monocytes 1 % (0-10); Neutrophil 36 % (42-75); Nucleated RBC 7 % (0); Platelet Count 238 thou/uL (130-400); Platelet Morphology Comment Appears Adequate; RBC Distribution Width 18.9 % (11.5-14.5); Red Blood Cell (RBC) Count 2.92 mill/uL (4.70-6.10); White Blood Cell (WBC) Count 5.2 thou/uL (4.8-10.8)
[2019-07-15 06:51] VITALS: BMI 26.7
--- NOTE | 2019-07-15 08:35 | RAD ---
Frontal radiograph chest: 07/15/2019 COMPARISON: 07/14/2019 HISTORY: Hypoxia FINDINGS: There is a stable tracheostomy tube in place. Midline sternotomy wires are noted. Heart and mediastinal contours are stable. When compared to the 07/14/2019 examination, there has been significant worsening of dense consolidation/airspace disease involving both lung bases, right greate r than left, with small bilateral pleural effusions noted. IMPRESSION: Interval worsening of dense consolidative change within the lung bases. Findings suggest worsening pulmonary edema. Bibasilar infectious pneumonitis or aspiration cannot be excluded.
[2019-07-15] MEDS: Amiodarone 200 MG TAB PO SCH (09:06)
[2019-07-15] MEDS: Calcium Carbonate + Vit D 1 TAB PO SCH (09:06)
[2019-07-15] MEDS: Dextrose 5% in Water 1,000 ML IV SCH (09:06)
[2019-07-15] MEDS: Furosemide 40 MG/4 ML VIAL SLOW IVP SCH (09:07)
[2019-07-15] MEDS: Polyethylene Glycol 3350 17 GM Packet PER TUBE SCH (09:07)
[2019-07-15] MEDS: methylPREDNISolone Sod Succ 40 MG VIAL IVP SCH (09:07)
[2019-07-15 09:40] LABS: Potassium 3.5 mmol/L (3.5-5.1)
--- NOTE | 2019-07-15 09:56 | PRG ---
DATE OF SERVICE: 07/15/2019 SUBJECTIVE: Mr. Fletcher clinically declined overnight. He is up to 100% FiO2 and over 30 mcg of Levophed. OBJECTIVE: VITAL SIGNS: His blood pressure is in the 90s, heart rate is 111, respiratory rate is in the 30s. LUNGS: Remarkable for coarse, equal breath sounds. HEART: Regular rhythm. ABDOMEN: Soft. LABORATORY DATA: White count today is 5.2, but he has 50% bands on the peripheral smear. Electrolytes are unremarkable. BUN is down to 49. IMPRESSION: New clinical sepsis. PLAN: We will send him down for a CT pulmonary angiogram since he has been off Lovenox couple of days after his tracheostomy, but I suspect this is all new sepsis and possibly a new pneumonia after reviewing his chest x-ray. I will meet with family and we will consider withdrawing care today. Job ID: [id number]
[2019-07-15] MEDS: Norepinephrine 8 MG/0.9% NS 250 ML ONE ×2 (10:00→13:41)
[2019-07-15 10:44] VITALS: BP 122/81
--- NOTE | 2019-07-15 11:49 | CT ---
CT ANGIOGRAM THORAX WITH IV CONTRAST AND 3D RECONSTRUCTIONS: HISTORY: Hypotension and shortness of breath. COMPARISON: 07/06/2019 FINDINGS: No filling defects are seen in the pulmonary arteries to suggest a pulmonary embolus. 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 The thoracic aorta is normal in caliber and no obvio us aortic dissection is appreciated. Scattered vascular calcifications are seen in the thoracic aorta . A tracheostomy device is again noted in place. There is dense consolidation present in the right lower lobe, significantly increased when compared t o the prior exam. Slight areas of heterogeneity. Necrotizing pneumonia is a possibility. There is als o consolidation at the left lung base, which has increased from the prior exam with a low density are a seen within the area of consolidation, which is not thought to be related to pleural fluid. This ar ea of low density measures 3.7 cm. Necrotizing pneumonia or developing intraparenchymal abscess is a possibility. There is a small to moderate sized right pleural effusion and a small left pleural effusion. There is a large gas density seen involving the medial aspect of the left lower lobe, which measures 11.6 cm craniocaudal x6.7 cm transverse x 6.2 cm AP. A tiny air-fluid level is suggested within this density. This could be related to loculated hydropneumothorax and possibly secondary to barrel trauma . Bronchopleural fistula could not be entirely excluded. There is a prominent bleb seen at the anteromedial aspect of the left upper lobe with a thin-walled l ucency seen within the mid lung zones bilaterally, similar to the prior exam. There is partial visualization of a gastrostomy tube. Hypodense lesions are again seen in the liver, difficult to characterize on this nonenhanced CT exam but stable in appearance. No other interval change. IMPRESSION: 1. Worsening bilateral lower lobe areas of consolidation, most compatible with pneumonia, with a low density area in the area of consolidation at the left lung base, which could be related to necrotizin g pneumonia or developing intraparenchymal abscess. 2. Interval development of a large gas density occupying a large portion of the medial aspect, left l ower lobe, which could be related to a loculated hydropneumothorax or possibly bronchopleural fistula in this region. 3. Interval development of bilateral pleural effusions with moderate right and small left pleural eff usions present. 4. No CT evidence of a pulmonary embolus. 5. Post surgical changes related to median sternotomy and mitral valve replacement. 6. Stable hypodense lesions in the liver. 7. Thin-walled cystic structures within the mid lung zones bilaterally with adjacent ground glass den sities. This could potentially be related to prior barotrauma. These areas were not appreciated on a CT exam on 06/20/2019. POS: BETTIE
--- NOTE | 2019-07-15 13:25 | PDOC.HOSPP ---
- Subjective Subjective: Seen and examined. No significant clinical improvement. Remains intubated. Patient not able to offer any additional history. - Objective Vital Signs & Weight: Vital Signs (12 hours) Temp Pulse Resp BP Pulse Ox 07/15/19 12:00 28 H 07/15/19 10:40 116 H 122/81 07/15/19 10:00 27 H 07/15/19 08:00 99.5 F 28 H 07/15/19 06:58 111 H 98/63 07/15/19 06:50 117 H 32 H 93 L 07/15/19 06:00 18 07/15/19 04:07 108 H 112/70 07/15/19 04:00 98.2 F 19 07/15/19 02:00 13 Weight Admit Weight 164 lb Weight 176 lb 2.389 oz Most Recent Monitor Data Heart Rate from ECG 102 NIBP 126/81 NIBP BP-Mean 96 Respiration from ECG 28 SpO2 93 I&O: 07/14/19 07/15/19 07/16/19 06:59 06:59 06:59 Intake Total 3120 3215 Output Total 2515 1515 40 Balance 605 1700 -40 Result Diagrams: 07/15/19 03:35 07/15/19 09:09 Additional Labs: Accuchecks 07/14/19 07/14/19 23:34 17:46 POC Glucose 117 H 198 H Radiology Reviewed by me: Yes Hospitalist ROS - Review of Systems ROS unobtainable: due to mental status - Medication Medications: Active Medications Generic Name Dose Route Start Last Admin Trade Name Freq PRN Reason Stop Dose Admin Dextrose/Water 1,000 mls @ 40 mls/hr 07/11/19 07:45 07/15/19 09:06 D5w IV 1,000 mls .Q24H ALYSE Administration Sodium Chloride 10 ml 06/19/19 17:20 07/13/19 08:28 Flush - Normal Saline IVF 10 ml Q12HR PRN Administration Saline Flush - Exam General Appearance: ill appearing Eye: PERRL ENT: normocephalic atraumatic, moist mucosa Neck: supple, symmetric Heart: no murmur, no gallops, no rubs Respiratory: no rales, no tachypnea, rhonchi, wheezes (few faint) Gastrointestinal: soft, non-tender Extremities: 2+ LE edema Extremities - other findings: +2 UE edema Skin: no lesions, no rashes Neurological - other findings: Follows no commands Musculoskeletal: diffuse muscle atrophy Psychiatric: not oriented Hosp A/P (1) Acute renal failure Status: Acute Qualifiers: Acute renal failure type: unspecified Qualified Code(s): N17.9 - Acute kidney failure, unspecified (2) Acute respiratory failure with hypoxia Code(s): J96.01 - ACUTE RESPIRATORY FAILURE WITH HYPOXIA Status: Acute (3) Atrial fibrillation with RVR Code(s): I48.91 - UNSPECIFIED ATRIAL FIBRILLATION Status: Acute (4) CHF (congestive heart failure) Code(s): I50.9 - HEART FAILURE, UNSPECIFIED Status: Acute Qualifiers: Heart failure type: systolic Heart failure chronicity: acute Qualified Code(s): I50.21 - Acute systolic (congestive) heart failure (5) Hypotension Status: Acute Qualifiers: Hypotension type: idiopathic hypotension Qualified Code(s): I95.0 - Idiopathic hypotension (6) Leukopenia Code(s): D72.819 - DECREASED WHITE BLOOD CELL COUNT, UNSPECIFIED Status: Acute Qualifiers: Leukopenia type: neutropenia Neutropenia type: other drug-induced Qualified Code(s): D70.2 - Other drug-induced agranulocytosis (7) PCP (pneumocystis jiroveci pneumonia) Code(s): B59 - PNEUMOCYSTOSIS Status: Acute (8) Respiratory failure requiring intubation Code(s): J96.90 - RESPIRATORY FAILURE, UNSP, UNSP W HYPOXIA OR HYPERCAPNIA Status: Acute (9) Sepsis associated hypotension Code(s): A41.9 - SEPSIS, UNSPECIFIED ORGANISM; I95.9 - HYPOTENSION, UNSPECIFIED Status: Acute (10) Shock Code(s): R57.9 - SHOCK, UNSPECIFIED Status: Acute (11) Atrial fibrillation Code(s): I48.91 - UNSPECIFIED ATRIAL FIBRILLATION Status: Chronic Qualifiers: Atrial fibrillation type: unspecified Qualified Code(s): I48.91 - Unspecified atrial fibrillation (12) CKD (chronic kidney disease) Code(s): N18.9 - CHRONIC KIDNEY DISEASE, UNSPECIFIED Status: Chronic Qualifiers: Chronic kidney disease stage: stage 3 (moderate) Qualified Code(s): N18.3 - Chronic kidney disease, stage 3 (moderate) (13) Pneumonia Code(s): J18.9 - PNEUMONIA, UNSPECIFIED ORGANISM Status: Acute Qualifiers: 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 Laterality: bilateral - Plan Plan: Intensive care unit pulmonology/critical-care consultation, recommendations appreciated Surgery consultation, recommendations appreciated nephrology consultation, recommendations appreciated infectious disease consultation, recommendations appreciated palliative care consultation, recommendations appreciated CT chest per pulm EEG to look for sub clinical seizure CT head noted, no acute pathology MRI brain noted, no acute pathology ventilator support patient's mentation is limiting vent weaning trials at this time pneumocystis jirovecii pneumonia with adverse reaction to Bactrim, on pentamidine per ID broad-spectrum antibiotics have been discontinued per ID continue other home medications as able enteral nutrition blood sugar control Trend renal function Dispostion: prognosis is guarded. Family interested in aggressive measures S/p tracheostomy and PEG tube. LTAC placement eventually. CM consulted for D/c planning.
--- NOTE | 2019-07-15 14:00 | EEG ---
Referring Physician: Yissel MUÑOZ EEG # 20-08 TEST TYPE: ROUTINE PORTABLE INPATIENT REPORT: AN EEG USING THE [employer]NATIONAL TEN-TWENTY SYSTEM OF ELECTRODE PLACEMENT WAS PERFORMED. The background activity is a low amplitude mixed frequency slowing of 3-7 hertz. No sleep wa seen. Photic stimulation was unremarkable. No epileptiform features were seen. IMPRESSION: THIS IS AN ABNORMAL STUDY FOR THE FINDINGS OF DIFFUSE SLOWING CONSISTENT WITH DIFFUSE ENCEPHALOPATHY. Candle Cutter: TRISH Mold Holder: [email or web address] WEATHERS
[2019-07-15 14:23] VITALS: TEMP 98.7
--- NOTE | 2019-07-15 14:23 | PDOC.PALPN ---
Palliative Progress Note - Subjective remain mechanically ventilated via trach, encephalopathic, no purposeful movement with gentle stimulation. Has developed a new incidence of pneumonia - Objective Vital Signs: Vital Signs - Most Recent Temp Pulse Resp BP Pulse Ox 99.5 F 116 H 33 H 122/81 93 L 07/15/19 08:00 07/15/19 10:40 07/15/19 14:00 07/15/19 10:40 07/15/19 06:50 - Physical Exam Constitutional: encephalitic, ill appearing HEENT: moist MMs, sclera anicteric Deviation from normal: mechanical ventilation via trach Gastrointestinal: soft, positive bowel sounds Deviation from normal: PEG Genitourinary: juárez catheter Musculoskeletal: edema present, diffuse muscle atrophy Skin: cap refill <2 seconds, fragile Deviation from normal: encephalopathic - Assessment (1) Palliative care encounter Code(s): Z51.5 - ENCOUNTER FOR PALLIATIVE CARE Current Visit: Yes Status: Acute (2) Acute renal failure Current Visit: Yes Status: Acute Qualifiers: Acute renal failure type: unspecified Qualified Code(s): N17.9 - Acute kidney failure, unspecified (3) Acute respiratory failure with hypoxia Code(s): J96.01 - ACUTE RESPIRATORY FAILURE WITH HYPOXIA Current Visit: Yes Status: Acute (4) PCP (pneumocystis jiroveci pneumonia) Code(s): B59 - PNEUMOCYSTOSIS Current Visit: Yes Status: Acute (5) Respiratory failure requiring intubation Code(s): J96.90 - RESPIRATORY FAILURE, UNSP, UNSP W HYPOXIA OR HYPERCAPNIA Current Visit: Yes Status: Acute - Plan Plan: Dr Llanos met with Kate and discussed recurrent pneumonia and lack of improvement related to overall clinical status. Kate has decided to transition from aggressive measures to comfort care for patient. Mr Ernestina vasquez are out of town as one of their daughters is getting 07/16/2019. Hellen has friends with her at bedside. [place] contacted for further spiritual support. Met with Kate and allowed her to express her feelings, therapeutic listening. Patient bed placed in low position and Kate encouraged to sit at bedside with her . Will continue to support as needed. [40] minutes spent on this encounter with >50% of the time in counseling and coordination of care. - ROS Non Response: due to endotracheal tube, due to mental status
[2019-07-15] MEDS ORDERED: Iopamidol-370 76% 500 ML 1 ML ONE (15:20)
--- NOTE | 2019-07-16 01:27 | DIS ---
DATE OF ADMISSION: 06/20/2019 DATE OF DISCHARGE: 07/15/2019 REASON FOR HOSPITALIZATION: Sepsis. 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 The patient from cardiopulmonary arrest after the family elected to withdraw care on 07/15/2019. PROCEDURES PERFORMED AND TREATMENTS RENDERED: The patient had a 26-day hospital course-please see full hospital record for details, please look at the history and physical from internal medicine physician, progress notes, consultation notes from cable television program director, Infectious Disease, Surgery, Palliative Care, Cardiology, Radiology, Nephrology, and log cutter for full details. The patient presented to hospital on 06/19/2019, with generalized weakness. The patient was later identified to have pneumonia with confirmed Pneumocystis jiroveci pneumoniae and the patient was titrated on antibiotics appropriately by Infectious Disease specialist. 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 The patient underwent bronchoscopy on 06/21/2019-please see full operative report for details. The patient underwent MRI of the brain on 06/22/2019-please see full radiographic report for details-the patient was found to have no acute intracranial process and there was no acute CVA, mass, or other reversible process. The patient had acute kidney injury and required treatment by Nephrology-please see full consultation notes and progress notes for details. With maximum medical efforts by Nephrology, the patient's renal function did recover from overwhelming sepsis and his renal function normalized without hemodialysis. Unfortunately, with Pneumocystis jiroveci pneumoniae, the patient did not have much clinical improvement. The patient was unable to be safely weaned from the ventilator and the family elected for tracheostomy and PEG tube placement, which was performed by Dr. Butler on 07/12/2019-please see full operative report for details. The patient tolerated this procedure well without intraoperative complications. The patient was seen by a different pill coater afterwards who recommended less aggressive measures. Please see full consultation notes and progress notes from Dr. Llanos for details. After long discussions with Dr. Llanos and Palliative Care nurse practitioner, Nayeli Francis, the family elected for less aggressive measures and elected to withdraw care in the afternoon of 07/15/2019. After withdrawal of care, the patient that afternoon from cardiopulmonary arrest with overwhelming sepsis from pneumonia. Please see full nursing report for details. The patient peacefully from cardiopulmonary arrest, surrounded by his family and loved ones. CONDITION ON DISCHARGE: . SPECIFIC INSTRUCTIONS FOR THE PATIENT/FAMILY: 1. The patient is recommended safe for discharge to mortuary of family's selection. 2. All further care to be handled by mortuary. 3. Further information can be obtained from medical records if desired by family. DISCHARGE MEDICATIONS: Not applicable. TIME SPENT: Greater than 40 minutes spent coordinating care and discharge process for this patient. Job ID: [id number]
== END 2019-07-15 17:30 | disposition expired | DRG 4 ==
LOC: ERS 09:15 → 2SW 17:14 → OBSVTOIN 06-20 10:10 → CCU 06-20 12:24
PROVIDERS: ADMIT Family Medicine; ATTEND Internal Medicine
PROC: 0B9D8ZX Drainage of Right Middle Lung Lobe, Via Natural or Artificial Opening Endoscopic, Diagnostic (ICD-10-PCS; principal; 2019-06-21)
PROC: 0BH17EZ Insertion of Endotracheal Airway into Trachea, Via Natural or Artificial Opening (ICD-10-PCS; 2019-06-21)
PROC: 5A1955Z Respiratory Ventilation, Greater than 96 Consecutive Hours (ICD-10-PCS; 2019-06-21)
PROC: 3E033XZ Introduction of Vasopressor into Peripheral Vein, Percutaneous Approach (ICD-10-PCS; 2019-07-04)
PROC: 0B113F4 Bypass Trachea to Cutaneous with Tracheostomy Device, Percutaneous Approach (ICD-10-PCS; 2019-07-12)
PROC: 0DH63UZ Insertion of Feeding Device into Stomach, Percutaneous Approach (ICD-10-PCS; 2019-07-12)
DX: A41.1 Sepsis due to other specified staphylococcus (principal); B59 Pneumocystosis; R65.21 Severe sepsis with septic shock; J96.01 Acute respiratory failure with hypoxia; N17.0 Acute kidney failure with tubular necrosis; G93.41 Metabolic encephalopathy; I50.21 Acute systolic (congestive) heart failure; B37.0 Candidal stomatitis; I48.19 Other persistent atrial fibrillation; D80.3 Selective deficiency of immunoglobulin G [IgG] subclasses; G72.81 Critical illness myopathy; Z66 Do not resuscitate; Z51.5 Encounter for palliative care; I46.8 Cardiac arrest due to other underlying condition; Z96.642 Presence of left artificial hip joint; E78.5 Hyperlipidemia, unspecified; I48.0 Paroxysmal atrial fibrillation; G47.33 Obstructive sleep apnea (adult) (pediatric); N18.3 Chronic kidney disease, stage 3 (moderate); N40.0 Benign prostatic hyperplasia without lower urinary tract symptoms; E87.5 Hyperkalemia; E87.6 Hypokalemia; Z88.5 Allergy status to narcotic agent; Z88.2 Allergy status to sulfonamides; Z88.8 Allergy status to other drugs, medicaments and biological substances; Z79.899 Other long term (current) drug therapy; Z79.01 Long term (current) use of anticoagulants
CPT/HCPCS: 36415; 36416; 70450; 70551; 70553; 71045; 71250; 71275; 76770; 80048; 80053; 80162; 80202; 81001; 82533; 82553; 82570; 82805; 82955; 83036; 83605; 83735; 83880; 83970; 84100; 84145; 84156; 84443; 84484; 85007; 85025; 85027; 85041; 85379; 85652; 86140; 87040; 87070; 87077; 87102; 87116; 87149; 87186; 87206; 87389; 87633; 88112; 88312; 93005; 93010; 93306; 93970; 94002; 94003; 94640; 94642; 94660; 95816; 95819; 96360; 96361; A9579; C9113; J1160; J1630; J1720; J1940; J2020; J2060; J2185; J2248; J2250; J2543; J2704; J2765; J2920; J3010; J3370; J3480; J3490; J7050; J7070; J7509; J7512; J7620; P9047; Q0163; Q9967; S0028